=== PATIENT | male | born 1940 | race Caucasian/White ===

== ENCOUNTER → 2016-08-10 | Outpatient (CLI) | payer MEDICARE, OTHER ==
--- NOTE | 2016-08-11 12:24 | XCELERA REPORT ---
[address] [address] Upper Extremity Venous Evaluation Name: PRAFUL PUTNAM Age: 76 yrs Gender: Male : 1940 Patient Status: Preadmit Patient Location: Study Date: 08/10/2016 12:42 PM Procedure: Unilateral duplex scan of the left upper extremity veins was performed, including responses to compression and other maneuvers. Reason For Study: LUE SWELLING Ordering Physician: GEORGETTE LEUNG Performed By: Roro Ivey Left Sided Venous Evaluation Normal vessel filling wall to wall, compression and augmentation as well as Colour flow down to the infrageniculate veins. Interpretation Summary Normal compression, patency, spontaneous and phasic flow of the left upper extremity veins. : GEORGETTE LEUNG > Henry Morse
== END ==
LOC: SP 12:36
PROVIDERS: ATTEND Nurse Practitioner Acute Care
DX: M79.89 Other specified soft tissue disorders (principal)
CPT/HCPCS: 93971

== ENCOUNTER → 2017-02-07 | Outpatient (CLI) | payer MEDICARE, OTHER ==
--- NOTE | 2017-02-07 10:51 | RADIOLOGY REPORT (SQ) ---
EXAM DESCRIPTION: CT CHEST WITH COMPLETED DATE/TIME: 02/07/2017 9:20 am REASON FOR STUDY: PROSTATE CA (C61) C61 MALIGNANT NEOPLASM OF PROSTATE COMPARISON: None. TECHNIQUE: CT scan of the chest performed using helical scanning technique with dynamic intravenous contrast injection. Images reviewed with lung, soft tissue and bone windows. Reconstructed coronal and sagittal MPR images reviewed. All images stored on PACS. All CT scanners at this facility use dose modulation, iterative reconstruction, and/or weight based d osing when appropriate to reduce radiation dose to as low as reasonably achievable (ALARA). [facility]: Dose Right [facility]: CareDose [facility]: Dose Right [facility]: Teradose 4D [facility]: Smart Helios CONTRAST TYPE AND DOSE: See separate report of the same date. RENAL FUNCTION: See separate report of the same day. RADIATION DOSE: . LIMITATIONS: None. FINDINGS: LUNGS AND PLEURA: Trace right pleural effusion volume estimated less than 500 cc. No nodu les. HILAR AND MEDIASTINAL STRUCTURES: No identified masses or abnormal nodes. HEART AND VASCULAR STRUCTURES: Cardiomegaly. Pacemaker. No pericardial effusion. HARDWARE: None in the chest. UPPER ABDOMEN: See separate report of the CT of the abdomen. THYROID AND OTHER SOFT TISSUES: No masses. No adenopathy. BONES: Diffuse sclerotic metastatic lesions. No pathologic fracture. OTHER: No other significant finding. IMPRESSION: Skeletal metastasis. TECHNICAL DOCUMENTATION: JOB ID: [id number] Quality ID # 436: Final reports with documentation of one or more dose reduction techniques (e.g., Au tomated exposure control, adjustment of the mA and/or kV according to patient size, use of iterative reconstruction technique) 2010 .[employer]- All Rights Reserved
--- NOTE | 2017-02-07 11:06 | RADIOLOGY REPORT (SQ) ---
EXAM DESCRIPTION: CT ABD/PELVIS WITH IV ORAL COMPLETED DATE/TIME: 02/07/2017 9:20 am REASON FOR STUDY: PROSTATE CA (C61) C61 MALIGNANT NEOPLASM OF PROSTATE COMPARISON: CT chest same date TECHNIQUE: CT scan of the abdomen and pelvis performed using helical scanning technique with dynamic intravenous contrast injection. Patient drank oral contrast. Images reviewed with lung, soft tissue , and bone windows. Reconstructed coronal and sagittal MPR images reviewed. Delayed images for evalua tion of the urinary system also acquired. All images stored on PACS. All CT scanners at this facility use dose modulation, iterative reconstruction, and/or weight based d osing when appropriate to reduce radiation dose to as low as reasonably achievable (ALARA). [facility]: Dose Right [facility]: CareDose [facility]: Dose Right [facility]: Teradose 4D [facility]: Edico Genome CONTRAST TYPE AND DOSE: contrast/concentration: Isovue 370.00 mg/ml; Total Contrast Delivered: 91.0 ml; Total Saline Delivered: 70.0 ml RENAL FUNCTION: Creatinine 0.7 RADIATION DOSE: Up-to-date CT equipment and radiation dose reduction techniques were employed. CTDIv ol: 9.6 - 11.4 mGy. DLP: 1406 mGy-cm.. LIMITATIONS: None. FINDINGS: LOWER CHEST: Trace right pleural effusion. Large retrocardiac hiatal hernia containing th e stomach fundus. LIVER: Normal size. No masses. No dilated ducts. SPLEEN: Normal size. No focal lesions. PANCREAS: No masses. No significant calcifications. No adjacent inflammation or peripancreatic fluid collections. Pancreatic duct not dilated. GALLBLADDER: No identified stones by CT criteria. No inflammatory changes to suggest cholecystitis. ADRENAL GLANDS: No significant masses or asymmetry. RIGHT KIDNEY AND URETER: No solid masses. No significant calcifications. No hydronephrosis or hyd roureter. LEFT KIDNEY AND URETER: No solid masses. No significant calcifications. No hydronephrosis or hydr oureter. AORTA AND VESSELS: No aneurysm. No dissection. Renal arteries, SMA, celiac without stenosis. RETROPERITONEUM: No retroperitoneal adenopathy, hemorrhage or masses. BOWEL AND PERITONEAL CAVITY: Patient drank oral contrast. In the sigmoid colon, an apple-core mass i s present with luminal narrowing compatible with malignancy. This is best shown on axial image 53-62 , and sagittal images 33-45. Oral contrast is seen throughout the remainder of the gastrointestinal tract without obstruction. Th ere is a small umbilical hernia containing a nonobstructed small bowel loop, best shown on sagittal i mage 41. APPENDIX: Normal. PELVIS: Overall the prostate is normal size. However there is a 2 cm nodule protruding off the super ior edge of the prostate indenting the bladder base. No adenopathy. No free fluid. ABDOMINAL WALL: Tiny umbilical hernia containing a nonobstructed small bowel loop BONES: There are multiple sclerotic lesions throughout the skeleton from bony metastatic disease like ly from the prostate. Heavy is burden of disease is in the left innominate bone along the acetabulum , left intertrochanteric region, and at the T11 and T10 vertebral bodies. IMPRESSION: Findings worrisome for large primary colon cancer in the sigmoid colon. Sclerotic bony metastatic disease from patient's known prostate cancer. TECHNICAL DOCUMENTATION: JOB ID: [id number] Quality ID # 436: Final reports with documentation of one or more dose reduction techniques (e.g., Au tomated exposure control, adjustment of the mA and/or kV according to patient size, use of iterative reconstruction technique) 2010 [employer]- All Rights Reserved
--- NOTE | 2017-02-07 13:23 | RADIOLOGY REPORT (SQ) ---
EXAM DESCRIPTION: NM WHOLE BODY BONE SCAN COMPLETED DATE/TIME: 02/07/2017 12:28 pm REASON FOR STUDY: PROSTATE CA (C61 C61 MALIGNANT NEOPLASM OF PROSTATE COMPARISON: 03/31/2016 RADIONUCLIDE AND DOSE: 20 millicuries Tc99m HDP. The route of agent administration: Intravenous. ADDITIONAL DRUGS AND DOSES: None. TECHNIQUE: Routine delayed images at 3 hours post radionuclide injection acquired of the bony skelet on including anterior and posterior whole-body projections and additional focused images as needed. LIMITATIONS: None. FINDINGS: BONES: Images show increasing metastatic disease to bone. There are multiple lesions in t he ribs, spine, sacrum, and pelvis. New lesions are suggested in the sacrum and in the spine. KIDNEYS: Symmetric excretion without obstruction. OTHER: No other significant finding. IMPRESSION: Increasing, widespread metastatic disease to bone. COMMENT: Quality measure 147: Compared with prior nuclear medicine bone scan. TECHNICAL DOCUMENTATION: JOB ID: [id number] [employer]- All Rights Reserved
== END ==
LOC: RAD 02-05 09:32
PROVIDERS: ATTEND Internal Medicine Hematology & Oncology
DX: C61 Malignant neoplasm of prostate (principal)
CPT/HCPCS: 78306; 71260; 74177; A9561; Q9969

== ENCOUNTER 2017-02-22 06:51 | Day surgery (SDC) | payer MEDICARE, OTHER ==
[2017-02-22] MEDS ORDERED: GLYCOPYRROLATE INJ 0.4 MG/2 ML VIAL ONE (07:09)
[2017-02-22] MEDS ORDERED: ONDANSETRON HCL INJ/PF 4 MG/2 ML SDV ONE (07:09)
[2017-02-22] MEDS ORDERED: FLUMAZENIL INJ 0.5 MG/5 ML VIAL ONE (07:10)
[2017-02-22] MEDS ORDERED: NALOXONE HCL INJ/PF 0.4 MG/1 ML SDV ONE (07:10)
[2017-02-22] MEDS ORDERED: EPINEPHRINE INJ 1 MG/10 ML DISP.SYRIN ONE (07:11)
[2017-02-22] MEDS ORDERED: GLUCAGON,HUMAN RECOMB 1 MG INJ ONE (07:11)
[2017-02-22] MEDS: MIDAZOLAM 2 MG/2 ML INJ ONE ×2 (07:46→07:54)
[2017-02-22] MEDS: FENTANYL CITRATE INJ/PF 100 MCG/2 ML AMPUL ONE ×2 (07:48→07:56)
--- NOTE | 2017-02-22 09:02 | Operative Report ---
Operative Report DATE OF SURGERY: 02/22/17 PREOPERATIVE DIAGNOSIS: 1. Metastatic prostate carcinoma. 2. Correlation sigmoid colon. Postop diagnosis is. 1. obstructing rectosigmoid colon carcinoma. 2. Multiple polyps including rectum, left: A 65 cm, left: 55 cm. 3. Extensive sigmoid diverticulosis POSTOPERATIVE DIAGNOSIS: As above OPERATION: 1. Total colonoscopy to cecum. 2. Cecal, left colon 2 polypectomy. 3. Multiple biopsies of rectosigmoid carcinoma SURGEON: SANDRA VACA ANESTHESIA: Moderate Sedation TISSUE REMOVED OR ALTERED: See below for multiple mucosal biopsies and polyps COMPLICATIONS: None ESTIMATED BLOOD LOSS: Scant INTRAOPERATIVE FINDINGS: See below PROCEDURE: Obtaining informed consent the patient was taken from the preoperative holding area to the main endoscopy suite where monitoring devices were attached to the patient. Plan and surgical timeout were conducted The patient was placed in the left lateral decubitus position with knees to chest. A perianal examination was performed. There was no visible or palpable anorectal pathology. Sphincter tone was felt to be normal. The flexible adult colonoscope was advanced through the anal rectal canal, all the way to the cecum. Upon advancement of the scope to approximately 15 cm, we counted the elongated, nearly circumferential, partially obstructing rectosigmoid colon cancer. It was fungating, eroding, with areas of necrosis. Multiple photos were taken. We were able to insinuate the colonoscope past the obstruction. Appeared to extend over approximately 5 cm distance possibly up to 8 from 15 to approximately 20 cm in the anal verge. The scope was advanced all the way to the cecum; with visualization of the cecum was achieved and the ileocecal valve, the appendiceal orifice and transillumination of the anterior abdominal wall. The appendiceal orifice was also visualized whether there was a moderate amount of green and yellow particulate stool which had to be suctioned out. The cecum across from the ileocecal valve was a sessile polyp which was removed with a hot snare device medium heat. Unfortunately specimen was not retrieved successfully. The colonoscope was withdrawn slowly and methodically checked and the mucosa carefully. There were multiple areas of irregularity of the mucosa some of which resembled sessile polyps; some of these areas may have been lymphoid hyperplasia. 2 such areas were biopsied one at 65 cm from anal verge and one approximately 55 cm in the anal verge. The latter specimen was labeled as left colon polyp. Both of these areas were removed with cold forceps device. Specimens were retrieved. Throughout the sigmoid colon with extensive sigmoid diverticulosis. We now encountered the tumor in a prograde fashion. Multiple biopsies were obtained. Bleeding was moderate then stopped. The scope was slowly withdrawn through the anal rectal canal. Complete visualization of the rectum was achieved with photodocumentation. The scope was withdrawn to the patient's anus. The patient tolerated the procedure well and was taken to the recovery area in stable condition. Patient will require definitive surgical intervention pending results of pathology reports.
--- NOTE | 2017-02-22 09:04 | PDOC DISCHARGE SUMMARY ---
Discharge Summary (SDC) - Discharge Final Diagnosis: 1. Near obstructing colon carcinoma 2. Multiple colon polyps 3. Sigmoid diverticulosis Date of Surgery: 02/22/17 Discharge Date: 02/22/17 Condition: Good Treatment or Instructions: [facility] [address] [address] POST ENDOSCOPY DISCHARGE INSTRUCTIONS 1. Diet: Start clear liquids that a regular diet as tolerated. 2. Resume all preoperative medications. All oral anticoagulants and aspirins can be resumed 24 hours after procedure. 3. If a polypectomy was performed some bleeding per rectum may occur. This should stop within 3 days. If not, please contact the office. 4. If you had a colonoscopy you may experience some bloating and delayed return of normal bowel function for several days, your regular bowel movement pattern should resume within a week. 5. Please contact [facility] at to make an appointment with Dr. Porter for 1 to 3 weeks following procedure. 6. If you have any questions or concerns regarding your care,treatment plan or follow up, please contact our office. 7. She will require definitive surgical intervention for his malignancy. Referrals: JYOTI PEPE MD [Primary Care Provider] -
[2017-02-22 09:42] VITALS: BP 132/60
== END 2017-02-22 10:12 | disposition home or self-care (01) ==
LOC: END 06:51
PROVIDERS: ATTEND Surgery
PROC: 0DBP8ZX Excision of Rectum, Via Natural or Artificial Opening Endoscopic, Diagnostic (ICD-10-PCS; 2017-02-22)
PROC: 0DBG8ZX Excision of Left Large Intestine, Via Natural or Artificial Opening Endoscopic, Diagnostic (ICD-10-PCS; principal; 2017-02-22 07:30)
PROC: 0DBN8ZX Excision of Sigmoid Colon, Via Natural or Artificial Opening Endoscopic, Diagnostic (ICD-10-PCS; 2017-02-22 07:30)
DX: C19 Malignant neoplasm of rectosigmoid junction (principal); K57.30 Diverticulosis of large intestine without perforation or abscess without bleeding; D12.0 Benign neoplasm of cecum; K63.5 Polyp of colon; K62.5 Hemorrhage of anus and rectum; C61 Malignant neoplasm of prostate; R00.1 Bradycardia, unspecified; Z95.0 Presence of cardiac pacemaker; Z79.899 Other long term (current) drug therapy
CPT/HCPCS: 45380; 45385; 88305 ×2; J2250; J3010; J0171; J1610; J2310; J2405; J3490

== ENCOUNTER 2017-03-21 05:33 | Inpatient (IN) | payer MEDICARE, OTHER ==
[2017-03-14 12:01] LABS: ABSOLUTE LYMPHOCYTES (AUTO) 1.5 10^3/uL (0.5-4.7); ABSOLUTE MONOCYTES (AUTO) 1.4 10^3/uL (0.1-1.4); ABSOLUTE NEUT (AUTO) 7.3 10^3/uL (1.7-8.2); BASOPHILS % (AUTO) 0.3 % (0-2); EOSINOPHILS % (AUTO) 0.3 % (0-6); HEMATOCRIT 32.7 % (37.9-51.0); HEMOGLOBIN 11.4 g/dL (13.5-17.0); HGB HCT DIFFERENCE 1.5; MEAN CORPUSCULAR HEMOGLOBIN 31.7 pg (27.0-33.4); MEAN CORPUSCULAR VOLUME 90 fl (80-97); MONOCYTES % (AUTO) 13.3 % (3-13); RED BLOOD COUNT 3.61 10^6/uL (4.35-5.55); RED CELL DISTRIBUTION WIDTH 14.5 % (11.5-14.0); SEGMENTED NEUTROPHILS % (AUTO) 71.1 % (42-78); WHITE BLOOD COUNT 10.2 10^3/uL (4.0-10.5)
[2017-03-14 12:24] LABS: ANION GAP 8 (5-19); BLOOD UREA NITROGEN 8 mg/dL (7-20); CALCIUM 9.3 mg/dL (8.4-10.2); CARBON DIOXIDE 31 mmol/L (22-30); CHLORIDE 96 mmol/L (98-107); CREATININE RESULT 0.59 mg/dL (0.52-1.25); GLUCOSE 102 mg/dL (75-110); POTASSIUM 4.8 mmol/L (3.6-5.0); SODIUM 135.3 mmol/L (137-145)
--- NOTE | 2017-03-15 21:44 | EKG REPORT ---
SEVERITY:- ABNORMAL ECG - AFIB/FLUTTER AND VENTRICULAR-PACED RHYTHM : Confirmed by: Susanne Felipe 15-Mar-2017 21:44:24
[~2017-03-21 05:33] MED LIST: CEFAZOLIN 1 GM/D5W RTU 1 GM/50 ML RTUPB IV PRN
[2017-03-21] MEDS ORDERED: FENTANYL CITRATE INJ/PF 250 MCG/5 ML AMPULE ONE (06:36)
[2017-03-21] MEDS ORDERED: LIDOCAINE 2% INJ-PF (20 MG/ML) 10 ML AMPUL ONE (06:36)
[2017-03-21] MEDS ORDERED: MIDAZOLAM 2 MG/2 ML INJ ONE (06:37)
[2017-03-21] MEDS ORDERED: EPHEDRINE SULFATE INJ 50 MG/1 ML AMPULE ONE (06:37)
[2017-03-21] MEDS ORDERED: ONDANSETRON HCL INJ/PF 4 MG/2 ML SDV ONE (06:37)
[2017-03-21] MEDS ORDERED: DEXAMETHASONE SOD PHOSPHATE INJ 4 MG/1 ML VIAL ONE (06:37)
[2017-03-21] MEDS ORDERED: HYDROMORPHONE HCL INJ/PF 2 MG/ML AMPULE ONE (06:37)
[2017-03-21] MEDS ORDERED: PROPOFOL INJ 200 MG/20 ML VIAL IV ONE (06:38)
[2017-03-21] MEDS ORDERED: ACETAMINOPHEN 100 ML IV ONE (06:38)
[2017-03-21] MEDS ORDERED: BUPIVACAINE INJ/PF LIPOSOME/PF 266 MG/20 ML SDV ONE (06:50)
[2017-03-21] MEDS ORDERED: BUPIVACAINE HCL 0.25 % INJ/PF (2.5 MG/1 ML) 30 ML VIAL ONE (06:50)
[2017-03-21] MEDS ORDERED: ONDANSETRON HCL INJ/PF 4 MG/2 ML SDV IV PRN ×2 (08:26→10:16)
[2017-03-21] MEDS ORDERED: PROMETHAZINE HCL INJ 25 MG/1 ML VIAL IV PRN ×2 (08:26)
[2017-03-21] MEDS ORDERED: OXYCODONE-ACETAMINOPHEN 5-325 MG TABLET PO PRN ×2 (08:26)
[2017-03-21] MEDS ORDERED: FENTANYL CITRATE INJ/PF 100 MCG/2 ML AMPUL IV PRN ×3 (08:26)
[2017-03-21] MEDS ORDERED: MORPHINE SULFATE 10 MG/ML INJ IV PRN (08:26)
[2017-03-21] MEDS ORDERED: MEPERIDINE HCL/PF INJ 25 MG/1 ML DISP.SYRIN IV PRN (08:26)
[2017-03-21] MEDS ORDERED: DIPHENHYDRAMINE HCL 50 MG/ML VIAL IV PRN (08:26)
[2017-03-21] MEDS ORDERED: GLUCAGON,HUMAN RECOMB 1 MG INJ SUBCUT PRN (09:55)
[2017-03-21] MEDS ORDERED: DEXTROSE 40% GEL 15 GM TUBE PO PRN ×2 (09:55)
[2017-03-21] MEDS ORDERED: DEXTROSE 50%-WATER 25 GM/50 ML DISP.SYRIN IV PRN ×2 (09:55)
[2017-03-21] MEDS ORDERED: PHARMACY COMMUNICATION ORDER MC NR (10:00)
[2017-03-21] MEDS ORDERED: KETOROLAC TROMETHAMINE INJ/PF 30 MG/1 ML SDV IV PRN (10:00)
--- NOTE | 2017-03-21 10:11 | Operative Report ---
Operative Report DATE OF SURGERY: 03/21/17 PREOPERATIVE DIAGNOSIS: 1. Near obstructing upper rectal cancer. 2. Metastatic prostate carcinoma POSTOPERATIVE DIAGNOSIS: Same OPERATION: 1. Exploratory laparotomy. 2. Low anterior resection. 3. Descending colostomy with maturation SURGEON: SANDRA ORDONEZ CLAM TREADER: CHICO DOWNEY ANESTHESIA: GA TISSUE REMOVED OR ALTERED: Rectosigmoid colon. COMPLICATIONS: None ESTIMATED BLOOD LOSS: 100 cc he INTRAOPERATIVE FINDINGS: See below PROCEDURE: The patient was taken to the preop holding her to the main operating room where general anesthesia was induced. Arms were abducted, Davis catheter was inserted uneventfully clear yellow urine returned. The abdomen was exposed, hair clipped, prepped and draped sterile fashion. Surgical plan and surgical timeout were reviewed. The abdomen was opened through standard midline incision above and below the umbilicus taken down to the suprapubic area. The peritoneal cavity was entered uneventfully and a Bookwalter retractor was established for optimum exposure. Visualization of peritoneal cavity and careful manual inspection revealed a large bulky upper rectal tumor, with adhesions between the sigmoid junction and the right wall. Is no evidence of carcinomatosis. By limited visual and manual inspection, the right lobe of the liver left lobe anterior surface of the stomach, greater omentum, and small bowel no evidence of metastatic disease. We secured the retractors to optimize exposure to the patient's pelvis. With rectosigmoid colon swept to the patient's right side, we opened up the white line of Toldt, and the rectosigmoid mesial colon from the left posterior posterior lateral pelvic wall. The plane very cleanly. We took the level of dissection the mid to proximal descending colon. The splenic flexure was not mobilized. Distally we took the level dissection down over the pelvic brim down into the true pelvis and then down to the peritoneal reflection, again opening up the tinea uneventfully. Note the retroperitoneum deep to this was not opened. We did visualize the mid first of the left ureter throughout the dissection and protected. We then divided the scirrhous reaction between the pericolonic tissue and the lateral pelvic wall. This was done using a combination of blunt and electrocautery dissection. Once this was achieved, the rectosigmoid colon was loose and floppy in the free peritoneal space. We divided the rectum and sigmoid mesial colon are selected point of transection of the descending colon down to the true pelvis and towards the peritoneal reflection, then joining our previous line of dissection cheerier to the upper rectum. Again on the patient' s right mesial colonic side there was Daniel changes, but these were felt secondary to the inflammatory process of the large bulky tumor and not tito malignancy. Suitable site for transection of the descending colon was chosen. The ascending colon was transected with a single firing of the blue load, RUDI 55 stapler. The attendant colonic mesentery was taken down using the LigaSure handheld device with excellent control and minimal bleeding. We will likely distal to the main main left colic artery however this was difficult to discern because the thick fatty nature of the mesial colon. The level of dissection down to the sacral promontory and then down by the upper rectum. Now the level of dissection was taken down again using the device dividing the inferior lateral right and left side ocular pedicles to the upper rectum. Fortunately some in mobilized very nicely and we able to get distal purchase on the mid rectum elevating it with the specimen. We cleared the pericolonic fat and chose suitable site for division of the rectum several centimeters distal to the inferior end of the tumor based on luminal palpation. Again the tumor was principally in the upper rectum and so we are about to divide the rectum at its transition to the mid rectum. He was thereby affected using a single firing of the contour Ethicon stapler, 45 mm. Transected, the specimen was elevated out of the patient examined on the back table, opened longitudinally and inspected and found to have a near obstructing rectal cancer. We changed gloves gowns and return to the peritoneal cavity checked for bleeding there was none. Again inspected the left ureter and it was in great shape. The right ureter likely to the scirrhous maturity peritoneum which we opted not to dissected out. The patient was making excellent urine without evidence of hematuria. We felt the pelvis was safe for departure. We now mobilized little bit more of the white line of Toldt freeing up the descending colon. A suitable site for maturation of the colostomy was identified, left lateral to the umbilicus. Plug of skin was removed with electrocautery, as well as the attendant is fat. A longitudinal incision was made in the anterior and posterior rectus sheath and a myotomy made bluntly. This was developed large enough to accommodate to adult fingers. We then brought the descending colon up to the intra-abdominal wall checking care not to twist it. We Were very satisfied with the leg, configuration, and vascularity of the table gland. This point we check for sponge and needle counts and they were all correct. We reexamined the pelvis and there is no bleeding. We opted out of placing a drain. The abdomen was closed with 2 double-stranded #1 PDS sutures and skin approximated with teresa. Of note we did change instruments gloves prior to closing the midline incision We now matured the ostomy by stapler with electrocautery, and maturing full- thickness of bowel wall to surrounding dermis with 3 and 4-0 Vicryl suture. I reinspected the knee by manually digitizing it and I was satisfied with the degree of opening as it was not too tight. I did by the anterior rectus fascia laterally millimeters to reduce tension here. Exparel, diluted 100% total volume of 40 cc was injected into the subcutaneous tissue and left of midline incision. Ostomy appliance midline dressings applied. Patient tolerated the procedure well, extubated, and taken recovery room in stable condition. The physician retirement assistant, Ms. Worthington, provided assistance during this case by: assisting retracting tissue, instillation of local anesthesia and closure of skin incisions.
[2017-03-21] MEDS ORDERED: OXYCODONE-ACETAMINOPHEN 5-325 MG TABLET NG PRN ×2 (11:00)
[2017-03-21] MEDS ORDERED: GLYCOPYRROLATE INJ 0.4 MG/2 ML VIAL ONE (12:19)
[2017-03-21] MEDS ORDERED: SUCCINYLCHOLINE CHLORIDE INJ 200 MG/10 ML VIAL ONE (12:19)
[2017-03-21] MEDS ORDERED: NEOSTIGMINE METHYLSULFATE 10 MG/10 ML VIAL ONE (12:19)
[2017-03-21] MEDS ORDERED: VECURONIUM BROMIDE INJ 10 MG VIAL IV ONE (12:19)
[2017-03-21] MEDS: ENOXAPARIN SODIUM INJ 40 MG/0.4 ML DISP.SYRIN SUBCUT SCH (13:37)
[2017-03-21] MEDS: AMPICILLIN SODIUM/SULBACTAM NA 3 GM in NORMAL SALINE 100 ML IV SCH ×2 (14:25→22:35)
[2017-03-21] MEDS: DEXTROSE 5%-LACTATED RINGERS 1,000 ML IV PRN (14:28)
[2017-03-21] MEDS: ACETAMINOPHEN 100 ML IV SCH ×2 (17:46→23:43)
[2017-03-22] MEDS: ACETAMINOPHEN 100 ML IV SCH (05:27)
[2017-03-22] MEDS: AMPICILLIN SODIUM/SULBACTAM NA 3 GM in NORMAL SALINE 100 ML IV SCH (06:12)
[2017-03-22] MEDS: ENOXAPARIN SODIUM INJ 40 MG/0.4 ML DISP.SYRIN SUBCUT SCH (10:32)
--- NOTE | 2017-03-22 12:46 | PDOC PROGRESS REPORT ---
Subjective Progress Note for:: 03/22/17 Subjective:: Patient is sitting in the chair, walked today in the halls with assistance. Davis catheter remains in. Nasogastric tube removed. He is drawing 1200 on the incentive spirometer, and can cough reasonably well. Physical Exam Vital Signs: Temp Pulse Resp BP Pulse Ox 97.6 F 70 15 97/47 L 98 03/22/17 07:33 03/22/17 07:33 03/22/17 07:33 03/22/17 07:33 03/22/17 11:46 Pulse Oximeter Continuous Start: 03/21/17 16: 23 Freq: RTQ4 Status: Active Document 03/22/17 11:46 HCR (Rec: 03/22/17 11:46 HCR [email or web address]) Pulse Oximetry Assessment Oxygen Saturation (92-100) 98 Oxygen Delivery Method Room Air Fraction of Inspired Oxygen (FIO2) 21 Equipment Usage Equipment in Use Continuous SpO2 Machine # 14 Intake & Output 03/21/17 03/22/17 03/23/17 06:59 06:59 06:59 Intake Total 0 4400 Output Total 1900 Balance 0 2500 Weight 88.7 kg General appearance: PRESENT: no acute distress Head exam: PRESENT: other Respiratory exam: PRESENT: other - Some rhonchi bilaterally GI/Abdominal exam: PRESENT: other - Soft nontender no peritoneal signs no rigidity. Postoperative dressing intact. Ostomy pink, no fluid or gas. Results Laboratory Results: 03/14/17 11:20 03/21/17 05:58 Assessment & Plan - Diagnosis (1) Rectal carcinoma Is this a current diagnosis for this admission?: Yes Plan: Patient is one day status post open low anterior resection, Artman's pouch and descending diverting colostomy. Doing well thus far, no complications. Pain appropriately managed. Await resolution of ileus. Plan: 1. Continue vigorous pulmonary toilet 2. Will recruit Dr. Smith and hospitalist service to assist with medical management including timing of resumption of diuretics. 3. Patient has a history of nocturia and frequency; will leave Davis catheter in for now. (2) Metastatic malignant neoplasm to prostate Is this a current diagnosis for this admission?: Yes Plan: We will discuss management of patient's anti-hormonal therapy with his medical oncologist. - Time Time Spent with patient: 15-24 minutes Critical Time spent with patient: Less than 15 minutes
[2017-03-22] MEDS ORDERED: KETOROLAC TROMETHAMINE INJ/PF 30 MG/1 ML SDV IV PRN (13:50)
--- NOTE | 2017-03-22 17:55 | PDOC CONSULTATION ---
Consultation Consult Date: 03/22/17 Attending physician:: SANDRA VACA Consult reason:: Timing of when to start back diuretic therapy. History of Present Illness Admission Date/PCP: 03/21/17 05:33 JYOTI PEPE MD Patient complains of: Patient just had a colon resection yesterday for a colon cancer. History of Present Illness: PRAFUL PUTNAM is a 77 year old male who had a colon resection and surgery service asked us to managehis diuretic therapy. The patient was recently diagnosed with a near obstructing colon lesion and presented for partial colectomy. Patient also has a history of prostate cancer that is metastatic for which she has been getting injectable hormonal therapy. Patient has been on diuretics and I asked him if this was for his blood pressure and he states he just takes it for lower extremity edema. He denies having any history of congestive heart failure. He denies any shortness of breath or cough. The patient does have some complaints of abdominal pain but he is able to walk down the hallway without difficulty. He denies any chest pain. He does have chronic lower extremity edema but currently has SCDs in place. Past Medical History Cardiac Medical History: Denies: Congestive Heart Failure, Coronary Artery Disease, Myocardial Infarction, Hypertension Pulmonary Medical History: Denies: Asthma, Bronchitis, Chronic Obstructive Pulmonary Disease (COPD), Pneumonia EENT Medical History: Reports: Cataracts Neurological Medical History: Reports: None Renal/ Medical History: Denies: End Stage Renal Disease GI Medical History: Reports: Gastroesophageal Reflux Disease, Hiatal Hernia Denies: Crohn's Disease, Hepatitis Musculoskeltal Medical History: Reports: Arthritis Denies: Fibromyalgia Skin Medical History: Reports: None Psychiatric Medical History: Reports: None Traumatic Medical History: Reports: None Hematology: Reports: Anemia Denies: Sickle Cell Disease Infectious Medical History: Reports: None Past Surgical History Past Surgical History: Reports: Pacemaker Denies: Appendectomy, Cholecystectomy, Colostomy, Coronary Artery Bypass Graft, Gastric Bypass Surgery, Herniorrhaphy, Tonsillectomy Social History Information Source: Patient Lives with: Alone Smoking Status: Never Smoker Frequency of Alcohol Use: Occasional Hx Recreational Drug Use: No Drugs: None Hx Prescription Drug Abuse: No - Advance Directive Resuscitation Status: Full Code Family History Family History: Father's health history is unknown. Mother at age 92 and had no chronic health problems prior to her . Parental Family History Reviewed: Yes Children Family History Reviewed: No Sibling(s) Family History Reviewed.: No Medication/Allergy Home Medications: Furosemide [Lasix 20 mg Tablet] 20 mg PO DAILY 02/21/17 Enzalutamide [Xtandi] 160 mg PO DAILY 03/14/17 Metolazone 5 mg PO DAILY 03/14/17 Spironolactone 25 mg PO DAILY 03/14/17 Calcium Carbonate/Vitamin D3 [Oyster Shell Calcium-Vit D Tab] 1 tab PO DAILY 01/28 Allergies/Adverse Reactions: No Known Allergies Allergy (Verified 03/14/17 10:48) Review of Systems Constitutional: ABSENT: chills, fever(s), headache(s), weight gain, weight loss Eyes: ABSENT: visual disturbances Ears: ABSENT: hearing changes Cardiovascular: PRESENT: edema. ABSENT: chest pain, dyspnea on exertion, orthropnea, palpitations Respiratory: ABSENT: cough, hemoptysis Gastrointestinal: PRESENT: as per HPI Genitourinary: ABSENT: dysuria, hematuria Musculoskeletal: ABSENT: joint swelling Integumentary: ABSENT: rash, wounds Neurological: ABSENT: abnormal gait, abnormal speech, confusion, dizziness, focal weakness, syncope Psychiatric: ABSENT: anxiety, depression Hematologic/Lymphatic: ABSENT: easy bleeding, easy bruising Physical Exam Vital Signs: Temp Pulse Resp BP Pulse Ox 97.6 F 71 18 124/60 100 03/22/17 16:02 03/22/17 16:02 03/22/17 16:02 03/22/17 16:02 03/22/17 16:02 Pulse Oximeter Continuous Start: 03/21/17 16: 23 Freq: RTQ4 Status: Active Document 03/22/17 16:01 HCR (Rec: 03/22/17 16:02 HCR [email or web address]) Pulse Oximetry Assessment Oxygen Saturation (92-100) 98 Oxygen Delivery Method Room Air Fraction of Inspired Oxygen (FIO2) 21 Equipment Usage Equipment in Use Continuous SpO2 Machine # 14 Intake & Output 03/21/17 03/22/17 03/23/17 06:59 06:59 06:59 Intake Total 0 4400 Output Total 1900 200 Balance 0 2500 -200 Weight 88.7 kg General appearance: PRESENT: no acute distress, well-developed, well-nourished Head exam: PRESENT: atraumatic, normocephalic Eye exam: PRESENT: conjunctiva pink, EOMI, PERRLA. ABSENT: scleral icterus Ear exam: PRESENT: normal external ear exam Mouth exam: PRESENT: moist, tongue midline Neck exam: ABSENT: carotid bruit, JVD, lymphadenopathy, thyromegaly Respiratory exam: PRESENT: rales - Rales in the right upper lobe that clear with coughing.. ABSENT: rhonchi, wheezes Cardiovascular exam: PRESENT: RRR. ABSENT: diastolic murmur, rubs, systolic murmur GI/Abdominal exam: PRESENT: other - Dressing in place on the abdominal wound. Rectal exam: PRESENT: deferred Extremities exam: PRESENT: other - Patient has SCDs in place.. ABSENT: calf tenderness, clubbing, pedal edema Neurological exam: PRESENT: alert, awake, oriented to person, oriented to place , oriented to time, oriented to situation, CN II-XII grossly intact. ABSENT: motor sensory deficit Psychiatric exam: PRESENT: appropriate affect Skin exam: PRESENT: dry, intact, warm. ABSENT: cyanosis, rash Results Laboratory Results: 03/14/17 11:20 03/21/17 05:58 Assessment & Plan - Diagnosis (1) Metastatic malignant neoplasm to prostate Is this a current diagnosis for this admission?: Yes Plan: The patient has been on hormonal therapy prior to this admission. (2) Rectal carcinoma Is this a current diagnosis for this admission?: Yes Plan: The patient has had a colon resection. He still has not passed flatus. (3) Edema Is this a current diagnosis for this admission?: Yes Plan: The patient reports taking the diuretics for lower extremity edema. He denies any history of hypertension. He denies any congestive heart failure symptoms. Would continue to hold these diuretics as long as she is not having shortness of breath. No evidence for congestive heart failure. Will continue to follow along closely with you. - Time Time Spent: 30 to 50 Minutes
[2017-03-22] MEDS: MORPHINE SULFATE 10 MG/ML INJ IV PRN (23:46)
[2017-03-23 05:10] LABS: ABSOLUTE LYMPHOCYTES (AUTO) 1.7 10^3/uL (0.5-4.7); ABSOLUTE MONOCYTES (AUTO) 0.8 10^3/uL (0.1-1.4); ABSOLUTE NEUT (AUTO) 6.1 10^3/uL (1.7-8.2); BASOPHILS % (AUTO) 0.2 % (0-2); EOSINOPHILS % (AUTO) 0.3 % (0-6); HEMATOCRIT 30.2 % (37.9-51.0); HEMOGLOBIN 10.7 g/dL (13.5-17.0); HGB HCT DIFFERENCE 1.9; LYMPHOCYTES % (AUTO) 19.5 % (13-45); MEAN CORPUSCULAR HEMOGLOBIN 31.7 pg (27.0-33.4); MEAN CORPUSCULAR HGB CONC 35.4 g/dL (32.0-36.0); MEAN CORPUSCULAR VOLUME 90 fl (80-97); MONOCYTES % (AUTO) 9.5 % (3-13); RED BLOOD COUNT 3.37 10^6/uL (4.35-5.55); RED CELL DISTRIBUTION WIDTH 14.6 % (11.5-14.0); SEGMENTED NEUTROPHILS % (AUTO) 70.5 % (42-78); WHITE BLOOD COUNT 8.6 10^3/uL (4.0-10.5)
[2017-03-23 05:27] LABS: BLOOD UREA NITROGEN 7 mg/dL (7-20); CALCIUM 7.6 mg/dL (8.4-10.2); CREATININE RESULT 0.45 mg/dL (0.52-1.25); GLUCOSE 121 mg/dL (75-110)
[2017-03-23 05:28] LABS: ANION GAP 5 (5-19); CARBON DIOXIDE 31 mmol/L (22-30); CHLORIDE 101 mmol/L (98-107); MAGNESIUM 1.8 mg/dL (1.6-2.3); POTASSIUM 3.2 mmol/L (3.6-5.0); SODIUM 136.7 mmol/L (137-145)
[2017-03-23] MEDS: POTASSI CL 20 MEQ/50 ML RIDER 20 MEQ/50 ML RTUPB IV SCH ×2 (07:59→14:12)
--- NOTE | 2017-03-23 09:45 | PDOC PROGRESS REPORT ---
Subjective Progress Note for:: 03/23/17 Subjective:: Patient denies any complaints. Physical Exam Vital Signs: Temp Pulse Resp BP Pulse Ox 97.4 F 70 20 99/57 L 95 03/23/17 07:29 03/23/17 07:29 03/23/17 07:29 03/23/17 07:29 03/23/17 07:29 Pulse Oximeter Continuous Start: 03/21/17 16: 23 Freq: RTQ4 Status: Active Document 03/23/17 03:57 EAL (Rec: 03/23/17 04:26 EAL [email or web address]) Pulse Oximetry Assessment Oxygen Saturation (92-100) 95 Oxygen Delivery Method Room Air Fraction of Inspired Oxygen (FIO2) 21 Equipment Usage Equipment in Use Continuous SpO2 Machine # [id number] Intake & Output 03/22/17 03/23/17 03/24/17 06:59 06:59 06:59 Intake Total 4400 2400 Output Total 1900 950 Balance 2500 1450 Weight 88.7 kg 86.5 kg General appearance: PRESENT: no acute distress Eye exam: PRESENT: conjunctiva pink. ABSENT: scleral icterus Mouth exam: PRESENT: moist, tongue midline Neck exam: ABSENT: JVD Respiratory exam: PRESENT: clear to auscultation zach. ABSENT: rales, rhonchi, wheezes Cardiovascular exam: PRESENT: RRR. ABSENT: diastolic murmur, rubs, systolic murmur GI/Abdominal exam: PRESENT: normal bowel sounds, soft, other - Surgical site intact with no drainage.. ABSENT: distended, guarding, mass, organolmegaly, rebound, tenderness Extremities exam: PRESENT: other - SCDs in place.. ABSENT: calf tenderness, clubbing, pedal edema Neurological exam: PRESENT: alert, awake, oriented to person, oriented to place , oriented to time, oriented to situation, CN II-XII grossly intact. ABSENT: motor sensory deficit Psychiatric exam: PRESENT: appropriate affect Skin exam: PRESENT: dry, intact, warm. ABSENT: cyanosis, rash Results Laboratory Results: 03/23/17 04:26 03/23/17 04:26 03/23/17 03/23/17 04:26 04:26 WBC 8.6 RBC 3.37 L Hgb 10.7 L Hct 30.2 L MCV 90 MCH 31.7 MCHC 35.4 RDW 14.6 H Plt Count 291 Seg Neutrophils % 70.5 Lymphocytes % 19.5 Monocytes % 9.5 Eosinophils % 0.3 Basophils % 0.2 Absolute Neutrophils 6.1 Absolute Lymphocytes 1.7 Absolute Monocytes 0.8 Absolute Eosinophils 0.0 Absolute Basophils 0.0 Sodium 136.7 L Potassium 3.2 L Chloride 101 Carbon Dioxide 31 H Anion Gap 5 BUN 7 Creatinine 0.45 L Est GFR ( Amer) > 60 Est GFR (Non-Af Amer) > 60 Glucose 121 H Calcium 7.6 L Magnesium 1.8 Assessment & Plan - Diagnosis (1) Metastatic malignant neoplasm to prostate Is this a current diagnosis for this admission?: Yes Plan: The patient has been on hormonal therapy prior to this admission. (2) Rectal carcinoma Is this a current diagnosis for this admission?: Yes Plan: The patient has had a colon resection. Patient has passed flatus overnight. (3) Edema Is this a current diagnosis for this admission?: Yes Plan: The patient reports taking the diuretics for lower extremity edema. He denies any history of hypertension. He denies any congestive heart failure symptoms. Would continue to hold these diuretics as long as she is not having shortness of breath. No evidence for congestive heart failure. Will continue to follow along closely with you. (4) Hypokalemia Is this a current diagnosis for this admission?: Yes Plan: Will replace and monitor. - Time Time Spent with patient: 25-34 minutes - Inpatient Certification Medical Necessity: Need Close Monitoring Due to Risk of Patient Decompensation
[2017-03-23] MEDS: ENOXAPARIN SODIUM INJ 40 MG/0.4 ML DISP.SYRIN SUBCUT SCH (09:58)
[2017-03-23] MEDS: DEXTROSE 5%-LACTATED RINGERS 1,000 ML IV PRN (12:33)
[2017-03-23] MEDS ORDERED: POTASSIUM CHLORIDE 20 MEQ/50 ML RTU IV ONE (13:15)
--- NOTE | 2017-03-23 16:48 | PDOC PROGRESS REPORT ---
Subjective Progress Note for:: 03/23/17 Subjective:: Postop day #2. Denies any pains. Physical Exam Vital Signs: Temp Pulse Resp BP Pulse Ox 97.7 F 70 20 120/56 L 99 03/23/17 13:00 03/23/17 14:00 03/23/17 13:00 03/23/17 13:00 03/23/17 13:00 Pulse Oximeter Continuous Start: 03/21/17 16: 23 Freq: RTQ4 Status: Active Document 03/23/17 12:00 [facility] (Rec: 03/23/17 12:16 J [email or web address]) Pulse Oximetry Assessment Oxygen Saturation (92-100) 96 Oxygen Delivery Method Room Air Fraction of Inspired Oxygen (FIO2) 21 Equipment Usage Equipment in Use Continuous SpO2 Machine # 14 Intake & Output 03/22/17 03/23/17 03/24/17 06:59 06:59 06:59 Intake Total 4400 2400 0 Output Total 1900 950 200 Balance 2500 1450 -200 Weight 88.7 kg 86.5 kg Exam: Abdomen is soft nontender. Colostomy not functioning yet but viable. Results Laboratory Results: 03/23/17 04:26 03/23/17 04:26 03/23/17 03/23/17 04:26 04:26 WBC 8.6 RBC 3.37 L Hgb 10.7 L Hct 30.2 L MCV 90 MCH 31.7 MCHC 35.4 RDW 14.6 H Plt Count 291 Seg Neutrophils % 70.5 Lymphocytes % 19.5 Monocytes % 9.5 Eosinophils % 0.3 Basophils % 0.2 Absolute Neutrophils 6.1 Absolute Lymphocytes 1.7 Absolute Monocytes 0.8 Absolute Eosinophils 0.0 Absolute Basophils 0.0 Sodium 136.7 L Potassium 3.2 L Chloride 101 Carbon Dioxide 31 H Anion Gap 5 BUN 7 Creatinine 0.45 L Est GFR ( Amer) > 60 Est GFR (Non-Af Amer) > 60 Glucose 121 H Calcium 7.6 L Magnesium 1.8 Assessment & Plan - Time Time Spent with patient: 15-24 minutes - Inpatient Certification Medical Necessity: Need For IV Fluids, Need for Pain Control, Need for IV Antibiotics - Plan Summary Plan Summary: #1 continue n.p.o. 2. Monitor lab. 3. Monitor for colostomy function and once it starts passing gas then will start him on the liquid diet.
[2017-03-23] MEDS: MORPHINE SULFATE 10 MG/ML INJ IV PRN (20:15)
[2017-03-24 05:03] LABS: ABSOLUTE BASOPHILS # (AUTO) 0.1 10^3/uL (0.0-0.2); ABSOLUTE EOSINOPHILS # (AUTO) 0.1 10^3/uL (0.0-0.6); ABSOLUTE LYMPHOCYTES (AUTO) 1.3 10^3/uL (0.5-4.7); ABSOLUTE MONOCYTES (AUTO) 0.9 10^3/uL (0.1-1.4); ABSOLUTE NEUT (AUTO) 5.2 10^3/uL (1.7-8.2); BASOPHILS % (AUTO) 0.7 % (0-2); EOSINOPHILS % (AUTO) 0.8 % (0-6); HEMATOCRIT 34.2 % (37.9-51.0); HEMOGLOBIN 11.7 g/dL (13.5-17.0); HGB HCT DIFFERENCE 0.9; LYMPHOCYTES % (AUTO) 17.8 % (13-45); MEAN CORPUSCULAR HEMOGLOBIN 30.8 pg (27.0-33.4); MEAN CORPUSCULAR HGB CONC 34.2 g/dL (32.0-36.0); MEAN CORPUSCULAR VOLUME 90 fl (80-97); MONOCYTES % (AUTO) 11.5 % (3-13); RED BLOOD COUNT 3.79 10^6/uL (4.35-5.55); RED CELL DISTRIBUTION WIDTH 14.6 % (11.5-14.0); SEGMENTED NEUTROPHILS % (AUTO) 69.2 % (42-78); WHITE BLOOD COUNT 7.5 10^3/uL (4.0-10.5)
[2017-03-24 05:25] LABS: BLOOD UREA NITROGEN 7 mg/dL (7-20); CALCIUM 7.5 mg/dL (8.4-10.2); CARBON DIOXIDE 32 mmol/L (22-30); CREATININE RESULT 0.48 mg/dL (0.52-1.25); GLUCOSE 142 mg/dL (75-110); POTASSIUM 3.3 mmol/L (3.6-5.0)
[2017-03-24 05:35] LABS: CHLORIDE 102 mmol/L (98-107); SODIUM 137.3 mmol/L (137-145)
[2017-03-24 05:39] LABS: ANION GAP 3 (5-19)
[2017-03-24] MEDS: MORPHINE SULFATE 10 MG/ML INJ IV PRN (08:48)
[2017-03-24] MEDS: DEXTROSE 5%-LACTATED RINGERS 1,000 ML IV PRN ×2 (09:58→21:31)
[2017-03-24] MEDS: ENOXAPARIN SODIUM INJ 40 MG/0.4 ML DISP.SYRIN SUBCUT SCH (09:58)
[2017-03-24] MEDS: POTASSI CL 20 MEQ/50 ML RIDER 20 MEQ/50 ML RTUPB IV SCH ×2 (09:58→12:20)
[2017-03-24] MEDS ORDERED: (PENDING PHARMACY ID) (Calcium Carbonate/Vitamin D3 [Oyster Shell 500-Vit D3 200 Tb] 1 TAB PO SCH (10:00)
[2017-03-24] MEDS ORDERED: METOLAZONE 5 MG TABLET PO SCH (10:00)
[2017-03-24] MEDS ORDERED: (PENDING PHARMACY ID) (Enzalutamide [Xtandi] 160 MG) PO SCH (10:00)
[2017-03-24] MEDS: FUROSEMIDE 20 MG TABLET PO SCH (10:03)
[2017-03-24] MEDS: CHOLECALCIFEROL (D3) 400 UNIT TABLET PO SCH (10:03)
[2017-03-24] MEDS: SPIRONOLACTONE 25 MG TABLET PO SCH (10:05)
[2017-03-24] MEDS: CALCIUM CARBONATE 500 MG TABLET PO SCH (10:06)
--- NOTE | 2017-03-24 10:52 | PDOC PROGRESS REPORT ---
Subjective Progress Note for:: 03/24/17 Subjective:: Patient denies any complaints. Physical Exam Vital Signs: Temp Pulse Resp BP Pulse Ox 97.5 F 69 20 154/69 H 100 03/24/17 07:22 03/24/17 07:22 03/24/17 07:22 03/24/17 07:22 03/24/17 07:22 Pulse Oximeter Continuous Start: 03/21/17 16: 23 Freq: RTQ4 Status: Active Document 03/24/17 04:37 EAL (Rec: 03/24/17 04:54 EAL [email or web address]) Pulse Oximetry Assessment Oxygen Saturation (92-100) 96 Oxygen Delivery Method Room Air Fraction of Inspired Oxygen (FIO2) 21 Equipment Usage Equipment in Use Continuous SpO2 Machine # 14 Intake & Output 03/23/17 03/24/17 03/25/17 06:59 06:59 06:59 Intake Total 2400 2200 Output Total 950 390 Balance 1450 1810 Weight 86.5 kg General appearance: PRESENT: no acute distress Eye exam: PRESENT: conjunctiva pink. ABSENT: scleral icterus Mouth exam: PRESENT: moist, tongue midline Neck exam: ABSENT: JVD Respiratory exam: PRESENT: clear to auscultation zach. ABSENT: rales, rhonchi, wheezes Cardiovascular exam: PRESENT: RRR. ABSENT: diastolic murmur, rubs, systolic murmur GI/Abdominal exam: PRESENT: normal bowel sounds, soft, other - Midline surgical wound with no drainage.. ABSENT: distended, guarding, mass, organolmegaly, rebound, tenderness Extremities exam: ABSENT: calf tenderness, clubbing, pedal edema Neurological exam: PRESENT: alert, awake, oriented to person, oriented to place , oriented to time, oriented to situation, CN II-XII grossly intact. ABSENT: motor sensory deficit Results Laboratory Results: 03/24/17 04:08 03/24/17 04:08 03/24/17 03/24/17 04:08 04:08 WBC 7.5 RBC 3.79 L Hgb 11.7 L Hct 34.2 L MCV 90 MCH 30.8 MCHC 34.2 RDW 14.6 H Plt Count 335 Seg Neutrophils % 69.2 Lymphocytes % 17.8 Monocytes % 11.5 Eosinophils % 0.8 Basophils % 0.7 Absolute Neutrophils 5.2 Absolute Lymphocytes 1.3 Absolute Monocytes 0.9 Absolute Eosinophils 0.1 Absolute Basophils 0.1 Sodium 137.3 Potassium 3.3 L Chloride 102 Carbon Dioxide 32 H Anion Gap 3 L BUN 7 Creatinine 0.48 L Est GFR ( Amer) > 60 Est GFR (Non-Af Amer) > 60 Glucose 142 H Calcium 7.5 L Assessment & Plan - Diagnosis (1) Metastatic malignant neoplasm to prostate Is this a current diagnosis for this admission?: Yes Plan: The patient has been on hormonal therapy prior to this admission. (2) Rectal carcinoma Is this a current diagnosis for this admission?: Yes Plan: The patient has had a colon resection. (3) Edema Is this a current diagnosis for this admission?: Yes Plan: The patient reports taking the diuretics for lower extremity edema. He denies any history of hypertension. He denies any congestive heart failure symptoms. Would continue to hold these diuretics as long as she is not having shortness of breath. No evidence for congestive heart failure. Will continue to follow along closely with you. (4) Hypokalemia Is this a current diagnosis for this admission?: Yes Plan: Will replace and monitor. - Time Time Spent with patient: 25-34 minutes - Inpatient Certification Medical Necessity: Need Close Monitoring Due to Risk of Patient Decompensation
[2017-03-24] MEDS ORDERED: CALCIUM CARBONATE 500 MG TAB.CHEW PO PRN (21:01)
[2017-03-24] MEDS: ONDANSETRON HCL INJ/PF 4 MG/2 ML SDV IV PRN (21:13)
[2017-03-24] MEDS ORDERED: FAMOTIDINE 20 MG TABLET PO ONE (21:15)
[2017-03-24] MEDS ORDERED: MAGNESIUM SULFATE/D5W 1 GM/100 ML RTUPB IV ONE (21:18)
[2017-03-24] MEDS ORDERED: POTASSI CL 20 MEQ/50 ML RIDER 20 MEQ/50 ML RTUPB IV SCH (21:30)
[2017-03-24 22:05] LABS: ANION GAP 6 (5-19); BLOOD UREA NITROGEN 5 mg/dL (7-20); CALCIUM 8.2 mg/dL (8.4-10.2); CARBON DIOXIDE 33 mmol/L (22-30); CHLORIDE 99 mmol/L (98-107); CREATININE RESULT 0.52 mg/dL (0.52-1.25); GLUCOSE 156 mg/dL (75-110); POTASSIUM 3.6 mmol/L (3.6-5.0); SODIUM 137.9 mmol/L (137-145)
[2017-03-24 22:17] LABS: CREATINE KINASE MB 2.06 ng/mL (<4.55)
[2017-03-24 22:24] LABS: TROPONIN I 0.18 ng/mL
--- NOTE | 2017-03-24 22:34 | RADIOLOGY REPORT (SQ) ---
EXAM DESCRIPTION: ABDOMEN 2 VIEWS COMPLETED DATE/TIME: 03/24/2017 10:23 pm REASON FOR STUDY: abd pain C18.9 MALIGNANT NEOPLASM OF COLON, UNSPECIFIED COMPARISON: CT abdomen and pelvis 02/07/2017 NUMBER OF VIEWS: Two views. TECHNIQUE: Supine and erect/decubitus radiographic images of the abdomen acquired. LIMITATIONS: None. FINDINGS: FREE AIR: None. No abnormal gas collections. LUNG BASES: Bibasilar atelectasis. BOWEL GAS PATTERN: Gas is seen within multiple prominent loops of both small and large bowel. No air -fluid levels are demonstrated. CALCIFICATIONS: No suspicious calcifications. SOFT TISSUES: No gross mass or suggestion of organomegaly. HARDWARE: Midline skin teresa are present. BONES: Stable relative to CT imaging performed 02/07/2017, again noting multiple rounded sclerotic foc i with diffusely increased mineralization of the left iliac bone. Subacute rib fractures on the left . OTHER: No other significant finding. IMPRESSION: Findings favored to represent postoperative ileus. A developing bowel obstruction is no t excluded. TECHNICAL DOCUMENTATION: JOB ID: [id number] All Rights Reserved
[2017-03-24] MEDS ORDERED: ASPIRIN 81 MG TABLET, CHEWABLE PO ONE (22:43)
[2017-03-24] MEDS ORDERED: ATORVASTATIN CALCIUM 40 MG TABLET PO ONE (23:15)
[2017-03-24] MEDS ORDERED: NITROGLYCERIN 0.4 MG/TAB 25 TAB/BOTTLE ONE (23:35)
[2017-03-24] MEDS ORDERED: NITROGLYCERIN 0.4 MG/TAB 25 TAB/BOTTLE SL ONE (23:45)
[2017-03-24] MEDS ORDERED: NITROGLYCERIN/D5W 50 MG/250 ML RTUINJ IV PRN (23:56)
[2017-03-25] MEDS ORDERED: HEPARIN SODIUM,PORCINE/D5W 25,000 UNIT/250 ML RTUINJ IV PRN (00:09)
[2017-03-25] MEDS ORDERED: HEPARIN SOD (PORCINE) 1,000 UNIT/ML 10 ML VIAL IV PRN ×2 (00:09→04:28)
[2017-03-25] MEDS ORDERED: METOPROLOL TARTRATE PF/INJ 5 MG/5 ML SDV IV ONE (00:15)
[2017-03-25 00:33] LABS: PARTIAL THROMBOPLASTIN TIME 28.5 SEC (23.5-35.8); PROTHROMBIN TIME 13.6 SEC (11.4-15.4)
[2017-03-25] MEDS: MORPHINE SULFATE 10 MG/ML INJ IV PRN ×3 (00:40→14:25)
[2017-03-25 01:52] LABS: ABSOLUTE LYMPHOCYTES (AUTO) 0.8 10^3/uL (0.5-4.7); ABSOLUTE MONOCYTES (AUTO) 0.5 10^3/uL (0.1-1.4); ABSOLUTE NEUT (AUTO) 8.4 10^3/uL (1.7-8.2); BASOPHILS % (AUTO) 0.4 % (0-2); EOSINOPHILS % (AUTO) 0.2 % (0-6); HEMOGLOBIN 12.3 g/dL (13.5-17.0); HGB HCT DIFFERENCE 0.9; LYMPHOCYTES % (AUTO) 7.9 % (13-45); MEAN CORPUSCULAR HEMOGLOBIN 31.1 pg (27.0-33.4); MEAN CORPUSCULAR HGB CONC 34.1 g/dL (32.0-36.0); MEAN CORPUSCULAR VOLUME 91 fl (80-97); MONOCYTES % (AUTO) 5.2 % (3-13); RED BLOOD COUNT 3.94 10^6/uL (4.35-5.55); RED CELL DISTRIBUTION WIDTH 14.9 % (11.5-14.0); SEGMENTED NEUTROPHILS % (AUTO) 86.3 % (42-78); WHITE BLOOD COUNT 9.7 10^3/uL (4.0-10.5)
[2017-03-25] MEDS ORDERED: RANOLAZINE 500 MG TAB.SR.12H PO ONE (02:00)
[2017-03-25 04:09] LABS: ABSOLUTE LYMPHOCYTES (AUTO) 0.9 10^3/uL (0.5-4.7); ABSOLUTE MONOCYTES (AUTO) 0.7 10^3/uL (0.1-1.4); ABSOLUTE NEUT (AUTO) 7.7 10^3/uL (1.7-8.2); BASOPHILS % (AUTO) 0.4 % (0-2); EOSINOPHILS % (AUTO) 0.2 % (0-6); HEMATOCRIT 33.1 % (37.9-51.0); HEMOGLOBIN 11.3 g/dL (13.5-17.0); HGB HCT DIFFERENCE 0.8; LYMPHOCYTES % (AUTO) 9.8 % (13-45); MEAN CORPUSCULAR HEMOGLOBIN 30.9 pg (27.0-33.4); MEAN CORPUSCULAR HGB CONC 34.3 g/dL (32.0-36.0); MEAN CORPUSCULAR VOLUME 90 fl (80-97); MONOCYTES % (AUTO) 7.2 % (3-13); RED BLOOD COUNT 3.67 10^6/uL (4.35-5.55); RED CELL DISTRIBUTION WIDTH 14.6 % (11.5-14.0); SEGMENTED NEUTROPHILS % (AUTO) 82.4 % (42-78); WHITE BLOOD COUNT 9.3 10^3/uL (4.0-10.5)
[2017-03-25 04:39] LABS: CREATINE KINASE MB 8.73 ng/mL (<4.55); TROPONIN I 2.21 ng/mL
[2017-03-25 04:40] LABS: ANION GAP 6 (5-19); BLOOD UREA NITROGEN 6 mg/dL (7-20); CALCIUM 8.2 mg/dL (8.4-10.2); CARBON DIOXIDE 30 mmol/L (22-30); CHLORIDE 102 mmol/L (98-107); CREATININE RESULT 0.47 mg/dL (0.52-1.25); GLUCOSE 154 mg/dL (75-110); POTASSIUM 3.5 mmol/L (3.6-5.0); SODIUM 138.1 mmol/L (137-145)
--- NOTE | 2017-03-25 07:55 | EKG REPORT ---
SEVERITY:- ABNORMAL ECG - VENTRICULAR-PACED COMPLEXES NONDIAGNOSTIC. : Confirmed by: Misael Fuentes MD 25-Mar-2017 07:55:05
--- NOTE | 2017-03-25 07:58 | EKG REPORT ---
SEVERITY:- ABNORMAL ECG - A-FLUTTER W/ VARIED AV BLOCK, A-RATE 217 ANTERIOR INFARCT, AGE INDETERMINATE, CLINICAL CORRELATION NEEDED,CONSIDER ACUTE. : Confirmed by: Misael Fuentes MD 25-Mar-2017 07:57:25
[2017-03-25] MEDS: FUROSEMIDE 20 MG TABLET PO SCH (09:21)
[2017-03-25] MEDS: SPIRONOLACTONE 25 MG TABLET PO SCH (09:21)
[2017-03-25] MEDS: CHOLECALCIFEROL (D3) 400 UNIT TABLET PO SCH (09:21)
[2017-03-25] MEDS: DEXTROSE 5%-LACTATED RINGERS 1,000 ML IV PRN ×2 (09:22→23:36)
[2017-03-25] MEDS: ENOXAPARIN SODIUM INJ 40 MG/0.4 ML DISP.SYRIN SUBCUT SCH (09:24)
[2017-03-25] MEDS: CALCIUM CARBONATE 500 MG TABLET PO SCH (09:31)
[2017-03-25] MEDS ORDERED: ALBUTEROL SULFATE 0.083% NEB 2.5 MG/3 ML AMPUL NEB PRN (10:06)
--- NOTE | 2017-03-25 10:20 | PDOC PROGRESS REPORT ---
Subjective Progress Note for:: 03/25/17 Subjective:: Patient denies any complaints. Physical Exam Vital Signs: Temp Pulse Resp BP Pulse Ox 97.7 F 70 15 105/60 96 03/25/17 09:00 03/25/17 08:00 03/25/17 06:30 03/25/17 06:26 03/25/17 06:30 Pulse Oximeter Continuous Start: 03/21/17 16: 23 Freq: RTQ4 Status: Complete Document 03/25/17 01:56 STI (Rec: 03/25/17 01:56 STI [email or web address]) Pulse Oximetry Assessment Equipment Usage Equipment Discontinued Continuous SpO2 Machine # [id number]-14 Intake & Output 03/24/17 03/25/17 03/26/17 06:59 06:59 06:59 Intake Total 2200 2656 Output Total 390 785 125 Balance 1810 1871 -125 Weight 90.1 kg General appearance: PRESENT: no acute distress Eye exam: PRESENT: conjunctiva pink. ABSENT: scleral icterus Mouth exam: PRESENT: moist, tongue midline Neck exam: ABSENT: JVD Respiratory exam: PRESENT: wheezes - Scattered expiratory wheezes. ABSENT: rales, rhonchi Cardiovascular exam: PRESENT: RRR. ABSENT: diastolic murmur, rubs, systolic murmur GI/Abdominal exam: PRESENT: normal bowel sounds, soft. ABSENT: distended, guarding, mass, organolmegaly, rebound, tenderness Extremities exam: ABSENT: calf tenderness, clubbing, pedal edema Neurological exam: PRESENT: alert, awake, oriented to person, oriented to place , oriented to time, oriented to situation, CN II-XII grossly intact. ABSENT: motor sensory deficit Psychiatric exam: PRESENT: appropriate affect Skin exam: PRESENT: dry, intact, warm. ABSENT: cyanosis, rash Results Laboratory Results: 03/25/17 03:50 03/25/17 03:50 03/24/17 03/25/17 03/25/17 21:38 00:10 03:50 WBC 9.7 RBC 3.94 L Hgb 12.3 L Hct 36.0 L MCV 91 MCH 31.1 MCHC 34.1 RDW 14.9 H Plt Count 410 Seg Neutrophils % 86.3 H Lymphocytes % 7.9 L Monocytes % 5.2 Eosinophils % 0.2 Basophils % 0.4 Absolute Neutrophils 8.4 H Absolute Lymphocytes 0.8 Absolute Monocytes 0.5 Absolute Eosinophils 0.0 Absolute Basophils 0.0 Sodium 137.9 138.1 Potassium 3.6 3.5 L Chloride 99 102 Carbon Dioxide 33 H 30 Anion Gap 6 6 BUN 5 L 6 L Creatinine 0.52 0.47 L Est GFR ( Amer) > 60 > 60 Est GFR (Non-Af Amer) > 60 > 60 Glucose 156 H 154 H Calcium 8.2 L 8.2 L Magnesium 03/25/17 03/25/17 03:50 07:26 WBC 9.3 RBC 3.67 L Hgb 11.3 L Hct 33.1 L MCV 90 MCH 30.9 MCHC 34.3 RDW 14.6 H Plt Count 344 Seg Neutrophils % 82.4 H Lymphocytes % 9.8 L Monocytes % 7.2 Eosinophils % 0.2 Basophils % 0.4 Absolute Neutrophils 7.7 Absolute Lymphocytes 0.9 Absolute Monocytes 0.7 Absolute Eosinophils 0.0 Absolute Basophils 0.0 Sodium Potassium Chloride Carbon Dioxide Anion Gap BUN Creatinine Est GFR ( Amer) Est GFR (Non-Af Amer) Glucose Calcium Magnesium 1.8 03/24/17 03/24/17 03/25/17 21:38 21:38 03:50 Creatine Kinase 28 L 53 L CK-MB (CK-2) 2.06 Troponin I 0.180 03/25/17 03:50 Creatine Kinase CK-MB (CK-2) 8.73 H Troponin I 2.210 Impressions: Abdomen X-Ray 03/24/17 00:00 IMPRESSION: Findings favored to represent postoperative ileus. A developing bowel obstruction is not excluded. Assessment & Plan - Diagnosis (1) Metastatic malignant neoplasm to prostate Is this a current diagnosis for this admission?: Yes Plan: The patient has been on hormonal therapy prior to this admission. (2) Rectal carcinoma Is this a current diagnosis for this admission?: Yes Plan: The patient has had a colon resection. He is tolerating liquid diet well. (3) Edema Is this a current diagnosis for this admission?: Yes Plan: The patient reports taking the diuretics for lower extremity edema. (4) Hypokalemia Is this a current diagnosis for this admission?: Yes Plan: Will replace and monitor. (5) Non-STEMI (non-ST elevated myocardial infarction) Is this a current diagnosis for this admission?: Yes Plan: Cardiology has been consulted. - Time Time Spent with patient: 25-34 minutes
[2017-03-25] MEDS: ONDANSETRON HCL INJ/PF 4 MG/2 ML SDV IV PRN ×2 (10:50→16:49)
[2017-03-25] MEDS: POTASSIUM CHLORIDE 20 MEQ/50 ML RTU IV SCH ×2 (10:51→12:40)
--- NOTE | 2017-03-25 10:58 | PDOC PROGRESS REPORT ---
Subjective Progress Note for:: 03/25/17 Subjective:: Denies chest pains. Minimal abdominal pains KUB yesterday more of ileus post op Patient transfered to ICU for non-STEMI Physical Exam Vital Signs: Temp Pulse Resp BP Pulse Ox 97.7 F 70 27 H 107/63 97 03/25/17 09:00 03/25/17 08:00 03/25/17 10:30 03/25/17 10:26 03/25/17 10:30 Pulse Oximeter Continuous Start: 03/21/17 16: 23 Freq: RTQ4 Status: Complete Document 03/25/17 01:56 STI (Rec: 03/25/17 01:56 STI [email or web address]) Pulse Oximetry Assessment Equipment Usage Equipment Discontinued Continuous SpO2 Machine # [id number]-14 Intake & Output 03/24/17 03/25/17 03/26/17 06:59 06:59 06:59 Intake Total 2200 2656 Output Total 390 785 125 Balance 1810 1871 -125 Weight 90.1 kg Exam: Abdomen soft with minimal tenderness. Colostomy starting to function. Results Laboratory Results: 03/25/17 03:50 03/25/17 03:50 03/24/17 03/25/17 03/25/17 21:38 00:10 03:50 WBC 9.7 RBC 3.94 L Hgb 12.3 L Hct 36.0 L MCV 91 MCH 31.1 MCHC 34.1 RDW 14.9 H Plt Count 410 Seg Neutrophils % 86.3 H Lymphocytes % 7.9 L Monocytes % 5.2 Eosinophils % 0.2 Basophils % 0.4 Absolute Neutrophils 8.4 H Absolute Lymphocytes 0.8 Absolute Monocytes 0.5 Absolute Eosinophils 0.0 Absolute Basophils 0.0 Sodium 137.9 138.1 Potassium 3.6 3.5 L Chloride 99 102 Carbon Dioxide 33 H 30 Anion Gap 6 6 BUN 5 L 6 L Creatinine 0.52 0.47 L Est GFR ( Amer) > 60 > 60 Est GFR (Non-Af Amer) > 60 > 60 Glucose 156 H 154 H Calcium 8.2 L 8.2 L Magnesium 03/25/17 03/25/17 03:50 07:26 WBC 9.3 RBC 3.67 L Hgb 11.3 L Hct 33.1 L MCV 90 MCH 30.9 MCHC 34.3 RDW 14.6 H Plt Count 344 Seg Neutrophils % 82.4 H Lymphocytes % 9.8 L Monocytes % 7.2 Eosinophils % 0.2 Basophils % 0.4 Absolute Neutrophils 7.7 Absolute Lymphocytes 0.9 Absolute Monocytes 0.7 Absolute Eosinophils 0.0 Absolute Basophils 0.0 Sodium Potassium Chloride Carbon Dioxide Anion Gap BUN Creatinine Est GFR ( Amer) Est GFR (Non-Af Amer) Glucose Calcium Magnesium 1.8 03/24/17 03/24/17 03/25/17 21:38 21:38 03:50 Creatine Kinase 28 L 53 L CK-MB (CK-2) 2.06 Troponin I 0.180 03/25/17 03:50 Creatine Kinase CK-MB (CK-2) 8.73 H Troponin I 2.210 Impressions: Abdomen X-Ray 03/24/17 00:00 IMPRESSION: Findings favored to represent postoperative ileus. A developing bowel obstruction is not excluded. Assessment & Plan - Time Time Spent with patient: 15-24 minutes - Inpatient Certification Medical Necessity: Need Close Monitoring Due to Risk of Patient Decompensation, Need For IV Fluids - Plan Summary Plan Summary: OK to start clears.Continue hydration for now Cardiology on Board c/o Dr Felipe to address non-STEMI
[2017-03-25] MEDS ORDERED: FUROSEMIDE INJ/PF 20 MG/2 ML SDV ONE (11:25)
[2017-03-25 11:52] LABS: CREATINE KINASE MB 7.81 ng/mL (<4.55)
[2017-03-25 11:58] LABS: TROPONIN I 1.18 ng/mL
[2017-03-25] MEDS ORDERED: FUROSEMIDE INJ/PF 20 MG/2 ML SDV IV ONE (12:00)
--- NOTE | 2017-03-25 12:11 | XCELERA REPORT ---
[address] [address] Transthoracic Echocardiogram Report Name: PRAFUL PUTNAM Age: 77 yrs Gender: Male : 1940 Patient Status: Inpatient Patient Location: ICU^601^A Study Date: 03/25/2017 09:18 AM Height: 69 in Weight: 190 lb BSA: 2.0 m2 Procedure: A complete two-dimensional transthoracic echocardiogram was performed (2D, M-mode, spectral and color flow Doppler). Reason For Study: chest pain Ordering Physician: SUSANNE MARLEY Performed By: Cindy Pacheco Interpretation Summary LV EF is 35% Left ventricular systolic function is moderately reduced. There is borderline concentric left ventricular hypertrophy. The left ventricle is grossly normal size. LV diastolic function could not be adequately assessed. There is mid to distal anterior wall akinesis There is apical wall akinesis The right ventricular systolic function is normal. The left atrium is moderately dilated. The right atrium is normal in size There is a mild amount of mitral regurgitation There is no mitral valve stenosis. There is a mild amount of aortic regurgitation There is no aortic valve stenosis There is a trace to mild amount of tricuspid regurgitation There is moderate pulmonary hypertension by echo Right ventricular systolic pressure is estimated to be elevated at 50- 60mmHg. The aortic root is not well visualized but is probably normal size. The inferior vena cava was not well visualized There is no pericardial effusion. MMode/2D Measurements & Calculations RVDd: 3.3 cm LVIDd: 4.0 cm FS: 21.8 % Ao root diam: IVSd: 0.96 cm LVIDs: 3.1 cm EDV(Teich): 2.7 cm LVPWd: 0.98 cm 68.5 ml Ao root area: ESV(Teich): 37.9 ml 5.7 cm2 EF(Teich): LA dimension: 44.7 % 4.5 cm LVLd ap4: 8.6 cm SV(MOD-sp4): 39.0 ml LA A2Cs: LA A4Cs: 38.1 cm2 EDV(MOD-sp4): 42.0 cm2 106.0 ml LVLs ap4: 8.2 cm ESV(MOD-sp4): 67.0 ml EF(MOD-sp4): 36.8 % LA length: 8.0 cm LA Vol Index (BP): LA Volume: 83.8 ml/m2 169.4 ml Doppler Measurements & Calculations MV E max anh: MV P1/2t max anh: Ao V2 max: LV V1 max P.2 cm/sec 97.2 cm/sec 116.1 cm/sec 4.8 mmHg MV A max anh: MV P1/2t: 49.5 msec Ao max PG: LV V1 max: 51.8 cm/sec 5.4 mmHg 108.9 cm/sec MV E/A: 1.9 MVA(P1/2t): 4.4 cm2 MV dec slope: 575.6 cm/sec2 MV dec time: 0.15 sec PA V2 max: TR max anh: 85.4 cm/sec 339.3 cm/sec PA max PG: TR max P.1 mmHg 2.9 mmHg Left Ventricle The left ventricle is grossly normal size. There is borderline concentric left ventricular hypertrophy. Left ventricular systolic function is moderately reduced. LV EF is 35%. LV diastolic function could not be adequately assessed. There is mid to distal anterior wall akinesis. There is apical wall akinesis. Right Ventricle The right ventricle is normal in size, thickness and function. There is normal right ventricular wall thickness. The right ventricular systolic function is normal. Atria The right atrium is normal in size. The left atrium is moderately dilated. Interarterial septum not well visualized and not well dopplered. Cannot comment on ASD/PFO presence. Mitral Valve The mitral valve leaflets are sclerotic, but show no functional abnormalities. There is no mitral valve stenosis. There is a mild amount of mitral regurgitation. Aortic Valve The aortic valve is not well visualized secondary to technical limitations. There is no aortic valve stenosis. There is a mild amount of aortic regurgitation. Tricuspid Valve The tricuspid valve is not well visualized secondary to technical limitations. There is no tricuspid stenosis. There is a trace to mild amount of tricuspid regurgitation. There is moderate pulmonary hypertension by echo. Right ventricular systolic pressure is estimated to be elevated at 50-60mmHg. Pulmonic Valve The pulmonic valve is not well visualized. Great Vessels The aortic root is not well visualized but is probably normal size. The inferior vena cava was not well visualized. Effusions There is no pericardial effusion. : SUSANNE MARLEY > Susanne Marley
--- NOTE | 2017-03-25 12:31 | RADIOLOGY REPORT (SQ) ---
EXAM DESCRIPTION: CHEST SINGLE VIEW COMPLETED DATE/TIME: 03/25/2017 11:59 am REASON FOR STUDY: follow-up CHF COMPARISON: None. NUMBER OF VIEWS: One view. TECHNIQUE: Single frontal radiographic image of the chest acquired. LIMITATIONS: None. FINDINGS: LUNGS AND PLEURA: Diffuse interstitial pattern. Bilateral pleural effusions, right greate r than left. MEDIASTINUM AND HEART: Cardiomegaly. SUPPORT DEVICES: Left-sided pacemaker single lead. BONY STRUCTURES: No acute findings. HARDWARE: None. OTHER: No other significant finding. IMPRESSION: Congestive heart failure.
[2017-03-25] MEDS ORDERED: HALOPERIDOL LACTATE INJ 5 MG/1 ML VIAL IV PRN (14:08)
--- NOTE | 2017-03-25 16:00 | PDOC CONSULTATION ---
Consultation Consult Date: 03/24/17 Attending physician:: SANDRA COX Consult reason:: Acute coronary syndrome, chest pain, positive troponin I elevation History of Present Illness Admission Date/PCP: 03/21/17 05:33 JYOTI PEPE MD Patient complains of: Burning sensation in the chest History of Present Illness: PRAFUL PUTNAM is a 77 year old male who had a colon resection and surgery service asked us to manage his diuretic therapy. The patient was recently diagnosed with a near obstructing colon lesion and presented for partial colectomy. Patient also has a history of prostate cancer that is metastatic for which he has been getting injectable hormonal therapy. Patient has been on diuretics and I asked him if this was for his blood pressure and he states he just takes it for lower extremity edema. He denies having any history of congestive heart failure. He denies any shortness of breath or cough. The patient does have some complaints of abdominal pain but he is able to walk down the hallway without difficulty. He denies any chest pain. He does have chronic lower extremity edema but currently has SCDs in place. This history was reviewed and confirmed. I was asked by Dr. Self to see this patient urgently as patient was noted to be experiencing some burning discomfort in the chest and was noted to have troponin I elevation in the non- STEMI range. I went and saw the patient on the floor. Requested that patient be transferred to the unit as I felt that patient was in the middle of having a myocardial infarction. Patient just had recent colorectal surgery. EKG obtained showed minor ST elevation of about 1 mm in anterior precordial leads. Patient does have a pacemaker. It was felt that patient would not be a candidate for thrombolytic therapy. Also by the time I saw the patient is chest pain was resolved. Patient was subsequently transferred to the unit. I wrote orders for heparin therapy, beta-blockers, sublingual nitroglycerin, statins and also placed patient on Ranexa. He was noted to be comfortable. Case was discussed with the unit nurse and Dr. Self. Past Medical History Cardiac Medical History: Denies: Congestive Heart Failure, Coronary Artery Disease, Myocardial Infarction, Hypertension Pulmonary Medical History: Denies: Asthma, Bronchitis, Chronic Obstructive Pulmonary Disease (COPD), Pneumonia EENT Medical History: Reports: Cataracts Neurological Medical History: Reports: None Renal/ Medical History: Denies: End Stage Renal Disease GI Medical History: Reports: Gastroesophageal Reflux Disease, Hiatal Hernia Denies: Crohn's Disease, Hepatitis Musculoskeltal Medical History: Reports: Arthritis Denies: Fibromyalgia Skin Medical History: Reports: None Psychiatric Medical History: Reports: None Traumatic Medical History: Reports: None Hematology: Reports: Anemia Denies: Sickle Cell Disease Infectious Medical History: Reports: None Past Surgical History Past Surgical History: Reports: Pacemaker Denies: Appendectomy, Cholecystectomy, Colostomy, Coronary Artery Bypass Graft, Gastric Bypass Surgery, Herniorrhaphy, Tonsillectomy Social History Information Source: Patient Lives with: Alone Smoking Status: Never Smoker Frequency of Alcohol Use: Occasional Hx Recreational Drug Use: No Drugs: None Hx Prescription Drug Abuse: No - Advance Directive Resuscitation Status: Full Code Surrogate healthcare decision maker:: Patient's daughter is the surrogate decision-maker Family History Family History: Hypertension Parental Family History Reviewed: Yes Children Family History Reviewed: Yes Sibling(s) Family History Reviewed.: Yes Medication/Allergy Home Medications: Furosemide [Lasix 20 mg Tablet] 20 mg PO DAILY 02/21/17 Enzalutamide [Xtandi] 160 mg PO DAILY 03/14/17 Metolazone 5 mg PO DAILY 03/14/17 Spironolactone 25 mg PO DAILY 03/14/17 Calcium Carbonate/Vitamin D3 [Oyster Shell Calcium-Vit D Tab] 1 tab PO DAILY 01/28 Allergies/Adverse Reactions: No Known Allergies Allergy (Verified 03/14/17 10:48) Review of Systems Review of Systems: Please see history of present illness and past medical history as wall. Constitutional: No fever or chills reported. Head : No recent chronic headaches, recent head injury. Eyes: No recent eye pain, diplopia, redness, discharge, acute visual changes. Ears: No recent chronic ear pain, acute hearing loss, ear discharge. Oral cavity: No recent ulcerations, bleeding, oral cavity discomfort. Neck: No recent acute neck pain reported. Hematologic: No recent easy bruising or bleeding or hematologic malignancy reported. Lymphatic: No recent lymphatic malignancy, chronic lymphadenopathy reported yet Cardiovascular system review: See history of present illness. Respiratory system review: No recent chronic cough, hemoptysis, blood clots in the lungs reported. Mild Shortness of breath on exertion Gastrointestinal system review: History of colorectal cancer with obstruction and status post surgery just a few days ago. Genitourinary system review: No recent acute or chronic hematuria, flank pain, UTI etc. reported. History of metastatic prostate cancer. Skin system review: Negative for any recent abnormal bruising, no rash, no pruritus reported. Neurologic: No prior history of strokes, mini strokes, seizure disorder. Psychologic: No history of major psychosis or major depression reported. Musculoskeletal: Minor aches and pains reported. No acute joint swelling reported. Endocrine: No recent polyuria, polydipsia, recent heat or cold intolerance. Physical Exam Vital Signs: Temp Pulse Resp BP Pulse Ox 97.9 F 70 22 H 133/73 H 98 03/25/17 12:28 03/25/17 08:00 03/25/17 14:45 03/25/17 13:56 03/25/17 14:45 Pulse Oximeter Continuous Start: 03/21/17 16: 23 Freq: RTQ4 Status: Complete Document 03/25/17 01:56 STI (Rec: 03/25/17 01:56 STI [email or web address]) Pulse Oximetry Assessment Equipment Usage Equipment Discontinued Continuous SpO2 Machine # [id number] Intake & Output 03/24/17 03/25/17 03/26/17 06:59 06:59 06:59 Intake Total 2200 2656 Output Total 390 785 430 Balance 1810 1871 -430 Weight 90.1 kg Results Laboratory Results: 03/25/17 03:50 03/25/17 03:50 03/24/17 03/25/17 03/25/17 21:38 00:10 03:50 WBC 9.7 RBC 3.94 L Hgb 12.3 L Hct 36.0 L MCV 91 MCH 31.1 MCHC 34.1 RDW 14.9 H Plt Count 410 Seg Neutrophils % 86.3 H Lymphocytes % 7.9 L Monocytes % 5.2 Eosinophils % 0.2 Basophils % 0.4 Absolute Neutrophils 8.4 H Absolute Lymphocytes 0.8 Absolute Monocytes 0.5 Absolute Eosinophils 0.0 Absolute Basophils 0.0 Sodium 137.9 138.1 Potassium 3.6 3.5 L Chloride 99 102 Carbon Dioxide 33 H 30 Anion Gap 6 6 BUN 5 L 6 L Creatinine 0.52 0.47 L Est GFR ( Amer) > 60 > 60 Est GFR (Non-Af Amer) > 60 > 60 Glucose 156 H 154 H Calcium 8.2 L 8.2 L Magnesium 03/25/17 03/25/17 03:50 07:26 WBC 9.3 RBC 3.67 L Hgb 11.3 L Hct 33.1 L MCV 90 MCH 30.9 MCHC 34.3 RDW 14.6 H Plt Count 344 Seg Neutrophils % 82.4 H Lymphocytes % 9.8 L Monocytes % 7.2 Eosinophils % 0.2 Basophils % 0.4 Absolute Neutrophils 7.7 Absolute Lymphocytes 0.9 Absolute Monocytes 0.7 Absolute Eosinophils 0.0 Absolute Basophils 0.0 Sodium Potassium Chloride Carbon Dioxide Anion Gap BUN Creatinine Est GFR ( Amer) Est GFR (Non-Af Amer) Glucose Calcium Magnesium 1.8 03/24/17 03/24/17 03/25/17 21:38 21:38 03:50 Creatine Kinase 28 L 53 L CK-MB (CK-2) 2.06 Troponin I 0.180 NT-Pro-B Natriuret Pep 03/25/17 03/25/17 03/25/17 03:50 11:00 11:00 Creatine Kinase 40 L CK-MB (CK-2) 8.73 H 7.81 H Troponin I 2.210 1.180 NT-Pro-B Natriuret Pep 03/25/17 11:00 Creatine Kinase CK-MB (CK-2) Troponin I NT-Pro-B Natriuret Pep 5280 H EKG Comments: ST segment elevation noted anterior precordial lead approximately 1-1.5 mm. QS complexes noted V1 to V3. This is consistent with acute anterior VA. Need to be compared with previous EKGs. Impressions: Abdomen X-Ray 03/24/17 00:00 IMPRESSION: Findings favored to represent postoperative ileus. A developing bowel obstruction is not excluded. Chest X-Ray 03/25/17 11:27 IMPRESSION: Congestive heart failure. Assessment & Plan - Diagnosis (1) Myocardial infarction involving left anterior descending (LAD) coronary artery Is this a current diagnosis for this admission?: Yes (2) Metastatic malignant neoplasm to prostate Is this a current diagnosis for this admission?: Yes (3) Rectal carcinoma Is this a current diagnosis for this admission?: Yes (4) Edema Qualifiers: Edema type: unspecified Qualified Code(s): R60.9 - Edema, unspecified Is this a current diagnosis for this admission?: Yes (5) Hypokalemia Is this a current diagnosis for this admission?: Yes - Notes Notes: Acute myocardial infarction, ST segment elevation. Patient felt not a candidate for thrombolytics therapy because of metastatic cancer and also recent colorectal surgery. Patient also currently chest pain-free. Patient initial management is being medical. Will follow patient closely. If there is decompensation, will transfer patient for urgent heart catheterization. Will repeat EKG and cardiac enzymes. Previous records to be reviewed. Patient noted to be comfortable without any evidence of CHF, ongoing active angina or any significant dysrhythmias. Patient being treated with heparin aspirin beta blockers, nitrates. Will gradually institute GABRIELA inhibitor/ARB's. Metastatic prostate cancer: Continue current therapy. Rectal carcinoma with obstruction. Patient is status post surgery. Discussed heparin therapy with Dr. Harrell. He says there is no contraindication. This was therefore started. Edema: Currently stable not to significant problems. Hypokalemia: Patient to undergo potassium replacement. - Time Time Spent: 50 to 70 Minutes - CODE STATUS was discussed, patient remains full code. Surrogate decision-maker patient's daughter. Multiple medical problems were addressed. More than 50% of the time spent coordinating care, discussing management plans with involved caregivers. Management plans discussed with involved personnels. Medical decision making was of moderate to high complexity , patient's has multiple comorbidities. Medications reviewed and adjusted accordingly: Yes
--- NOTE | 2017-03-25 16:04 | PDOC PROGRESS REPORT ---
Subjective Progress Note for:: 03/25/17 Subjective:: Patient seems to be doing better with gradual improvement. Pt is denying any chest arm or neck discomfort. Patient denying any PND, orthopnea. Patient denied any sustained palpitations, dizziness, syncope, near syncope. Patient denying any fever chills. Patient denying any other significant discomfort. Patient today noted to have some coughing spells. Patient is noted to be in atrial flutter fibrillation with ventricular paced rhythm.. Review of systems: Rest review of systems negative. Medications: Medications have been reviewed. Physical Exam Vital Signs: Temp Pulse Resp BP Pulse Ox 97.9 F 70 22 H 133/73 H 98 03/25/17 12:28 03/25/17 08:00 03/25/17 14:45 03/25/17 13:56 03/25/17 14:45 Pulse Oximeter Continuous Start: 03/21/17 16: 23 Freq: RTQ4 Status: Complete Document 03/25/17 01:56 STI (Rec: 03/25/17 01:56 STI [email or web address]) Pulse Oximetry Assessment Equipment Usage Equipment Discontinued Continuous SpO2 Machine # [id number] Intake & Output 03/24/17 03/25/17 03/26/17 06:59 06:59 06:59 Intake Total 2200 2656 Output Total 390 785 430 Balance 1810 1871 -430 Weight 90.1 kg Exam: GENERAL: well-nourished and in no acute distress. Alert and oriented x3 HEAD: Atraumatic, normocephalic. EYES: Pupils equal round and reactive to light, extraocular movements intact, sclera anicteric, conjunctiva are normal. ENT: TMs normal, nares patent, oropharynx clear without exudates. Moist mucous membranes. No oral ulcerations or bleeding gums noted NECK: supple without lymphadenopathy. Trachea is central. No cervical or axillary lymphadenopathy noted. Carotids are 2+, JVD 10 cm LUNGS: Respiration seems nonlabored, no significant accessory muscle action noted. Bibasilar fine crackles noted. No wheezes rales or rhonchi noted. No significant dullness noted on percussion. CHEST: Palpation of the chest wall shows no significant chest wall tenderness. No other significant abnormalities noted. 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 ABDOMEN: Soft, no significant tenderness appreciated, normoactive bowel sounds. No guarding, no rebound. No rigidity noted . No masses appreciated. EXTREMITIES: Pedal pulses are 1-2+, no calf tenderness noted. No clubbing or cyanosis.trace to 1+ pedal edema noted NEUROLOGICAL: Focused neurological exam showed no significant neurologic deficit. Normal speech, no focal weakness appreciated. PSYCH: Normal mood, normal affect. Judgment and insight within normal limits. SKIN: No significant ecchymosis, rash, ulcerations or signs of pruritus noted. MUSCULOSKELETAL EXAM: No significant joint swelling noted. Results Laboratory Results: 03/25/17 03:50 03/25/17 03:50 03/24/17 03/25/17 03/25/17 21:38 00:10 03:50 WBC 9.7 RBC 3.94 L Hgb 12.3 L Hct 36.0 L MCV 91 MCH 31.1 MCHC 34.1 RDW 14.9 H Plt Count 410 Seg Neutrophils % 86.3 H Lymphocytes % 7.9 L Monocytes % 5.2 Eosinophils % 0.2 Basophils % 0.4 Absolute Neutrophils 8.4 H Absolute Lymphocytes 0.8 Absolute Monocytes 0.5 Absolute Eosinophils 0.0 Absolute Basophils 0.0 Sodium 137.9 138.1 Potassium 3.6 3.5 L Chloride 99 102 Carbon Dioxide 33 H 30 Anion Gap 6 6 BUN 5 L 6 L Creatinine 0.52 0.47 L Est GFR ( Amer) > 60 > 60 Est GFR (Non-Af Amer) > 60 > 60 Glucose 156 H 154 H Calcium 8.2 L 8.2 L Magnesium 03/25/17 03/25/17 03:50 07:26 WBC 9.3 RBC 3.67 L Hgb 11.3 L Hct 33.1 L MCV 90 MCH 30.9 MCHC 34.3 RDW 14.6 H Plt Count 344 Seg Neutrophils % 82.4 H Lymphocytes % 9.8 L Monocytes % 7.2 Eosinophils % 0.2 Basophils % 0.4 Absolute Neutrophils 7.7 Absolute Lymphocytes 0.9 Absolute Monocytes 0.7 Absolute Eosinophils 0.0 Absolute Basophils 0.0 Sodium Potassium Chloride Carbon Dioxide Anion Gap BUN Creatinine Est GFR ( Amer) Est GFR (Non-Af Amer) Glucose Calcium Magnesium 1.8 11/03/3003/24/17 03/25/17 21:38 21:38 03:50 Creatine Kinase 28 L 53 L CK-MB (CK-2) 2.06 Troponin I 0.180 NT-Pro-B Natriuret Pep 03/25/17 03/25/17 03/25/17 03:50 11:00 11:00 Creatine Kinase 40 L CK-MB (CK-2) 8.73 H 7.81 H Troponin I 2.210 1.180 NT-Pro-B Natriuret Pep 03/25/17 11:00 Creatine Kinase CK-MB (CK-2) Troponin I NT-Pro-B Natriuret Pep 5280 H EKG Comments: Telemetry strips shows ventricular paced rhythm. Patient has underlying atrial flutter fibrillation today Impressions: Abdomen X-Ray 03/24/17 00:00 IMPRESSION: Findings favored to represent postoperative ileus. A developing bowel obstruction is not excluded. Chest X-Ray 03/25/17 11:27 IMPRESSION: Congestive heart failure. Assessment & Plan - Diagnosis (1) Myocardial infarction involving left anterior descending (LAD) coronary artery Is this a current diagnosis for this admission?: Yes (2) Metastatic malignant neoplasm to prostate Is this a current diagnosis for this admission?: Yes (3) Rectal carcinoma Is this a current diagnosis for this admission?: Yes (4) Edema Qualifiers: Edema type: unspecified Qualified Code(s): R60.9 - Edema, unspecified Is this a current diagnosis for this admission?: Yes (5) Hypokalemia Is this a current diagnosis for this admission?: Yes (6) Acute systolic congestive heart failure Is this a current diagnosis for this admission?: Yes - Notes Notes: Patient had sustained an anterior and apical IL. A stat 2D echo obtained this morning confirms this. Discussed transfer to tertiary care for heart catheterization. Patient however declined this. Dr. pena also talked to the patient. Patient's daughter made aware of this. Patient however looks comfortable. Patient was given IV Lasix 20 mg as he was noted to be in CHF. Patient medical management is being further optimized. Will increase Ranexa to 1000 mg p.o. twice daily. Patient already on statins and heparin. Patient not being placed on Plavix at this point. Overall prognosis is guarded. Previous report from [facility] obtained. There are notes suggest that that patient's long-term prognosis is limited to approximately 1 year. I believe given patient's other comorbid diagnosis, medical management is probably an adequate option. This is also patient's wish. - Time Time with patient: Greater than 35 minutes - More than 50% of the time spent coordinating care, discussing management plans with involved caregivers. Management plans discussed with involved personnels. Medical decision making was of moderate to high complexity, patient's has multiple comorbidities. Medications reviewed and adjusted accordingly: Yes
[2017-03-25] MEDS: RANOLAZINE 500 MG TAB.SR.12H PO SCH (17:24)
[2017-03-25] MEDS ORDERED: PHARMACY COMMUNICATION ORDER MC NR (18:30)
--- NOTE | 2017-03-25 18:45 | RADIOLOGY REPORT (SQ) ---
EXAM DESCRIPTION: KUB/ABDOMEN (SINGLE VIEW) COMPLETED DATE/TIME: 03/25/2017 6:35 pm REASON FOR STUDY: NG Tube Placement COMPARISON: 03/24/2017. FINDINGS: Single image of the lower chest and upper abdomen for NG tube placement. AP portable semi upright image. Nasogastric tube in appropriate position with tip in the stomach. Mild gaseous distension of small bowel loops persists. Diminished aeration in the lung bases. This also looks chronic. No free air. IMPRESSION: Appropriately positioned nasogastric tube. TECHNICAL DOCUMENTATION: JOB ID: [id number]
[2017-03-25] MEDS ORDERED: ATORVASTATIN CALCIUM 40 MG TABLET PO SCH (22:00)
[2017-03-25] MEDS ORDERED: METOPROLOL TARTRATE 25 MG TABLET PO SCH (22:00)
[2017-03-25] MEDS: HYDROMORPHONE HCL INJ/PF 2 MG/ML AMPULE IV PRN (23:37)
[2017-03-25] MEDS: HEPARIN SODIUM,PORCINE/D5W 25,000 UNIT/250 ML RTUINJ IV PRN (23:37)
[2017-03-25] MEDS: METOPROLOL SUCCINATE 25 MG TAB.SR.24H PO SCH (23:38)
[2017-03-26 04:32] LABS: HEMATOCRIT 32.8 % (37.9-51.0); HEMOGLOBIN 11.4 g/dL (13.5-17.0); HGB HCT DIFFERENCE 1.4; MEAN CORPUSCULAR HEMOGLOBIN 31.5 pg (27.0-33.4); MEAN CORPUSCULAR HGB CONC 34.6 g/dL (32.0-36.0); MEAN CORPUSCULAR VOLUME 91 fl (80-97); RED BLOOD COUNT 3.61 10^6/uL (4.35-5.55); RED CELL DISTRIBUTION WIDTH 15.1 % (11.5-14.0); WHITE BLOOD COUNT 11.3 10^3/uL (4.0-10.5)
[2017-03-26 04:52] LABS: ANION GAP 8 (5-19); BLOOD UREA NITROGEN 8 mg/dL (7-20); CALCIUM 8.1 mg/dL (8.4-10.2); CARBON DIOXIDE 30 mmol/L (22-30); CHLORIDE 99 mmol/L (98-107); CREATININE RESULT 0.63 mg/dL (0.52-1.25); GLUCOSE 142 mg/dL (75-110); POTASSIUM 3.8 mmol/L (3.6-5.0); SODIUM 137.3 mmol/L (137-145)
[2017-03-26] MEDS ORDERED: CALCIUM CARBONATE 500 MG TAB.CHEW NG PRN (08:00)
[2017-03-26] MEDS ORDERED: DEXTROSE 40% GEL 15 GM TUBE NG PRN ×2 (08:00)
--- NOTE | 2017-03-26 08:56 | PDOC PROGRESS REPORT ---
Subjective Progress Note for:: 03/26/17 Subjective:: Patient is feeling fine, tolerated NG tube out, having significant ostomy output. Has not been in the chair . He has no pain. Physical Exam Vital Signs: Temp Pulse Resp BP Pulse Ox 98.2 F 74 19 93/67 L 97 03/26/17 07:59 03/26/17 07:59 03/26/17 07:59 03/26/17 07:59 03/26/17 07:59 Pulse Oximeter Continuous Start: 03/21/17 16: 23 Freq: RTQ4 Status: Complete Document 03/25/17 01:56 STI (Rec: 03/25/17 01:56 STI [email or web address]) Pulse Oximetry Assessment Equipment Usage Equipment Discontinued Continuous SpO2 Machine # [id number] Intake & Output 03/25/17 03/26/17 03/27/17 06:59 06:59 06:59 Intake Total 2656 2086 Output Total 785 2350 45 Balance 1871 -264 -45 Weight 90.1 kg 90.8 kg General appearance: PRESENT: no acute distress GI/Abdominal exam: PRESENT: other - Midline dressing removed; some postoperative subcutaneous skin bruising; ostomy appliance intact with obvious amount of liquid and particulate stool; abdomen is soft Results Laboratory Results: 03/26/17 04:01 03/26/17 04:01 03/25/17 03/26/17 03/26/17 07:26 04:01 04:01 WBC 11.3 H RBC 3.61 L Hgb 11.4 L Hct 32.8 L MCV 91 MCH 31.5 MCHC 34.6 RDW 15.1 H Plt Count 359 Sodium 137.3 Potassium 3.8 Chloride 99 Carbon Dioxide 30 Anion Gap 8 BUN 8 Creatinine 0.63 Est GFR ( Amer) > 60 Est GFR (Non-Af Amer) > 60 Glucose 142 H Calcium 8.1 L Magnesium 1.8 03/24/17 03/24/17 03/25/17 21:38 21:38 03:50 Creatine Kinase 28 L 53 L CK-MB (CK-2) 2.06 Troponin I 0.180 NT-Pro-B Natriuret Pep 03/25/17 03/25/17 03/25/17 03:50 11:00 11:00 Creatine Kinase 40 L CK-MB (CK-2) 8.73 H 7.81 H Troponin I 2.210 1.180 NT-Pro-B Natriuret Pep 03/25/17 11:00 Creatine Kinase CK-MB (CK-2) Troponin I NT-Pro-B Natriuret Pep 5280 H Impressions: Abdomen X-Ray 03/24/17 00:00 IMPRESSION: Findings favored to represent postoperative ileus. A developing bowel obstruction is not excluded. Chest X-Ray 03/25/17 11:27 IMPRESSION: Congestive heart failure. KUB X-Ray 03/25/17 18:14 IMPRESSION: Appropriately positioned nasogastric tube. Assessment & Plan - Diagnosis (1) Rectal carcinoma Is this a current diagnosis for this admission?: Yes Plan: The patient is 5 days status post exploratory laparotomy, low anterior resection , Pandya's procedure with diverting left colostomy; now with return of ostomy function. Patient is hemodynamically stable status post non-Q-wave NC; on anticoagulation therapy, heparin drip, as well as Pradaxa. Plan: 1. We will get patient out of bed into chair, assistance if needed 2. Will start ice chips and advance from there 3. Discuss this myocardial infarction management with Dr. Felipe; plan to start Pradaxa and discontinue heparin drip after 1224 hrs. - Time Time Spent with patient: 15-24 minutes Critical Time spent with patient: Less than 15 minutes
[2017-03-26] MEDS: FAMOTIDINE INJ/PF 20 MG/2 ML SDV IV SCH (09:06)
[2017-03-26] MEDS: METOPROLOL SUCCINATE 25 MG TAB.SR.24H PO SCH ×2 (09:41→21:49)
[2017-03-26] MEDS: SPIRONOLACTONE 25 MG TABLET NG SCH (09:41)
[2017-03-26] MEDS: CHOLECALCIFEROL (D3) 400 UNIT TABLET NG SCH (09:41)
[2017-03-26] MEDS: RANOLAZINE 500 MG TAB.SR.12H PO SCH ×2 (09:41→18:34)
[2017-03-26] MEDS: CALCIUM CARBONATE 500 MG TAB.CHEW NG SCH (09:41)
[2017-03-26] MEDS: FUROSEMIDE ORAL SOLN 40 MG/5 ML UDCUP NG SCH (09:41)
--- NOTE | 2017-03-26 09:48 | EKG REPORT ---
SEVERITY:- ABNORMAL ECG - Probable SR, Can not r/o afib/ flutter LOW VOLTAGE THROUGHOUT CONSIDER ANTERIOR INFARCT ABNORMAL T, CONSIDER ISCHEMIA, ANT-LAT LEADS PROLONGED QT INTERVAL : Confirmed by: Susanne Felipe 26-Mar-2017 09:47:50
--- NOTE | 2017-03-26 09:49 | EKG REPORT ---
SEVERITY:- ABNORMAL ECG - AFIB/FLUT AND V-PACED COMPLEXES : Confirmed by: Susanne Felipe 26-Mar-2017 09:48:44
--- NOTE | 2017-03-26 11:17 | PDOC PROGRESS REPORT ---
Subjective Progress Note for:: 03/26/17 Subjective:: The patient reports he feels much better today. He has not had any chest discomfort. He also reports that his ostomy has been working. He presented to the surgery service after being diagnosed with a near obstructing colonic mass. Patient has had a colon resection for colon cancer. He also has a history of metastatic prostate cancer. Postoperatively the patient began to experience chest pain and had a non-STEMI. The patient has been pain-free and we have opted to manage this medically. Physical Exam Vital Signs: Temp Pulse Resp BP Pulse Ox 98.2 F 78 20 105/55 L 97 03/26/17 07:59 03/26/17 10:00 03/26/17 10:00 03/26/17 10:00 03/26/17 10:00 Pulse Oximeter Continuous Start: 03/21/17 16: 23 Freq: RTQ4 Status: Complete Document 03/25/17 01:56 STI (Rec: 03/25/17 01:56 STI [email or web address]) Pulse Oximetry Assessment Equipment Usage Equipment Discontinued Continuous SpO2 Machine # [id number] Intake & Output 03/25/17 03/26/17 03/27/17 06:59 06:59 06:59 Intake Total 2656 2086 Output Total 785 2350 85 Balance 1871 -264 -85 Weight 90.1 kg 90.8 kg General appearance: PRESENT: no acute distress Eye exam: PRESENT: conjunctiva pink. ABSENT: scleral icterus Mouth exam: PRESENT: moist, tongue midline Neck exam: ABSENT: JVD Respiratory exam: PRESENT: clear to auscultation zach. ABSENT: rales, rhonchi, wheezes Cardiovascular exam: PRESENT: RRR. ABSENT: diastolic murmur, rubs, systolic murmur GI/Abdominal exam: PRESENT: normal bowel sounds, other - Ostomy in place in the left quadrant. ABSENT: distended, firm, guarding, rebound Extremities exam: ABSENT: calf tenderness, clubbing, pedal edema Neurological exam: PRESENT: alert, awake, oriented to person, oriented to place , oriented to time, oriented to situation, CN II-XII grossly intact. ABSENT: motor sensory deficit Psychiatric exam: PRESENT: appropriate affect Skin exam: PRESENT: dry, intact, warm. ABSENT: cyanosis, rash Results Laboratory Results: 03/26/17 04:01 03/26/17 04:01 03/26/17 03/26/17 04:01 04:01 WBC 11.3 H RBC 3.61 L Hgb 11.4 L Hct 32.8 L MCV 91 MCH 31.5 MCHC 34.6 RDW 15.1 H Plt Count 359 Sodium 137.3 Potassium 3.8 Chloride 99 Carbon Dioxide 30 Anion Gap 8 BUN 8 Creatinine 0.63 Est GFR ( Amer) > 60 Est GFR (Non-Af Amer) > 60 Glucose 142 H Calcium 8.1 L 03/24/17 03/24/17 03/25/17 21:38 21:38 03:50 Creatine Kinase 28 L 53 L CK-MB (CK-2) 2.06 Troponin I 0.180 NT-Pro-B Natriuret Pep 03/25/17 03/25/17 03/25/17 03:50 11:00 11:00 Creatine Kinase 40 L CK-MB (CK-2) 8.73 H 7.81 H Troponin I 2.210 1.180 NT-Pro-B Natriuret Pep 03/25/17 11:00 Creatine Kinase CK-MB (CK-2) Troponin I NT-Pro-B Natriuret Pep 5280 H Impressions: Abdomen X-Ray 03/24/17 00:00 IMPRESSION: Findings favored to represent postoperative ileus. A developing bowel obstruction is not excluded. Chest X-Ray 03/25/17 11:27 IMPRESSION: Congestive heart failure. KUB X-Ray 03/25/17 18:14 IMPRESSION: Appropriately positioned nasogastric tube. Assessment & Plan - Diagnosis (1) Metastatic malignant neoplasm to prostate Is this a current diagnosis for this admission?: Yes Plan: The patient has been on hormonal therapy prior to this admission. (2) Rectal carcinoma Is this a current diagnosis for this admission?: Yes Plan: The patient has had a colon resection. He is tolerating liquid diet well. His ostomy is beginning to put out stool (3) Edema Qualifiers: Edema type: unspecified Qualified Code(s): R60.9 - Edema, unspecified Is this a current diagnosis for this admission?: Yes Plan: The patient reports taking the diuretics for lower extremity edema. No history of congestive heart failure. (4) Hypokalemia Is this a current diagnosis for this admission?: Yes Plan: resolved (5) Non-STEMI (non-ST elevated myocardial infarction) Is this a current diagnosis for this admission?: Yes Plan: Cardiology has been consulted. The patient is currently pain-free. We have discussed with patient and his daughter as to whether or not to transfer for a further workup such as cardiac catheterization. They are in agreement that we will treat medically and monitor the patient here. If he starts having more pain then we would consider sending for cardiac catheterization. - Time Time Spent with patient: 25-34 minutes - Inpatient Certification Medical Necessity: Need Close Monitoring Due to Risk of Patient Decompensation
[2017-03-26 11:28] LABS: AMORPHOUS SEDIMENT,URINE TRACE /HPF; APPEARANCE,URINE TURBID; BILIRUBIN,URINE NEGATIVE (NEGATIVE); GLUCOSE, URINE NEGATIVE (NEGATIVE); KETONES,URINE NEGATIVE (NEGATIVE); LEUKOCYTE ESTERASE,URINE NEGATIVE (NEGATIVE); NITRITE,URINE NEGATIVE (NEGATIVE); PROTEIN,URINE NEGATIVE (NEGATIVE); URINE SPECIFIC GRAVITY 1.017; UROBILINOGEN,URINE NEGATIVE mg/dL (<2.0)
[2017-03-26] MEDS ORDERED: NORMAL SALINE 250 ML IV ONE (12:45)
[2017-03-26] MEDS: HYDROMORPHONE HCL INJ/PF 2 MG/ML AMPULE IV PRN (15:44)
[2017-03-26] MEDS: DEXTROSE 5%-LACTATED RINGERS 1,000 ML IV PRN (18:09)
[2017-03-26] MEDS: HEPARIN SODIUM,PORCINE/D5W 25,000 UNIT/250 ML RTUINJ IV PRN (20:44)
[2017-03-26] MEDS: ATORVASTATIN CALCIUM 40 MG TABLET NG SCH (21:51)
--- NOTE | 2017-03-26 21:59 | PDOC PROGRESS REPORT ---
Subjective Progress Note for:: 03/26/17 Subjective:: Patient seems to be doing better with gradual improvement. Pt is denying any chest arm or neck discomfort. Patient denying any PND, orthopnea. Patient denied any sustained palpitations, dizziness, syncope, near syncope. Patient denying any fever chills. Patient denying any other significant discomfort. Patient today noted to have some coughing spells. Patient is noted to be in atrial flutter fibrillation with intermittent ventricular paced rhythm. Review of systems: Rest review of systems negative. Medications: Medications have been reviewed. Physical Exam Vital Signs: Temp Pulse Resp BP Pulse Ox 98.1 F 77 19 98/52 L 100 03/26/17 21:52 03/26/17 19:31 03/26/17 20:15 03/26/17 19:23 03/26/17 20:15 Pulse Oximeter Continuous Start: 03/21/17 16: 23 Freq: RTQ4 Status: Complete Document 03/25/17 01:56 STI (Rec: 03/25/17 01:56 STI [email or web address]) Pulse Oximetry Assessment Equipment Usage Equipment Discontinued Continuous SpO2 Machine # [id number] Intake & Output 03/25/17 03/26/17 03/27/17 06:59 06:59 06:59 Intake Total 2656 2086 600 Output Total 785 2350 680 Balance 9631 264 -80 Weight 90.1 kg 90.8 kg Results Laboratory Results: 03/26/17 04:01 03/26/17 04:01 03/26/17 03/26/17 03/26/17 04:01 04:01 09:03 WBC 11.3 H RBC 3.61 L Hgb 11.4 L Hct 32.8 L MCV 91 MCH 31.5 MCHC 34.6 RDW 15.1 H Plt Count 359 Sodium 137.3 Potassium 3.8 Chloride 99 Carbon Dioxide 30 Anion Gap 8 BUN 8 Creatinine 0.63 Est GFR ( Amer) > 60 Est GFR (Non-Af Amer) > 60 Glucose 142 H Calcium 8.1 L Urine Color YELLOW Urine Appearance TURBID Urine pH 5.0 Ur Specific [place] 1.017 Urine Protein NEGATIVE Urine Glucose (UA) NEGATIVE Urine Ketones NEGATIVE Urine Blood NEGATIVE Urine Nitrite NEGATIVE Ur Leukocyte Esterase NEGATIVE Urine WBC (Auto) 4 03/24/17 03/24/17 03/25/17 21:38 21:38 03:50 Creatine Kinase 28 L 53 L CK-MB (CK-2) 2.06 Troponin I 0.180 NT-Pro-B Natriuret Pep 03/25/17 03/25/17 03/25/17 03:50 11:00 11:00 Creatine Kinase 40 L CK-MB (CK-2) 8.73 H 7.81 H Troponin I 2.210 1.180 NT-Pro-B Natriuret Pep 03/25/17 11:00 Creatine Kinase CK-MB (CK-2) Troponin I NT-Pro-B Natriuret Pep 5280 H Impressions: Abdomen X-Ray 03/24/17 00:00 IMPRESSION: Findings favored to represent postoperative ileus. A developing bowel obstruction is not excluded. Chest X-Ray 03/25/17 11:27 IMPRESSION: Congestive heart failure. KUB X-Ray 03/25/17 18:14 IMPRESSION: Appropriately positioned nasogastric tube. Assessment & Plan - Diagnosis (1) Myocardial infarction involving left anterior descending (LAD) coronary artery Is this a current diagnosis for this admission?: Yes (2) Metastatic malignant neoplasm to prostate Is this a current diagnosis for this admission?: Yes (3) Rectal carcinoma Is this a current diagnosis for this admission?: Yes (4) Edema Qualifiers: Edema type: unspecified Qualified Code(s): R60.9 - Edema, unspecified Is this a current diagnosis for this admission?: Yes (5) Hypokalemia Is this a current diagnosis for this admission?: Yes (6) Acute systolic congestive heart failure Is this a current diagnosis for this admission?: Yes - Notes Notes: Improved. EKG shows evolving WI changes. Discussed with Dr. Calhoun. - Time Time with patient: 15-25 minutes
[2017-03-27] MEDS: HYDROMORPHONE HCL INJ/PF 2 MG/ML AMPULE IV PRN ×2 (01:29→14:59)
[2017-03-27] MEDS ORDERED: KETOROLAC TROMETHAMINE INJ/PF 30 MG/1 ML SDV IV ONE (04:15)
[2017-03-27 04:20] LABS: ABSOLUTE EOSINOPHILS # (AUTO) 0.1 10^3/uL (0.0-0.6); ABSOLUTE NEUT (AUTO) 5.3 10^3/uL (1.7-8.2); BASOPHILS % (AUTO) 0.1 % (0-2); EOSINOPHILS % (AUTO) 0.8 % (0-6); HEMATOCRIT 30.5 % (37.9-51.0); HEMOGLOBIN 10.3 g/dL (13.5-17.0); HGB HCT DIFFERENCE 0.4; LYMPHOCYTES % (AUTO) 13.5 % (13-45); MEAN CORPUSCULAR HEMOGLOBIN 30.8 pg (27.0-33.4); MEAN CORPUSCULAR VOLUME 91 fl (80-97); MONOCYTES % (AUTO) 14.1 % (3-13); RED BLOOD COUNT 3.36 10^6/uL (4.35-5.55); RED CELL DISTRIBUTION WIDTH 14.9 % (11.5-14.0); SEGMENTED NEUTROPHILS % (AUTO) 71.5 % (42-78); WHITE BLOOD COUNT 7.4 10^3/uL (4.0-10.5)
[2017-03-27 04:41] LABS: ALBUMIN 1.9 g/dL (3.5-5.0); ANION GAP 5 (5-19); BLOOD UREA NITROGEN 13 mg/dL (7-20); CALCIUM 7.4 mg/dL (8.4-10.2); CARBON DIOXIDE 31 mmol/L (22-30); CHLORIDE 100 mmol/L (98-107); GLUCOSE 134 mg/dL (75-110); MAGNESIUM 1.6 mg/dL (1.6-2.3); POTASSIUM 3.3 mmol/L (3.6-5.0); SODIUM 135.9 mmol/L (137-145)
[2017-03-27] MEDS ORDERED: DEXTROSE 5%-LACTATED RINGERS 1,000 ML IV PRN ×3 (06:24→17:19)
[2017-03-27] MEDS: POTASSIUM CHLORIDE 20 MEQ/50 ML RTU IV SCH ×3 (06:30→10:15)
[2017-03-27] MEDS ORDERED: NORMAL SALINE 500 ML IV ONE ×2 (06:30→18:00)
[2017-03-27] MEDS ORDERED: MAGNESIUM SULFATE/D5W 1 GM/100 ML RTUPB IV ONE (06:30)
--- NOTE | 2017-03-27 08:40 | PDOC PROGRESS REPORT ---
Subjective Progress Note for:: 03/27/17 Subjective:: This is a follow-up visit for postop in my and colon resection. The patient states that he feels worse today than when he did yesterday in the evening 2 days ago. 2 days ago he said was a good day for him but today he complains of abdominal distention and bloating. He denies any chest pain or shortness of breath. Physical Exam Vital Signs: Temp Pulse Resp BP Pulse Ox 97.6 F 73 19 101/60 97 03/27/17 04:00 03/27/17 04:00 03/27/17 05:45 03/27/17 05:34 03/27/17 05:45 Pulse Oximeter Continuous Start: 03/21/17 16: 23 Freq: RTQ4 Status: Complete Document 03/25/17 01:56 STI (Rec: 03/25/17 01:56 STI [email or web address]) Pulse Oximetry Assessment Equipment Usage Equipment Discontinued Continuous SpO2 Machine # [id number] Intake & Output 03/26/17 03/27/17 03/28/17 06:59 06:59 06:59 Intake Total 2086 1305 Output Total 2350 1060 Balance -264 245 Weight 90.8 kg 91.2 kg Lines: Patient has 2 peripheral lines 1 in each arm. GENERAL: This is a well-developed well-nourished appearing elderly white male resting in bed currently in no acute distress. HEART: Paced rhythm on telemetry. No obvious murmurs rubs or gallops on exam. LUNGS: Crackles at the bases bilaterally otherwise clear with equal rise and fall of the chest. ABDOMEN: Soft, nontender. Patient does have some abdominal distention. Hyperactive bowel sounds. Colostomy bag is in place with brown liquid stool. EXTREMETIES: No clubbing, cyanosis or edema. 1+ peripheral pulses bilaterally. NEURO: Awake, alert and oriented 3. Cranial nerves II through XII are grossly intact.No clubbing, cyanosis or edema. Results Laboratory Results: 03/27/17 03:58 03/27/17 03:58 03/26/17 03/27/17 03/27/17 09:03 03:58 03:58 WBC 7.4 RBC 3.36 L Hgb 10.3 L Hct 30.5 L MCV 91 MCH 30.8 MCHC 34.0 RDW 14.9 H Plt Count 286 Seg Neutrophils % 71.5 Lymphocytes % 13.5 Monocytes % 14.1 H Eosinophils % 0.8 Basophils % 0.1 Absolute Neutrophils 5.3 Absolute Lymphocytes 1.0 Absolute Monocytes 1.0 Absolute Eosinophils 0.1 Absolute Basophils 0.0 Sodium 135.9 L Potassium 3.3 L Chloride 100 Carbon Dioxide 31 H Anion Gap 5 BUN 13 Creatinine 0.60 Est GFR ( Amer) > 60 Est GFR (Non-Af Amer) > 60 Glucose 134 H Calcium 7.4 L Magnesium 1.6 Albumin 1.9 L Urine Color YELLOW Urine Appearance TURBID Urine pH 5.0 Ur Specific [place] 1.017 Urine Protein NEGATIVE Urine Glucose (UA) NEGATIVE Urine Ketones NEGATIVE Urine Blood NEGATIVE Urine Nitrite NEGATIVE Ur Leukocyte Esterase NEGATIVE Urine WBC (Auto) 4 03/24/17 03/24/17 03/25/17 21:38 21:38 03:50 Creatine Kinase 28 L 53 L CK-MB (CK-2) 2.06 Troponin I 0.180 NT-Pro-B Natriuret Pep 03/25/17 03/25/17 03/25/17 03:50 11:00 11:00 Creatine Kinase 40 L CK-MB (CK-2) 8.73 H 7.81 H Troponin I 2.210 1.180 NT-Pro-B Natriuret Pep 03/25/17 11:00 Creatine Kinase CK-MB (CK-2) Troponin I NT-Pro-B Natriuret Pep 5280 H Impressions: Abdomen X-Ray 03/24/17 00:00 IMPRESSION: Findings favored to represent postoperative ileus. A developing bowel obstruction is not excluded. Chest X-Ray 03/25/17 11:27 IMPRESSION: Congestive heart failure. KUB X-Ray 03/25/17 18:14 IMPRESSION: Appropriately positioned nasogastric tube. Assessment & Plan - Diagnosis (1) Non-STEMI (non-ST elevated myocardial infarction) Is this a current diagnosis for this admission?: Yes Plan: Cardiac cath has been deferred. Patient and his family prefer to stay here at [place] and pursue medical management. Should he develop any further chest pain the plan will be to transfer him out for cardiac cath. Currently he is on Ranexa and heparin drip. He is also on Lipitor, Lasix, and metoprolol. It appears as though he is been on the heparin drip since 25 March. Today will make 48 hours. Discontinue heparin drip. Avoid NSAIDs. Begin Eliquis (2) Acute systolic congestive heart failure Is this a current diagnosis for this admission?: Yes Plan: The patient does not appear very edematous today. He has been receiving daily doses of Lasix. We will continue this for now. He is also on IV fluids at 125 and just now able to tolerate clear liquids. We will decrease his fluid rate down to 75 cc/h. (3) Rectal carcinoma Is this a current diagnosis for this admission?: Yes Plan: Status post ex lap with Pandya's procedure. Patient is now producing stool. Colostomy bag looks good. He does have some abdominal bloating. I will give him some Gas-X for now. So long as he is putting out stool is no reason to think that there is any obstruction. Surgery is following. (4) Hypokalemia Is this a current diagnosis for this admission?: Yes Plan: The patient is now taking p.o. Will have scheduled potassium available. Goals will be to maintain potassium above 4. 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 This will need to be revisited on discharge or as an outpatient. (6) Anemia Plan: stable. continue to monitor - Time Time Spent with patient: 15-24 minutes
[2017-03-27] MEDS ORDERED: POTASSIUM CHLORIDE 10 MEQ TABLET.SA PO ONE (09:30)
--- NOTE | 2017-03-27 09:39 | EKG REPORT ---
SEVERITY:- ABNORMAL ECG - VENTRICULAR-PACED RHYTHM UNDERLYING A FIB/FLUTTER : Confirmed by: Susanne Felipe 27-Mar-2017 09:39:06
[2017-03-27] MEDS ORDERED: APIXABAN 5 MG TABLET PO SCH (10:00)
[2017-03-27] MEDS: ONDANSETRON HCL INJ/PF 4 MG/2 ML SDV IV PRN ×2 (10:13→14:59)
[2017-03-27] MEDS: FAMOTIDINE INJ/PF 20 MG/2 ML SDV IV SCH (10:14)
[2017-03-27] MEDS: CALCIUM CARBONATE 500 MG TAB.CHEW NG SCH (10:16)
[2017-03-27] MEDS: RANOLAZINE 500 MG TAB.SR.12H PO SCH ×2 (10:17→17:51)
[2017-03-27] MEDS: SPIRONOLACTONE 25 MG TABLET NG SCH (10:18)
[2017-03-27] MEDS: CHOLECALCIFEROL (D3) 400 UNIT TABLET NG SCH (10:18)
[2017-03-27] MEDS: FUROSEMIDE ORAL SOLN 40 MG/5 ML UDCUP NG SCH (10:18)
[2017-03-27] MEDS: METOPROLOL SUCCINATE 25 MG TAB.SR.24H PO SCH ×2 (10:20→22:08)
[2017-03-27] MEDS: APIXABAN 5 MG TABLET NG SCH (17:51)
--- NOTE | 2017-03-27 19:40 | PDOC PROGRESS REPORT ---
Subjective Progress Note for:: 03/27/17 Subjective:: feels abdominal bloating but no pains Physical Exam Vital Signs: Temp Pulse Resp BP Pulse Ox 97.6 F 66 18 133/67 H 95 03/27/17 04:00 03/27/17 12:12 03/27/17 15:15 03/27/17 14:25 03/27/17 15:15 Pulse Oximeter Continuous Start: 03/21/17 16: 23 Freq: RTQ4 Status: Complete Document 03/25/17 01:56 STI (Rec: 03/25/17 01:56 STI [email or web address]) Pulse Oximetry Assessment Equipment Usage Equipment Discontinued Continuous SpO2 Machine # [id number] Intake & Output 03/26/17 03/27/17 03/28/17 06:59 06:59 06:59 Intake Total 2086 1305 2211 Output Total 2350 1060 225 Balance -308 026 8729 Weight 90.8 kg 91.2 kg Exam: Abdomen more distended but soft and nontender. Colostomy bag still with some liquid stool and air. Results Laboratory Results: 03/27/17 03:58 03/27/17 03:58 03/27/17 03/27/17 03:58 03:58 WBC 7.4 RBC 3.36 L Hgb 10.3 L Hct 30.5 L MCV 91 MCH 30.8 MCHC 34.0 RDW 14.9 H Plt Count 286 Seg Neutrophils % 71.5 Lymphocytes % 13.5 Monocytes % 14.1 H Eosinophils % 0.8 Basophils % 0.1 Absolute Neutrophils 5.3 Absolute Lymphocytes 1.0 Absolute Monocytes 1.0 Absolute Eosinophils 0.1 Absolute Basophils 0.0 Sodium 135.9 L Potassium 3.3 L Chloride 100 Carbon Dioxide 31 H Anion Gap 5 BUN 13 Creatinine 0.60 Est GFR ( Amer) > 60 Est GFR (Non-Af Amer) > 60 Glucose 134 H Calcium 7.4 L Magnesium 1.6 Albumin 1.9 L 03/24/17 03/24/17 03/25/17 21:38 21:38 03:50 Creatine Kinase 28 L 53 L CK-MB (CK-2) 2.06 Troponin I 0.180 NT-Pro-B Natriuret Pep 03/25/17 03/25/17 03/25/17 03:50 11:00 11:00 Creatine Kinase 40 L CK-MB (CK-2) 8.73 H 7.81 H Troponin I 2.210 1.180 NT-Pro-B Natriuret Pep 03/25/17 11:00 Creatine Kinase CK-MB (CK-2) Troponin I NT-Pro-B Natriuret Pep 5280 H Impressions: Abdomen X-Ray 03/24/17 00:00 IMPRESSION: Findings favored to represent postoperative ileus. A developing bowel obstruction is not excluded. Chest X-Ray 03/25/17 11:27 IMPRESSION: Congestive heart failure. KUB X-Ray 03/25/17 18:14 IMPRESSION: Appropriately positioned nasogastric tube. Assessment & Plan - Time Time Spent with patient: 15-24 minutes - Inpatient Certification Medical Necessity: Need Close Monitoring Due to Risk of Patient Decompensation, Need For IV Fluids, Need for IV Antibiotics - Plan Summary Plan Summary: 1 his urine output has significantly decreased. He had a 500 cc normal saline bolus earlier this morning and his IV increased. Plan is to give another bolus of normal saline and increase IV fluids 250 cc an hour with normal saline. We will obtain a chest x-ray to see if there is any pulmonary congestion. No also check BNP together with the BMP. I spoke with Dr. Felipe as far as patient's aggressive management or diagnostic management of his non-STEMI and the patient apparently refused further diagnostic regimen such as cardiac catheterization Dr. Meeks and I feels that patient should probably be an DNR status. I will talk to the daughter about this.
--- NOTE | 2017-03-27 19:58 | RADIOLOGY REPORT (SQ) ---
EXAM DESCRIPTION: CHEST SINGLE VIEW COMPLETED DATE/TIME: 03/27/2017 7:45 pm REASON FOR STUDY: r/o congestion COMPARISON: 03/25/2017 EXAM PARAMETERS: NUMBER OF VIEWS: One view. TECHNIQUE: Single frontal radiographic view of the chest acquired. RADIATION DOSE: NA LIMITATIONS: None. FINDINGS: LUNGS AND PLEURA: Right pleural effusion. Left retrocardiac opacity with small left effus ion. MEDIASTINUM AND HILAR STRUCTURES: No masses. Contour normal. HEART AND VASCULAR STRUCTURES: Cardiac enlargement with vascular congestion. BONES: No acute findings. HARDWARE: Pacemaker. OTHER: Retrocardiac hiatal hernia. Mild gastric distension. IMPRESSION: Vascular congestion with effusions. Stable. Retrocardiac hiatal hernia. Mild gastric distention. TECHNICAL DOCUMENTATION: JOB ID: [id number]- All Rights Reserved
[2017-03-27] MEDS ORDERED: NORMAL SALINE 1000 ML 1,000 ML IV PRN (19:59)
[2017-03-27 20:09] LABS: ABSOLUTE LYMPHOCYTES (AUTO) 0.7 10^3/uL (0.5-4.7); ABSOLUTE MONOCYTES (AUTO) 1.1 10^3/uL (0.1-1.4); ABSOLUTE NEUT (AUTO) 6.7 10^3/uL (1.7-8.2); BASOPHILS % (AUTO) 0.1 % (0-2); EOSINOPHILS % (AUTO) 0.1 % (0-6); HEMOGLOBIN 11.6 g/dL (13.5-17.0); HGB HCT DIFFERENCE 0.8; LYMPHOCYTES % (AUTO) 8.1 % (13-45); MEAN CORPUSCULAR HEMOGLOBIN 30.9 pg (27.0-33.4); MEAN CORPUSCULAR HGB CONC 34.1 g/dL (32.0-36.0); MEAN CORPUSCULAR VOLUME 91 fl (80-97); MONOCYTES % (AUTO) 12.7 % (3-13); RED BLOOD COUNT 3.76 10^6/uL (4.35-5.55); RED CELL DISTRIBUTION WIDTH 15.4 % (11.5-14.0); WHITE BLOOD COUNT 8.4 10^3/uL (4.0-10.5)
[2017-03-27] MEDS ORDERED: FUROSEMIDE INJ/PF 20 MG/2 ML SDV IV ONE (20:15)
--- NOTE | 2017-03-27 20:15 | Progress Note ---
Provider Note Provider Note: Called by nursing staff for decreased urine output. Patient has had nausea and vomiting today. Patient seen with cardiology at bedside. Discussion with cardiology reveals EF of approximately 35% and review of patients rhythm strip reveals NSVT and paced rhythm. Patient complains of nausea. Denies SOB, CP, or abdominal pain. VSS HR 78, 98%, RR15, 117/64 Gen: A+Ox3, mild discomfort HEENT: AT/NC, PERRL, EOMI, no icterus, MMM CHEST: Right sided wheezing CV: RRR Abdomen: ostomy in LLQ EXT: 2+ BLE edema NEURO: grossly intact PSYCH: normal mood and affect A/P: 1. Decreased urine output: will give 20 lasix IV and due to new NPO status will start cautiously IVF @ 63mL/hr and accuchecks. Consider dobutamine. 2. NSVT: check BMP, Mag, Troponin
[2017-03-27 20:24] LABS: ANION GAP 8 (5-19); BLOOD UREA NITROGEN 16 mg/dL (7-20); CALCIUM 7.6 mg/dL (8.4-10.2); CARBON DIOXIDE 27 mmol/L (22-30); CHLORIDE 102 mmol/L (98-107); CREATININE RESULT 0.57 mg/dL (0.52-1.25); GLUCOSE 153 mg/dL (75-110); POTASSIUM 4.1 mmol/L (3.6-5.0); SODIUM 136.5 mmol/L (137-145)
[2017-03-27] MEDS ORDERED: NORMAL SALINE 1000 ML 500 ML IV ONE (20:30)
[2017-03-27] MEDS: POTASSI CL 20 MEQ/D5-1/2NS 1L 1,000 ML IV PRN (20:54)
[2017-03-27] MEDS: ATORVASTATIN CALCIUM 40 MG TABLET NG SCH (22:08)
[2017-03-28 04:23] LABS: ABSOLUTE LYMPHOCYTES (AUTO) 1.2 10^3/uL (0.5-4.7); ABSOLUTE MONOCYTES (AUTO) 1.2 10^3/uL (0.1-1.4); ABSOLUTE NEUT (AUTO) 4.7 10^3/uL (1.7-8.2); BASOPHILS % (AUTO) 0.2 % (0-2); EOSINOPHILS % (AUTO) 0.7 % (0-6); HEMATOCRIT 31.2 % (37.9-51.0); HEMOGLOBIN 10.9 g/dL (13.5-17.0); HGB HCT DIFFERENCE 1.5; LYMPHOCYTES % (AUTO) 16.3 % (13-45); MEAN CORPUSCULAR HEMOGLOBIN 31.6 pg (27.0-33.4); MEAN CORPUSCULAR HGB CONC 34.8 g/dL (32.0-36.0); MEAN CORPUSCULAR VOLUME 91 fl (80-97); MONOCYTES % (AUTO) 16.4 % (3-13); RED BLOOD COUNT 3.43 10^6/uL (4.35-5.55); RED CELL DISTRIBUTION WIDTH 15.1 % (11.5-14.0); SEGMENTED NEUTROPHILS % (AUTO) 66.4 % (42-78); WHITE BLOOD COUNT 7.1 10^3/uL (4.0-10.5)
[2017-03-28 04:37] LABS: ANION GAP 5 (5-19); BLOOD UREA NITROGEN 15 mg/dL (7-20); CALCIUM 7.7 mg/dL (8.4-10.2); CARBON DIOXIDE 32 mmol/L (22-30); CHLORIDE 101 mmol/L (98-107); GLUCOSE 136 mg/dL (75-110); MAGNESIUM 1.7 mg/dL (1.6-2.3); POTASSIUM 3.7 mmol/L (3.6-5.0); SODIUM 137.6 mmol/L (137-145)
[2017-03-28 07:16] LABS: APPEARANCE,URINE CLEAR; BILIRUBIN,URINE NEGATIVE (NEGATIVE); GLUCOSE, URINE NEGATIVE (NEGATIVE); KETONES,URINE NEGATIVE (NEGATIVE); LEUKOCYTE ESTERASE,URINE NEGATIVE (NEGATIVE); NITRITE,URINE NEGATIVE (NEGATIVE); PROTEIN,URINE NEGATIVE (NEGATIVE); URINE SPECIFIC GRAVITY 1.009; UROBILINOGEN,URINE NEGATIVE mg/dL (<2.0)
--- NOTE | 2017-03-28 08:55 | PDOC PROGRESS REPORT ---
Subjective Progress Note for:: 03/28/17 Subjective:: This is a follow-up visit for postop in my and colon resection. Events of overnight reviewed with the nocturnal wrist. The patient is only put out 40 cc of urine so far this morning. Apparently he put out a fair amount overnight with diuresis. The patient feels a little bit better today and feels a little less swollen in his abdomen today Physical Exam Vital Signs: Temp Pulse Resp BP Pulse Ox 97.5 F 81 21 H 107/62 97 03/28/17 04:00 03/27/17 20:00 03/28/17 05:45 03/28/17 05:35 03/28/17 05:45 Pulse Oximeter Continuous Start: 03/21/17 16: 23 Freq: RTQ4 Status: Complete Document 03/25/17 01:56 STI (Rec: 03/25/17 01:56 STI [email or web address]) Pulse Oximetry Assessment Equipment Usage Equipment Discontinued Continuous SpO2 Machine # [id number] Intake & Output 03/27/17 03/28/17 03/29/17 06:59 06:59 06:59 Intake Total 1305 3151 Output Total 1060 910 Balance 245 2241 Weight 91.2 kg 91.2 kg GENERAL: This is a well-developed well-nourished appearing elderly white male resting in the recliner flipping through the circular's in no acute distress. HEART: Paced rhythm on telemetry. No obvious murmurs rubs or gallops on exam. LUNGS: Crackles at the bases bilaterally otherwise clear with equal rise and fall of the chest. ABDOMEN: Soft, nontender. Patient does have some abdominal distention but less than yesterday. Hyperactive bowel sounds. Colostomy bag is in place with brown liquid stool. EXTREMETIES: No clubbing, cyanosis. 1+ pitting edema on the left and 2+ on the right. 1+ peripheral pulses bilaterally. NEURO: Awake, alert Results Laboratory Results: 03/28/17 04:10 03/28/17 04:10 03/27/17 03/27/17 03/28/17 20:00 20:00 04:10 WBC 8.4 7.1 RBC 3.76 L 3.43 L Hgb 11.6 L 10.9 L Hct 34.0 L 31.2 L MCV 91 91 MCH 30.9 31.6 MCHC 34.1 34.8 RDW 15.4 H 15.1 H Plt Count 321 314 Seg Neutrophils % 79.0 H 66.4 Lymphocytes % 8.1 L 16.3 Monocytes % 12.7 16.4 H Eosinophils % 0.1 0.7 Basophils % 0.1 0.2 Absolute Neutrophils 6.7 4.7 Absolute Lymphocytes 0.7 1.2 Absolute Monocytes 1.1 1.2 Absolute Eosinophils 0.0 0.0 Absolute Basophils 0.0 0.0 Sodium 136.5 L Potassium 4.1 Chloride 102 Carbon Dioxide 27 Anion Gap 8 BUN 16 Creatinine 0.57 Est GFR ( Amer) > 60 Est GFR (Non-Af Amer) > 60 Glucose 153 H Calcium 7.6 L Magnesium Urine Color Urine Appearance Urine pH Ur Specific [place] Urine Protein Urine Glucose (UA) Urine Ketones Urine Blood Urine Nitrite Ur Leukocyte Esterase Urine WBC (Auto) Urine RBC (Auto) Stool Occult Blood 03/28/17 03/28/17 03/28/17 04:10 06:45 06:45 WBC RBC Hgb Hct MCV MCH MCHC RDW Plt Count Seg Neutrophils % Lymphocytes % Monocytes % Eosinophils % Basophils % Absolute Neutrophils Absolute Lymphocytes Absolute Monocytes Absolute Eosinophils Absolute Basophils Sodium 137.6 Potassium 3.7 Chloride 101 Carbon Dioxide 32 H Anion Gap 5 BUN 15 Creatinine 0.60 Est GFR ( Amer) > 60 Est GFR (Non-Af Amer) > 60 Glucose 136 H Calcium 7.7 L Magnesium 1.7 Urine Color YELLOW Urine Appearance CLEAR Urine pH 5.0 Ur Specific [place] 1.009 Urine Protein NEGATIVE Urine Glucose (UA) NEGATIVE Urine Ketones NEGATIVE Urine Blood SMALL H Urine Nitrite NEGATIVE Ur Leukocyte Esterase NEGATIVE Urine WBC (Auto) 1 Urine RBC (Auto) 3 Stool Occult Blood POSITIVE 03/24/17 03/24/17 03/25/17 21:38 21:38 03:50 Creatine Kinase 28 L 53 L CK-MB (CK-2) 2.06 Troponin I 0.180 NT-Pro-B Natriuret Pep 03/25/17 03/25/17 03/25/17 03:50 11:00 11:00 Creatine Kinase 40 L CK-MB (CK-2) 8.73 H 7.81 H Troponin I 2.210 1.180 NT-Pro-B Natriuret Pep 03/25/17 03/27/17 11:00 20:00 Creatine Kinase CK-MB (CK-2) Troponin I NT-Pro-B Natriuret Pep 5280 H 8020 H Impressions: Abdomen X-Ray 03/24/17 00:00 IMPRESSION: Findings favored to represent postoperative ileus. A developing bowel obstruction is not excluded. KUB X-Ray 03/25/17 18:14 IMPRESSION: Appropriately positioned nasogastric tube. Chest X-Ray 03/27/17 00:00 IMPRESSION: Vascular congestion with effusions. Stable. Retrocardiac hiatal hernia. Mild gastric distention. Assessment & Plan - Diagnosis (1) Non-STEMI (non-ST elevated myocardial infarction) Is this a current diagnosis for this admission?: Yes Plan: Cardiac cath has been deferred. Patient and his family prefer to stay here at [facility] and pursue medical management. Should he develop any further chest pain the plan will be to transfer him out for cardiac cath. Currently he is on Ranexa and heparin drip. He is also on Lipitor, Lasix, and metoprolol. He is also on Eliquis. Given the patient's poor prognosis, the general surgery team spoke with the patient's daughter and updated her. Based on a conversation they have made the patient DNR and the daughter will pursue legal medical power of attorney general. Please see Dr. Harrell's note for details. (2) Acute systolic congestive heart failure Is this a current diagnosis for this admission?: Yes Plan: The patient appears edematous today. He is currently on D5 half-normal at 63 mL an hour. This was because of the n.p.o. status that he was given overnight. His dietary status is been changed back to clear liquid diet. If he tolerates this well we can discontinue the fluids. Patient will need continued diuresis today. His edema looks worse today. BNP is up to over 8000. (3) Rectal carcinoma Is this a current diagnosis for this admission?: Yes Plan: Status post ex lap with Pandya's procedure. Patient is now producing stool. Colostomy bag looks good. (4) Hypokalemia Is this a current diagnosis for this admission?: Yes Plan: The patient is now taking p.o. Will have scheduled potassium available. Goals will be to maintain potassium above 4. 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 This will need to be revisited on discharge or as an outpatient. (6) Anemia Plan: stable. continue to monitor - Time Time Spent with patient: 15-24 minutes
[2017-03-28] MEDS: SPIRONOLACTONE 25 MG TABLET NG SCH (09:11)
[2017-03-28] MEDS: POTASSIUM CHLORIDE 10 MEQ TABLET.SA PO SCH (09:12)
[2017-03-28] MEDS: METOPROLOL SUCCINATE 25 MG TAB.SR.24H PO SCH ×2 (09:12→22:27)
[2017-03-28] MEDS: CALCIUM CARBONATE 500 MG TAB.CHEW NG SCH (09:13)
[2017-03-28] MEDS: CHOLECALCIFEROL (D3) 400 UNIT TABLET NG SCH (09:13)
[2017-03-28] MEDS: FUROSEMIDE INJ/PF 40 MG/4 ML SDV IV SCH ×2 (09:13→22:24)
[2017-03-28] MEDS: RANOLAZINE 500 MG TAB.SR.12H PO SCH ×2 (09:13→17:49)
[2017-03-28] MEDS: FAMOTIDINE INJ/PF 20 MG/2 ML SDV IV SCH (09:13)
[2017-03-28] MEDS: APIXABAN 5 MG TABLET NG SCH ×2 (10:29→17:49)
[2017-03-28] MEDS: POTASSI CL 20 MEQ/D5-1/2NS 1L 1,000 ML IV PRN (14:30)
[2017-03-28] MEDS: ATORVASTATIN CALCIUM 40 MG TABLET NG SCH (22:27)
--- NOTE | 2017-03-29 01:09 | PDOC PROGRESS REPORT ---
Subjective Progress Note for:: 03/28/17 Subjective:: Patient feels good today denies any abdominal pain. Physical Exam Vital Signs: Temp Pulse Resp BP Pulse Ox 97.4 F 70 21 H 110/63 96 03/29/17 00:00 03/28/17 20:00 03/29/17 00:00 03/28/17 23:06 03/29/17 00:00 Pulse Oximeter Continuous Start: 03/21/17 16: 23 Freq: RTQ4 Status: Complete Document 03/25/17 01:56 STI (Rec: 03/25/17 01:56 STI [email or web address]) Pulse Oximetry Assessment Equipment Usage Equipment Discontinued Continuous SpO2 Machine # [id number] Intake & Output 03/27/17 03/28/17 03/29/17 06:59 06:59 06:59 Intake Total 1305 3151 1193 Output Total 6644 209 9049 Balance 245 2241 -942 Weight 91.2 kg 91.2 kg Exam: His abdomen is is mildly distended but soft. Colostomy has been functioning quite well. Unfortunately his urine output again decreased. This will be addressed by the hospitalist. Meantime patient can resume clear liquid diet and give him Ensure Clear to help his malnutrition hopefully we can advance his diet in the next 24-48 hours I discussed patient's condition with his daughter on the phone as far as patient being DNR. The daughter agrees that since her father requests DNR this should be ordered. I told the hospitalist regarding this matter. Also the daughter is going to go to her health care attorney today to get a POA for decision making as far as further medical care. Results Laboratory Results: 03/28/17 04:10 03/28/17 04:10 03/28/17 03/28/17 03/28/17 04:10 04:10 06:45 WBC 7.1 RBC 3.43 L Hgb 10.9 L Hct 31.2 L MCV 91 MCH 31.6 MCHC 34.8 RDW 15.1 H Plt Count 314 Seg Neutrophils % 66.4 Lymphocytes % 16.3 Monocytes % 16.4 H Eosinophils % 0.7 Basophils % 0.2 Absolute Neutrophils 4.7 Absolute Lymphocytes 1.2 Absolute Monocytes 1.2 Absolute Eosinophils 0.0 Absolute Basophils 0.0 Sodium 137.6 Potassium 3.7 Chloride 101 Carbon Dioxide 32 H Anion Gap 5 BUN 15 Creatinine 0.60 Est GFR ( Amer) > 60 Est GFR (Non-Af Amer) > 60 Glucose 136 H Calcium 7.7 L Magnesium 1.7 Urine Color Urine Appearance Urine pH Ur Specific [place] Urine Protein Urine Glucose (UA) Urine Ketones Urine Blood Urine Nitrite Ur Leukocyte Esterase Urine WBC (Auto) Urine RBC (Auto) Stool Occult Blood POSITIVE 03/28/17 06:45 WBC RBC Hgb Hct MCV MCH MCHC RDW Plt Count Seg Neutrophils % Lymphocytes % Monocytes % Eosinophils % Basophils % Absolute Neutrophils Absolute Lymphocytes Absolute Monocytes Absolute Eosinophils Absolute Basophils Sodium Potassium Chloride Carbon Dioxide Anion Gap BUN Creatinine Est GFR ( Amer) Est GFR (Non-Af Amer) Glucose Calcium Magnesium Urine Color YELLOW Urine Appearance CLEAR Urine pH 5.0 Ur Specific [place] 1.009 Urine Protein NEGATIVE Urine Glucose (UA) NEGATIVE Urine Ketones NEGATIVE Urine Blood SMALL H Urine Nitrite NEGATIVE Ur Leukocyte Esterase NEGATIVE Urine WBC (Auto) 1 Urine RBC (Auto) 3 Stool Occult Blood 03/24/17 03/24/17 03/25/17 21:38 21:38 03:50 Creatine Kinase 28 L 53 L CK-MB (CK-2) 2.06 Troponin I 0.180 NT-Pro-B Natriuret Pep 03/25/17 03/25/17 03/25/17 03:50 11:00 11:00 Creatine Kinase 40 L CK-MB (CK-2) 8.73 H 7.81 H Troponin I 2.210 1.180 NT-Pro-B Natriuret Pep 03/25/17 03/27/17 11:00 20:00 Creatine Kinase CK-MB (CK-2) Troponin I NT-Pro-B Natriuret Pep 5280 H 8020 H Impressions: Abdomen X-Ray 03/24/17 00:00 IMPRESSION: Findings favored to represent postoperative ileus. A developing bowel obstruction is not excluded. KUB X-Ray 03/25/17 18:14 IMPRESSION: Appropriately positioned nasogastric tube. Chest X-Ray 03/27/17 00:00 IMPRESSION: Vascular congestion with effusions. Stable. Retrocardiac hiatal hernia. Mild gastric distention.
[2017-03-29 04:24] LABS: ABSOLUTE EOSINOPHILS # (AUTO) 0.1 10^3/uL (0.0-0.6); ABSOLUTE LYMPHOCYTES (AUTO) 1.4 10^3/uL (0.5-4.7); ABSOLUTE NEUT (AUTO) 4.7 10^3/uL (1.7-8.2); BASOPHILS % (AUTO) 0.4 % (0-2); EOSINOPHILS % (AUTO) 1.1 % (0-6); HEMATOCRIT 30.6 % (37.9-51.0); HEMOGLOBIN 10.8 g/dL (13.5-17.0); HGB HCT DIFFERENCE 1.8; LYMPHOCYTES % (AUTO) 19.9 % (13-45); MEAN CORPUSCULAR HEMOGLOBIN 31.9 pg (27.0-33.4); MEAN CORPUSCULAR HGB CONC 35.3 g/dL (32.0-36.0); MEAN CORPUSCULAR VOLUME 91 fl (80-97); MONOCYTES % (AUTO) 13.2 % (3-13); RED BLOOD COUNT 3.38 10^6/uL (4.35-5.55); RED CELL DISTRIBUTION WIDTH 15.3 % (11.5-14.0); SEGMENTED NEUTROPHILS % (AUTO) 65.4 % (42-78); WHITE BLOOD COUNT 7.2 10^3/uL (4.0-10.5)
[2017-03-29 04:37] LABS: BLOOD UREA NITROGEN 10 mg/dL (7-20); CALCIUM 7.7 mg/dL (8.4-10.2); CHLORIDE 100 mmol/L (98-107); CREATININE RESULT 0.59 mg/dL (0.52-1.25); GLUCOSE 111 mg/dL (75-110); MAGNESIUM 1.5 mg/dL (1.6-2.3); POTASSIUM 3.8 mmol/L (3.6-5.0)
[2017-03-29 04:47] LABS: ANION GAP 6 (5-19); CARBON DIOXIDE 30 mmol/L (22-30)
[2017-03-29] MEDS: POTASSI CL 20 MEQ/D5-1/2NS 1L 1,000 ML IV PRN ×2 (06:44→21:19)
[2017-03-29] MEDS: METOPROLOL SUCCINATE 25 MG TAB.SR.24H PO SCH ×2 (09:25→22:33)
[2017-03-29] MEDS: POTASSIUM CHLORIDE 10 MEQ TABLET.SA PO SCH (09:26)
[2017-03-29] MEDS: RANOLAZINE 500 MG TAB.SR.12H PO SCH ×2 (09:26→18:19)
[2017-03-29] MEDS: SPIRONOLACTONE 25 MG TABLET NG SCH (09:26)
[2017-03-29] MEDS: CHOLECALCIFEROL (D3) 400 UNIT TABLET NG SCH (09:26)
[2017-03-29] MEDS: CALCIUM CARBONATE 500 MG TAB.CHEW NG SCH (09:27)
[2017-03-29] MEDS: FAMOTIDINE INJ/PF 20 MG/2 ML SDV IV SCH (09:27)
[2017-03-29] MEDS: FUROSEMIDE INJ/PF 40 MG/4 ML SDV IV SCH ×2 (09:27→22:32)
[2017-03-29] MEDS: APIXABAN 5 MG TABLET NG SCH ×2 (09:27→18:19)
--- NOTE | 2017-03-29 09:29 | PDOC PROGRESS REPORT ---
Subjective Progress Note for:: 03/29/17 Subjective:: This is a follow-up visit for postop [place] and colon resection. Patient is doing well. No acute events overnight. He diuresed 800 net negative yesterday. Physical Exam Vital Signs: Temp Pulse Resp BP Pulse Ox 96.6 F L 76 16 97/57 L 99 03/29/17 07:57 03/29/17 08:00 03/29/17 08:00 03/29/17 07:57 03/29/17 07:57 Pulse Oximeter Continuous Start: 03/21/17 16: 23 Freq: RTQ4 Status: Complete Document 03/25/17 01:56 STI (Rec: 03/25/17 01:56 STI [email or web address]) Pulse Oximetry Assessment Equipment Usage Equipment Discontinued Continuous SpO2 Machine # [id number] Intake & Output 03/28/17 03/29/17 03/30/17 06:59 06:59 06:59 Intake Total 3151 2593 Output Total 910 3440 30 Balance 2241 -847 -30 Weight 91.2 kg 92.8 kg GENERAL: This is a well-developed well-nourished appearing elderly white male resting in the recliner flipping through the newspaper in no acute distress. HEART: Paced rhythm on telemetry. No obvious murmurs rubs or gallops on exam. LUNGS: Slightly diminished at the bases bilaterally otherwise clear with equal rise and fall of the chest. ABDOMEN: Soft, nontender. Minimal abdominal distention. Normoactive bowel sounds. Colostomy bag is in place with brown-black liquid stool. EXTREMETIES: No clubbing, cyanosis. 1+ pitting edema on the left and 2+ on the right. 1+ peripheral pulses bilaterally. NEURO: Awake, alert, oriented. Results Laboratory Results: 03/29/17 04:00 03/29/17 04:00 03/29/17 03/29/17 04:00 04:00 WBC 7.2 RBC 3.38 L Hgb 10.8 L Hct 30.6 L MCV 91 MCH 31.9 MCHC 35.3 RDW 15.3 H Plt Count 318 Seg Neutrophils % 65.4 Lymphocytes % 19.9 Monocytes % 13.2 H Eosinophils % 1.1 Basophils % 0.4 Absolute Neutrophils 4.7 Absolute Lymphocytes 1.4 Absolute Monocytes 1.0 Absolute Eosinophils 0.1 Absolute Basophils 0.0 Sodium 136.0 L Potassium 3.8 Chloride 100 Carbon Dioxide 30 Anion Gap 6 BUN 10 Creatinine 0.59 Est GFR ( Amer) > 60 Est GFR (Non-Af Amer) > 60 Glucose 111 H Calcium 7.7 L Magnesium 1.5 L 03/24/17 03/24/17 03/25/17 21:38 21:38 03:50 Creatine Kinase 28 L 53 L CK-MB (CK-2) 2.06 Troponin I 0.180 NT-Pro-B Natriuret Pep 03/25/17 03/25/17 03/25/17 03:50 11:00 11:00 Creatine Kinase 40 L CK-MB (CK-2) 8.73 H 7.81 H Troponin I 2.210 1.180 NT-Pro-B Natriuret Pep 03/25/17 03/27/17 11:00 20:00 Creatine Kinase CK-MB (CK-2) Troponin I NT-Pro-B Natriuret Pep 5280 H 8020 H Impressions: Abdomen X-Ray 03/24/17 00:00 IMPRESSION: Findings favored to represent postoperative ileus. A developing bowel obstruction is not excluded. KUB X-Ray 03/25/17 18:14 IMPRESSION: Appropriately positioned nasogastric tube. Chest X-Ray 03/27/17 00:00 IMPRESSION: Vascular congestion with effusions. Stable. Retrocardiac hiatal hernia. Mild gastric distention. Assessment & Plan - Diagnosis (1) Non-STEMI (non-ST elevated myocardial infarction) Is this a current diagnosis for this admission?: Yes Plan: Cardiac cath has been deferred. Patient and his family prefer to stay here at [place] and pursue medical management. Should he develop any further chest pain the plan will be to transfer him out for cardiac cath at that time. Currently he is on Ranexa and Eliquis. he is also on Lipitor, Lasix, and metoprolol. The patient has decided that he is not in agreement with DNR status and request to be made full code again. (2) Acute systolic congestive heart failure Is this a current diagnosis for this admission?: Yes Plan: The patient appears edematous in the lower extremities. He is currently on D5 half-normal at 63 mL an hour. He is currently still on a clear liquid diet. If he continues to tolerate this we can discontinue IV fluids later today. (3) Rectal carcinoma Is this a current diagnosis for this admission?: Yes Plan: Status post ex lap with Pandya's procedure. Patient is now producing stool. Colostomy bag looks good. (4) Hypokalemia Is this a current diagnosis for this admission?: Yes Plan: The patient is now taking p.o. Will have scheduled potassium available. Goals will be to maintain potassium above 4. 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 This will need to be revisited on discharge or as an outpatient. (6) Anemia Plan: stable. continue to monitor (7) Hypomagnesemia Plan: Replace today. - Time Time Spent with patient: 15-24 minutes Anticipated discharge: Home with Homehealth - Inpatient Certification Medical Necessity: Need Close Monitoring Due to Risk of Patient Decompensation
[2017-03-29] MEDS ORDERED: MAGNESIUM SULFATE/D5W 1 GM/100 ML RTUPB IV ONE (10:00)
--- NOTE | 2017-03-29 12:09 | PDOC PROGRESS REPORT ---
Subjective Progress Note for:: 03/29/17 Subjective:: Patient had a good night. He is taking more liquids. Continues to have good ostomy output. Remains in the ICU, awaiting bed transfer to floor. Physical Exam Vital Signs: Temp Pulse Resp BP Pulse Ox 96.6 F L 72 20 116/64 98 03/29/17 07:57 03/29/17 10:00 03/29/17 10:06 03/29/17 10:06 03/29/17 10:06 Pulse Oximeter Continuous Start: 03/21/17 16: 23 Freq: RTQ4 Status: Complete Document 03/25/17 01:56 STI (Rec: 03/25/17 01:56 STI [email or web address]) Pulse Oximetry Assessment Equipment Usage Equipment Discontinued Continuous SpO2 Machine # [id number] Intake & Output 03/28/17 03/29/17 03/30/17 06:59 06:59 06:59 Intake Total 3151 2593 180 Output Total 910 3440 1355 Balance 2241 -847 -1175 Weight 91.2 kg 92.8 kg General appearance: PRESENT: no acute distress GI/Abdominal exam: PRESENT: other - [place] still intact; some bruising around the incision. No tito hematoma. Ostomy appliance in place, ostomy pink with stool. Results Laboratory Results: 03/29/17 04:00 03/29/17 04:00 03/29/17 03/29/17 04:00 04:00 WBC 7.2 RBC 3.38 L Hgb 10.8 L Hct 30.6 L MCV 91 MCH 31.9 MCHC 35.3 RDW 15.3 H Plt Count 318 Seg Neutrophils % 65.4 Lymphocytes % 19.9 Monocytes % 13.2 H Eosinophils % 1.1 Basophils % 0.4 Absolute Neutrophils 4.7 Absolute Lymphocytes 1.4 Absolute Monocytes 1.0 Absolute Eosinophils 0.1 Absolute Basophils 0.0 Sodium 136.0 L Potassium 3.8 Chloride 100 Carbon Dioxide 30 Anion Gap 6 BUN 10 Creatinine 0.59 Est GFR ( Amer) > 60 Est GFR (Non-Af Amer) > 60 Glucose 111 H Calcium 7.7 L Magnesium 1.5 L 03/24/17 03/24/17 03/25/17 21:38 21:38 03:50 Creatine Kinase 28 L 53 L CK-MB (CK-2) 2.06 Troponin I 0.180 NT-Pro-B Natriuret Pep 03/25/17 03/25/17 03/25/17 03:50 11:00 11:00 Creatine Kinase 40 L CK-MB (CK-2) 8.73 H 7.81 H Troponin I 2.210 1.180 NT-Pro-B Natriuret Pep 03/25/17 03/27/17 03/29/17 11:00 20:00 04:00 Creatine Kinase CK-MB (CK-2) Troponin I NT-Pro-B Natriuret Pep 5280 H 8020 H 7930 H Impressions: Abdomen X-Ray 03/24/17 00:00 IMPRESSION: Findings favored to represent postoperative ileus. A developing bowel obstruction is not excluded. KUB X-Ray 03/25/17 18:14 IMPRESSION: Appropriately positioned nasogastric tube. Chest X-Ray 03/27/17 00:00 IMPRESSION: Vascular congestion with effusions. Stable. Retrocardiac hiatal hernia. Mild gastric distention. Assessment & Plan - Diagnosis (1) Rectal carcinoma Is this a current diagnosis for this admission?: Yes Plan: Patient now postoperative day 7 status post exploratory laparotomy, low anterior resection, final path showing 9 cm tumor with 2 out of 22 lymph nodes positive for metastatic disease, pathologic stage T3, N1 B, M0, doing reasonably well, progressing satisfactorily Plan: 1. Anticipate transfer to the floor; showed a Davis catheter to be determined as patient has a prostatic enlargement and preoperative voiding symptoms . 2. We will get physical therapy involved 3. We will also get discharge planning involved. Appreciate internal medicine and cardiology support. Goal is to get patient out of the hospital (2) Metastatic malignant neoplasm to prostate Is this a current diagnosis for this admission?: Yes - Time Time Spent with patient: 15-24 minutes Critical Time spent with patient: Less than 15 minutes
--- NOTE | 2017-03-29 20:32 | PDOC PROGRESS REPORT ---
Subjective Progress Note for:: 03/29/17 Subjective:: Patient seems to be doing better with gradual improvement. Pt is denying any chest arm or neck discomfort. Patient denying any PND, orthopnea. Patient denied any sustained palpitations, dizziness, syncope, near syncope. Patient denying any fever chills. Patient denying any other significant discomfort. Patient today noted to have some coughing spells. Patient is noted to be in atrial flutter fibrillation with intermittent ventricular paced rhythm. Review of systems: Rest review of systems negative. Medications: Medications have been reviewed. Physical Exam Vital Signs: Temp Pulse Resp BP Pulse Ox 97.4 F 69 24 H 114/56 L 96 03/29/17 18:28 03/29/17 18:28 03/29/17 18:28 03/29/17 18:28 03/29/17 18:28 Pulse Oximeter Continuous Start: 03/21/17 16: 23 Freq: RTQ4 Status: Complete Document 03/25/17 01:56 STI (Rec: 03/25/17 01:56 STI [email or web address]) Pulse Oximetry Assessment Equipment Usage Equipment Discontinued Continuous SpO2 Machine # [id number] Intake & Output 03/28/17 03/29/17 03/30/17 06:59 06:59 06:59 Intake Total 3151 2593 1032 Output Total 910 3440 1830 Balance 9105 -970 -034 Weight 91.2 kg 92.8 kg Exam: GENERAL: well-nourished and in no acute distress. Alert and oriented x3 HEAD: Atraumatic, normocephalic. EYES: Pupils equal round and reactive to light, extraocular movements intact, sclera anicteric, conjunctiva are normal. ENT: TMs normal, nares patent, oropharynx clear without exudates. Moist mucous membranes. No oral ulcerations or bleeding gums noted NECK: supple without lymphadenopathy. Trachea is central. No cervical or axillary lymphadenopathy noted. Carotids are 2+, JVD WNL LUNGS: Respiration seems nonlabored, no significant accessory muscle action noted. Few bibasilar crackles noted. No wheezes rales or rhonchi noted. No significant dullness noted on percussion. CHEST: Palpation of the chest wall shows no significant chest wall tenderness. No other significant abnormalities noted. HEART: [employer], No PSH, 1/6 EMILY aortic area, 1/6 [place] systolic murmur mitral area, no rubs, no gallops. ABDOMEN: Soft, no significant tenderness appreciated, normoactive bowel sounds. No guarding, no rebound. No rigidity noted . No masses appreciated. Colostomy tube noted. EXTREMITIES: Pedal pulses are 1-2+, no calf tenderness noted. No clubbing or cyanosis.trace to 1+ pedal edema noted NEUROLOGICAL: Focused neurological exam showed no significant neurologic deficit. Normal speech, no focal weakness appreciated. PSYCH: Normal mood, normal affect. Judgment and insight within normal limits. SKIN: No significant ecchymosis, rash, ulcerations or signs of pruritus noted. MUSCULOSKELETAL EXAM: No significant joint swelling noted. Results Laboratory Results: 03/29/17 04:00 03/29/17 04:00 03/29/17 03/29/17 04:00 04:00 WBC 7.2 RBC 3.38 L Hgb 10.8 L Hct 30.6 L MCV 91 MCH 31.9 MCHC 35.3 RDW 15.3 H Plt Count 318 Seg Neutrophils % 65.4 Lymphocytes % 19.9 Monocytes % 13.2 H Eosinophils % 1.1 Basophils % 0.4 Absolute Neutrophils 4.7 Absolute Lymphocytes 1.4 Absolute Monocytes 1.0 Absolute Eosinophils 0.1 Absolute Basophils 0.0 Sodium 136.0 L Potassium 3.8 Chloride 100 Carbon Dioxide 30 Anion Gap 6 BUN 10 Creatinine 0.59 Est GFR ( Amer) > 60 Est GFR (Non-Af Amer) > 60 Glucose 111 H Calcium 7.7 L Magnesium 1.5 L 03/24/17 03/24/17 03/25/17 21:38 21:38 03:50 Creatine Kinase 28 L 53 L CK-MB (CK-2) 2.06 Troponin I 0.180 NT-Pro-B Natriuret Pep 03/25/17 03/25/17 03/25/17 03:50 11:00 11:00 Creatine Kinase 40 L CK-MB (CK-2) 8.73 H 7.81 H Troponin I 2.210 1.180 NT-Pro-B Natriuret Pep 03/25/17 03/27/17 03/29/17 11:00 20:00 04:00 Creatine Kinase CK-MB (CK-2) Troponin I NT-Pro-B Natriuret Pep 5280 H 8020 H 7930 H EKG Comments: Atrial flutter fibrillation with intermittent ventricular paced beats. Impressions: Abdomen X-Ray 03/24/17 00:00 IMPRESSION: Findings favored to represent postoperative ileus. A developing bowel obstruction is not excluded. KUB X-Ray 03/25/17 18:14 IMPRESSION: Appropriately positioned nasogastric tube. Chest X-Ray 03/27/17 00:00 IMPRESSION: Vascular congestion with effusions. Stable. Retrocardiac hiatal hernia. Mild gastric distention. Assessment & Plan - Diagnosis (1) Myocardial infarction involving left anterior descending (LAD) coronary artery Is this a current diagnosis for this admission?: Yes (2) Metastatic malignant neoplasm to prostate Is this a current diagnosis for this admission?: Yes (3) Rectal carcinoma Is this a current diagnosis for this admission?: Yes (4) Edema Qualifiers: Edema type: unspecified Qualified Code(s): R60.9 - Edema, unspecified Is this a current diagnosis for this admission?: Yes (5) Hypokalemia Is this a current diagnosis for this admission?: Yes (6) Acute systolic congestive heart failure Is this a current diagnosis for this admission?: Yes - Notes Notes: Patient has done reasonably well on medical management. Will continue on current therapy. I believe patient is DNR but need to be confirmed. Current medical regimen is noted to be satisfactory. Will add a small dose of GABRIELA inhibitor in the morning.
[2017-03-29] MEDS: ATORVASTATIN CALCIUM 40 MG TABLET NG SCH (22:32)
[2017-03-30 01:33] LABS: APPEARANCE,URINE CLEAR; BILIRUBIN,URINE NEGATIVE (NEGATIVE); GLUCOSE, URINE NEGATIVE (NEGATIVE); KETONES,URINE NEGATIVE (NEGATIVE); LEUKOCYTE ESTERASE,URINE NEGATIVE (NEGATIVE); NITRITE,URINE NEGATIVE (NEGATIVE); PROTEIN,URINE NEGATIVE (NEGATIVE); URINE SPECIFIC GRAVITY 1.005; UROBILINOGEN,URINE NEGATIVE mg/dL (<2.0)
[2017-03-30 06:22] LABS: ABSOLUTE EOSINOPHILS # (AUTO) 0.1 10^3/uL (0.0-0.6); ABSOLUTE LYMPHOCYTES (AUTO) 1.6 10^3/uL (0.5-4.7); ABSOLUTE NEUT (AUTO) 5.5 10^3/uL (1.7-8.2); BASOPHILS % (AUTO) 0.4 % (0-2); EOSINOPHILS % (AUTO) 1.2 % (0-6); HEMATOCRIT 30.6 % (37.9-51.0); HEMOGLOBIN 10.5 g/dL (13.5-17.0); HGB HCT DIFFERENCE 0.9; LYMPHOCYTES % (AUTO) 19.9 % (13-45); MEAN CORPUSCULAR HEMOGLOBIN 30.9 pg (27.0-33.4); MEAN CORPUSCULAR HGB CONC 34.5 g/dL (32.0-36.0); MEAN CORPUSCULAR VOLUME 90 fl (80-97); MONOCYTES % (AUTO) 11.7 % (3-13); RED BLOOD COUNT 3.41 10^6/uL (4.35-5.55); RED CELL DISTRIBUTION WIDTH 14.8 % (11.5-14.0); SEGMENTED NEUTROPHILS % (AUTO) 66.8 % (42-78); WHITE BLOOD COUNT 8.2 10^3/uL (4.0-10.5)
[2017-03-30 06:46] LABS: ANION GAP 7 (5-19); BLOOD UREA NITROGEN 8 mg/dL (7-20); CALCIUM 7.9 mg/dL (8.4-10.2); CARBON DIOXIDE 28 mmol/L (22-30); CHLORIDE 99 mmol/L (98-107); CREATININE RESULT 0.63 mg/dL (0.52-1.25); GLUCOSE 107 mg/dL (75-110); MAGNESIUM 1.5 mg/dL (1.6-2.3); POTASSIUM 4.3 mmol/L (3.6-5.0); SODIUM 133.8 mmol/L (137-145)
--- NOTE | 2017-03-30 10:22 | PDOC PROGRESS REPORT ---
Subjective Progress Note for:: 03/30/17 Subjective:: This is a follow-up visit for postop HI and colon resection. Patient is doing well. No acute events overnight. Physical Exam Vital Signs: Temp Pulse Resp BP Pulse Ox 97.2 F 70 16 98/53 L 96 03/30/17 07:29 03/30/17 08:00 03/30/17 07:29 03/30/17 07:29 03/30/17 07:29 Pulse Oximeter Continuous Start: 03/21/17 16: 23 Freq: RTQ4 Status: Complete Document 03/25/17 01:56 STI (Rec: 03/25/17 01:56 STI [email or web address]) Pulse Oximetry Assessment Equipment Usage Equipment Discontinued Continuous SpO2 Machine # [id number] Intake & Output 03/29/17 03/30/17 03/31/17 06:59 06:59 06:59 Intake Total 2593 1788 Output Total 3440 3830 Balance -847 -2042 Weight 92.8 kg 93.7 kg GENERAL: This is a well-developed well-nourished appearing elderly white male resting in bed in no acute distress. HEART: Paced rhythm on telemetry. No obvious murmurs rubs or gallops on exam. LUNGS: Slightly diminished at the bases bilaterally otherwise clear with equal rise and fall of the chest. ABDOMEN: Soft, nontender. Minimal abdominal distention. Normoactive bowel sounds. Colostomy bag is in place with brown-black liquid stool. EXTREMETIES: No clubbing, cyanosis. 1+ pitting edema on the left and 2+ on the right. 1+ peripheral pulses bilaterally. NEURO: Awake, alert, oriented. Results Laboratory Results: 03/30/17 05:55 03/30/17 05:55 03/30/17 03/30/17 03/30/17 00:49 05:55 05:55 WBC 8.2 RBC 3.41 L Hgb 10.5 L Hct 30.6 L MCV 90 MCH 30.9 MCHC 34.5 RDW 14.8 H Plt Count 329 Seg Neutrophils % 66.8 Lymphocytes % 19.9 Monocytes % 11.7 Eosinophils % 1.2 Basophils % 0.4 Absolute Neutrophils 5.5 Absolute Lymphocytes 1.6 Absolute Monocytes 1.0 Absolute Eosinophils 0.1 Absolute Basophils 0.0 Sodium 133.8 L Potassium 4.3 Chloride 99 Carbon Dioxide 28 Anion Gap 7 BUN 8 Creatinine 0.63 Est GFR ( Amer) > 60 Est GFR (Non-Af Amer) > 60 Glucose 107 Calcium 7.9 L Magnesium 1.5 L Urine Color YELLOW Urine Appearance CLEAR Urine pH 8.0 Ur Specific [place] 1.005 Urine Protein NEGATIVE Urine Glucose (UA) NEGATIVE Urine Ketones NEGATIVE Urine Blood SMALL H Urine Nitrite NEGATIVE Ur Leukocyte Esterase NEGATIVE Urine WBC (Auto) 1 Urine RBC (Auto) 6 03/24/17 03/24/17 03/25/17 21:38 21:38 03:50 Creatine Kinase 28 L 53 L CK-MB (CK-2) 2.06 Troponin I 0.180 NT-Pro-B Natriuret Pep 03/25/17 03/25/17 03/25/17 03:50 11:00 11:00 Creatine Kinase 40 L CK-MB (CK-2) 8.73 H 7.81 H Troponin I 2.210 1.180 NT-Pro-B Natriuret Pep 03/25/17 03/27/17 03/29/17 11:00 20:00 04:00 Creatine Kinase CK-MB (CK-2) Troponin I NT-Pro-B Natriuret Pep 5280 H 8020 H 7930 H Impressions: Abdomen X-Ray 03/24/17 00:00 IMPRESSION: Findings favored to represent postoperative ileus. A developing bowel obstruction is not excluded. KUB X-Ray 03/25/17 18:14 IMPRESSION: Appropriately positioned nasogastric tube. Chest X-Ray 03/27/17 00:00 IMPRESSION: Vascular congestion with effusions. Stable. Retrocardiac hiatal hernia. Mild gastric distention. Assessment & Plan - Diagnosis (1) Non-STEMI (non-ST elevated myocardial infarction) Is this a current diagnosis for this admission?: Yes Plan: Cardiac cath has been deferred. Patient and his family prefer to stay here at [facility] and pursue medical management. Should he develop any further chest pain the plan will be to transfer him out for cardiac cath at that time. Currently he is on Ranexa and Eliquis. he is also on Lipitor, Lasix, and metoprolol. (2) Acute systolic congestive heart failure Is this a current diagnosis for this admission?: Yes Plan: The patient appears edematous in the lower extremities. He is currently on D5 half-normal at 63 mL an hour. He is currently still on a clear liquid diet. He is being changed to full clears for lunch. Discontinue fluids given his hyponatremia. (3) Rectal carcinoma Is this a current diagnosis for this admission?: Yes Plan: Status post ex lap with Pandya's procedure. Patient is now producing stool. Colostomy bag looks good. (4) Hypokalemia Is this a current diagnosis for this admission?: Yes Plan: The patient is now taking p.o. Will have scheduled potassium available. Goals will be to maintain potassium above 4. 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 This will need to be revisited on discharge or as an outpatient. (6) Anemia Plan: stable. continue to monitor (7) Hypomagnesemia Plan: Replace today. (8) Hyponatremia Plan: Discontinue D5 half-normal. - Time Time Spent with patient: 15-24 minutes Anticipated discharge: Home with Homehealth Within: within 72 hours - Inpatient Certification Medical Necessity: Need Close Monitoring Due to Risk of Patient Decompensation
[2017-03-30] MEDS: RANOLAZINE 500 MG TAB.SR.12H PO SCH ×2 (10:41→17:51)
[2017-03-30] MEDS: RAMIPRIL 1.25 MG CAPSULE PO SCH ×2 (10:41→11:33)
[2017-03-30] MEDS: CALCIUM CARBONATE 500 MG TAB.CHEW NG SCH (10:41)
[2017-03-30] MEDS: POTASSIUM CHLORIDE 10 MEQ TABLET.SA PO SCH (10:42)
[2017-03-30] MEDS: SPIRONOLACTONE 25 MG TABLET NG SCH (10:43)
[2017-03-30] MEDS: CHOLECALCIFEROL (D3) 400 UNIT TABLET NG SCH (10:43)
[2017-03-30] MEDS: METOPROLOL SUCCINATE 25 MG TAB.SR.24H PO SCH ×2 (10:43→22:16)
[2017-03-30] MEDS: FUROSEMIDE INJ/PF 40 MG/4 ML SDV IV SCH ×2 (10:43→22:16)
[2017-03-30] MEDS: FAMOTIDINE INJ/PF 20 MG/2 ML SDV IV SCH (10:44)
[2017-03-30] MEDS: APIXABAN 5 MG TABLET NG SCH ×2 (10:44→17:51)
--- NOTE | 2017-03-30 12:58 | PDOC PROGRESS REPORT ---
Subjective Progress Note for:: 03/30/17 Subjective:: Patient seems to be doing better with gradual improvement. Pt is denying any chest arm or neck discomfort. Patient denying any PND, orthopnea. Patient denied any sustained palpitations, dizziness, syncope, near syncope. Patient denying any fever chills. Patient denying any other significant discomfort. Patient is noted to be in atrial flutter fibrillation with intermittent ventricular paced rhythm. Review of systems: Rest review of systems negative. Medications: Medications have been reviewed. Physical Exam Vital Signs: Temp Pulse Resp BP Pulse Ox 97.2 F 70 16 98/53 L 96 03/30/17 07:29 03/30/17 08:00 03/30/17 07:29 03/30/17 07:29 03/30/17 07:29 Pulse Oximeter Continuous Start: 03/21/17 16: 23 Freq: RTQ4 Status: Complete Document 03/25/17 01:56 STI (Rec: 03/25/17 01:56 STI [email or web address]) Pulse Oximetry Assessment Equipment Usage Equipment Discontinued Continuous SpO2 Machine # [id number] Intake & Output 03/29/17 03/30/17 03/31/17 06:59 06:59 06:59 Intake Total 2593 1788 Output Total 3440 3830 Balance -847 -2042 Weight 92.8 kg 93.7 kg Exam: GENERAL: well-nourished and in no acute distress. Alert and oriented x3 HEAD: Atraumatic, normocephalic. EYES: Pupils equal round and reactive to light, extraocular movements intact, sclera anicteric, conjunctiva are normal. ENT: TMs normal, nares patent, oropharynx clear without exudates. Moist mucous membranes. No oral ulcerations or bleeding gums noted NECK: supple without lymphadenopathy. Trachea is central. No cervical or axillary lymphadenopathy noted. Carotids are 2+, JVD WNL LUNGS: Respiration seems nonlabored, no significant accessory muscle action noted. Breath sounds clear to auscultation bilaterally and equal noted. No wheezes rales or rhonchi noted. No significant dullness noted on percussion. CHEST: Palpation of the chest wall shows no significant chest wall tenderness. No other significant abnormalities noted. HEART: [place] [employer], No PSH, 1/6 EMILY aortic area, 1/6 [place] systolic murmur mitral area, no rubs, no gallops. ABDOMEN: Soft, no significant tenderness appreciated, normoactive bowel sounds. No guarding, no rebound. No rigidity noted . No masses appreciated. Colostomy bag noted left side abdomen. EXTREMITIES: Pedal pulses are 1-2+, no calf tenderness noted. No clubbing or cyanosis.trace to 1+ pedal edema noted NEUROLOGICAL: Focused neurological exam showed no significant neurologic deficit. Normal speech, no focal weakness appreciated. PSYCH: Normal mood, normal affect. Judgment and insight within normal limits. SKIN: No significant ecchymosis, rash, ulcerations or signs of pruritus noted. MUSCULOSKELETAL EXAM: No significant joint swelling noted. Results Laboratory Results: 03/30/17 05:55 03/30/17 05:55 03/30/17 03/30/17 03/30/17 00:49 05:55 05:55 WBC 8.2 RBC 3.41 L Hgb 10.5 L Hct 30.6 L MCV 90 MCH 30.9 MCHC 34.5 RDW 14.8 H Plt Count 329 Seg Neutrophils % 66.8 Lymphocytes % 19.9 Monocytes % 11.7 Eosinophils % 1.2 Basophils % 0.4 Absolute Neutrophils 5.5 Absolute Lymphocytes 1.6 Absolute Monocytes 1.0 Absolute Eosinophils 0.1 Absolute Basophils 0.0 Sodium 133.8 L Potassium 4.3 Chloride 99 Carbon Dioxide 28 Anion Gap 7 BUN 8 Creatinine 0.63 Est GFR ( Amer) > 60 Est GFR (Non-Af Amer) > 60 Glucose 107 Calcium 7.9 L Magnesium 1.5 L Urine Color YELLOW Urine Appearance CLEAR Urine pH 8.0 Ur Specific [place] 1.005 Urine Protein NEGATIVE Urine Glucose (UA) NEGATIVE Urine Ketones NEGATIVE Urine Blood SMALL H Urine Nitrite NEGATIVE Ur Leukocyte Esterase NEGATIVE Urine WBC (Auto) 1 Urine RBC (Auto) 6 03/24/17 03/24/17 03/25/17 21:38 21:38 03:50 Creatine Kinase 28 L 53 L CK-MB (CK-2) 2.06 Troponin I 0.180 NT-Pro-B Natriuret Pep 03/25/17 03/25/17 03/25/17 03:50 11:00 11:00 Creatine Kinase 40 L CK-MB (CK-2) 8.73 H 7.81 H Troponin I 2.210 1.180 NT-Pro-B Natriuret Pep 03/25/17 03/27/17 03/29/17 11:00 20:00 04:00 Creatine Kinase CK-MB (CK-2) Troponin I NT-Pro-B Natriuret Pep 5280 H 8020 H 7930 H 03/30/17 10:13 Creatine Kinase CK-MB (CK-2) Troponin I NT-Pro-B Natriuret Pep 6030 H Impressions: Abdomen X-Ray 03/24/17 00:00 IMPRESSION: Findings favored to represent postoperative ileus. A developing bowel obstruction is not excluded. KUB X-Ray 03/25/17 18:14 IMPRESSION: Appropriately positioned nasogastric tube. Chest X-Ray 03/27/17 00:00 IMPRESSION: Vascular congestion with effusions. Stable. Retrocardiac hiatal hernia. Mild gastric distention. Assessment & Plan - Diagnosis (1) Myocardial infarction involving left anterior descending (LAD) coronary artery Is this a current diagnosis for this admission?: Yes (2) Metastatic malignant neoplasm to prostate Is this a current diagnosis for this admission?: Yes (3) Rectal carcinoma Is this a current diagnosis for this admission?: Yes (4) Edema Qualifiers: Edema type: unspecified Qualified Code(s): R60.9 - Edema, unspecified Is this a current diagnosis for this admission?: Yes (5) Hypokalemia Is this a current diagnosis for this admission?: Yes (6) Acute systolic congestive heart failure Is this a current diagnosis for this admission?: Yes - Notes Notes: Patient noted to be generally stable. There is no ongoing chest pain or indigestion type discomfort noted by the patient. He has done well with medical management. Patient has other significant comorbid conditions. As regards CHF seems compensated. Patient's medical management reviewed. It is noted to be relatively satisfactory. Yesterday I did add ramipril to the regimen. This can be gradually increased as tolerated. Dr. Boyce to cover from tomorrow. - Time Time with patient: 15-25 minutes Medications reviewed and adjusted accordingly: Yes
--- NOTE | 2017-03-30 15:05 | PDOC PROGRESS REPORT ---
Subjective Progress Note for:: 03/30/17 Subjective:: no abdominal pains Physical Exam Vital Signs: Temp Pulse Resp BP Pulse Ox 97.2 F 70 16 98/53 L 96 03/30/17 07:29 03/30/17 08:00 03/30/17 07:29 03/30/17 07:29 03/30/17 07:29 Pulse Oximeter Continuous Start: 03/21/17 16: 23 Freq: RTQ4 Status: Complete Document 03/25/17 01:56 STI (Rec: 03/25/17 01:56 STI [email or web address]) Pulse Oximetry Assessment Equipment Usage Equipment Discontinued Continuous SpO2 Machine # [id number] Intake & Output 03/29/17 03/30/17 03/31/17 06:59 06:59 06:59 Intake Total 2593 1788 Output Total 3440 3830 Balance -847 -2042 Weight 92.8 kg 93.7 kg Exam: colostomy functioning well.Abdomen is soft and nontender Results Laboratory Results: 03/30/17 05:55 03/30/17 05:55 03/30/17 03/30/17 03/30/17 00:49 05:55 05:55 WBC 8.2 RBC 3.41 L Hgb 10.5 L Hct 30.6 L MCV 90 MCH 30.9 MCHC 34.5 RDW 14.8 H Plt Count 329 Seg Neutrophils % 66.8 Lymphocytes % 19.9 Monocytes % 11.7 Eosinophils % 1.2 Basophils % 0.4 Absolute Neutrophils 5.5 Absolute Lymphocytes 1.6 Absolute Monocytes 1.0 Absolute Eosinophils 0.1 Absolute Basophils 0.0 Sodium 133.8 L Potassium 4.3 Chloride 99 Carbon Dioxide 28 Anion Gap 7 BUN 8 Creatinine 0.63 Est GFR ( Amer) > 60 Est GFR (Non-Af Amer) > 60 Glucose 107 Calcium 7.9 L Magnesium 1.5 L Urine Color YELLOW Urine Appearance CLEAR Urine pH 8.0 Ur Specific [place] 1.005 Urine Protein NEGATIVE Urine Glucose (UA) NEGATIVE Urine Ketones NEGATIVE Urine Blood SMALL H Urine Nitrite NEGATIVE Ur Leukocyte Esterase NEGATIVE Urine WBC (Auto) 1 Urine RBC (Auto) 6 03/24/17 03/24/17 03/25/17 21:38 21:38 03:50 Creatine Kinase 28 L 53 L CK-MB (CK-2) 2.06 Troponin I 0.180 NT-Pro-B Natriuret Pep 03/25/17 03/25/17 03/25/17 03:50 11:00 11:00 Creatine Kinase 40 L CK-MB (CK-2) 8.73 H 7.81 H Troponin I 2.210 1.180 NT-Pro-B Natriuret Pep 03/25/17 03/27/17 03/29/17 11:00 20:00 04:00 Creatine Kinase CK-MB (CK-2) Troponin I NT-Pro-B Natriuret Pep 5280 H 8020 H 7930 H 03/30/17 10:13 Creatine Kinase CK-MB (CK-2) Troponin I NT-Pro-B Natriuret Pep 6030 H Impressions: Abdomen X-Ray 03/24/17 00:00 IMPRESSION: Findings favored to represent postoperative ileus. A developing bowel obstruction is not excluded. KUB X-Ray 03/25/17 18:14 IMPRESSION: Appropriately positioned nasogastric tube. Chest X-Ray 03/27/17 00:00 IMPRESSION: Vascular congestion with effusions. Stable. Retrocardiac hiatal hernia. Mild gastric distention. Assessment & Plan - Time Time Spent with patient: 15-24 minutes - Inpatient Certification Medical Necessity: Need Close Monitoring Due to Risk of Patient Decompensation, Need For IV Fluids - Plan Summary Plan Summary: Increase diet to full liquids since he is tolerating clear liquids well we will gradually increase diet to soft as tolerated
[2017-03-30] MEDS: POTASSI CL 20 MEQ/D5-1/2NS 1L 1,000 ML IV PRN (15:55)
[2017-03-30] MEDS: ATORVASTATIN CALCIUM 40 MG TABLET NG SCH (22:16)
[2017-03-30 23:55] LABS: ABSOLUTE BASOPHILS # (AUTO) 0.1 10^3/uL (0.0-0.2); ABSOLUTE EOSINOPHILS # (AUTO) 0.1 10^3/uL (0.0-0.6); ABSOLUTE LYMPHOCYTES (AUTO) 2.1 10^3/uL (0.5-4.7); ABSOLUTE MONOCYTES (AUTO) 1.1 10^3/uL (0.1-1.4); ABSOLUTE NEUT (AUTO) 7.6 10^3/uL (1.7-8.2); BASOPHILS % (AUTO) 1.3 % (0-2); EOSINOPHILS % (AUTO) 0.8 % (0-6); HEMATOCRIT 32.7 % (37.9-51.0); HEMOGLOBIN 11.3 g/dL (13.5-17.0); HGB HCT DIFFERENCE 1.2; LYMPHOCYTES % (AUTO) 18.9 % (13-45); MEAN CORPUSCULAR HEMOGLOBIN 31.1 pg (27.0-33.4); MEAN CORPUSCULAR HGB CONC 34.5 g/dL (32.0-36.0); MEAN CORPUSCULAR VOLUME 90 fl (80-97); MONOCYTES % (AUTO) 9.8 % (3-13); RED BLOOD COUNT 3.62 10^6/uL (4.35-5.55); RED CELL DISTRIBUTION WIDTH 15.4 % (11.5-14.0); SEGMENTED NEUTROPHILS % (AUTO) 69.2 % (42-78)
[2017-03-31] LABS: PARTIAL THROMBOPLASTIN TIME 39.2 SEC (23.5-35.8)
[2017-03-31 00:11] LABS: PROTHROMBIN TIME 21.1 SEC (11.4-15.4)
[2017-03-31] MEDS: CALCIUM CARBONATE 500 MG TAB.CHEW NG SCH (10:37)
[2017-03-31] MEDS: APIXABAN 5 MG TABLET NG SCH ×2 (10:37→17:39)
[2017-03-31] MEDS: RANOLAZINE 500 MG TAB.SR.12H PO SCH ×2 (10:37→17:40)
[2017-03-31] MEDS: METOPROLOL SUCCINATE 25 MG TAB.SR.24H PO SCH ×2 (10:38→22:24)
[2017-03-31] MEDS: FAMOTIDINE INJ/PF 20 MG/2 ML SDV IV SCH (10:38)
[2017-03-31] MEDS: POTASSIUM CHLORIDE 10 MEQ TABLET.SA PO SCH (10:38)
[2017-03-31] MEDS: SPIRONOLACTONE 25 MG TABLET NG SCH (10:38)
[2017-03-31] MEDS: FUROSEMIDE INJ/PF 40 MG/4 ML SDV IV SCH ×2 (10:38→22:26)
[2017-03-31] MEDS: CHOLECALCIFEROL (D3) 400 UNIT TABLET NG SCH (10:39)
--- NOTE | 2017-03-31 11:05 | PDOC PROGRESS REPORT ---
Subjective Progress Note for:: 03/31/17 Subjective:: reason for visit: f/u postop diverting ostomy, postop NSTEMI, hyponatremia reports he is doing well today, denies pain and notes gas in the ostomy bag with thin red liquid at times but denies pain at the site, hematemesis and is tolerating his full liquid diet without difficulty; some blood noted in the rectal vault but expected postop per dr prado. he denies chest pain or palpitations, fevers/chills, N/V, numbness or tingling. ROS: as above, all systems reviewed, remaining systems negative. Physical Exam Vital Signs: Temp Pulse Resp BP Pulse Ox 97.7 F 70 16 105/56 L 97 03/31/17 07:42 03/31/17 08:00 03/31/17 07:42 03/31/17 07:42 03/31/17 07:42 Pulse Oximeter Continuous Start: 03/21/17 16: 23 Freq: RTQ4 Status: Complete Document 03/25/17 01:56 STI (Rec: 03/25/17 01:56 STI [email or web address]) Pulse Oximetry Assessment Equipment Usage Equipment Discontinued Continuous SpO2 Machine # [id number] Intake & Output 03/30/17 03/31/17 04/01/17 06:59 06:59 06:59 Intake Total 1788 2074 Output Total 3830 1425 Balance -2042 649 Weight 93.7 kg 92.3 kg General appearance: PRESENT: no acute distress, cooperative Eye exam: PRESENT: EOMI. ABSENT: conjunctival injection Mouth exam: PRESENT: moist, neck supple Neck exam: PRESENT: full ROM. ABSENT: carotid bruit Respiratory exam: PRESENT: clear to auscultation zach. ABSENT: accessory muscle use Cardiovascular exam: PRESENT: RRR. ABSENT: systolic murmur, tachycardia GI/Abdominal exam: PRESENT: soft, other - staple sutures in good position, wound is well approximated c/d/i, some mild erythema along the suture line but no exudate. ostomy full of gas and scant amt of thin red liquid Gentrourinary exam: ABSENT: scrotal swelling Extremities exam: PRESENT: pedal edema - trace bilat. ABSENT: calf tenderness Neurological exam: PRESENT: alert, awake, oriented to person, oriented to place , oriented to situation Psychiatric exam: PRESENT: appropriate affect, normal mood Results Laboratory Results: 03/30/17 23:43 03/30/17 05:55 03/30/17 23:43 WBC 11.0 H RBC 3.62 L Hgb 11.3 L Hct 32.7 L MCV 90 MCH 31.1 MCHC 34.5 RDW 15.4 H Plt Count 357 Seg Neutrophils % 69.2 Lymphocytes % 18.9 Monocytes % 9.8 Eosinophils % 0.8 Basophils % 1.3 Absolute Neutrophils 7.6 Absolute Lymphocytes 2.1 Absolute Monocytes 1.1 Absolute Eosinophils 0.1 Absolute Basophils 0.1 03/24/17 03/24/17 03/25/17 21:38 21:38 03:50 Creatine Kinase 28 L 53 L CK-MB (CK-2) 2.06 Troponin I 0.180 NT-Pro-B Natriuret Pep 03/25/17 03/25/17 03/25/17 03:50 11:00 11:00 Creatine Kinase 40 L CK-MB (CK-2) 8.73 H 7.81 H Troponin I 2.210 1.180 NT-Pro-B Natriuret Pep 03/25/17 03/27/17 03/29/17 11:00 20:00 04:00 Creatine Kinase CK-MB (CK-2) Troponin I NT-Pro-B Natriuret Pep 5280 H 8020 H 7930 H 03/30/17 10:13 Creatine Kinase CK-MB (CK-2) Troponin I NT-Pro-B Natriuret Pep 6030 H Impressions: Abdomen X-Ray 03/24/17 00:00 IMPRESSION: Findings favored to represent postoperative ileus. A developing bowel obstruction is not excluded. KUB X-Ray 03/25/17 18:14 IMPRESSION: Appropriately positioned nasogastric tube. Chest X-Ray 03/27/17 00:00 IMPRESSION: Vascular congestion with effusions. Stable. Retrocardiac hiatal hernia. Mild gastric distention. Assessment & Plan - Diagnosis (1) Rectal carcinoma Is this a current diagnosis for this admission?: Yes Plan: stable s/p resection and ostomy, per dr prado he will be ready to transition to rehab on Sunday (2) Myocardial infarction involving left anterior descending (LAD) coronary artery Is this a current diagnosis for this admission?: Yes Plan: discussed with dr mesa, stable on current regimen, continue current medical management (3) Acute systolic congestive heart failure Is this a current diagnosis for this admission?: Yes Plan: 2/2 above, improving; continue diuresis and suggest change to oral regimen in am. will ck labs in am (4) Hyponatremia Is this a current diagnosis for this admission?: Yes Plan: improved. remains off IVFs, ck again in am given continued diuresis with lasix (5) Hypomagnesemia Is this a current diagnosis for this admission?: Yes Plan: f/u again in am and replace as needed. - Time Time Spent with patient: 25-34 minutes
--- NOTE | 2017-03-31 12:32 | PDOC PROGRESS REPORT ---
Subjective Progress Note for:: 03/31/17 Subjective:: TOlerating FL's; voiding w/o adan Physical Exam Vital Signs: Temp Pulse Resp BP Pulse Ox 97.7 F 70 16 105/56 L 97 03/31/17 07:42 03/31/17 08:00 03/31/17 07:42 03/31/17 07:42 03/31/17 07:42 Pulse Oximeter Continuous Start: 03/21/17 16: 23 Freq: RTQ4 Status: Complete Document 03/25/17 01:56 STI (Rec: 03/25/17 01:56 STI [email or web address]) Pulse Oximetry Assessment Equipment Usage Equipment Discontinued Continuous SpO2 Machine # [id number] Intake & Output 03/30/17 03/31/17 04/01/17 06:59 06:59 06:59 Intake Total 1788 2074 Output Total 3830 1425 Balance -2041 649 Weight 93.7 kg 92.3 kg General appearance: PRESENT: no acute distress GI/Abdominal exam: PRESENT: other - no draiange; brusing resolving; ostomy working Results Laboratory Results: 03/30/17 23:43 03/30/17 05:55 03/30/17 23:43 WBC 11.0 H RBC 3.62 L Hgb 11.3 L Hct 32.7 L MCV 90 MCH 31.1 MCHC 34.5 RDW 15.4 H Plt Count 357 Seg Neutrophils % 69.2 Lymphocytes % 18.9 Monocytes % 9.8 Eosinophils % 0.8 Basophils % 1.3 Absolute Neutrophils 7.6 Absolute Lymphocytes 2.1 Absolute Monocytes 1.1 Absolute Eosinophils 0.1 Absolute Basophils 0.1 03/24/17 03/24/17 03/25/17 21:38 21:38 03:50 Creatine Kinase 28 L 53 L CK-MB (CK-2) 2.06 Troponin I 0.180 NT-Pro-B Natriuret Pep 03/25/17 03/25/17 03/25/17 03:50 11:00 11:00 Creatine Kinase 40 L CK-MB (CK-2) 8.73 H 7.81 H Troponin I 2.210 1.180 NT-Pro-B Natriuret Pep 03/25/17 03/27/17 03/29/17 11:00 20:00 04:00 Creatine Kinase CK-MB (CK-2) Troponin I NT-Pro-B Natriuret Pep 5280 H 8020 H 7930 H 03/30/17 10:13 Creatine Kinase CK-MB (CK-2) Troponin I NT-Pro-B Natriuret Pep 6030 H Impressions: Abdomen X-Ray 03/24/17 00:00 IMPRESSION: Findings favored to represent postoperative ileus. A developing bowel obstruction is not excluded. KUB X-Ray 03/25/17 18:14 IMPRESSION: Appropriately positioned nasogastric tube. Chest X-Ray 03/27/17 00:00 IMPRESSION: Vascular congestion with effusions. Stable. Retrocardiac hiatal hernia. Mild gastric distention. Assessment & Plan - Diagnosis (1) Rectal carcinoma Is this a current diagnosis for this admission?: Yes Plan: POD 10, s/p LAR, doing well; Post op RI, doing well PLAN: 1. Advance diet 2. Work with PT 3. Watch sodium 4. Anticipate Tx to SNF in 48 hrs (2) Metastatic malignant neoplasm to prostate Is this a current diagnosis for this admission?: Yes
[2017-03-31] MEDS: ATORVASTATIN CALCIUM 40 MG TABLET NG SCH (22:24)
[2017-04-01 07:47] LABS: ABSOLUTE EOSINOPHILS # (AUTO) 0.1 10^3/uL (0.0-0.6); ABSOLUTE LYMPHOCYTES (AUTO) 1.8 10^3/uL (0.5-4.7); ABSOLUTE MONOCYTES (AUTO) 0.9 10^3/uL (0.1-1.4); BASOPHILS % (AUTO) 0.3 % (0-2); EOSINOPHILS % (AUTO) 1.2 % (0-6); HEMATOCRIT 33.1 % (37.9-51.0); HEMOGLOBIN 11.4 g/dL (13.5-17.0); HGB HCT DIFFERENCE 1.1; LYMPHOCYTES % (AUTO) 20.3 % (13-45); MEAN CORPUSCULAR HEMOGLOBIN 31.3 pg (27.0-33.4); MEAN CORPUSCULAR HGB CONC 34.4 g/dL (32.0-36.0); MEAN CORPUSCULAR VOLUME 91 fl (80-97); MONOCYTES % (AUTO) 10.4 % (3-13); RED BLOOD COUNT 3.63 10^6/uL (4.35-5.55); RED CELL DISTRIBUTION WIDTH 14.8 % (11.5-14.0); SEGMENTED NEUTROPHILS % (AUTO) 67.8 % (42-78); WHITE BLOOD COUNT 8.8 10^3/uL (4.0-10.5)
[2017-04-01 08:07] LABS: ANION GAP 7 (5-19); BLOOD UREA NITROGEN 7 mg/dL (7-20); CALCIUM 7.9 mg/dL (8.4-10.2); CARBON DIOXIDE 28 mmol/L (22-30); CHLORIDE 100 mmol/L (98-107); CREATININE RESULT 0.63 mg/dL (0.52-1.25); GLUCOSE 96 mg/dL (75-110); MAGNESIUM 1.4 mg/dL (1.6-2.3); POTASSIUM 4.3 mmol/L (3.6-5.0); SODIUM 135.3 mmol/L (137-145)
--- NOTE | 2017-04-01 08:57 | PDOC PROGRESS REPORT ---
Subjective Progress Note for:: 04/01/17 Subjective:: Patient doing well; sitting in chair just finished breakfast. Walking the halls twice yesterday. He is voiding. His level of disorientation is improving. Physical Exam Vital Signs: Temp Pulse Resp BP Pulse Ox 97.5 F 73 20 108/59 L 98 04/01/17 03:41 04/01/17 07:00 04/01/17 03:41 04/01/17 03:41 04/01/17 03:41 Pulse Oximeter Continuous Start: 03/21/17 16: 23 Freq: RTQ4 Status: Complete Document 03/25/17 01:56 STI (Rec: 03/25/17 01:56 STI [email or web address]) Pulse Oximetry Assessment Equipment Usage Equipment Discontinued Continuous SpO2 Machine # [id number] Intake & Output 03/31/17 04/01/17 04/02/17 06:59 06:59 06:59 Intake Total 2074 1618 Output Total 1425 2400 Balance 649 -782 Weight 92.3 kg 88.8 kg General appearance: PRESENT: no acute distress GI/Abdominal exam: PRESENT: other - Soft, nontender; midline incision healing satisfactorily. Some erythema around the inferior teresa. Ostomy appliance bag all functioning satisfactorily Results Laboratory Results: 04/01/17 07:15 04/01/17 07:15 04/01/17 04/01/17 07:15 07:15 WBC 8.8 RBC 3.63 L Hgb 11.4 L Hct 33.1 L MCV 91 MCH 31.3 MCHC 34.4 RDW 14.8 H Plt Count 345 Seg Neutrophils % 67.8 Lymphocytes % 20.3 Monocytes % 10.4 Eosinophils % 1.2 Basophils % 0.3 Absolute Neutrophils 6.0 Absolute Lymphocytes 1.8 Absolute Monocytes 0.9 Absolute Eosinophils 0.1 Absolute Basophils 0.0 Sodium 135.3 L Potassium 4.3 Chloride 100 Carbon Dioxide 28 Anion Gap 7 BUN 7 Creatinine 0.63 Est GFR ( Amer) > 60 Est GFR (Non-Af Amer) > 60 Glucose 96 Calcium 7.9 L Magnesium 1.4 L 03/24/17 03/24/17 03/25/17 21:38 21:38 03:50 Creatine Kinase 28 L 53 L CK-MB (CK-2) 2.06 Troponin I 0.180 NT-Pro-B Natriuret Pep 03/25/17 03/25/17 03/25/17 03:50 11:00 11:00 Creatine Kinase 40 L CK-MB (CK-2) 8.73 H 7.81 H Troponin I 2.210 1.180 NT-Pro-B Natriuret Pep 03/25/17 03/27/17 03/29/17 11:00 20:00 04:00 Creatine Kinase CK-MB (CK-2) Troponin I NT-Pro-B Natriuret Pep 5280 H 8020 H 7930 H 03/30/17 10:13 Creatine Kinase CK-MB (CK-2) Troponin I NT-Pro-B Natriuret Pep 6030 H Impressions: Abdomen X-Ray 03/24/17 00:00 IMPRESSION: Findings favored to represent postoperative ileus. A developing bowel obstruction is not excluded. KUB X-Ray 03/25/17 18:14 IMPRESSION: Appropriately positioned nasogastric tube. Chest X-Ray 03/27/17 00:00 IMPRESSION: Vascular congestion with effusions. Stable. Retrocardiac hiatal hernia. Mild gastric distention. Assessment & Plan - Diagnosis (1) Rectal carcinoma Is this a current diagnosis for this admission?: Yes Plan: Patient is postoperative day 11 status post low anterior resection, diverting colostomy [place] procedure for T3 N1 M0 carcinoma of the upper rectum. PLAN: 1. Patient is making satisfactory progress; his sodium is stabilized to 135. 2. We will continue ambulating the patient, and strengthening exercises graft 3. Because of his deconditioned state, the operative condition, and multiple other chronic medical problems, he would likely benefit from short stay at rehab facility. We will emphasize this to the patient again. We will also further with family member, specifically his daughter if available. (2) Metastatic malignant neoplasm to prostate Is this a current diagnosis for this admission?: Yes
[2017-04-01] MEDS: METOPROLOL SUCCINATE 25 MG TAB.SR.24H PO SCH ×2 (09:34→21:31)
[2017-04-01] MEDS: SPIRONOLACTONE 25 MG TABLET NG SCH (09:34)
[2017-04-01] MEDS: POTASSIUM CHLORIDE 10 MEQ TABLET.SA PO SCH (09:35)
[2017-04-01] MEDS: RANOLAZINE 500 MG TAB.SR.12H PO SCH ×2 (09:36→17:17)
[2017-04-01] MEDS: FUROSEMIDE INJ/PF 40 MG/4 ML SDV IV SCH ×2 (09:39→21:32)
[2017-04-01] MEDS: RAMIPRIL 1.25 MG CAPSULE PO SCH (09:40)
[2017-04-01] MEDS: CHOLECALCIFEROL (D3) 400 UNIT TABLET NG SCH (09:40)
[2017-04-01] MEDS: CALCIUM CARBONATE 500 MG TAB.CHEW NG SCH (09:40)
[2017-04-01] MEDS: FAMOTIDINE INJ/PF 20 MG/2 ML SDV IV SCH (09:41)
[2017-04-01] MEDS: APIXABAN 5 MG TABLET NG SCH ×2 (09:41→17:17)
--- NOTE | 2017-04-01 10:02 | PDOC PROGRESS REPORT ---
Subjective Progress Note for:: 04/01/17 Subjective:: This is a follow-up visit for postop NV and colon resection. Patient is doing well. No acute events overnight. He does not want to go to snf Physical Exam Vital Signs: Temp Pulse Resp BP Pulse Ox 97.5 F 70 20 108/59 L 98 04/01/17 03:41 04/01/17 03:41 04/01/17 03:41 04/01/17 03:41 04/01/17 03:41 Pulse Oximeter Continuous Start: 03/21/17 16: 23 Freq: RTQ4 Status: Complete Document 03/25/17 01:56 STI (Rec: 03/25/17 01:56 STI [email or web address]) Pulse Oximetry Assessment Equipment Usage Equipment Discontinued Continuous SpO2 Machine # [id number] Intake & Output 03/31/17 04/01/17 04/02/17 06:59 06:59 06:59 Intake Total 2074 1618 Output Total 1425 2400 Balance 649 -782 Weight 92.3 kg 88.8 kg GENERAL: This is a well-developed well-nourished appearing elderly white male resting in bed in no acute distress. HEART: Paced rhythm on telemetry. No obvious murmurs rubs or gallops on exam. LUNGS: Slightly diminished at the bases bilaterally otherwise clear with equal rise and fall of the chest. ABDOMEN: Soft, nontender. Minimal abdominal distention. Normoactive bowel sounds. Colostomy bag is in place with brown-black liquid stool. EXTREMETIES: No clubbing, cyanosis. 1+ pitting edema on the left and 2+ on the right. 1+ peripheral pulses bilaterally. NEURO: Awake, alert, oriented. Results Laboratory Results: 04/01/17 07:15 04/01/17 07:15 04/01/17 04/01/17 07:15 07:15 WBC 8.8 RBC 3.63 L Hgb 11.4 L Hct 33.1 L MCV 91 MCH 31.3 MCHC 34.4 RDW 14.8 H Plt Count 345 Seg Neutrophils % 67.8 Lymphocytes % 20.3 Monocytes % 10.4 Eosinophils % 1.2 Basophils % 0.3 Absolute Neutrophils 6.0 Absolute Lymphocytes 1.8 Absolute Monocytes 0.9 Absolute Eosinophils 0.1 Absolute Basophils 0.0 Sodium 135.3 L Potassium 4.3 Chloride 100 Carbon Dioxide 28 Anion Gap 7 BUN 7 Creatinine 0.63 Est GFR ( Amer) > 60 Est GFR (Non-Af Amer) > 60 Glucose 96 Calcium 7.9 L Magnesium 1.4 L 03/24/17 03/24/17 03/25/17 21:38 21:38 03:50 Creatine Kinase 28 L 53 L CK-MB (CK-2) 2.06 Troponin I 0.180 NT-Pro-B Natriuret Pep 03/25/17 03/25/17 03/25/17 03:50 11:00 11:00 Creatine Kinase 40 L CK-MB (CK-2) 8.73 H 7.81 H Troponin I 2.210 1.180 NT-Pro-B Natriuret Pep 03/25/17 03/27/17 03/29/17 11:00 20:00 04:00 Creatine Kinase CK-MB (CK-2) Troponin I NT-Pro-B Natriuret Pep 5280 H 8020 H 7930 H 03/30/17 10:13 Creatine Kinase CK-MB (CK-2) Troponin I NT-Pro-B Natriuret Pep 6030 H Impressions: Abdomen X-Ray 03/24/17 00:00 IMPRESSION: Findings favored to represent postoperative ileus. A developing bowel obstruction is not excluded. KUB X-Ray 03/25/17 18:14 IMPRESSION: Appropriately positioned nasogastric tube. Chest X-Ray 03/27/17 00:00 IMPRESSION: Vascular congestion with effusions. Stable. Retrocardiac hiatal hernia. Mild gastric distention. Assessment & Plan - Diagnosis (1) Non-STEMI (non-ST elevated myocardial infarction) Is this a current diagnosis for this admission?: Yes Plan: Cardiac cath has been deferred. Patient and his family prefer to stay here at [facility] and pursue medical management. Should he develop any further chest pain the plan will be to transfer him out for cardiac cath at that time. Currently he is on Ranexa and Eliquis. he is also on Lipitor, Lasix, and metoprolol. (2) Acute systolic congestive heart failure Is this a current diagnosis for this admission?: Yes Plan: Much improved. Continue diuresis. We will change to p.o. Lasix in the morning. (3) Rectal carcinoma Is this a current diagnosis for this admission?: Yes Plan: Status post ex lap with Pandya's procedure. Patient is now producing stool. Colostomy bag looks good. (4) Hypokalemia Is this a current diagnosis for this admission?: Yes Plan: Continue daily potassium. Goals will be to maintain potassium above 4. 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 This will need to be revisited on discharge or as an outpatient. (6) Anemia Plan: stable. continue to monitor (7) Hypomagnesemia Is this a current diagnosis for this admission?: Yes Plan: Replace today. (8) Hyponatremia Is this a current diagnosis for this admission?: Yes Plan: Stable. Fluids have been discontinued. - Time Time Spent with patient: 15-24 minutes Anticipated discharge: Home with Homehealth Within: within 24 hours - Inpatient Certification Medical Necessity: Need Close Monitoring Due to Risk of Patient Decompensation - Plan Summary Plan Summary: I have been working with this patient since Sunday. He is always refused [facility] facility with me. I discussed with him again. The patient refuses I have asked him to consider it. He is been working with PT and can ambulate 150 feet. PT with home health is recommended. I had asked for home health PT as well as wound care to help with his ostomy. These orders were placed on Sunday and I believe discharge planning has made the arrangements.
--- NOTE | 2017-04-01 12:01 | PDOC PROGRESS REPORT ---
Subjective Progress Note for:: 03/31/17 Subjective:: Patient continues to make slow steady progress. Patient however seems still debilitated and has not had much physical activity. Pt is denying any chest arm or neck discomfort. Patient denying any PND, orthopnea. Patient denied any sustained palpitations, dizziness, syncope, near syncope. Patient denying any fever chills. Patient denying any other significant discomfort. Patient is noted to be in atrial flutter fibrillation with intermittent ventricular paced rhythm. Review of systems: Rest review of systems negative. Medications: Medications have been reviewed. Physical Exam Vital Signs: Temp Pulse Resp BP Pulse Ox 98.0 F 70 16 108/53 L 99 03/31/17 16:16 03/31/17 16:16 03/31/17 16:16 03/31/17 16:16 03/31/17 16:16 Pulse Oximeter Continuous Start: 03/21/17 16: 23 Freq: RTQ4 Status: Complete Document 03/25/17 01:56 STI (Rec: 03/25/17 01:56 STI [email or web address]) Pulse Oximetry Assessment Equipment Usage Equipment Discontinued Continuous SpO2 Machine # [id number] Intake & Output 03/30/17 03/31/17 04/01/17 06:59 06:59 06:59 Intake Total 1788 2074 1375 Output Total 3830 1425 1225 Balance -2042 649 150 Weight 93.7 kg 92.3 kg Exam: GENERAL: well-nourished and in no acute distress. Alert and oriented x3. Nurses tell me that he has been disoriented at times. HEAD: Atraumatic, normocephalic. EYES: Pupils equal round and reactive to light, extraocular movements intact, sclera anicteric, conjunctiva are normal. ENT: TMs normal, nares patent, oropharynx clear without exudates. Moist mucous membranes. No oral ulcerations or bleeding gums noted NECK: supple without lymphadenopathy. Trachea is central. No cervical or axillary lymphadenopathy noted. Carotids are 2+, JVD WNL LUNGS: Respiration seems nonlabored, no significant accessory muscle action noted. Breath sounds clear to auscultation bilaterally and equal noted. No wheezes rales or rhonchi noted. No significant dullness noted on percussion. CHEST: Palpation of the chest wall shows no significant chest wall tenderness. No other significant abnormalities noted. HEART: [place] [employer], No PSH, 1/6 EMILY aortic area, 1/6 yarbrough systolic murmur mitral area, no rubs, no gallops. ABDOMEN: Soft, no significant tenderness appreciated, normoactive bowel sounds. No guarding, no rebound. No rigidity noted . No masses appreciated. Colostomy noted. EXTREMITIES: Pedal pulses are 1-2+, no calf tenderness noted. No clubbing or cyanosis. 1+ pedal edema noted NEUROLOGICAL: Focused neurological exam showed no significant neurologic deficit. Normal speech, no focal weakness appreciated. PSYCH: Normal mood, normal affect. Judgment and insight within normal limits. SKIN: No significant ecchymosis, rash, ulcerations or signs of pruritus noted. MUSCULOSKELETAL EXAM: No significant joint swelling noted. Results Laboratory Results: 03/30/17 23:43 03/30/17 05:55 03/30/17 23:43 WBC 11.0 H RBC 3.62 L Hgb 11.3 L Hct 32.7 L MCV 90 MCH 31.1 MCHC 34.5 RDW 15.4 H Plt Count 357 Seg Neutrophils % 69.2 Lymphocytes % 18.9 Monocytes % 9.8 Eosinophils % 0.8 Basophils % 1.3 Absolute Neutrophils 7.6 Absolute Lymphocytes 2.1 Absolute Monocytes 1.1 Absolute Eosinophils 0.1 Absolute Basophils 0.1 03/24/17 03/24/17 03/25/17 21:38 21:38 03:50 Creatine Kinase 28 L 53 L CK-MB (CK-2) 2.06 Troponin I 0.180 NT-Pro-B Natriuret Pep 03/25/17 03/25/17 03/25/17 03:50 11:00 11:00 Creatine Kinase 40 L CK-MB (CK-2) 8.73 H 7.81 H Troponin I 2.210 1.180 NT-Pro-B Natriuret Pep 03/25/17 03/27/17 03/29/17 11:00 20:00 04:00 Creatine Kinase CK-MB (CK-2) Troponin I NT-Pro-B Natriuret Pep 5280 H 8020 H 7930 H 03/30/17 10:13 Creatine Kinase CK-MB (CK-2) Troponin I NT-Pro-B Natriuret Pep 6030 H EKG Comments: Telemetry strips reviewed. It showed ventricular paced rhythm with underlying atrial flutter fibrillation. Impressions: Abdomen X-Ray 03/24/17 00:00 IMPRESSION: Findings favored to represent postoperative ileus. A developing bowel obstruction is not excluded. KUB X-Ray 03/25/17 18:14 IMPRESSION: Appropriately positioned nasogastric tube. Chest X-Ray 03/27/17 00:00 IMPRESSION: Vascular congestion with effusions. Stable. Retrocardiac hiatal hernia. Mild gastric distention. Assessment & Plan - Diagnosis (1) Myocardial infarction involving left anterior descending (LAD) coronary artery Is this a current diagnosis for this admission?: Yes (2) Metastatic malignant neoplasm to prostate Is this a current diagnosis for this admission?: Yes (3) Rectal carcinoma Is this a current diagnosis for this admission?: Yes (4) Edema Qualifiers: Edema type: unspecified Qualified Code(s): R60.9 - Edema, unspecified Is this a current diagnosis for this admission?: Yes (5) Hypokalemia Is this a current diagnosis for this admission?: Yes (6) Acute systolic congestive heart failure Is this a current diagnosis for this admission?: Yes - Notes Notes: Myocardial infarction involving the LAD territory: Patient has done well with medical management. Patient wishes to continue with medical management. Patient has been relatively stable. Metastatic prostate cancer: Currently is stable. Rectal cancer: Status post surgery for it. Further evaluation will be by oncologist as to need for chemotherapy radiation therapy etc. Edema: This has significantly improved. Was most likely related to CHF and some comp of venous insufficiency and dependency. Hypokalemia: This has improved. Continue spironolactone therapy. Acute systolic CHF, most likely precipitated by myocardial infarction. Patient has significant LV systolic dysfunction. Medical management has been optimized. - Time Time with patient: 15-25 minutes - More than 50% of the time spent coordinating care, discussing management plans with involved caregivers. Management plans discussed with involved personnels. Medical decision making was of moderate to high complexity, patient's has multiple comorbidities. Medications reviewed and adjusted accordingly: Yes
--- NOTE | 2017-04-01 12:02 | PDOC PROGRESS REPORT ---
Subjective Progress Note for:: 04/01/17 Subjective:: Patient continues to make slow steady progress. Patient however seems still debilitated and has ambulated yesterday. Pt is denying any chest arm or neck discomfort. Patient denying any PND, orthopnea. Patient denied any sustained palpitations, dizziness, syncope, near syncope. Patient denying any fever chills. Patient denying any other significant discomfort. Patient is noted to be in atrial flutter fibrillation with intermittent ventricular paced rhythm. Review of systems: Rest review of systems negative. Medications: Medications have been reviewed. Physical Exam Vital Signs: Temp Pulse Resp BP Pulse Ox 97.5 F 73 20 108/59 L 98 04/01/17 03:41 04/01/17 07:00 04/01/17 03:41 04/01/17 03:41 04/01/17 03:41 Pulse Oximeter Continuous Start: 03/21/17 16: 23 Freq: RTQ4 Status: Complete Document 03/25/17 01:56 STI (Rec: 03/25/17 01:56 STI [email or web address]) Pulse Oximetry Assessment Equipment Usage Equipment Discontinued Continuous SpO2 Machine # [id number] Intake & Output 03/31/17 04/01/17 04/02/17 06:59 06:59 06:59 Intake Total 2074 1618 Output Total 1425 2400 Balance 649 -782 Weight 92.3 kg 88.8 kg Exam: GENERAL: well-nourished and in no acute distress. Alert and oriented x3. Intermittent disorientation noted by the nurses. HEAD: Atraumatic, normocephalic. EYES: Pupils equal round and reactive to light, extraocular movements intact, sclera anicteric, conjunctiva are normal. ENT: TMs normal, nares patent, oropharynx clear without exudates. Moist mucous membranes. No oral ulcerations or bleeding gums noted NECK: supple without lymphadenopathy. Trachea is central. No cervical or axillary lymphadenopathy noted. Carotids are 2+, JVD WNL LUNGS: Respiration seems nonlabored, no significant accessory muscle action noted. Breath sounds clear to auscultation bilaterally and equal noted. No wheezes rales or rhonchi noted. No significant dullness noted on percussion. CHEST: Palpation of the chest wall shows no significant chest wall tenderness. No other significant abnormalities noted. 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 ABDOMEN: Soft, no significant tenderness appreciated, normoactive bowel sounds. No guarding, no rebound. No rigidity noted . No masses appreciated. Patient is status post abdominal surgery and colostomy. Colostomy wound stable. EXTREMITIES: Pedal pulses are 1-2+, no calf tenderness noted. No clubbing or cyanosis.trace to 1+ pedal edema noted NEUROLOGICAL: Focused neurological exam showed no significant neurologic deficit. Normal speech, no focal weakness appreciated. PSYCH: Normal mood, normal affect. Judgment and insight within normal limits. SKIN: No significant ecchymosis, rash, ulcerations or signs of pruritus noted. MUSCULOSKELETAL EXAM: No significant joint swelling noted. Results Laboratory Results: 04/01/17 07:15 04/01/17 07:15 04/01/17 04/01/17 07:15 07:15 WBC 8.8 RBC 3.63 L Hgb 11.4 L Hct 33.1 L MCV 91 MCH 31.3 MCHC 34.4 RDW 14.8 H Plt Count 345 Seg Neutrophils % 67.8 Lymphocytes % 20.3 Monocytes % 10.4 Eosinophils % 1.2 Basophils % 0.3 Absolute Neutrophils 6.0 Absolute Lymphocytes 1.8 Absolute Monocytes 0.9 Absolute Eosinophils 0.1 Absolute Basophils 0.0 Sodium 135.3 L Potassium 4.3 Chloride 100 Carbon Dioxide 28 Anion Gap 7 BUN 7 Creatinine 0.63 Est GFR ( Amer) > 60 Est GFR (Non-Af Amer) > 60 Glucose 96 Calcium 7.9 L Magnesium 1.4 L 03/24/17 03/24/17 03/25/17 21:38 21:38 03:50 Creatine Kinase 28 L 53 L CK-MB (CK-2) 2.06 Troponin I 0.180 NT-Pro-B Natriuret Pep 03/25/17 03/25/17 03/25/17 03:50 11:00 11:00 Creatine Kinase 40 L CK-MB (CK-2) 8.73 H 7.81 H Troponin I 2.210 1.180 NT-Pro-B Natriuret Pep 03/25/17 03/27/17 03/29/17 11:00 20:00 04:00 Creatine Kinase CK-MB (CK-2) Troponin I NT-Pro-B Natriuret Pep 5280 H 8020 H 7930 H 03/30/17 10:13 Creatine Kinase CK-MB (CK-2) Troponin I NT-Pro-B Natriuret Pep 6030 H EKG Comments: Telemetry strips shows atrial flutter fibrillation and ventricular paced beats Impressions: Abdomen X-Ray 03/24/17 00:00 IMPRESSION: Findings favored to represent postoperative ileus. A developing bowel obstruction is not excluded. KUB X-Ray 03/25/17 18:14 IMPRESSION: Appropriately positioned nasogastric tube. Chest X-Ray 03/27/17 00:00 IMPRESSION: Vascular congestion with effusions. Stable. Retrocardiac hiatal hernia. Mild gastric distention. Assessment & Plan - Diagnosis (1) Myocardial infarction involving left anterior descending (LAD) coronary artery Is this a current diagnosis for this admission?: Yes (2) Metastatic malignant neoplasm to prostate Is this a current diagnosis for this admission?: Yes (3) Rectal carcinoma Is this a current diagnosis for this admission?: Yes (4) Edema Qualifiers: Edema type: unspecified Qualified Code(s): R60.9 - Edema, unspecified Is this a current diagnosis for this admission?: Yes (5) Hypokalemia Is this a current diagnosis for this admission?: Yes (6) Acute systolic congestive heart failure Is this a current diagnosis for this admission?: Yes - Notes Notes: Patient has been generally stable from cardiac standpoint. Patient has been on a stable regimen. Medical regimen was reviewed. At this point only recommendation would be to gradually go up on the GABRIELA inhibitor dose. Myocardial infarction involving the LAD territory: Patient has done well with medical management. Patient wishes to continue with medical management. Patient has been relatively stable. Metastatic prostate cancer: Currently is stable. Rectal cancer: Status post surgery for it. Further evaluation will be by oncologist as to need for chemotherapy radiation therapy etc. Edema: This has significantly improved. Was most likely related to CHF and some comp of venous insufficiency and dependency. Hypokalemia: This has improved. Continue spironolactone therapy. Acute systolic CHF, most likely precipitated by myocardial infarction. Patient has significant LV systolic dysfunction. Medical management has been optimized. Will sign off. Please reconsult if further help is needed. - Time Time with patient: 15-25 minutes - More than 50% of the time spent coordinating care, discussing management plans with involved caregivers. Management plans discussed with involved personnels. Medical decision making was of moderate to high complexity, patient's has multiple comorbidities. Medications reviewed and adjusted accordingly: Yes
[2017-04-01] MEDS: ATORVASTATIN CALCIUM 40 MG TABLET NG SCH (21:32)
[2017-04-02] MEDS: APIXABAN 5 MG TABLET NG SCH ×2 (09:43→17:53)
[2017-04-02] MEDS: POTASSIUM CHLORIDE 10 MEQ TABLET.SA PO SCH (09:44)
[2017-04-02] MEDS: RANOLAZINE 500 MG TAB.SR.12H PO SCH ×2 (09:44→17:53)
[2017-04-02] MEDS: FAMOTIDINE INJ/PF 20 MG/2 ML SDV IV SCH (09:45)
[2017-04-02] MEDS: CHOLECALCIFEROL (D3) 400 UNIT TABLET NG SCH (09:45)
[2017-04-02] MEDS: CALCIUM CARBONATE 500 MG TAB.CHEW NG SCH (09:45)
--- NOTE | 2017-04-02 14:57 | PDOC PROGRESS REPORT ---
Subjective Progress Note for:: 04/02/17 Subjective:: This is a follow-up visit for postop MS and colon resection. Patient is doing well. No acute events overnight. The patient has agreed to go to SNF. Physical Exam Vital Signs: Temp Pulse Resp BP Pulse Ox 97.7 F 71 22 H 109/69 100 04/02/17 11:54 04/02/17 11:54 04/02/17 11:54 04/02/17 11:54 04/02/17 11:54 Pulse Oximeter Continuous Start: 03/21/17 16: 23 Freq: RTQ4 Status: Complete Document 03/25/17 01:56 STI (Rec: 03/25/17 01:56 STI [email or web address]) Pulse Oximetry Assessment Equipment Usage Equipment Discontinued Continuous SpO2 Machine # [id number] Intake & Output 04/01/17 04/02/17 04/03/17 06:59 06:59 06:59 Intake Total 1618 1181 318 Output Total 2400 1395 425 Balance -782 -214 -107 Weight 88.8 kg 87.4 kg GENERAL: This is a well-developed well-nourished appearing elderly white male resting in bed in no acute distress. HEART: Paced rhythm on telemetry. No obvious murmurs rubs or gallops on exam. LUNGS: Clear anteriorly bilaterally otherwise clear with equal rise and fall of the chest. ABDOMEN: Soft, nontender. Minimal abdominal distention. Normoactive bowel sounds. Colostomy bag is in place with brown-black liquid stool. EXTREMETIES: No clubbing, cyanosis. 1+ pitting edema. 1+ peripheral pulses bilaterally. NEURO: Awake, alert Results Laboratory Results: 04/01/17 07:15 04/01/17 07:15 03/24/17 03/24/17 03/25/17 21:38 21:38 03:50 Creatine Kinase 28 L 53 L CK-MB (CK-2) 2.06 Troponin I 0.180 NT-Pro-B Natriuret Pep 03/25/17 03/25/17 03/25/17 03:50 11:00 11:00 Creatine Kinase 40 L CK-MB (CK-2) 8.73 H 7.81 H Troponin I 2.210 1.180 NT-Pro-B Natriuret Pep 03/25/17 03/27/17 03/29/17 11:00 20:00 04:00 Creatine Kinase CK-MB (CK-2) Troponin I NT-Pro-B Natriuret Pep 5280 H 8020 H 7930 H 03/30/17 10:13 Creatine Kinase CK-MB (CK-2) Troponin I NT-Pro-B Natriuret Pep 6030 H Impressions: Abdomen X-Ray 03/24/17 00:00 IMPRESSION: Findings favored to represent postoperative ileus. A developing bowel obstruction is not excluded. KUB X-Ray 03/25/17 18:14 IMPRESSION: Appropriately positioned nasogastric tube. Chest X-Ray 03/27/17 00:00 IMPRESSION: Vascular congestion with effusions. Stable. Retrocardiac hiatal hernia. Mild gastric distention. Assessment & Plan - Diagnosis (1) Non-STEMI (non-ST elevated myocardial infarction) Is this a current diagnosis for this admission?: Yes Plan: Cardiac cath has been deferred. Patient and his family prefer to stay here at [facility] and pursue medical management. Should he develop any further chest pain the plan will be to transfer him out for cardiac cath at that time. Currently he is on Ranexa and Eliquis. he is also on Lipitor, Lasix, and metoprolol. (2) Acute systolic congestive heart failure Is this a current diagnosis for this admission?: Yes Plan: Much improved. Continue diuresis. We will change to p.o. Lasix in the morning. (3) Rectal carcinoma Is this a current diagnosis for this admission?: Yes Plan: Status post ex lap with Pandya's procedure. Colostomy bag looks good. (4) Hypokalemia Is this a current diagnosis for this admission?: Yes Plan: Continue daily potassium. Goals will be to maintain potassium above 4. 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 This will need to be revisited on discharge or as an outpatient. (6) Anemia Plan: stable. continue to monitor (7) Hypomagnesemia Is this a current diagnosis for this admission?: Yes Plan: Resolved (8) Hyponatremia Is this a current diagnosis for this admission?: Yes Plan: Stable. Fluids have been discontinued. - Time Time Spent with patient: 15-24 minutes Anticipated discharge: SNF Within: when bed available
[2017-04-02] MEDS: METOPROLOL SUCCINATE 25 MG TAB.SR.24H PO SCH (14:58)
[2017-04-02] MEDS: SPIRONOLACTONE 25 MG TABLET NG SCH (14:58)
[2017-04-02] MEDS: FUROSEMIDE INJ/PF 40 MG/4 ML SDV IV SCH (14:58)
[2017-04-02] MEDS: RAMIPRIL 1.25 MG CAPSULE PO SCH (14:58)
[2017-04-02] MEDS: ATORVASTATIN CALCIUM 40 MG TABLET NG SCH (23:17)
[2017-04-03] MEDS: FUROSEMIDE INJ/PF 40 MG/4 ML SDV IV SCH ×2 (03:14→11:11)
[2017-04-03] MEDS: METOPROLOL SUCCINATE 25 MG TAB.SR.24H PO SCH ×2 (03:14→11:09)
[2017-04-03] MEDS: POTASSIUM CHLORIDE 10 MEQ TABLET.SA PO SCH (11:07)
[2017-04-03] MEDS: APIXABAN 5 MG TABLET NG SCH ×2 (11:07→17:15)
[2017-04-03] MEDS: RAMIPRIL 1.25 MG CAPSULE PO SCH (11:08)
[2017-04-03] MEDS: RANOLAZINE 500 MG TAB.SR.12H PO SCH ×2 (11:08→17:16)
[2017-04-03] MEDS: CHOLECALCIFEROL (D3) 400 UNIT TABLET NG SCH (11:08)
[2017-04-03] MEDS: SPIRONOLACTONE 25 MG TABLET NG SCH (11:09)
[2017-04-03] MEDS: CALCIUM CARBONATE 500 MG TAB.CHEW NG SCH (11:11)
[2017-04-03] MEDS: FAMOTIDINE INJ/PF 20 MG/2 ML SDV IV SCH (11:12)
--- NOTE | 2017-04-03 11:41 | PDOC PROGRESS REPORT ---
Subjective Progress Note for:: 04/03/17 Subjective:: Denies any complaints Physical Exam Vital Signs: Temp Pulse Resp BP Pulse Ox 97.5 F 70 18 111/53 L 98 04/03/17 08:03 04/03/17 08:03 04/03/17 08:03 04/03/17 08:03 04/03/17 08:03 Pulse Oximeter Continuous Start: 03/21/17 16: 23 Freq: RTQ4 Status: Complete Document 03/25/17 01:56 STI (Rec: 03/25/17 01:56 STI [email or web address]) Pulse Oximetry Assessment Equipment Usage Equipment Discontinued Continuous SpO2 Machine # [id number] Intake & Output 04/02/17 04/03/17 04/04/17 06:59 06:59 06:59 Intake Total 1181 987 Output Total 1395 1350 Balance -214 -363 Weight 87.4 kg 86.4 kg General appearance: PRESENT: no acute distress Eye exam: PRESENT: conjunctiva pink. ABSENT: scleral icterus Mouth exam: PRESENT: moist, tongue midline Neck exam: ABSENT: JVD Respiratory exam: PRESENT: clear to auscultation zach. ABSENT: rales, rhonchi, wheezes Cardiovascular exam: PRESENT: RRR. ABSENT: diastolic murmur, rubs, systolic murmur GI/Abdominal exam: PRESENT: normal bowel sounds, soft, other - Colostomy in place in the left lower quadrant. Midline shows teresa present with some minimal erythema around them.. ABSENT: distended, guarding, mass, organolmegaly , rebound, tenderness Extremities exam: ABSENT: calf tenderness, clubbing, pedal edema Neurological exam: PRESENT: alert, awake, oriented to person, oriented to place , oriented to time, oriented to situation, CN II-XII grossly intact. ABSENT: motor sensory deficit Psychiatric exam: PRESENT: appropriate affect Skin exam: PRESENT: dry, intact, warm. ABSENT: cyanosis, rash Results Laboratory Results: 04/01/17 07:15 04/01/17 07:15 03/24/17 03/24/17 03/25/17 21:38 21:38 03:50 Creatine Kinase 28 L 53 L CK-MB (CK-2) 2.06 Troponin I 0.180 NT-Pro-B Natriuret Pep 03/25/17 03/25/17 03/25/17 03:50 11:00 11:00 Creatine Kinase 40 L CK-MB (CK-2) 8.73 H 7.81 H Troponin I 2.210 1.180 NT-Pro-B Natriuret Pep 03/25/17 03/27/17 03/29/17 11:00 20:00 04:00 Creatine Kinase CK-MB (CK-2) Troponin I NT-Pro-B Natriuret Pep 5280 H 8020 H 7930 H 03/30/17 10:13 Creatine Kinase CK-MB (CK-2) Troponin I NT-Pro-B Natriuret Pep 6030 H Impressions: Abdomen X-Ray 03/24/17 00:00 IMPRESSION: Findings favored to represent postoperative ileus. A developing bowel obstruction is not excluded. KUB X-Ray 03/25/17 18:14 IMPRESSION: Appropriately positioned nasogastric tube. Chest X-Ray 03/27/17 00:00 IMPRESSION: Vascular congestion with effusions. Stable. Retrocardiac hiatal hernia. Mild gastric distention. Assessment & Plan - Diagnosis (1) Metastatic malignant neoplasm to prostate Is this a current diagnosis for this admission?: Yes Plan: The patient has been on hormonal therapy prior to this admission. (2) Rectal carcinoma Is this a current diagnosis for this admission?: Yes Plan: The patient has had a colon resection. He is tolerating a diet and his ostomy is working well. (3) Edema Qualifiers: Edema type: unspecified Qualified Code(s): R60.9 - Edema, unspecified Is this a current diagnosis for this admission?: Yes (4) Hypokalemia Is this a current diagnosis for this admission?: Yes Plan: resolved (5) Non-STEMI (non-ST elevated myocardial infarction) Is this a current diagnosis for this admission?: Yes Plan: Denies any chest pain. - Time Time Spent with patient: 25-34 minutes - Plan Summary Plan Summary: Patient will be discharge when a rehab bed is available.
--- NOTE | 2017-04-03 11:56 | PDOC TRANSFER SUMMARY ---
General - Admit/Disc Date/PCP Admission Date/Primary Care Provider: 03/21/17 05:33 JYOTI PEPE MD Discharge Date: 04/03/17 - Discharge Diagnosis (1) Rectal carcinoma Is this a current diagnosis for this admission?: Yes Summary: Status post resection with colostomy placement. (2) Metastatic malignant neoplasm to prostate Is this a current diagnosis for this admission?: Yes (3) Edema Is this a current diagnosis for this admission?: Yes (4) Hypokalemia Is this a current diagnosis for this admission?: Yes (5) Non-STEMI (non-ST elevated myocardial infarction) Is this a current diagnosis for this admission?: Yes - Additional Information Resuscitation Status: Full Code Discharge Diet: Regular Discharge Activity: Activity As Tolerated, No Lifting Over 10 Pounds, No Lifting /Push/Pulling, Walk Frequently Home Medications: Furosemide [Lasix 20 mg Tablet] 20 mg PO DAILY 02/21/17 Enzalutamide [Xtandi] 160 mg PO DAILY 03/14/17 Metolazone 5 mg PO DAILY 03/14/17 Spironolactone 25 mg PO DAILY 03/14/17 Calcium Carbonate/Vitamin D3 [Oyster Shell 500-Vit D3 200 Tb] 1 tab PO DAILY 01/28 Apixaban [Eliquis 5 mg Tablet] 5 mg NG BID tablet 04/03/17 Atorvastatin Calcium [Lipitor 40 mg Tablet] 40 mg NG QHS tablet 04/03/17 Metoprolol Succinate [Toprol Xl 25 mg Tab.sr] 25 mg PO Q12 tab.sr.24h 04/03/17 Potassium Chloride [Klor-Con 10 Meq Tablet.sa] 20 meq PO DAILY tablet.sa Ramipril [Altace 1.25 mg Capsule] 1.25 mg PO DAILY capsule 04/03/17 Ranolazine [Ranexa 500 mg Tab.sr] 500 mg PO BID tab.sr.12h 04/03/17 History of Present Illness Admission Date/PCP: 03/21/17 05:33 JYOTI PEPE MD History of Present Illness: PRAFUL PUTNAM is a 77 year old male who presented with near obstruction from a colon mass. Patient was admitted for resection of this. Hospital Course Hospital Course: 77-year-old male who presented with a near obstructing colon mass. The patient had resection of this by general surgery with placement of colostomy. Patient tolerated surgery well however postoperatively did develop some shortness of breath and chest pain and was noted to have positive cardiac enzymes consistent with an acute non-STEMI. The decision was made to treat this medically. Patient was placed on Ranexa and statins. Cardiology was consulted. Patient had no further episodes of chest pain. He has been doing well with physical therapy however still very weak and needs to go to rehab for strengthening. His other medical problems were stable during this hospitalization. Physical Exam Vital Signs: Temp Pulse Resp BP Pulse Ox 97.5 F 70 18 111/53 L 98 04/03/17 08:03 04/03/17 08:03 04/03/17 08:03 04/03/17 08:03 04/03/17 08:03 Pulse Oximeter Continuous Start: 03/21/17 16: 23 Freq: RTQ4 Status: Complete Document 03/25/17 01:56 STI (Rec: 03/25/17 01:56 STI [id number]) Pulse Oximetry Assessment Equipment Usage Equipment Discontinued Continuous SpO2 Machine # [id number] Intake & Output 04/02/17 04/03/17 04/04/17 06:59 06:59 06:59 Intake Total 1181 987 Output Total 1395 1350 Balance -214 -363 Weight 87.4 kg 86.4 kg General appearance: PRESENT: no acute distress Eye exam: PRESENT: conjunctiva pink. ABSENT: scleral icterus Mouth exam: PRESENT: moist, tongue midline Neck exam: ABSENT: JVD Respiratory exam: PRESENT: clear to auscultation zach. ABSENT: rales, rhonchi, wheezes Cardiovascular exam: PRESENT: RRR. ABSENT: diastolic murmur, rubs, systolic murmur GI/Abdominal exam: PRESENT: normal bowel sounds, soft, other - Colostomy in place in the left lower quadrant. [place] are present in the midline surgical area. ABSENT: distended, guarding, mass, organolmegaly, rebound, tenderness Extremities exam: ABSENT: calf tenderness, clubbing, pedal edema Neurological exam: PRESENT: alert, awake, oriented to person, oriented to place , oriented to time, oriented to situation, CN II-XII grossly intact. ABSENT: motor sensory deficit Psychiatric exam: PRESENT: appropriate affect Skin exam: PRESENT: dry, intact, warm. ABSENT: cyanosis, rash Results Laboratory Results: 04/01/17 07:15 04/01/17 07:15 03/24/17 03/24/17 03/25/17 21:38 21:38 03:50 Creatine Kinase 28 L 53 L CK-MB (CK-2) 2.06 Troponin I 0.180 NT-Pro-B Natriuret Pep 03/25/17 03/25/17 03/25/17 03:50 11:00 11:00 Creatine Kinase 40 L CK-MB (CK-2) 8.73 H 7.81 H Troponin I 2.210 1.180 NT-Pro-B Natriuret Pep 03/25/17 03/27/17 03/29/17 11:00 20:00 04:00 Creatine Kinase CK-MB (CK-2) Troponin I NT-Pro-B Natriuret Pep 5280 H 8020 H 7930 H 03/30/17 10:13 Creatine Kinase CK-MB (CK-2) Troponin I NT-Pro-B Natriuret Pep 6030 H Impressions: Abdomen X-Ray 03/24/17 00:00 IMPRESSION: Findings favored to represent postoperative ileus. A developing bowel obstruction is not excluded. KUB X-Ray 03/25/17 18:14 IMPRESSION: Appropriately positioned nasogastric tube. Chest X-Ray 03/27/17 00:00 IMPRESSION: Vascular congestion with effusions. Stable. Retrocardiac hiatal hernia. Mild gastric distention. Transfer Plan - Disposition Transfer Plan: Patient will be transferred to [facility]. - Time Spent with Patient Time spent with patient: Greater than 30 Minutes Qualifiers PATEINT BEING DISCHARGED WITH ANY OF THE FOLLOWING DIAGNOSIS?: ME ME Pt being discharged on Aspirin therapy?: Yes ME Pt being discharged on Statins?: Yes ME Pt discharged ACEI/ARBS?: Yes Plan Discharge Plan: Patient is discharged to [facility]. Time Spent: Greater than 30 Minutes
[2017-04-03 17:38] VITALS: BP 107/51
== END 2017-04-03 18:47 | DRG 329 ==
LOC: EEVIPCON 05:33 → INOR 05:33 → 3N 12:14 → ICU 03-24 23:48 → 3S 03-29 16:59
PROVIDERS: ADMIT Surgery; ATTEND Surgery
PROC: 0D1M0Z4 Bypass Descending Colon to Cutaneous, Open Approach (ICD-10-PCS; 2017-03-21)
PROC: 0DTN0ZZ Resection of Sigmoid Colon, Open Approach (ICD-10-PCS; principal; 2017-03-21 07:30)
DX: C19 Malignant neoplasm of rectosigmoid junction (principal); I21.4 Non-ST elevation (NSTEMI) myocardial infarction; I50.21 Acute systolic (congestive) heart failure; C79.51 Secondary malignant neoplasm of bone; C77.9 Secondary and unspecified malignant neoplasm of lymph node, unspecified; K56.7 Ileus, unspecified; I48.92 Unspecified atrial flutter; E87.1 Hypo-osmolality and hyponatremia; C61 Malignant neoplasm of prostate; E87.6 Hypokalemia; K57.30 Diverticulosis of large intestine without perforation or abscess without bleeding; Z95.0 Presence of cardiac pacemaker; D64.9 Anemia, unspecified; Z66 Do not resuscitate; E83.42 Hypomagnesemia; Z79.02 Long term (current) use of antithrombotics/antiplatelets; K21.9 Gastro-esophageal reflux disease without esophagitis; M19.90 Unspecified osteoarthritis, unspecified site; Z82.49 Family history of ischemic heart disease and other diseases of the circulatory system
CPT/HCPCS: 00840; 36415; 71010; 74000; 74020; 80048; 81001; 82040; 82272; 82550; 82553; 82962; 83735; 83880; 84132; 84484; 85025; 85027; 85610; 85730; 86850; 86900; 86901; 88309; 93005; 93010; 93306; 94762; 94799; C9290; G8978-GP; G8979-GP; J0131; J0295; J0330; J0690; J1100; J1170; J1644; J1650; J1885; J1940; J2250; J2270; J2405; J2704; J3010; J3475; J3480; J3490; J7040; J7050; S0028

== ENCOUNTER 2017-05-16 13:57 | Observation (INO) | payer MEDICARE, OTHER ==
--- NOTE | 2017-05-16 14:36 | ER Document Report ---
ED Medical Screen (RME) - General Chief Complaint: Leg Swelling Stated Complaint: LOWER EXTREMITY SWELLING Time Seen by Provider: 05/16/17 14:35 Notes: Patient sent from his primary doctor's office with bilateral leg swelling erythema and tenderness. TRAVEL OUTSIDE OF THE [place] IN LAST 30 DAYS: No - Related Data Allergies/Adverse Reactions: No Known Allergies Allergy (Verified 05/16/17 13:59) Past Medical History - Past Medical History Cardiac Medical History: Denies: Hx Congestive Heart Failure, Hx Coronary Artery Disease, Hx Heart Attack, Hx Hypertension Pulmonary Medical History: Denies: Hx Asthma, Hx Bronchitis, Hx COPD, Hx Pneumonia Neurological Medical History: Renal/ Medical History: Denies: Hx Benign Prostatic Hyperplasia, Hx End Stage Renal Disease, Hx Kidney Stones, Hx Peritoneal Dialysis GI Medical History: Reports: Hx Gastroesophageal Reflux Disease, Hx Hiatal Hernia. Denies: Hx Crohn's Disease, Hx Hepatitis, Hx Irritable Bowel, Hx Liver Failure, Hx Pancreatitis, Hx Ulcer Musculoskeltal Medical History: Reports Hx Arthritis, Denies Hx Fibromyalgia, Denies Hx Muscular Dystrophy Psychiatric Medical History: Traumatic Medical History: Denies: Hx Fractures Infectious Medical History: Denies: Hx Hepatitis Past Surgical History: Reports: Hx Pacemaker. Denies: Hx Appendectomy, Hx Bowel Surgery, Hx Cholecystectomy, Hx Colostomy, Hx Coronary Artery Bypass Graft , Hx Gastric Bypass Surgery, Hx Herniorrhaphy, Hx Open Heart Surgery, Hx Tonsillectomy - Immunizations Hx Diphtheria, Pertussis, Tetanus Vaccination: No History of Influenza Vaccine for 02/2017 - 07/2017 Season: Refused Physical Exam - Vital signs Vitals: Temp Pulse Resp BP Pulse Ox 97.8 F 70 20 117/51 L 98 05/16/17 14:17 05/16/17 14:17 05/16/17 14:17 05/16/17 14:17 05/16/17 14:17 Course - Vital Signs Vital signs: Temp Pulse Resp BP Pulse Ox 97.8 F 70 20 117/51 L 98 05/16/17 14:17 05/16/17 14:17 05/16/17 14:17 05/16/17 14:17 05/16/17 14:17
[2017-05-16 15:08] LABS: ABSOLUTE LYMPHOCYTES (AUTO) 1.4 10^3/uL (0.5-4.7); ABSOLUTE MONOCYTES (AUTO) 0.9 10^3/uL (0.1-1.4); ABSOLUTE NEUT (AUTO) 4.9 10^3/uL (1.7-8.2); BASOPHILS % (AUTO) 0.4 % (0-2); EOSINOPHILS % (AUTO) 0.7 % (0-6); HEMOGLOBIN 11.1 g/dL (13.5-17.0); MEAN CORPUSCULAR HEMOGLOBIN 30.2 pg (27.0-33.4); MEAN CORPUSCULAR HGB CONC 33.5 g/dL (32.0-36.0); MEAN CORPUSCULAR VOLUME 90 fl (80-97); MONOCYTES % (AUTO) 12.5 % (3-13); PLATELET COUNT 426 10^3/uL (150-450); RED BLOOD COUNT 3.66 10^6/uL (4.35-5.55); RED CELL DISTRIBUTION WIDTH 14.8 % (11.5-14.0); SEGMENTED NEUTROPHILS % (AUTO) 67.4 % (42-78); TOTAL CELLS COUNTED % (AUTO) 100 %; WHITE BLOOD COUNT 7.3 10^3/uL (4.0-10.5)
[2017-05-16 15:33] LABS: ALANINE AMINOTRANSFERASE 19 U/L (21-72); ALBUMIN 3.4 g/dL (3.5-5.0); ALKALINE PHOSPHATASE 147 U/L (38-126); ANION GAP 10 (5-19); ASPARTATE AMINO TRANSFERASE 21 U/L (17-59); BILIRUBIN,DIRECT 0.3 mg/dL (0.0-0.4); BILIRUBIN,TOTAL 0.8 mg/dL (0.2-1.3); BLOOD UREA NITROGEN 15 mg/dL (7-20); CALCIUM 9.8 mg/dL (8.4-10.2); CARBON DIOXIDE 24 mmol/L (22-30); CHLORIDE 101 mmol/L (98-107); GLUCOSE 102 mg/dL (75-110); POTASSIUM 5.5 mmol/L (3.6-5.0); SODIUM 134.7 mmol/L (137-145); TOTAL PROTEIN 6.8 g/dL (6.3-8.2)
--- NOTE | 2017-05-16 16:17 | ER Document Report ---
ED Extremity Problem, Lower - General Chief Complaint: Leg Swelling Stated Complaint: LOWER EXTREMITY SWELLING Time Seen by Provider: 05/16/17 14:35 Information source: Patient, Transfer Record Notes: Patient presents complaining of swelling to bilateral lower extremities for the past 2 years that worsened over the past 2 weeks. Patient complains of pain to his legs with weeping. Patient went to his primary doctor's office today for follow-up on outpatient lab work and whenever the staff saw his lower extremities, they advised to follow-up directly with the emergency department. Patient denies any fever. Patient denies any dyspnea. Patient does have a history of congestive heart failure and does take multiple diuretic medications. TRAVEL OUTSIDE OF THE [place] IN LAST 30 DAYS: No - HPI Patient complains to provider of: Pain, Swelling Location: Leg Occurred: Other - 2 weeks, worse over the past few days Onset/Duration: Worse Quality of pain: Achy Pain Level: 3 Context: denies: Recent immobilization, Recent surgery Recent injury: No Associated symptoms: Painful ambulation. denies: Chest pain, Chills, Fever, Short of breath Exacerbated by: Movement, Walking Relieved by: Nothing - Related Data Allergies/Adverse Reactions: No Known Allergies Allergy (Verified 05/16/17 13:59) Past Medical History - General Information source: Patient - Social History Smoking Status: Never Smoker Chew tobacco use (# tins/day): No Frequency of alcohol use: Occasional Drug Abuse: None Occupation: none Lives with: Alone Family History: Reviewed & Not Pertinent, Hypertension Patient has suicidal ideation: No Patient has homicidal ideation: No - Past Medical History Cardiac Medical History: Reports: Hx Congestive Heart Failure, Hx Hypercholesterolemia, Hx Hypertension Denies: Hx Coronary Artery Disease, Hx Heart Attack Pulmonary Medical History: Denies: Hx Asthma, Hx Bronchitis, Hx COPD, Hx Pneumonia Neurological Medical History: Renal/ Medical History: Denies: Hx Benign Prostatic Hyperplasia, Hx End Stage Renal Disease, Hx Kidney Stones, Hx Peritoneal Dialysis Malignancy Medical History: Reports Hx Colorectal Cancer GI Medical History: Reports: Hx Gastroesophageal Reflux Disease, Hx Hiatal Hernia. Denies: Hx Crohn's Disease, Hx Hepatitis, Hx Irritable Bowel, Hx Liver Failure, Hx Pancreatitis, Hx Ulcer Musculoskeltal Medical History: Reports Hx Arthritis, Denies Hx Fibromyalgia, Denies Hx Muscular Dystrophy Psychiatric Medical History: Traumatic Medical History: Denies: Hx Fractures Infectious Medical History: Denies: Hx Hepatitis Past Surgical History: Reports: Hx Bowel Diversion, Hx Bowel Surgery, Hx Pacemaker. Denies: Hx Appendectomy, Hx Cholecystectomy, Hx Colostomy, Hx Coronary Artery Bypass Graft, Hx Gastric Bypass Surgery, Hx Herniorrhaphy, Hx Open Heart Surgery, Hx Tonsillectomy - Immunizations Hx Diphtheria, Pertussis, Tetanus Vaccination: No Review of Systems - Review of Systems Constitutional: No symptoms reported. denies: Fever, Recent illness EENT: No symptoms reported Cardiovascular: No symptoms reported. denies: Chest pain, Palpitations Respiratory: No symptoms reported. denies: Cough, Short of breath Gastrointestinal: No symptoms reported. denies: Vomiting Genitourinary: No symptoms reported Male Genitourinary: No symptoms reported Musculoskeletal: Leg swelling Skin: Other - weeping wounds to bilat LE Hematologic/Lymphatic: No symptoms reported Neurological/Psychological: No symptoms reported Physical Exam - Vital signs Vitals: Temp Pulse Resp BP Pulse Ox 97.8 F 70 20 117/51 L 98 05/16/17 14:17 05/16/17 14:17 05/16/17 14:17 05/16/17 14:17 05/16/17 14:17 - General General appearance: Appears well, Alert In distress: None - HEENT Head: Normocephalic, Atraumatic Eyes: Normal Conjunctiva: Normal Nasal: Normal Mouth/Lips: Normal Mucous membranes: Normal Pharynx: Normal Neck: Normal, Supple. No: Lymphadenopathy - Respiratory Respiratory status: No respiratory distress Chest status: Nontender Breath sounds: Normal. No: Rales, Rhonchi, Stridor, Wheezing Chest palpation: Normal - Cardiovascular Rhythm: Regular Heart sounds: S1 appreciated, S2 appreciated Murmur: No - Abdominal Inspection: Other - colostomy Distension: No distension Bowel sounds: Normal Tenderness: Nontender - Back Back: Normal, Nontender. No: CVA tenderness - Extremities General upper extremity: Normal inspection, Normal ROM General lower extremity: Edema - Weeping wounds to bilateral lower extremities with peeling skin, areas between toes macerated from moisture, 4+ edema to bilateral lower extremities, Normal ROM - Neurological Neuro grossly intact: Yes Kendall Coma Scale Eye Opening: Spontaneous [place] Coma Scale Verbal: Oriented Kendall Coma Scale Motor: Obeys Commands Kendall Coma Scale Total: 15 - Psychological Associated symptoms: Normal affect, Normal mood - Skin Skin Temperature: Warm Skin Color: Erythema - Erythematous weeping wounds to bilateral lower extremities with 4+ edema Course - Re-evaluation Re-evalutation: 05/16/17 17:[address] Hidalgo, Dr Hidalgo to bedside for examination, recommends consultation with hospitalist for admission. Consulted with Dr. Smith who agrees to come and evaluate patient. - Vital Signs Vital signs: Temp Pulse Resp BP Pulse Ox 97.8 F 70 19 111/88 H 100 05/16/17 14:17 05/16/17 14:17 05/16/17 18:01 05/16/17 18:01 05/16/17 18:01 - Laboratory Result Diagrams: 05/16/17 14:56 05/16/17 14:56 Laboratory results interpreted by me: 05/16/17 05/16/17 05/16/17 14:56 14:56 15:56 RBC 3.66 L Hgb 11.1 L Hct 33.0 L RDW 14.8 H Sodium 134.7 L Potassium 5.5 H ALT 19 L Alkaline Phosphatase 147 H NT-Pro-B Natriuret Pep 2300 H Albumin 3.4 L 05/16/17 17:34 Labs- Entire Visit 05/16/17 05/16/17 14:56 14:56 WBC 7.3 RBC 3.66 L Hgb 11.1 L Hct 33.0 L MCV 90 MCH 30.2 MCHC 33.5 RDW 14.8 H Plt Count 426 Seg Neutrophils % 67.4 Lymphocytes % 19.0 Monocytes % 12.5 Eosinophils % 0.7 Basophils % 0.4 Absolute Neutrophils 4.9 Absolute Lymphocytes 1.4 Absolute Monocytes 0.9 Absolute Eosinophils 0.0 Absolute Basophils 0.0 Sodium 134.7 L Potassium 5.5 H Chloride 101 Carbon Dioxide 24 Anion Gap 10 BUN 15 Creatinine 0.70 Est GFR ( Amer) > 60 Est GFR (Non-Af Amer) > 60 Glucose 102 Calcium 9.8 Total Bilirubin 0.8 Direct Bilirubin 0.3 Neonat Total Bilirubin Not Reportable Neonat Direct Bilirubin Not Reportable Neonat Indirect Bili Not Reportable AST 21 ALT 19 L Alkaline Phosphatase 147 H Total Protein 6.8 Albumin 3.4 L - Diagnostic Test Radiology reviewed: Image reviewed, Reports reviewed Discharge - Discharge Clinical Impression: weeping wounds to zach lower extremities Anemia Qualifiers: Anemia type: unspecified type Qualified Code(s): D64.9 - Anemia, unspecified Edema Qualifiers: Edema type: unspecified Qualified Code(s): R60.9 - Edema, unspecified Condition: Stable Disposition: ADMITTED OBSERVATION Admitting Provider: Hospitalist
[2017-05-16] MEDS ORDERED: FUROSEMIDE INJ/PF 20 MG/2 ML SDV IV ONE (16:24)
--- NOTE | 2017-05-16 16:45 | RADIOLOGY REPORT (SQ) ---
EXAM DESCRIPTION: CHEST SINGLE VIEW COMPLETED DATE/TIME: 05/16/2017 4:38 pm REASON FOR STUDY: peripheral edema, hx chf COMPARISON: 03/27/2017 EXAM PARAMETERS: NUMBER OF VIEWS: One view. TECHNIQUE: Single frontal radiographic view of the chest acquired. RADIATION DOSE: NA LIMITATIONS: None. FINDINGS: LUNGS AND PLEURA: Right pleural reaction. No opacities. MEDIASTINUM AND HILAR STRUCTURES: Retrocardiac hiatal hernia. HEART AND VASCULAR STRUCTURES: Heart slightly enlarged. Normal vascular torn. BONES: No acute findings. HARDWARE: Pacemaker unchanged. OTHER: No other significant finding. IMPRESSION: NO ACUTE RADIOGRAPHIC FINDING IN THE CHEST. TECHNICAL DOCUMENTATION: JOB ID: [id number] [employer]- All Rights Reserved
[2017-05-16] MEDS ORDERED: IPRATROPIUM/ALBUTEROL 0.5-2.5 MG/3 ML AMPUL NEB PRN (18:11)
[2017-05-16] MEDS ORDERED: ONDANSETRON 4 MG TAB.RAPDIS PO PRN (18:11)
[2017-05-16] MEDS ORDERED: ACETAMINOPHEN 325 MG TABLET PO PRN (18:11)
--- NOTE | 2017-05-16 18:29 | PDOC H&P ---
History of Present Illness Admission Date/PCP: PAO VILLALOBOS Patient complains of: Lower extremity edema History of Present Illness: PRAFUL PUTNAM is a 77 year old male who is known to me from previous admission who presents with lower extremity edema. Patient has had problems with chronic lower extremity edema for many years. He does not have a history of congestive heart failure however. He went to his primary care doctor today and the nurse saw his legs were swollen and weeping and he was instructed to go to the emergency room. The patient denies any orthopnea or PND. He denies any dyspnea on exertion except for long distances. 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 He also has widely metastatic prostate cancer. He has had swelling from his bilateral legs in spite of being on high-dose Lasix and Spironolactone. The patient denies any fevers or chills but does have some skin sloughing off bilaterally. The patient had chest x-ray that does show a pleural effusion however he denies any orthopnea or PND. Denies any chest pain. We were asked by the emergency room to evaluate the patient for admission because of concern over congestive heart failure. The patient however does not have any symptoms consistent with acute exacerbation but does have significant lower extremity edema. Patient will be admitted for treatment of his lower extremity edema with Unna boots. Past Medical History Cardiac Medical History: Reports: Coronary Artery Disease - Had a non-STEMI 2 months ago Denies: Congestive Heart Failure, Myocardial Infarction, Hypertension Pulmonary Medical History: Denies: Asthma, Bronchitis, Chronic Obstructive Pulmonary Disease (COPD), Pneumonia EENT Medical History: Reports: None Neurological Medical History: Endocrine Medical History: Reports: None Renal/ Medical History: Reports: None Malignancy Medical History: Reports: Colorectal Cancer, Other - Prostate cancer GI Medical History: Reports: Gastroesophageal Reflux Disease, Hiatal Hernia Denies: Crohn's Disease, Hepatitis Musculoskeltal Medical History: Reports: Arthritis Denies: Fibromyalgia Psychiatric Medical History: Reports: None Traumatic Medical History: Reports: None Hematology: Reports: Anemia Denies: Sickle Cell Disease Infectious Medical History: Reports: None Past Surgical History Past Surgical History: Reports: Pacemaker, Other - Colostomy for near obstructing colon cancer Social History Information Source: Patient Lives with: Alone Smoking Status: Never Smoker Frequency of Alcohol Use: Occasional Hx Recreational Drug Use: No Drugs: None Hx Prescription Drug Abuse: No - Advance Directive Resuscitation Status: Full Code Family History Family History: Hypertension Family History: Father's health history is unknown. Mother at age 92 and had no chronic health problems prior to her . Parental Family History Reviewed: Yes Children Family History Reviewed: No Sibling(s) Family History Reviewed.: No Medication/Allergy Allergies/Adverse Reactions: No Known Allergies Allergy (Verified 05/16/17 13:59) Review of Systems Constitutional: ABSENT: chills, fever(s), headache(s), weight gain, weight loss Eyes: ABSENT: visual disturbances Ears: ABSENT: hearing changes Cardiovascular: PRESENT: edema. ABSENT: chest pain, dyspnea on exertion, orthropnea, palpitations Respiratory: ABSENT: cough, hemoptysis Gastrointestinal: ABSENT: abdominal pain, constipation, diarrhea, hematemesis, hematochezia, nausea, vomiting Genitourinary: ABSENT: dysuria, hematuria Musculoskeletal: ABSENT: joint swelling Integumentary: PRESENT: other - Patient has open areas on the bilateral legs from weeping from his legs. Neurological: ABSENT: abnormal gait, abnormal speech, confusion, dizziness, focal weakness, syncope Psychiatric: ABSENT: anxiety, depression Endocrine: ABSENT: cold intolerance, heat intolerance, polydipsia, polyuria Hematologic/Lymphatic: ABSENT: easy bleeding, easy bruising Physical Exam Vital Signs: Temp Pulse Resp BP Pulse Ox 97.8 F 70 19 111/88 H 100 05/16/17 14:17 05/16/17 14:17 05/16/17 18:01 05/16/17 18:01 05/16/17 18:01 Intake & Output 05/15/17 05/16/17 05/17/17 06:59 06:59 06:59 Weight 86.3 kg General appearance: PRESENT: no acute distress, obese Eye exam: PRESENT: conjunctiva pink, EOMI, PERRLA. ABSENT: scleral icterus Ear exam: PRESENT: normal external ear exam Mouth exam: PRESENT: moist, tongue midline Neck exam: ABSENT: JVD Respiratory exam: PRESENT: clear to auscultation zach. ABSENT: rales, rhonchi, wheezes Cardiovascular exam: PRESENT: RRR. ABSENT: diastolic murmur, rubs, systolic murmur Vascular exam: PRESENT: normal capillary refill GI/Abdominal exam: PRESENT: normal bowel sounds, soft, other - Colostomy present in the left lower quadrant. ABSENT: distended, guarding, mass, organolmegaly, rebound, tenderness Extremities exam: PRESENT: pedal edema, +2 edema. ABSENT: calf tenderness, clubbing Neurological exam: PRESENT: alert, awake, oriented to person, oriented to place , oriented to time, oriented to situation, CN II-XII grossly intact. ABSENT: motor sensory deficit Psychiatric exam: PRESENT: appropriate affect Skin exam: PRESENT: other - Mild erythema of the bilateral legs from the knees to the midfoot. There are some areas of skin breakdown but no purulent drainage. Also serous drainage from the open wounds. Results Laboratory Results: 05/16/17 14:56 05/16/17 14:56 05/16/17 05/16/17 14:56 14:56 WBC 7.3 RBC 3.66 L Hgb 11.1 L Hct 33.0 L MCV 90 MCH 30.2 MCHC 33.5 RDW 14.8 H Plt Count 426 Seg Neutrophils % 67.4 Lymphocytes % 19.0 Monocytes % 12.5 Eosinophils % 0.7 Basophils % 0.4 Absolute Neutrophils 4.9 Absolute Lymphocytes 1.4 Absolute Monocytes 0.9 Absolute Eosinophils 0.0 Absolute Basophils 0.0 Sodium 134.7 L Potassium 5.5 H Chloride 101 Carbon Dioxide 24 Anion Gap 10 BUN 15 Creatinine 0.70 Est GFR ( Amer) > 60 Est GFR (Non-Af Amer) > 60 Glucose 102 Calcium 9.8 Total Bilirubin 0.8 AST 21 ALT 19 L Alkaline Phosphatase 147 H Total Protein 6.8 Albumin 3.4 L Impressions: Chest X-Ray 05/16/17 16:11 IMPRESSION: NO ACUTE RADIOGRAPHIC FINDING IN THE CHEST. Assessment & Plan - Diagnosis (1) Edema Qualifiers: Edema type: unspecified Qualified Code(s): R60.9 - Edema, unspecified Is this a current diagnosis for this admission?: Yes Plan: The patient has had chronic edema in spite of being on Lasix 80 mg twice daily and Spironolactone. The patient has no orthopnea or PND. Most of his edema is not related to congestive heart failure. He does have a history of significant rectal cancer as well as prostate cancer which may be causing some lymph outflow obstruction. The patient does not need IV Lasix for this. Will treat with compressive dressings. Will apply Unna boots to the bilateral legs. Patient has no evidence for infection. We will continue with his current dose of diuretics. (2) Metastatic malignant neoplasm to prostate Is this a current diagnosis for this admission?: Yes (3) Rectal carcinoma Is this a current diagnosis for this admission?: Yes Plan: The patient November had a colostomy placed for near obstructing rectal carcinoma. This has been functioning adequately. - Time Time Spent: 50 to 70 Minutes - Plan Summary Plan Summary: The patient will be admitted as an observation. This could be treated as an outpatient however we are anticipating significant amount of snow fall and he lives alone. Once I am certain that he will be able to follow-up with his primary care doctor he can be discharged home.
[2017-05-16] MEDS ORDERED: ENOXAPARIN SODIUM INJ 40 MG/0.4 ML DISP.SYRIN SUBCUT ONE (19:00)
--- NOTE | 2017-05-16 19:07 | EKG REPORT ---
SEVERITY:- ABNORMAL ECG - VENTRICULAR-PACED RHYTHM : Confirmed by: Susanne Felipe 16-May-2017 19:06:49
[2017-05-16] MEDS ORDERED: KETOROLAC TROMETHAMINE INJ/PF 30 MG/1 ML SDV IV PRN (22:58)
[2017-05-17] MEDS ORDERED: KETOROLAC TROMETHAMINE INJ/PF 30 MG/1 ML SDV IV ONE (01:24)
[2017-05-17] MEDS ORDERED: GABAPENTIN 300 MG CAPSULE PO ONE (11:00)
--- NOTE | 2017-05-17 11:48 | PDOC PROGRESS REPORT ---
Subjective Progress Note for:: 05/17/17 Subjective:: Patient complains of severe right ear pain in his bilateral legs. He describes a neuropathic pain. He is requesting morphine because he says it is the only thing that has helped this in the past. Reason For Visit: ANEMIA,EDEMA Physical Exam Vital Signs: Temp Pulse Resp BP Pulse Ox 97.3 F 74 20 128/52 H 100 05/17/17 11:31 05/17/17 11:31 05/17/17 11:31 05/17/17 11:31 05/17/17 11:31 General appearance: PRESENT: no acute distress Eye exam: PRESENT: conjunctiva pink. ABSENT: scleral icterus Mouth exam: PRESENT: moist, tongue midline Neck exam: ABSENT: JVD Respiratory exam: PRESENT: clear to auscultation zach. ABSENT: rales, rhonchi, wheezes Cardiovascular exam: PRESENT: RRR. ABSENT: diastolic murmur, rubs, systolic murmur GI/Abdominal exam: PRESENT: normal bowel sounds, soft. ABSENT: distended, guarding, mass, organolmegaly, rebound, tenderness Extremities exam: PRESENT: pedal edema, +2 edema. ABSENT: calf tenderness, clubbing Neurological exam: PRESENT: alert, awake, oriented to person, oriented to place , oriented to time, oriented to situation, CN II-XII grossly intact. ABSENT: motor sensory deficit Psychiatric exam: PRESENT: appropriate affect Skin exam: PRESENT: other - Areas of weeping skin on his bilateral legs. Results Impressions: Chest X-Ray 05/16/17 16:11 IMPRESSION: NO ACUTE RADIOGRAPHIC FINDING IN THE CHEST. Assessment & Plan - Diagnosis (1) Edema Qualifiers: Edema type: unspecified Qualified Code(s): R60.9 - Edema, unspecified Is this a current diagnosis for this admission?: Yes Plan: The patient has had chronic edema in spite of being on Lasix 80 mg twice daily and Spironolactone. The patient has no orthopnea or PND. Most of his edema is not related to congestive heart failure. He does have a history of significant rectal cancer as well as prostate cancer which may be causing some lymph outflow obstruction. The patient is having severe pain associated with this. We will continue with compressive dressings. He is having severe pain that is requiring IV morphine now. Because of pain control we will change from an observation to an inpatient. (2) Metastatic malignant neoplasm to prostate Is this a current diagnosis for this admission?: Yes (3) Rectal carcinoma Is this a current diagnosis for this admission?: Yes Plan: The patient in March had a colostomy placed for near obstructing rectal carcinoma. This has been functioning adequately. - Time Time Spent with patient: 25-34 minutes - Inpatient Certification Medical Necessity: Need for Pain Control
[2017-05-17] MEDS: ENOXAPARIN SODIUM INJ 40 MG/0.4 ML DISP.SYRIN SUBCUT SCH (12:24)
[2017-05-17] MEDS: MORPHINE SULFATE 10 MG/ML INJ IV PRN ×2 (12:25→21:18)
[2017-05-17] MEDS ORDERED: METOPROLOL SUCCINATE 25 MG TAB.SR.24H PO ONE (22:37)
[2017-05-17] MEDS ORDERED: APIXABAN 5 MG TABLET ONE (22:37)
[2017-05-17] MEDS ORDERED: GABAPENTIN 300 MG CAPSULE ONE (22:37)
[2017-05-17] MEDS ORDERED: ATORVASTATIN CALCIUM 40 MG TABLET ONE (22:37)
[2017-05-17] MEDS ORDERED: RANOLAZINE 500 MG TAB.SR.12H PO ONE (22:38)
[2017-05-17] MEDS: METOPROLOL SUCCINATE 25 MG TAB.SR.24H PO SCH (22:45)
[2017-05-17] MEDS: ATORVASTATIN CALCIUM 40 MG TABLET PO SCH (22:54)
[2017-05-17] MEDS: APIXABAN 5 MG TABLET PO SCH (22:54)
[2017-05-17] MEDS: GABAPENTIN 300 MG CAPSULE PO SCH (22:55)
[2017-05-17] MEDS: RANOLAZINE 500 MG TAB.SR.12H PO SCH (22:55)
[2017-05-18 07:21] LABS: ABSOLUTE LYMPHOCYTES (AUTO) 1.6 10^3/uL (0.5-4.7); ABSOLUTE NEUT (AUTO) 5.2 10^3/uL (1.7-8.2); BASOPHILS % (AUTO) 0.3 % (0-2); EOSINOPHILS % (AUTO) 0.6 % (0-6); HEMATOCRIT 27.5 % (37.9-51.0); HEMOGLOBIN 9.3 g/dL (13.5-17.0); LYMPHOCYTES % (AUTO) 19.8 % (13-45); MEAN CORPUSCULAR HEMOGLOBIN 30.7 pg (27.0-33.4); MEAN CORPUSCULAR HGB CONC 33.9 g/dL (32.0-36.0); MEAN CORPUSCULAR VOLUME 91 fl (80-97); PLATELET COUNT 356 10^3/uL (150-450); RED BLOOD COUNT 3.03 10^6/uL (4.35-5.55); RED CELL DISTRIBUTION WIDTH 14.4 % (11.5-14.0); SEGMENTED NEUTROPHILS % (AUTO) 66.3 % (42-78); TOTAL CELLS COUNTED % (AUTO) 100 %; WHITE BLOOD COUNT 7.9 10^3/uL (4.0-10.5)
[2017-05-18 07:41] LABS: ANION GAP 5 (5-19); BLOOD UREA NITROGEN 14 mg/dL (7-20); CARBON DIOXIDE 28 mmol/L (22-30); CHLORIDE 103 mmol/L (98-107); GLUCOSE 107 mg/dL (75-110); POTASSIUM 5.5 mmol/L (3.6-5.0); SODIUM 135.6 mmol/L (137-145)
[2017-05-18] MEDS ORDERED: CALCIUM CARBONATE PO SCH (10:00)
[2017-05-18] MEDS ORDERED: VITAMIN D3 PO SCH (10:00)
[2017-05-18] MEDS ORDERED: [UNRECOGNIZED DRUG - OTHER] PO SCH (10:00)
[2017-05-18] MEDS ORDERED: Enzalutamide [Xtandi] 40 MG PO SCH (10:00)
[2017-05-18] MEDS: RANOLAZINE 500 MG TAB.SR.12H PO SCH ×2 (11:14→21:41)
[2017-05-18] MEDS: METOPROLOL SUCCINATE 25 MG TAB.SR.24H PO SCH (11:14)
[2017-05-18] MEDS: METOLAZONE 5 MG TABLET PO SCH (11:15)
[2017-05-18] MEDS: LISINOPRIL 5 MG TABLET PO SCH (11:15)
[2017-05-18] MEDS: APIXABAN 5 MG TABLET PO SCH ×2 (11:15→21:41)
[2017-05-18] MEDS: CALCIUM CARBONATE 250 MG/VITAMIN D3 125 UNIT TABLET PO SCH (11:15)
[2017-05-18] MEDS: ENOXAPARIN SODIUM INJ 40 MG/0.4 ML DISP.SYRIN SUBCUT SCH (11:16)
[2017-05-18] MEDS: GABAPENTIN 300 MG CAPSULE PO SCH ×2 (11:16→21:43)
[2017-05-18] MEDS: FUROSEMIDE 40 MG TABLET PO SCH (11:16)
[2017-05-18] MEDS: SPIRONOLACTONE 25 MG TABLET PO SCH (11:16)
--- NOTE | 2017-05-18 12:26 | PDOC PROGRESS REPORT ---
Subjective Progress Note for:: 05/18/17 Subjective:: patient reports that his leg pain is much improved from yesterday. Reason For Visit: INTRACTABLE LEG PAIN Physical Exam Vital Signs: Temp Pulse Resp BP Pulse Ox 98.2 F 69 20 107/53 L 98 05/18/17 09:10 05/18/17 09:10 05/18/17 09:10 05/18/17 09:10 05/18/17 09:10 Intake & Output 05/17/17 05/18/17 05/19/17 06:59 06:59 06:59 Intake Total 240 Output Total 325 Balance 240 -325 Weight 85.9 kg General appearance: PRESENT: no acute distress Eye exam: PRESENT: conjunctiva pink. ABSENT: scleral icterus Mouth exam: PRESENT: moist, tongue midline Neck exam: ABSENT: JVD Respiratory exam: PRESENT: clear to auscultation zach. ABSENT: rales, rhonchi, wheezes Cardiovascular exam: PRESENT: RRR. ABSENT: diastolic murmur, rubs, systolic murmur GI/Abdominal exam: PRESENT: normal bowel sounds, soft. ABSENT: distended, guarding, mass, organolmegaly, rebound, tenderness Extremities exam: PRESENT: pedal edema. ABSENT: calf tenderness, clubbing Neurological exam: PRESENT: alert, awake, oriented to person, oriented to place , oriented to time, oriented to situation, CN II-XII grossly intact. ABSENT: motor sensory deficit Psychiatric exam: PRESENT: appropriate affect Skin exam: PRESENT: other - Bilateral legs show open areas with some serous drainage but no purulent drainage. Much less edema Results Laboratory Results: 05/18/17 06:39 05/18/17 06:39 05/18/17 05/18/17 06:39 06:39 WBC 7.9 RBC 3.03 L Hgb 9.3 L Hct 27.5 L MCV 91 MCH 30.7 MCHC 33.9 RDW 14.4 H Plt Count 356 Seg Neutrophils % 66.3 Lymphocytes % 19.8 Monocytes % 13.0 Eosinophils % 0.6 Basophils % 0.3 Absolute Neutrophils 5.2 Absolute Lymphocytes 1.6 Absolute Monocytes 1.0 Absolute Eosinophils 0.0 Absolute Basophils 0.0 Sodium 135.6 L Potassium 5.5 H Chloride 103 Carbon Dioxide 28 Anion Gap 5 BUN 14 Creatinine 0.65 Est GFR ( Amer) > 60 Est GFR (Non-Af Amer) > 60 Glucose 107 Calcium 9.0 Impressions: Chest X-Ray 05/16/17 16:11 IMPRESSION: NO ACUTE RADIOGRAPHIC FINDING IN THE CHEST. Assessment & Plan - Diagnosis (1) Edema Qualifiers: Edema type: unspecified Qualified Code(s): R60.9 - Edema, unspecified Is this a current diagnosis for this admission?: Yes Plan: The patient has had chronic edema in spite of being on Lasix 80 mg twice daily and Spironolactone. The patient has no orthopnea or PND. Most of his edema is not related to congestive heart failure. He does have a history of significant rectal cancer as well as prostate cancer which may be causing some lymph outflow obstruction. The patient is having severe pain associated with this. We will continue with compressive dressings. The patient's pain has improved after having the compression dressings on. (2) Metastatic malignant neoplasm to prostate Is this a current diagnosis for this admission?: Yes (3) Rectal carcinoma Is this a current diagnosis for this admission?: Yes Plan: The patient in March had a colostomy placed for near obstructing rectal carcinoma. This has been functioning adequately. - Time Time Spent with patient: 25-34 minutes - Inpatient Certification Medical Necessity: Need Close Monitoring Due to Risk of Patient Decompensation, Need for Pain Control
[2017-05-18] MEDS ORDERED: Enzalutamide [Xtandi] 40 MG PO ONE (16:00)
[2017-05-18] MEDS ORDERED: Enzalutamide [Xtandi] 40 MG CAPSULE PO ONE (17:00)
[2017-05-18] MEDS: MORPHINE SULFATE 10 MG/ML INJ IV PRN (17:14)
[2017-05-18] MEDS: ATORVASTATIN CALCIUM 40 MG TABLET PO SCH (21:42)
[2017-05-19 06:43] LABS: ABSOLUTE EOSINOPHILS # (AUTO) 0.1 10^3/uL (0.0-0.6); ABSOLUTE LYMPHOCYTES (AUTO) 1.8 10^3/uL (0.5-4.7); ABSOLUTE MONOCYTES (AUTO) 1.1 10^3/uL (0.1-1.4); BASOPHILS % (AUTO) 0.3 % (0-2); EOSINOPHILS % (AUTO) 1.1 % (0-6); HEMATOCRIT 29.8 % (37.9-51.0); HEMOGLOBIN 10.1 g/dL (13.5-17.0); LYMPHOCYTES % (AUTO) 22.4 % (13-45); MEAN CORPUSCULAR HEMOGLOBIN 30.5 pg (27.0-33.4); MEAN CORPUSCULAR HGB CONC 33.8 g/dL (32.0-36.0); MEAN CORPUSCULAR VOLUME 90 fl (80-97); MONOCYTES % (AUTO) 14.1 % (3-13); PLATELET COUNT 388 10^3/uL (150-450); RED BLOOD COUNT 3.31 10^6/uL (4.35-5.55); RED CELL DISTRIBUTION WIDTH 14.6 % (11.5-14.0); SEGMENTED NEUTROPHILS % (AUTO) 62.1 % (42-78); TOTAL CELLS COUNTED % (AUTO) 100 %; WHITE BLOOD COUNT 8.1 10^3/uL (4.0-10.5)
[2017-05-19] MEDS: METOPROLOL SUCCINATE 25 MG TAB.SR.24H PO SCH ×2 (06:47→11:00)
[2017-05-19 07:02] LABS: ANION GAP 7 (5-19); BLOOD UREA NITROGEN 16 mg/dL (7-20); CALCIUM 8.9 mg/dL (8.4-10.2); CARBON DIOXIDE 28 mmol/L (22-30); CHLORIDE 101 mmol/L (98-107); GLUCOSE 103 mg/dL (75-110); SODIUM 135.5 mmol/L (137-145)
[2017-05-19 07:18] LABS: POTASSIUM 4.2 mmol/L (3.6-5.0)
[2017-05-19] MEDS ORDERED: Enzalutamide [Xtandi] 40 MG CAPSULE PO SCH (10:00)
[2017-05-19] MEDS: CALCIUM CARBONATE 250 MG/VITAMIN D3 125 UNIT TABLET PO SCH (10:56)
[2017-05-19] MEDS: METOLAZONE 5 MG TABLET PO SCH (10:57)
[2017-05-19] MEDS: APIXABAN 5 MG TABLET PO SCH (10:58)
[2017-05-19] MEDS: GABAPENTIN 300 MG CAPSULE PO SCH (10:58)
[2017-05-19] MEDS: RANOLAZINE 500 MG TAB.SR.12H PO SCH (10:58)
[2017-05-19] MEDS: SPIRONOLACTONE 25 MG TABLET PO SCH (10:58)
[2017-05-19] MEDS: ENOXAPARIN SODIUM INJ 40 MG/0.4 ML DISP.SYRIN SUBCUT SCH (10:59)
[2017-05-19] MEDS: FUROSEMIDE 40 MG TABLET PO SCH (11:00)
[2017-05-19] MEDS: LISINOPRIL 5 MG TABLET PO SCH (11:00)
[2017-05-19 11:24] VITALS: BP 110/67
--- NOTE | 2017-05-19 11:36 | PDOC DISCHARGE SUMMARY ---
General - Admit/Disc Date/PCP Admission Date/Primary Care Provider: 05/16/17 19:05 PAO VILLALOBOS Discharge Date: 05/19/17 - Discharge Diagnosis (1) Edema Is this a current diagnosis for this admission?: Yes Summary: Not related to congestive heart failure. Treated with Unna boots. (2) Metastatic malignant neoplasm to prostate Is this a current diagnosis for this admission?: Yes (3) Rectal carcinoma Is this a current diagnosis for this admission?: Yes - Additional Information Resuscitation Status: Full Code Discharge Diet: Cardiac Discharge Activity: Activity As Tolerated, Balance Activity w/Rest Prescriptions: Gabapentin [Neurontin 300 mg Capsule] 300 mg PO Q12 #60 capsule Home Medications: Apixaban [Eliquis 5 mg Tablet] 5 mg PO Q12 05/16/17 Atorvastatin Calcium [Lipitor 40 mg Tablet] 40 mg PO QHS 05/16/17 Calcium Carbonate/Vitamin D3 [Ra [place]-Rah Plus Vitamin D Tab] 1 each PO DAILY 07/29 Enzalutamide [Xtandi] 160 mg PO DAILY 05/16/17 Furosemide [Lasix 40 mg Tablet] 40 mg PO DAILY 05/16/17 Lisinopril [Prinivil 5 mg Tablet] 5 mg PO DAILY 05/16/17 Metolazone [Zaroxolyn 5 mg Tablet] 5 mg PO DAILY 05/16/17 Metoprolol Succinate [Toprol Xl 25 mg Tab.sr] 25 mg PO Q12 05/16/17 Potassium Chloride [Klor-Con 10 Meq Tablet.sa] 20 meq PO DAILY 05/16/17 Ranolazine [Ranexa 500 mg Tab.sr] 500 mg PO Q12 05/16/17 Spironolactone [Aldactone 25 mg Tablet] 25 mg PO DAILY 05/16/17 Gabapentin [Neurontin 300 mg Capsule] 300 mg PO Q12 #60 capsule 05/19/17 History of Present Illness History of Present Illness: PRAFUL PUTNAM is a 77 year old male who is known to me from previous admission who presents with lower extremity edema. Patient has had problems with chronic lower extremity edema for many years. He does not have a history of congestive heart failure however. He went to his primary care doctor today and the nurse saw his legs were swollen and weeping and he was instructed to go to the emergency room. The patient denies any orthopnea or PND. He denies any dyspnea on exertion except for long distances. 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 He also has widely metastatic prostate cancer. He has had swelling from his bilateral legs in spite of being on high-dose Lasix and Spironolactone. The patient denies any fevers or chills but does have some skin sloughing off bilaterally. The patient had chest x-ray that does show a pleural effusion however he denies any orthopnea or PND. Denies any chest pain. We were asked by the emergency room to evaluate the patient for admission because of concern over congestive heart failure. The patient however does not have any symptoms consistent with acute exacerbation but does have significant lower extremity edema. Patient will be admitted for treatment of his lower extremity edema with Unna boots. Hospital Course Hospital Course: 77-year-old gentleman who has a history of congestive heart failure who presented with lower extremity edema and some serous drainage. The patient had no evidence for CHF exacerbation. He had no orthopnea and was able to lay flat in bed without problems. His lower extremity edema most likely secondary to lymphedema. He does have a history of both prostate and rectal carcinoma. Patient was admitted and was placed in Unna boots. The patient had improvement and did have complaints of some neuropathic pain and gabapentin was added to his regimen. The patient was improving and was felt that he can be treated as an outpatient. He will follow-up on Sunday following discharge with his primary care doctor for reevaluation and probable reapplication of the Unna boots. Physical Exam Vital Signs: Temp Pulse Resp BP Pulse Ox 97.6 F 70 18 110/67 96 05/19/17 11:27 05/19/17 11:27 05/19/17 11:27 05/19/17 11:27 05/19/17 11:27 Intake & Output 05/18/17 05/19/17 05/20/17 06:59 06:59 06:59 Intake Total 240 240 490 Output Total 775 500 Balance 240 -535 -10 Weight 85.9 kg 83.6 kg General appearance: PRESENT: no acute distress Eye exam: PRESENT: conjunctiva pink. ABSENT: scleral icterus Mouth exam: PRESENT: moist, tongue midline Neck exam: ABSENT: JVD Respiratory exam: PRESENT: clear to auscultation zach. ABSENT: rales, rhonchi, wheezes Cardiovascular exam: PRESENT: RRR. ABSENT: diastolic murmur, rubs, systolic murmur GI/Abdominal exam: PRESENT: normal bowel sounds, soft. ABSENT: distended, guarding, mass, organolmegaly, rebound, tenderness Extremities exam: PRESENT: other - Unna boots in place bilaterally.. ABSENT: calf tenderness, clubbing Neurological exam: PRESENT: alert, awake, oriented to person, oriented to place , oriented to time, oriented to situation, CN II-XII grossly intact. ABSENT: motor sensory deficit Psychiatric exam: PRESENT: appropriate affect Results Laboratory Results: 05/19/17 06:23 05/19/17 06:23 05/19/17 05/19/17 06:23 06:23 WBC 8.1 RBC 3.31 L Hgb 10.1 L Hct 29.8 L MCV 90 MCH 30.5 MCHC 33.8 RDW 14.6 H Plt Count 388 Seg Neutrophils % 62.1 Lymphocytes % 22.4 Monocytes % 14.1 H Eosinophils % 1.1 Basophils % 0.3 Absolute Neutrophils 5.0 Absolute Lymphocytes 1.8 Absolute Monocytes 1.1 Absolute Eosinophils 0.1 Absolute Basophils 0.0 Sodium 135.5 L Potassium 4.2 D Chloride 101 Carbon Dioxide 28 Anion Gap 7 BUN 16 Creatinine 0.61 Est GFR ( Amer) > 60 Est GFR (Non-Af Amer) > 60 Glucose 103 Calcium 8.9 Impressions: Chest X-Ray 05/16/17 16:11 IMPRESSION: NO ACUTE RADIOGRAPHIC FINDING IN THE CHEST. Qualifiers PATEINT BEING DISCHARGED WITH ANY OF THE FOLLOWING DIAGNOSIS?: No Plan Discharge Plan: Discharged home. Follow-up with primary care on Sunday. Time Spent: Less than 30 Minutes
== END 2017-05-19 12:21 | disposition home or self-care (01) ==
LOC: ER 13:57 → EH 19:05 → INTOOBSV 05-17 11:42 → OBSVTOIN 05-17 11:42 → 2S 05-17 16:25
PROVIDERS: ADMIT Internal Medicine; ATTEND Internal Medicine
DX: R60.0 Localized edema (principal); C20 Malignant neoplasm of rectum; C79.82 Secondary malignant neoplasm of genital organs; G62.9 Polyneuropathy, unspecified; J90 Pleural effusion, not elsewhere classified; I96 Gangrene, not elsewhere classified; I25.10 Atherosclerotic heart disease of native coronary artery without angina pectoris; I25.2 Old myocardial infarction; L53.8 Other specified erythematous conditions; D64.9 Anemia, unspecified; Z79.899 Other long term (current) drug therapy; Z79.02 Long term (current) use of antithrombotics/antiplatelets; Z93.3 Colostomy status; Z95.0 Presence of cardiac pacemaker; Z82.49 Family history of ischemic heart disease and other diseases of the circulatory system; Z60.2 Problems related to living alone
CPT/HCPCS: 93005; 99284; 36415 ×3; 85025 ×3; 80048 ×2; 80053; 83880; 71045; 93010; A9270 ×19; J1940; J1885 ×2; J2270 ×2; J1650 ×4; J3490 ×3

== ENCOUNTER → 2017-09-14 | Outpatient (CLI) | payer MEDICARE, OTHER ==
--- NOTE | 2017-09-14 15:53 | RADIOLOGY REPORT (SQ) ---
EXAM DESCRIPTION: NM WHOLE BODY BONE SCAN COMPLETED DATE/TIME: 09/14/2017 2:34 pm REASON FOR STUDY: C61 MALIGNANT NEOPLASM OF PROSTATE [id number] NEOPLASM OF RECTOSIGMOID JU C61 M ALIGNANT NEOPLASM OF PROSTATE C19 MALIGNANT NEOPLASM OF RECTOSIGMOID JUNCTION COMPARISON: Bone scan 03/21/2016, 02/07/2017 RADIONUCLIDE AND DOSE: 20.8 millicuries Tc99m HDP. The route of agent administration: Intravenous. ADDITIONAL DRUGS AND DOSES: None. TECHNIQUE: Routine delayed images at 3 hours post radionuclide injection acquired of the bony skelet on including anterior and posterior whole-body projections and additional focused images as needed. LIMITATIONS: None. FINDINGS: BONES: There are skeletal metastatic lesions scattered throughout the thoracic and lumbar spine, ribs, medial clavicles, bony pelvis, and bilateral proximal femurs. Overall, the extent and i ntensity of the activity is decreased compared to both prior studies. KIDNEYS: Symmetric excretion without obstruction. OTHER: No other significant finding. IMPRESSION: Widespread skeletal metastatic lesions identified today. However, these are less intens e in extent and activity today. This suggests treatment response. COMMENT: Quality measure 147: Current bone scan is compared with any available plain radiographs, p rior bone scans, and CT/MRI. TECHNICAL DOCUMENTATION: JOB ID: [id number] [employer]- All Rights Reserved Reading location - IP/workstation name: [email or web address]
== END ==
LOC: RAD 11:36
PROVIDERS: ATTEND Internal Medicine Hematology & Oncology
DX: C61 Malignant neoplasm of prostate (principal); C19 Malignant neoplasm of rectosigmoid junction; R51 Headache
CPT/HCPCS: 78306; A9561; Q9969

== ENCOUNTER → 2017-09-17 | Outpatient (CLI) | payer MEDICARE, OTHER ==
--- NOTE | 2017-09-17 16:00 | RADIOLOGY REPORT (SQ) ---
EXAM DESCRIPTION: CT HEAD WITH COMPLETED DATE/TIME: 09/17/2017 3:27 pm REASON FOR STUDY: PROSTATE CA (C61), HEADACHE (R51) CA OF RECTOSIGMOID (C19) R51 HEADACHE C61 RUDY GNANT NEOPLASM OF PROSTATE C19 MALIGNANT NEOPLASM OF RECTOSIGMOID JUNCTION COMPARISON: None. TECHNIQUE: Axial images acquired through the brain with intravenous contrast. Images reviewed with b one, brain and subdural windows. Additional sagittal and coronal reconstructions were generated. Cathleen ges stored on PACS. All CT scanners at this facility use dose modulation, iterative reconstruction, and/or weight based d osing when appropriate to reduce radiation dose to as low as reasonably achievable (ALARA). [facility]: Dose Right [facility]: CareDose [facility]: Dose Right [facility]: Teradose 4D [facility]: [employer] CONTRAST TYPE AND DOSE: See separate report of the same date. RENAL FUNCTION: See separate report of the same date. RADIATION DOSE: . LIMITATIONS: None. FINDINGS: VENTRICLES: Prominent. CEREBRUM: No masses. No hemorrhage. No midline shift. Areas of low density in the white matter mos t likely due to chronic micro-vascular ischemic change. No evidence for acute infarction. No enhanci ng lesions. CEREBELLUM: No masses. No hemorrhage. No alteration of density. No evidence for acute infarction. N o enhancing lesions. EXTRAAXIAL SPACES: Age-related involutional change. No fluid collections. No masses. ORBITS AND GLOBE: No intra- or extraconal masses. Normal contour of globe without masses. CALVARIUM: No fracture. PARANASAL SINUSES: Mucosal thickening right maxillary sinus. SOFT TISSUES: No mass or hematoma. OTHER: No other significant finding. IMPRESSION: No evidence of metastatic disease. EVIDENCE OF ACUTE STROKE: NO. TECHNICAL DOCUMENTATION: JOB ID: [id number] Quality ID # [id number]: Final reports with documentation of one or more dose reduction techniques (e.g., Au tomated exposure control, adjustment of the mA and/or kV according to patient size, use of iterative reconstruction technique) 2010 [employer]- All Rights Reserved Reading location - IP/workstation name: [email or web address]
--- NOTE | 2017-09-17 16:18 | RADIOLOGY REPORT (SQ) ---
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 TECHNIQUE: Post IV contrasted scanning from skull base through lung apices with review of bone, soft tissue and lung windows. Reconstructed coronal and sagittal MPR images reviewed. All images stored on PACS. All CT scanners at this facility use dose modulation, iterative reconstruction, and/or weight based d osing when appropriate to reduce radiation dose to as low as reasonably achievable (ALARA). [facility]: Dose Right [facility]: CareDose [facility]: Dose Right [facility]: Teradose 4D [facility]: angelMD CONTRAST TYPE AND DOSE: See separate report of the same date. RENAL FUNCTION: See separate report of the same date. RADIATION DOSE: . LIMITATIONS: None. FINDINGS: SKULL BASE: Intact. MAJOR SALIVARY GLANDS: No solid or cystic masses. No inflammatory changes. LYMPHADENOPATHY: No adenopathy. MUCOSAL MASSES OR ASYMMETRY: No mucosal masses or asymmetry. LARYNX/CORDS: No abnormal findings. VASCULAR STRUCTURES: The major vessels are patent. LUNG APICES: See separate report of the same date. BONES: Sclerotic metastasis in the cervical spine. THYROID: Normal size. No masses. PARANASAL SINUSES: Mucosal thickening right maxillary sinus. OTHER: No other significant finding. IMPRESSION: Bone metastasis. TECHNICAL DOCUMENTATION: JOB ID: [id number] Quality ID # [id number]: Final reports with documentation of one or more dose reduction techniques (e.g., Au tomated exposure control, adjustment of the mA and/or kV according to patient size, use of iterative reconstruction technique) 2010 [employer]- All Rights Reserved Reading location - IP/workstation name: [email or web address]
--- NOTE | 2017-09-17 16:20 | RADIOLOGY REPORT (SQ) ---
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 Images reviewed with lung, soft tissue and bone windows. Reconstructed coronal and sagittal MPR images reviewed. All images stored on PACS. All CT scanners at this facility use dose modulation, iterative reconstruction, and/or weight based d osing when appropriate to reduce radiation dose to as low as reasonably achievable (ALARA). [facility]: Dose Right [facility]: CareDose [facility]: Dose Right [facility]: Teradose 4D [facility]: [employer] CONTRAST TYPE AND DOSE: See separate report of the same date. RENAL FUNCTION: See separate report of the same date. RADIATION DOSE: . LIMITATIONS: None. FINDINGS: LUNGS AND PLEURA: Chronic small right pleural effusion. Left lung is clear. HILAR AND MEDIASTINAL STRUCTURES: No identified masses or abnormal nodes. HEART AND VASCULAR STRUCTURES: No aneurysm or dissection. No central pulmonary emboli. No pericardi al effusion. HARDWARE: None in the chest. UPPER ABDOMEN: See separate report of the CT of the abdomen. THYROID AND OTHER SOFT TISSUES: No masses. No adenopathy. BONES: Sclerotic metastasis. No pathologic fracture. OTHER: No other significant finding. IMPRESSION: Skeletal metastasis. No significant change. TECHNICAL DOCUMENTATION: JOB ID: [id number] Quality ID # [id number]: Final reports with documentation of one or more dose reduction techniques (e.g., Au tomated exposure control, adjustment of the mA and/or kV according to patient size, use of iterative reconstruction technique) 2010 [employer]- All Rights Reserved Reading location - IP/workstation name: [email or web address]
--- NOTE | 2017-09-17 16:26 | RADIOLOGY REPORT (SQ) ---
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 Oral contrast. Images reviewed with lung, soft tissue, and bone win dows. Reconstructed coronal and sagittal MPR images reviewed. Delayed images for evaluation of the ur inary system also acquired. All images stored on PACS. All CT scanners at this facility use dose modulation, iterative reconstruction, and/or weight based d osing when appropriate to reduce radiation dose to as low as reasonably achievable (ALARA). [facility]: Dose Right [facility]: CareDose [facility]: Dose Right [facility]: Teradose 4D [facility]: [employer] CONTRAST TYPE AND DOSE: 100 cc Isovue 370- low osmolar. RENAL FUNCTION: Creatinine 0.7 RADIATION DOSE: . LIMITATIONS: None. FINDINGS: LOWER CHEST: Hiatal hernia. LIVER: Normal size. No masses. No dilated ducts. SPLEEN: Normal size. No focal lesions. PANCREAS: No masses. No significant calcifications. No adjacent inflammation or peripancreatic fluid collections. Pancreatic duct not dilated. GALLBLADDER: No identified stones by CT criteria. No inflammatory changes to suggest cholecystitis. ADRENAL GLANDS: No significant masses or asymmetry. RIGHT KIDNEY AND URETER: No solid masses. No significant calcifications. No hydronephrosis or hyd roureter. LEFT KIDNEY AND URETER: No solid masses. No significant calcifications. No hydronephrosis or hydr oureter. AORTA AND VESSELS: No aneurysm. RETROPERITONEUM: No retroperitoneal adenopathy, hemorrhage or masses. BOWEL AND PERITONEAL CAVITY: Previously described sigmoid lesion has been resected. There is diverti ng colostomy in the left lower quadrant with a parastomal hernia. No ascites or free air. No adenop athy. APPENDIX: Not visualized. PELVIS: No mass. No free fluid. Normal bladder. ABDOMINAL WALL: See above. BONES: Skeletal metastasis. OTHER: No other significant finding. IMPRESSION: Skeletal metastasis from prostate cancer. Expected postsurgical changes from resection of sigmoid colon mass. Parastomal hernia. TECHNICAL DOCUMENTATION: JOB ID: [id number] Quality ID # [id number]: Final reports with documentation of one or more dose reduction techniques (e.g., Au tomated exposure control, adjustment of the mA and/or kV according to patient size, use of iterative reconstruction technique) 2010 [email or web address]- All Rights Reserved Reading location - IP/workstation name: [email or web address]
== END ==
LOC: RAD 12:55
PROVIDERS: ATTEND Internal Medicine Hematology & Oncology
DX: C61 Malignant neoplasm of prostate (principal); C19 Malignant neoplasm of rectosigmoid junction; R51 Headache
CPT/HCPCS: 70460; 70491; 71260; 74177; 82565

== ENCOUNTER 2018-03-07 11:49 | Emergency (ER) | payer MEDICARE, OTHER ==
[2018-03-07 14:26] LABS: ABSOLUTE EOSINOPHILS # (AUTO) 0.1 10^3/uL (0.0-0.6); ABSOLUTE LYMPHOCYTES (AUTO) 1.7 10^3/uL (0.5-4.7); ABSOLUTE MONOCYTES (AUTO) 0.8 10^3/uL (0.1-1.4); ABSOLUTE NEUT (AUTO) 5.2 10^3/uL (1.7-8.2); BASOPHILS % (AUTO) 0.4 % (0-2); EOSINOPHILS % (AUTO) 0.9 % (0-6); HEMATOCRIT 34.6 % (37.9-51.0); HEMOGLOBIN 12.1 g/dL (13.5-17.0); LYMPHOCYTES % (AUTO) 21.9 % (13-45); MEAN CORPUSCULAR HEMOGLOBIN 32.1 pg (27.0-33.4); MEAN CORPUSCULAR VOLUME 92 fl (80-97); MONOCYTES % (AUTO) 10.4 % (3-13); PLATELET COUNT 412 10^3/uL (150-450); RED BLOOD COUNT 3.78 10^6/uL (4.35-5.55); RED CELL DISTRIBUTION WIDTH 14.2 % (11.5-14.0); SEGMENTED NEUTROPHILS % (AUTO) 66.4 % (42-78); TOTAL CELLS COUNTED % (AUTO) 100 %; WHITE BLOOD COUNT 7.8 10^3/uL (4.0-10.5)
[2018-03-07 14:42] LABS: ALANINE AMINOTRANSFERASE 16 U/L (21-72); ALBUMIN 3.7 g/dL (3.5-5.0); ALKALINE PHOSPHATASE 104 U/L (38-126); ANION GAP 14 (5-19); ASPARTATE AMINO TRANSFERASE 20 U/L (17-59); BILIRUBIN,DIRECT 0.2 mg/dL (0.0-0.4); BILIRUBIN,TOTAL 0.8 mg/dL (0.2-1.3); BLOOD UREA NITROGEN 16 mg/dL (7-20); CALCIUM 9.7 mg/dL (8.4-10.2); CARBON DIOXIDE 29 mmol/L (22-30); CHLORIDE 93 mmol/L (98-107); GLUCOSE 107 mg/dL (75-110); LIPASE 126.3 U/L (23-300); POTASSIUM 4.3 mmol/L (3.6-5.0); SODIUM 135.9 mmol/L (137-145); TOTAL PROTEIN 7.3 g/dL (6.3-8.2)
--- NOTE | 2018-03-07 15:15 | ER Document Report ---
ED General - General Chief Complaint: Abnormal Lab Results Stated Complaint: ABNORMAL LABS Time Seen by Provider: 03/07/18 13:04 Notes: Patient had lab work done earlier this week, on Sunday he thinks, and the results came back today showing his potassium was 6.8 so he was referred here for further evaluation. Patient has no specific complaints. Denies chest pain or shortness of breath or abdominal pains. No vomiting or diarrhea. Patient has a history of colon cancer with surgery leaving him with a colostomy bag. He says that was about 6 months ago. He also has metastatic cancer of the prostate TRAVEL OUTSIDE OF THE [place] IN LAST 30 DAYS: No - Related Data Allergies/Adverse Reactions: No Known Allergies Allergy (Verified 05/16/17 13:59) Past Medical History - Social History Smoking Status: Unknown if Ever Smoked Family History: Reviewed & Not Pertinent, Hypertension - Past Medical History Cardiac Medical History: Reports: Hx Congestive Heart Failure, Hx Heart Attack, Hx Hypercholesterolemia Neurological Medical History: Malignancy Medical History: Reports Hx Bone Cancer, Reports Hx Colorectal Cancer , Reports Hx Pancreatic Cancer GI Medical History: Reports: Hx Hiatal Hernia Psychiatric Medical History: Past Surgical History: Reports: Hx Bowel Diversion, Hx Bowel Surgery, Hx Colostomy, Hx Pacemaker, Other - Colostomy for near obstructing colon cancer - Immunizations Hx Diphtheria, Pertussis, Tetanus Vaccination: No Review of Systems - Review of Systems Notes: REVIEW OF SYSTEMS: CONSTITUTIONAL : Denies fever. Patient has no acute symptoms that could be related to hyperkalemia. Has been feeling his normal self of late. EENT: Denies eye, ear, nose or mouth or throat pain or other symptoms. CARDIOVASCULAR: Denies chest pain. Patient has peripheral edema of the lower extremities which is a chronic condition for him. He sees Dr. Larsen every Sunday to have his lower extremities wrapped to try to compress some of the edema out of the tissues. He has weeping and oozing of lymphatic appearing fluid from the right lower extremity. RESPIRATORY: Denies cough, chest congestion, or shortness of breath. GASTROINTESTINAL: Denies abdominal pain or nausea, vomiting, or diarrhea. Has a colostomy in the left lower quadrant. GENITOURINARY: Denies difficulty or painful urinating, urinary frequency, blood in urine. MUSCULOSKELETAL: Denies back or neck pain. Denies joint pain or swelling. SKIN: Denies rash or skin lesions. Patient has generalized erythema of his right lower leg which shows +3 to +4 pitting edema. When I spoke to Dr. Larsen , he says this is a chronic condition and that nothing I am describing is new for this patient. NEUROLOGICAL: Denies LOC or altered mental status. Denies headache. Denies sensory loss or motor deficits. ALL OTHER SYSTEMS REVIEWED AND NEGATIVE. Physical Exam - Vital signs Vitals: Temp Pulse Resp BP Pulse Ox 98.0 F 70 16 136/67 H 100 03/07/18 11:57 03/07/18 11:57 03/07/18 11:57 03/07/18 11:57 03/07/18 11:57 Interpretation: Normal. No: Febrile - Notes Notes: PHYSICAL EXAMINATION: GENERAL: Well-appearing, in no acute distress. Patient's close are soaked with urine. I am told the patient smells very bad. A couple of roachs is called out of his shoes when they were removed. HEAD: Atraumatic, normocephalic. EYES: Pupils equal round and reactive to light, extraocular movements intact. ENT: oropharynx clear without exudates. Moist mucous membranes. NECK: Normal range of motion, supple. LUNGS: Breath sounds clear and equal bilaterally. HEART: Regular rate and rhythm without murmurs. ABDOMEN: Soft, nontender. No guarding or rebound. No masses. Colostomy in the left lower quadrant. BACK: No tenderness throughout entire back. EXTREMITIES: Normal range of motion without pain. Diffuse +3, to + 4 pitting edema of the lower extremities, more so on the right side. Patient has rather significant erythema of most of the right lower leg, but primary care physician says this is chronic and his usual appearance. NEUROLOGICAL: Normal speech, does seem to be mentally alert and answers questions appropriately. Patient drove himself here today. Grossly normal sensory, motor, and reflex exams. Awake, alert, and oriented x3. Cranial nerves normal. PSYCH: Normal mood, normal affect. SKIN: Warm, dry, no rashes. Course - Re-evaluation Re-evalutation: 03/07/18 19:45 Potassium level was 4.3 so I believe the value obtained earlier in the week is probably an error. Rest of patient's lab workup is essentially normal. Called Dr. Garcia to make him aware. Also spoke with Dr. Larsen, patient's PCP, who will be seeing this patient tomorrow at 12:15. He said that all of the findings that this patient has on his lower extremities are normal for him. He will be happy to confirm that by seeing him tomorrow. There being no emergency medical conditions, there is no indication for the patient to be admitted to the hospital or any further evaluation at this time. - Vital Signs Vital signs: Temp Pulse Resp BP Pulse Ox 97.5 F 70 16 126/60 H 100 03/07/18 16:01 03/07/18 11:57 03/07/18 16:01 03/07/18 16:01 03/07/18 16:01 - Laboratory Result Diagrams: 03/07/18 13:50 03/07/18 13:50 Laboratory results interpreted by me: 03/07/18 03/07/18 13:50 13:50 RBC 3.78 L Hgb 12.1 L Hct 34.6 L RDW 14.2 H Sodium 135.9 L Chloride 93 L ALT 16 L - EKG Interpretation by Me Rate: Normal Rhythm: Other - Ventricular paced rhythm. Discharge - Discharge Clinical Impression: Peripheral edema Condition: Stable Disposition: HOME, SELF-CARE Additional Instructions: Edema, Peripheral You have swelling in your legs. This is called peripheral edema. It can be caused by "leaky capillaries," inflammation, disease of the leg veins, or excess salt and water in your body. Edema may be a sign of heart, kidney, or liver disease. A medical evaluation can determine if there is a serious underlying cause for your edema. Avoid prolonged standing. If you must sit for a long time, occasionally get up and walk around or elevate your legs. Support stockings can be helpful in limiting swelling. Often diuretic or water pills are used to remove excess salt and water from your body. Call the doctor or return if you develop increased swelling, pain, or redness, shortness of breath, chest pain, or any other significant change. FOLLOW-UP CARE: If you have been referred to a physician for follow-up care, call the physician s office for an appointment as you were instructed or within the next two days. If you experience worsening or a significant change in your symptoms, notify the physician immediately or return to the Emergency Department at any time for re-evaluation. Keep your appointment with Dr. Busby tomorrow at 12:15 PM. Referrals: SREEDHAR GARCIA MD [Primary Care Provider] - Follow up as needed GI LARSEN MD [ACTIVE STAFF] - Follow up tomorrow (Your appointment is with Dr. Larsen at 12:15 PM tomorrow.)
[2018-03-07 16:08] VITALS: BP 126/60
--- NOTE | 2018-03-07 21:58 | EKG REPORT ---
SEVERITY:- ABNORMAL ECG - VENTRICULAR-PACED RHYTHM : Confirmed by: Susanne Felipe 07-Mar-2018 21:58:18
== END 2018-03-07 16:54 | disposition home or self-care (01) ==
LOC: ER 11:49
DX: R60.9 Edema, unspecified (principal); I50.9 Heart failure, unspecified; E78.00 Pure hypercholesterolemia, unspecified; K44.9 Diaphragmatic hernia without obstruction or gangrene; Z93.3 Colostomy status; Z85.038 Personal history of other malignant neoplasm of large intestine
CPT/HCPCS: 36415; 80053; 83690; 85025; 93005; 93010; 99284

== ENCOUNTER → 2018-03-13 | Outpatient (CLI) | payer MEDICARE, OTHER ==
--- NOTE | 2018-03-13 10:35 | RADIOLOGY REPORT (SQ) ---
EXAM DESCRIPTION: CT CHEST WITH COMPLETED DATE/TIME: 03/13/2018 9:33 am REASON FOR STUDY: PROSTATE CA C61 MALIGNANT NEOPLASM OF PROSTATE COMPARISON: 09/17/2017 and 02/07/2017. TECHNIQUE: CT scan of the chest performed using helical scanning technique with dynamic intravenous contrast injection. Images reviewed with lung, soft tissue and bone windows. Reconstructed coronal and sagittal MPR and MIP images reviewed. All images stored on PACS. All CT scanners at this facility use dose modulation, iterative reconstruction, and/or weight based d osing when appropriate to reduce radiation dose to as low as reasonably achievable (ALARA). [facility]: Dose Right [facility]: CareDose [facility]: Dose Right [facility]: Teradose 4D [facility]: [employer] CONTRAST TYPE AND DOSE: 100 mL Omnipaque 350- low osmolar. RENAL FUNCTION: BUN 13 creatinine 0.73. RADIATION DOSE: . LIMITATIONS: None. FINDINGS: LUNGS AND PLEURA: Right pleural effusion with mild basilar atelectasis, unchanged. No inf iltrates. No nodules or masses. HILAR AND MEDIASTINAL STRUCTURES: No identified masses or abnormal nodes. HEART AND VASCULAR STRUCTURES: No aneurysm or dissection. No central pulmonary emboli. No pericardi al effusion. HARDWARE: Pacemaker. UPPER ABDOMEN: See separate report of the CT of the abdomen. THYROID AND OTHER SOFT TISSUES: No masses. No adenopathy. BONES: Extensive sclerotic skeletal metastases. OTHER: Large hiatal hernia, unchanged. IMPRESSION: NO CHANGE IN APPEARANCE OF THE CHEST. EXTENSIVE SKELETAL METASTASES. RIGHT PLEURAL EFF USION, UNCHANGED. LARGE HIATAL HERNIA. TECHNICAL DOCUMENTATION: JOB ID: [id number] Quality ID # 436: Final reports with documentation of one or more dose reduction techniques (e.g., Au tomated exposure control, adjustment of the mA and/or kV according to patient size, use of iterative reconstruction technique) 2010 [employer]- All Rights Reserved Reading location - IP/workstation name: [email or web address]
--- NOTE | 2018-03-13 10:41 | RADIOLOGY REPORT (SQ) ---
EXAM DESCRIPTION: CT ABD/PELVIS WITH IV ONLY COMPLETED DATE/TIME: 03/13/2018 9:33 am REASON FOR STUDY: PROSTATE CA C61 MALIGNANT NEOPLASM OF PROSTATE COMPARISON: 09/17/2017 and 02/07/2017. TECHNIQUE: CT scan of the abdomen and pelvis performed using helical scanning technique with dynamic intravenous contrast injection. No oral contrast. Images reviewed with lung, soft tissue, and bone windows. Reconstructed coronal and sagittal MPR images reviewed. Delayed images for evaluation of the urinary system also acquired. All images stored on PACS. All CT scanners at this facility use dose modulation, iterative reconstruction, and/or weight based d osing when appropriate to reduce radiation dose to as low as reasonably achievable (ALARA). [facility]: Dose Right [facility]: CareDose [facility]: Dose Right [facility]: Teradose 4D [facility]: [employer] CONTRAST TYPE AND DOSE: contrast/concentration: Isovue 350.00 mg/ml; Total Contrast Delivered: 100.0 ml; Total Saline Delivered: 72.0 ml RENAL FUNCTION: BUN 13 creatinine 0.73. RADIATION DOSE: CT Rad equipment meets quality standard of care and radiation dose reduction techniq ues were employed. CTDIvol: 8.7 - 13.7 mGy. DLP: 1755 mGy-cm.. LIMITATIONS: None. FINDINGS: LOWER CHEST: See separate report of the CT of the chest. LIVER: Normal size. No masses. No dilated ducts. SPLEEN: Normal size. No focal lesions. PANCREAS: No masses. No significant calcifications. No adjacent inflammation or peripancreatic fluid collections. Pancreatic duct not dilated. GALLBLADDER: No identified stones by CT criteria. No inflammatory changes to suggest cholecystitis. ADRENAL GLANDS: No significant masses or asymmetry. RIGHT KIDNEY AND URETER: No solid masses. No significant calcifications. No hydronephrosis or hyd roureter. LEFT KIDNEY AND URETER: No solid masses. No significant calcifications. No hydronephrosis or hydr oureter. AORTA AND VESSELS: No aneurysm. No dissection. Renal arteries, SMA, celiac without stenosis. RETROPERITONEUM: No retroperitoneal adenopathy, hemorrhage or masses. BOWEL AND PERITONEAL CAVITY: Hiatal hernia. Stable surgical changes related to sigmoid resection wit h left lower quadrant colostomy. Parastomal hernia containing bowel loops. No masses or inflammator y changes. No free fluid or peritoneal masses. APPENDIX: Normal. PELVIS: No mass. No free fluid. Normal bladder. ABDOMINAL WALL: No masses. No hernias. BONES: Extensive sclerotic skeletal metastases. OTHER: No other significant finding. IMPRESSION: 1. EXTENSIVE SKELETAL METASTASES, UNCHANGED. 2. STABLE SURGICAL CHANGES RELATED TO SIGMOID RESECTION. LEFT LOWER QUADRANT COLOSTOMY WITH PARASTOM AL HERNIA CONTAINING BOWEL LOOPS. 3. HIATAL HERNIA. 4. NO CHANGE FROM PRIOR STUDIES. TECHNICAL DOCUMENTATION: JOB ID: [id number] Quality ID # 436: Final reports with documentation of one or more dose reduction techniques (e.g., Au tomated exposure control, adjustment of the mA and/or kV according to patient size, use of iterative reconstruction technique) 2010 [employer]- All Rights Reserved Reading location - IP/workstation name: [email or web address]
== END ==
LOC: RAD 08:27
PROVIDERS: ATTEND Internal Medicine
DX: C61 Malignant neoplasm of prostate (principal); C79.51 Secondary malignant neoplasm of bone; K44.9 Diaphragmatic hernia without obstruction or gangrene; J90 Pleural effusion, not elsewhere classified
CPT/HCPCS: 71260; 74177

== ENCOUNTER → 2018-09-02 | Outpatient (CLI) | payer MEDICARE, OTHER ==
--- NOTE | 2018-09-02 12:29 | RADIOLOGY REPORT (SQ) ---
EXAM DESCRIPTION: CT ABD/PELVIS WITH IV ONLY; CT CHEST WITH COMPLETED DATE/TIME: 09/02/2018 11:23 am REASON FOR STUDY: PROSTATE CA (C61), RECTAL CA (C20) C61 MALIGNANT NEOPLASM OF PROSTATE COMPARISON: CT abdomen pelvis 03/13/2018, 09/17/2017, 02/07/2017 Bone scan 09/14/2017 CONTRAST TYPE AND DOSE: contrast/concentration: Isovue 350.00 mg/ml; Total Contrast Delivered: 100.0 ml; Total Saline Delivered: 72.0 ml RENAL FUNCTION: Creatinine 0.8 TECHNIQUE: CT scan of the chest performed using helical scanning technique with dynamic intravenous contrast injection. Images reviewed with lung, soft tissue and bone windows. Reconstructed coronal a nd sagittal MPR images reviewed. All images stored on PACS. CT scan of the abdomen and pelvis performed with intravenous and without oral contrastusing helical s bharath technique with dynamic intravenous contrast injection. Images reviewed with lung, soft tissu e and bone windows. Reconstructed coronal and sagittal MPR images reviewed. Delayed images for eval uation of the urinary system also acquired and evaluated. All images stored on PACS. All CT scanners at this facility use dose modulation, iterative reconstruction, and/or weight based d osing when appropriate to reduce radiation dose to as low as reasonably achievable (ALARA). [facility]: Dose Right [facility]: CareDose [facility]: Dose Right [facility]: Teradose 4D [facility]: [employer] RADIATION DOSE: CT Rad equipment meets quality standard of care and radiation dose reduction techniq ues were employed. CTDIvol: 9.6 - 17.5 mGy. DLP: 2213 mGy-cm. . LIMITATIONS: None. FINDINGS: CHEST: LUNGS AND PLEURA: Stable trace right pleural effusion. Stable right basilar atelectasis. Lungs and pleura are otherwise unremarkable. HILAR AND MEDIASTINAL STRUCTURES: No identified masses or abnormal nodes. Large retrocardiac hiatal hernia containing the stomach fundus. HEART AND VASCULAR STRUCTURES: No aneurysm or dissection. No central pulmonary emboli. No pericardi al effusion. Aortic valve calcifications. Minimal coronary artery calcification. Mild cardiomegaly . Pacemaker present. HARDWARE: Left-sided pacemaker THYROID AND OTHER SOFT TISSUES: No masses. No adenopathy. BONES: Diffuse skeletal metastatic lesions, stable OTHER: No other significant finding. ABDOMEN AND PELVIS: LIVER: Normal size. No masses. No dilated ducts. SPLEEN: Normal size. No focal lesions. PANCREAS: No masses. No significant calcifications. No adjacent inflammation or peripancreatic fluid collections. Pancreatic duct not dilated. GALLBLADDER: No identified stones by CT criteria. No inflammatory changes to suggest cholecystitis. ADRENAL GLANDS: No significant masses or asymmetry. RIGHT KIDNEY AND URETER: No solid masses. No significant calcification. No hydronephrosis or hydroure ter. LEFT KIDNEY AND URETER: No solid masses. No significant calcification. No hydronephrosis or hydrouret er. AORTA AND VESSELS: No aneurysm. No dissection. 50% narrowing proximal SMA on sagittal image 44 and c oronal image 51. . RETROPERITONEUM: No retroperitoneal adenopathy, hemorrhage or masses. BOWEL AND PERITONEAL CAVITY: No masses or inflammatory changes. No free fluid or peritoneal masses. Large retrocardiac hiatal hernia containing the stomach fundus. Post distal colectomy with left lowe r quadrant colostomy. Moderate size stomal hernia containing nonobstructed small bowel loops. APPENDIX: Normal. ABDOMINAL WALL: Stomal hernia left lower quadrant, fat containing left inguinal hernia PELVIS: No mass or free fluid. Normal bladder. BONES: Diffuse bony metastatic disease OTHER: No other significant finding. IMPRESSION: Stable diffuse bony metastatic disease over the chest abdomen and pelvis TECHNICAL DOCUMENTATION: JOB ID: [id number] Quality ID # 436: Final reports with documentation of one or more dose reduction techniques (e.g., Au tomated exposure control, adjustment of the mA and/or kV according to patient size, use of iterative reconstruction technique) 2010 [employer]- All Rights Reserved Reading location - IP/workstation name: [email or web address]
--- NOTE | 2018-09-02 16:15 | RADIOLOGY REPORT (SQ) ---
EXAM DESCRIPTION: NM WHOLE BODY BONE SCAN COMPLETED DATE/TIME: 09/02/2018 2:57 pm REASON FOR STUDY: PROSTATE CA (C61), RECTAL CA (C20) C61 MALIGNANT NEOPLASM OF PROSTATE COMPARISON: Whole-body bone scan 09/14/2017, 02/07/2017, 03/31/2016 CT chest abdomen pelvis 09/02/2018 RADIONUCLIDE AND DOSE: 21.9 millicuries Tc99m MDP. The route of agent administration: Intravenous. ADDITIONAL DRUGS AND DOSES: None. TECHNIQUE: Routine delayed images at 3 hours post radionuclide injection acquired of the bony skelet on including anterior and posterior whole-body projections and additional focused images as needed. LIMITATIONS: None. FINDINGS: Multiple foci of increased activity are present over the skeleton compatible with metastat ic disease. Overall, the intensity of activity of the skeletal lesions is decreased compared to previous studies, most pronounced along the left proximal femur and left hemipelvis. Other metastatic lesions with slight decrease in overall activity compared to prior studies involving the right sternoclavicular joint, upper and lower thoracic spine, bilateral ribs are also decreased in intensity compared to 10/02/2017. There is persistent bilateral shoulder knee and ankle activity related to osteoarthritis IMPRESSION: Decrease in intensity of activity of multiple skeletal metastatic lesions compared to pr evious studies COMMENT: Quality measure 147: Current bone scan is compared with any available plain radiographs, p rior bone scans, and CT/MRI. TECHNICAL DOCUMENTATION: JOB ID: [id number] [employer]- All Rights Reserved Reading location - IP/workstation name: [email or web address]
== END ==
LOC: RAD 10:36
PROVIDERS: ATTEND Internal Medicine
DX: C61 Malignant neoplasm of prostate (principal); C20 Malignant neoplasm of rectum
CPT/HCPCS: 82565; 78306; 71260; 74177; A9561; Q9969

== ENCOUNTER → 2018-11-26 | Outpatient (CLI) | payer MEDICARE, OTHER ==
--- NOTE | 2018-11-26 09:54 | RADIOLOGY REPORT (SQ) ---
EXAM DESCRIPTION: CT ABD/PELVIS WITH IV ONLY COMPLETED DATE/TIME: 11/26/2018 9:17 am REASON FOR STUDY: PROSTATE CA (C61) C61 MALIGNANT NEOPLASM OF PROSTATE COMPARISON: 09/02/2018 TECHNIQUE: CT scan of the abdomen and pelvis performed using helical scanning technique with dynamic intravenous contrast injection. No oral contrast. Images reviewed with lung, soft tissue, and bone windows. Reconstructed coronal and sagittal MPR images reviewed. Delayed images for evaluation of the urinary system also acquired. All images stored on PACS. All CT scanners at this facility use dose modulation, iterative reconstruction, and/or weight based d osing when appropriate to reduce radiation dose to as low as reasonably achievable (ALARA). [facility]: Dose Right [facility]: CareDose [facility]: Dose Right [facility]: Teradose 4D [facility]: Gluster CONTRAST TYPE AND DOSE: contrast/concentration: Isovue 350.00 mg/ml; Total Contrast Delivered: 100.0 ml; Total Saline Delivered: 72.0 ml RENAL FUNCTION: Creatinine 0.7 RADIATION DOSE: CT Rad equipment meets quality standard of care and radiation dose reduction techniq ues were employed. CTDIvol: 16.7 - 16.9 mGy. DLP: 2381 mGy-cm.. LIMITATIONS: None. FINDINGS: LOWER CHEST: See separate report of the CT of the chest. LIVER: Normal size. No masses. No dilated ducts. SPLEEN: Normal size. No focal lesions. PANCREAS: No masses. No significant calcifications. No adjacent inflammation or peripancreatic fluid collections. Pancreatic duct not dilated. GALLBLADDER: No identified stones by CT criteria. No inflammatory changes to suggest cholecystitis. ADRENAL GLANDS: No significant masses or asymmetry. RIGHT KIDNEY AND URETER: No solid masses. No significant calcifications. No hydronephrosis or hyd roureter. LEFT KIDNEY AND URETER: No solid masses. No significant calcifications. No hydronephrosis or hydr oureter. AORTA AND VESSELS: Aortoiliac atherosclerosis without aneurysm. No dissection. SMA with 50% narrowin g at the ostia. Renal arteries, celiac without stenosis. RETROPERITONEUM: No retroperitoneal adenopathy, hemorrhage or masses. BOWEL AND PERITONEAL CAVITY: Hiatal hernia, stable. Evidence of prior sophie colectomy with left lower quadrant on STEMI. Large peristomal hernia containing nondilated bowel loops, unchanged. APPENDIX: Not visualized. PELVIS: No mass. No free fluid. Normal bladder. ABDOMINAL WALL: Left lower quadrant ostomy with large peristomal hernia containing nondilated bowel l oops, stable. Left fat containing inguinal hernia. BONES: No acute bony abnormality. Diffuse blastic osseous metastatic disease, stable. No new lytic lesions. OTHER: No other significant finding. IMPRESSION: 1. Stable diffuse sclerotic osseous metastatic disease. 2. No other evidence of new disease within the abdomen or pelvis. 3. Stable left lower quadrant ostomy with large parastomal hernia. No evidence of obstruction or ot her acute intra-abdominal/pelvic process. TECHNICAL DOCUMENTATION: JOB ID: [id number] Quality ID # [id number]: Final reports with documentation of one or more dose reduction techniques (e.g., Au tomated exposure control, adjustment of the mA and/or kV according to patient size, use of iterative reconstruction technique) 2010 [employer]- All Rights Reserved Reading location - IP/workstation name: [email or web address]
--- NOTE | 2018-11-26 10:12 | RADIOLOGY REPORT (SQ) ---
EXAM DESCRIPTION: CT CHEST WITH COMPLETED DATE/TIME: 11/26/2018 9:27 am REASON FOR STUDY: PROSTATE CA (C61 C61 MALIGNANT NEOPLASM OF PROSTATE COMPARISON: 09/02/2018 TECHNIQUE: CT scan of the chest performed using helical scanning technique with dynamic intravenous contrast injection. Images reviewed with lung, soft tissue and bone windows. Reconstructed coronal and sagittal MPR and MIP images reviewed. All images stored on PACS. All CT scanners at this facility use dose modulation, iterative reconstruction, and/or weight based d osing when appropriate to reduce radiation dose to as low as reasonably achievable (ALARA). [facility]: Dose Right [facility]: CareDose [facility]: Dose Right [facility]: Teradose 4D [facility]: PsomasFMG CONTRAST TYPE AND DOSE: Omnipaque 350, 100 cc RENAL FUNCTION: Creatinine 0.7 RADIATION DOSE: . LIMITATIONS: None. FINDINGS: LUNGS AND PLEURA: Small right pleural effusion, stable. No new airspace disease. No pneu mothorax. No new nodules or masses. HILAR AND MEDIASTINAL STRUCTURES: No identified masses or abnormal nodes. HEART AND VASCULAR STRUCTURES: Enlarged heart. Scattered three-vessel coronary atherosclerosis. No large pericardial effusion. HARDWARE: Left-sided cardiac pacer with leads in the right atrium and right ventricle. UPPER ABDOMEN: See separate report of the CT of the abdomen. THYROID AND OTHER SOFT TISSUES: No masses. No adenopathy. BONES: Diffuse osseous blastic disease, stable from prior. No new bony abnormality. Chronic bilater al rib fractures. OTHER: Hiatal hernia, stable. IMPRESSION: 1. Stable diffuse osseous blastic disease. 2. Stable small right pleural effusion. No other evidence of acute intrathoracic process. TECHNICAL DOCUMENTATION: JOB ID: [id number] Quality ID # [id number]: Final reports with documentation of one or more dose reduction techniques (e.g., Au tomated exposure control, adjustment of the mA and/or kV according to patient size, use of iterative reconstruction technique) 2010 [employer]- All Rights Reserved Reading location - IP/workstation name: [email or web address]
--- NOTE | 2018-11-26 15:37 | RADIOLOGY REPORT (SQ) ---
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 The route of agent administration: Intravenous. ADDITIONAL DRUGS AND DOSES: None. TECHNIQUE: Routine delayed images at 3 hour post radionuclide injection acquired of the bony skeleto n including anterior and posterior whole-body projections and additional focused images as needed. LIMITATIONS: None. FINDINGS: BONES: Multifocal areas of increased uptake throughout the thoracic and upper lumbar skele ton, increased in conspicuity compared to prior. Additional focus of increased uptake within the lef t skullbase, new from prior. Activity within the right shoulder, multiple bilateral ribs, bilateral ilium and proximal left femur all also demonstrating increased conspicuity compared to prior exam. T here is additional uptake within the shoulders, knees and ankles, most compatible with degenerative c hange. KIDNEYS: Symmetric excretion without obstruction. OTHER: No other significant finding. IMPRESSION: Increased conspicuity of multifocal abnormal uptake as detailed above and compatible wit h osseous metastatic disease. COMMENT: Quality measure 147: Current bone scan is compared with any available plain radiographs, p rior bone scans, and CT/MRI. TECHNICAL DOCUMENTATION: JOB ID: [id number] [employer]- All Rights Reserved Reading location - IP/workstation name: [email or web address]
== END ==
LOC: RAD 08:38
PROVIDERS: ATTEND Internal Medicine
DX: C61 Malignant neoplasm of prostate (principal); C79.51 Secondary malignant neoplasm of bone; J90 Pleural effusion, not elsewhere classified
CPT/HCPCS: 82565; 78306; 71260; 74177; A9561; Q9969

== ENCOUNTER → 2019-02-03 | Outpatient (CLI) | payer MEDICARE, OTHER ==
--- NOTE | 2019-02-03 16:14 | RADIOLOGY REPORT (SQ) ---
EXAM DESCRIPTION: CT HEAD COMBO COMPLETED DATE/TIME: 02/03/2019 3:25 pm REASON FOR STUDY: R51 HEADACHE COMPARISON: 09/17/2017. TECHNIQUE: Axial images acquired through the brain without and with intravenous contrast. Images re viewed with bone, brain, and subdural windows. Additional sagittal and coronal reconstructions were generated. Images stored on PACS. All CT scanners at this facility use dose modulation, iterative reconstruction, and/or weight based d osing when appropriate to reduce radiation dose to as low as reasonably achievable (ALARA). [facility]: Dose Right [facility]: CareDose [facility]: Dose Right [facility]: Teradose 4D [facility]: [employer] CONTRAST TYPE AND DOSE: contrast/concentration: Isovue 350.00 mg/ml; Total Contrast Delivered: 50.0 ml; Total Saline Delivered: 55.0 ml RENAL FUNCTION: BUN 14 creatinine 0.6. RADIATION DOSE: CT Rad equipment meets quality standard of care and radiation dose reduction techniq ues were employed. CTDIvol: 48.6 - 48.7 mGy. DLP: 2006 mGy-cm. . LIMITATIONS: None. FINDINGS: VENTRICLES: Prominent. CEREBRUM: No masses. No hemorrhage. No midline shift. Areas of low density in the white matter mos t likely due to chronic micro-vascular ischemic change. No evidence for acute infarction. No enhanc ing lesions. CEREBELLUM: No masses. No hemorrhage. No alteration of density. No evidence for acute infarction. No enhancing lesions. EXTRAAXIAL SPACES: Age-related involutional change. No fluid collections. No masses. No enhancing lesions. ORBITS AND GLOBE: No intra- or extraconal masses. Normal contour of globe without masses. CALVARIUM: No fracture. PARANASAL SINUSES: No fluid or mucosal thickening. SOFT TISSUES: No mass or hematoma. OTHER: No other significant finding. IMPRESSION: CHRONIC CHANGES OF ATROPHY AND MICROVASCULAR ISCHEMIA. NO ACUTE PROCESS. NO ENHANCING LESIONS. EVIDENCE OF ACUTE STROKE: NO. TECHNICAL DOCUMENTATION: JOB ID: [id number] Quality ID # [id number]: Final reports with documentation of one or more dose reduction techniques (e.g., Au tomated exposure control, adjustment of the mA and/or kV according to patient size, use of iterative reconstruction technique) 2010 [employer]- All Rights Reserved Reading location - IP/workstation name: [email or web address]
== END ==
LOC: RAD 14:50
PROVIDERS: ATTEND Physician Assistant Medical
DX: C61 Malignant neoplasm of prostate (principal); R51 Headache
CPT/HCPCS: 70470

== ENCOUNTER 2019-03-17 09:01 | Inpatient (IN) | payer MEDICARE, OTHER ==
--- NOTE | 2019-03-17 09:44 | ER Document Report ---
ED General - General Chief Complaint: Weakness Stated Complaint: WEAKNESS Time Seen by Provider: 03/17/19 09:35 Primary Care Provider: SHILPA BELCHER PA-C [ALLIED HEALTH PROFESSIONAL] - Follow up as needed Notes: HPI: 79-year-old male with extensive past medical history as recorded including metastatic cancer to multiple bony lesions site secondary to history of prostate cancer and rectal cancer. Patient is status post colostomy. Patient presents with EMS secondary to "fatigue". The patient's daughter is not in the room and the patient is unable to provide history given his baseline mental status. ROS: See HPI Unable to obtain secondary to patient's mental status Reviewed vital signs and nursing note as charted by RN. PHYSICAL EXAM: CONSTITUTIONAL: Alert and friendly and does follow commands but is not oriented to person place or time. Patient looks extremely unkept HEAD: Normocephalic; atraumatic EYES: PERRL; Conjunctivae clear, sclerae non-icteric ENT: Normal nose; no rhinorrhea; dry mucous membranes; pharynx without lesions noted NECK: Supple without meningismus; non-tender; no cervical lymphadenopathy, no masses CARD: Regular rate and rhythm; no murmurs; symmetric distal pulses RESP: Normal chest excursion without splinting or tachypnea; breath sounds clear and equal bilaterally; no wheezes, no rhonchi, no rales ABD/GI: Normal bowel sounds; non-distended; soft, non-tender; ostomy site does not show any extensive drainage or erythema; no palpable organomegaly or masses BACK: The back appears normal and is non-tender to palpation EXT: Patient has bilateral bandages to lower extremities with some erythema to the left lower extremity SKIN: See above NEURO: CN 2-12 intact; 5/5 bilateral upper and lower extremity strength with sensation intact to light touch TRAVEL OUTSIDE OF THE [place] IN LAST 30 DAYS: No - Related Data Allergies/Adverse Reactions: No Known Allergies Allergy (Verified 05/16/17 13:59) Past Medical History - Social History Smoking Status: Unknown if Ever Smoked Family History: Reviewed & Not Pertinent, Hypertension - Past Medical History Cardiac Medical History: Reports: Hx Congestive Heart Failure, Hx Heart Attack, Hx Hypercholesterolemia Denies: Hx Coronary Artery Disease, Hx Hypertension Pulmonary Medical History: Denies: Hx Asthma, Hx Bronchitis, Hx COPD, Hx Pneumonia, Hx Tuberculosis Neurological Medical History: Denies: Hx Seizures, Hx Parkinson's Disease Renal/ Medical History: Denies: Hx Benign Prostatic Hyperplasia, Hx End Stage Renal Disease, Hx Kidney Stones, Hx Peritoneal Dialysis Malignancy Medical History: Reports Hx Bone Cancer, Reports Hx Colorectal Cancer, Reports Hx Pancreatic Cancer GI Medical History: Reports: Hx Hiatal Hernia. Denies: Hx Cirrhosis, Hx Crohn's Disease, Hx Gastroesophageal Reflux Disease, Hx Hepatitis, Hx Irritable Bowel, Hx Liver Failure, Hx Pancreatitis, Hx Ulcer Musculoskeletal Medical History: Denies Hx Arthritis, Denies Hx Fibromyalgia, Denies Hx Multiple Sclerosis, Denies Hx Muscular Dystrophy Psychiatric Medical History: Denies: Hx Bipolar Disorder, Hx Depression, Hx Schizophrenia Traumatic Medical History: Denies: Hx Fractures Infectious Medical History: Denies: Hx Hepatitis Past Surgical History: Reports: Hx Bowel Diversion, Hx Bowel Surgery, Hx Colostomy, Hx Pacemaker, Other - Colostomy for near obstructing colon cancer. Denies: Hx Appendectomy, Hx Cholecystectomy, Hx Coronary Artery Bypass Graft, Hx Gastric Bypass Surgery, Hx Herniorrhaphy, Hx Open Heart Surgery, Hx Tonsillectomy - Immunizations Hx Diphtheria, Pertussis, Tetanus Vaccination: No Course - Re-evaluation Re-evalutation: 03/17/19 09:43 Given the history and physical examination we have reviewed the patient's past medical charting including his previous admission in 2018. Patient does look extremely unkept. Vital signs are still pending. Patient will be placed on the monitor with basic labs, magnesium levels, urine analysis, x-ray of the chest, and reassessment. Patient has a history of low sodium and low magnesium. 03/17/19 10:12 I was able to talk to the patient's daughter, Litzy, at [phone]. She states that the patient actually lives alone. She states precipitous decline over the last week. She states that the patient was not able to walk this morning. She states chronic leg dressing by the primary care physician Dr. Larsen weekly. Patient supposedly has just been diagnosed with multiple metastatic lesions. She is unsure of the patient's CODE STATUS. She states the patient's confusion has increased over this last week so we will add a CT scan of the head. 03/17/19 10:13 EKG shows a heart of 70, ventricular paced rhythm 03/17/19 11:53 Acute renal failure with electro lites as recorded. I replaced the patient's calcium, magnesium, potassium, and given another liter of fluid. No obvious inf ection. CT scan of the head is unremarkable. - Laboratory Result Diagrams: 03/17/19 10:20 03/17/19 10:20 Laboratory results interpreted by me: 03/17/19 03/17/19 03/17/19 10:20 10:20 10:30 WBC 14.5 H RBC 3.59 L Hgb 11.8 L Hct 33.5 L RDW 14.1 H Lymph % (Auto) 6.1 L Absolute Neuts (auto) 12.1 H Absolute Monos (auto) 1.5 H Seg Neutrophils % 83.2 H Sodium 133.8 L Potassium 3.2 L Chloride 94 L BUN 59 H Creatinine 3.07 H Est GFR ( Amer) 24 L Est GFR (MDRD) Non-Af 20 L Glucose 139 H Calcium 7.0 L* Total Bilirubin 2.0 H AST 102 H Alkaline Phosphatase 607 H Creatine Kinase 2835 H Total Protein 6.1 L Albumin 3.2 L Urine Blood MODERATE H Critical Care Note - Critical Care Note Total time excluding time spent on procedures (mins): 35 Discharge - Discharge Clinical Impression: Hypocalcemia Acute renal failure Qualifiers: Acute renal failure type: unspecified Qualified Code(s): N17.9 - Acute kidney failure, unspecified Rhabdomyolysis Qualifiers: Rhabdomyolysis type: traumatic Encounter type: initial encounter Qualified Code(s): T79.6XXA - Traumatic ischemia of muscle, initial encounter Condition: Fair Disposition: ADMITTED INPATIENT Admitting Provider: Abad (Hospitalist) Unit Admitted: Telemetry Referrals: SHILPA BELCHER PA-C [ALLIED HEALTH PROFESSIONAL] - Follow up as needed
--- NOTE | 2019-03-17 10:30 | RADIOLOGY REPORT (SQ) ---
EXAM DESCRIPTION: CT HEAD WITHOUT COMPLETED DATE/TIME: 03/17/2019 10:15 am REASON FOR STUDY: 5; ams COMPARISON: 02/03/2019 TECHNIQUE: Axial images acquired through the brain without intravenous contrast. Images reviewed wi th bone, brain and subdural windows. Additional sagittal and coronal reconstructions were generated. Images stored on PACS. All CT scanners at this facility use dose modulation, iterative reconstruction, and/or weight based d osing when appropriate to reduce radiation dose to as low as reasonably achievable (ALARA). [facility]: Dose Right [facility]: CareDose [facility]: Dose Right [facility]: Teradose 4D [facility]: [employer] (formerly [employer]) RADIATION DOSE: CT Rad equipment meets quality standard of care and radiation dose reduction techniq ues were employed. CTDIvol: 23.1 mGy. DLP: 487 mGy-cm.mGy. LIMITATIONS: None. FINDINGS: VENTRICLES: Prominent. CEREBRUM: No masses. No hemorrhage. No midline shift. Areas of low density in the white matter mos t likely due to chronic micro-vascular ischemic change. No evidence for acute infarction. CEREBELLUM: No masses. No hemorrhage. No alteration of density. No evidence for acute infarction. EXTRAAXIAL SPACES: Age-related involutional change. No fluid collections. No masses. ORBITS AND GLOBE: No intra- or extraconal masses. Normal contour of globe without masses. CALVARIUM: No fracture. PARANASAL SINUSES: No fluid or mucosal thickening. SOFT TISSUES: No mass or hematoma. OTHER: No other significant finding. IMPRESSION: CHRONIC CHANGES OF ATROPHY AND MICROVASCULAR ISCHEMIA. NO ACUTE PROCESS. EVIDENCE OF ACUTE STROKE: NO. TECHNICAL DOCUMENTATION: JOB ID: [id number] Quality ID # [id number]: Final reports with documentation of one or more dose reduction techniques (e.g., Au tomated exposure control, adjustment of the mA and/or kV according to patient size, use of iterative reconstruction technique) 2010 [employer]- All Rights Reserved Reading location - IP/workstation name: [email or web address]
[2019-03-17] MEDS ORDERED: NORMAL SALINE 1000 ML 500 ML IV PRN (10:40)
[2019-03-17 11:06] LABS: ABSOLUTE LYMPHOCYTES (AUTO) 0.9 10^3/uL (0.5-4.7); ABSOLUTE MONOCYTES (AUTO) 1.5 10^3/uL (0.1-1.4); ABSOLUTE NEUT (AUTO) 12.1 10^3/uL (1.7-8.2); BASOPHILS % (AUTO) 0.1 % (0-2); EOSINOPHILS % (AUTO) 0.1 % (0-6); HEMATOCRIT 33.5 % (37.9-51.0); HEMOGLOBIN 11.8 g/dL (13.5-17.0); LYMPHOCYTES % (AUTO) 6.1 % (13-45); MEAN CORPUSCULAR HEMOGLOBIN 32.9 pg (27.0-33.4); MEAN CORPUSCULAR HGB CONC 35.3 g/dL (32.0-36.0); MEAN CORPUSCULAR VOLUME 93 fl (80-97); MONOCYTES % (AUTO) 10.5 % (3-13); PLATELET COUNT 236 10^3/uL (150-450); RED BLOOD COUNT 3.59 10^6/uL (4.35-5.55); RED CELL DISTRIBUTION WIDTH 14.1 % (11.5-14.0); SEGMENTED NEUTROPHILS % (AUTO) 83.2 % (42-78); TOTAL CELLS COUNTED % (AUTO) 100 %; WHITE BLOOD COUNT 14.5 10^3/uL (4.0-10.5)
[2019-03-17 11:11] LABS: APPEARANCE,URINE SLIGHTLY-CLOUDY; BILIRUBIN,URINE NEGATIVE (NEGATIVE); COLOR,URINE YELLOW; GLUCOSE, URINE NEGATIVE (NEGATIVE); KETONES,URINE NEGATIVE (NEGATIVE); LEUKOCYTE ESTERASE,URINE NEGATIVE (NEGATIVE); NITRITE,URINE NEGATIVE (NEGATIVE); PROTEIN,URINE NEGATIVE (NEGATIVE); UROBILINOGEN,URINE NEGATIVE mg/dL (<2.0)
[2019-03-17 11:17] LABS: ADD MANUAL MICROSCOPIC YES; WBC,URINE NONE SEEN /HPF
[2019-03-17 11:29] LABS: ALBUMIN 3.2 g/dL (3.5-5.0); ALKALINE PHOSPHATASE 607 U/L (38-126); ANION GAP 11 (5-19); ASPARTATE AMINO TRANSFERASE 102 U/L (17-59); BILIRUBIN,DIRECT 0.4 mg/dL (0.0-0.4); BLOOD UREA NITROGEN 59 mg/dL (7-20); CARBON DIOXIDE 29 mmol/L (22-30); CHLORIDE 94 mmol/L (98-107); GLUCOSE 139 mg/dL (75-110); POTASSIUM 3.2 mmol/L (3.6-5.0); TOTAL PROTEIN 6.1 g/dL (6.3-8.2)
[2019-03-17 11:37] LABS: CREATINE KINASE 2835 U/L (55-170)
[2019-03-17] MEDS ORDERED: NORMAL SALINE 1000 ML 1,000 ML IV ONE (11:49)
[2019-03-17] MEDS ORDERED: CALCIUM GLUCONATE 1000 MG/10 ML INJ IV ONE (11:50)
[2019-03-17] MEDS ORDERED: POTASSIUM CHLORIDE 10 MEQ CAPSULE.ER PO ONE (11:50)
[2019-03-17] MEDS: MAGNESIUM SULFATE/D5W 1 GM/100 ML RTUPB IV SCH ×2 (12:14→13:37)
[2019-03-17] MEDS ORDERED: PROMETHAZINE HCL INJ 25 MG/1 ML VIAL IV PRN (12:43)
[2019-03-17] MEDS ORDERED: NORMAL SALINE 1000 ML 1,000 ML IV PRN ×2 (12:43→14:16)
[2019-03-17] MEDS ORDERED: ONDANSETRON HCL INJ/PF 4 MG/2 ML SDV IV PRN (12:43)
[2019-03-17] MEDS ORDERED: ACETAMINOPHEN 325 MG TABLET PO PRN (12:43)
[2019-03-17] MEDS ORDERED: IPRATROPIUM/ALBUTEROL 0.5-2.5 MG/3 ML AMPUL NEB PRN (12:43)
--- NOTE | 2019-03-17 13:44 | PDOC H&P ---
History of Present Illness Admission Date/PCP: 03/17/19 11:59 GI VILLALOBOS MD History of Present Illness: PRAFUL PUTNAM is a 79 year old male past medical history of rectal adenocarcinoma status post sigmoid colon resection with colostomy placement 03/23/2017, metastatic prostate cancer, CAD status post PCI and LAD stent placement, CHF, venous insufficiency with chronic bilateral lower extremity swelling and stasis dermatitis care for by PCP with leg dressing weekly as outpatient. Patient brought to ED by EMS for worsening, fatigue and weakness, and declining in ADLs. As per EMS report patient was found to be extremely unkempt, covered with fecalith material from his colostomy bag and infestation of his house. On my encounter patient is resting in bed in no apparent distress seems extremely unkempt, with extensive bilateral lower extremity swelling worse on the right side with mild erythema but no discharge, extensive upper and lower extremity onychomycosis. Unfortunately patient is only alert and oriented x2, as well as hard of hearing and does not provide much history, when asked why he is in the hospital he stating that he was sent here by his daughter, also stating that his legs are hurting very much, otherwise does not provide much history. As per my conversation with the ED physician who had called patient's daughter Litzy at [phone]. She had a stated that patient lives alone, and has had precipitous decline over the last week and apparently was diagnosed with metastatic prostate cancer, he not been able to walk. She unsure of his CODE ST ATUS. In ED CT scan was negative, but was noted to have multiple electrolyte abnormalities with elevated CK and WBC and acute on chronic GUILLE. Hospitalist was consulted for admission. Past Medical History Cardiac Medical History: Reports: Congestive Heart Failure, Myocardial Infarction, Hyperlipidema Denies: Coronary Artery Disease, Hypertension Pulmonary Medical History: Denies: Asthma, Bronchitis, Chronic Obstructive Pulmonary Disease (COPD), Pneumonia, Tuberculosis Neurological Medical History: Denies: Seizures Renal/ Medical History: Denies: End Stage Renal Disease Malignancy Medical History: Reports: Bone Cancer, Colorectal Cancer, Pancreatic Cancer GI Medical History: Reports: Hiatal Hernia Denies: Cirrhosis, Crohn's Disease, Gastroesophageal Reflux Disease, Hepatitis Musculoskeltal Medical History: Denies: Arthritis, Fibromyalgia Psychiatric Medical History: Denies: Bipolar Disorder, Depression Hematology: Reports: Anemia Denies: Sickle Cell Disease, Bleeding Tendencies Past Surgical History Past Surgical History: Reports: Colostomy, Pacemaker, Other - Colostomy for near obstructing colon cancer Denies: Appendectomy, Cholecystectomy, Coronary Artery Bypass Graft, Gastric Bypass Surgery, Herniorrhaphy, Tonsillectomy Social History Smoking Status: Unknown if Ever Smoked Electronic Cigarette use?: No Frequency of Alcohol Use: Occasional Hx Recreational Drug Use: No Drugs: None Hx Prescription Drug Abuse: No Family History Family History: Reviewed & Not Pertinent, Hypertension Parental Family History Reviewed: Yes Children Family History Reviewed: Yes Sibling(s) Family History Reviewed.: Yes Medication/Allergy Home Medications: Abiraterone Acet,Submicronized [Yonsa] 500 mg PO DAILY 03/17/19 Atorvastatin Calcium [Lipitor 40 mg Tablet] 40 mg PO DAILY 03/17/19 Cephalexin [Cephalexin 500 MG Tablet] 500 mg PO QID 03/17/19 Furosemide [Lasix 40 mg Tablet] 40 mg PO BID 03/17/19 Lisinopril [Prinivil 5 mg Tablet] 5 mg PO DAILY 03/17/19 Methylprednisolone [Medrol 4 Mg Tablet] 4 mg PO BID 03/17/19 Metolazone [Zaroxolyn 5 Mg Tablet] 5 mg PO DAILY 03/17/19 Metoprolol Succinate [Toprol Xl 25 mg Tab.sr] 25 mg PO DAILY 03/17/19 Potassium Chloride [Klor-Con 10 Meq Capsule ER] 20 meq PO DAILY 03/17/19 Spironolactone [Aldactone 25 mg Tablet] 25 mg PO DAILY 03/17/19 Terbinafine HCl [Lamisil 250 mg Tablet] 250 mg PO DAILY 03/17/19 Allergies/Adverse Reactions: No Known Allergies Allergy (Verified 05/16/17 13:59) Review of Systems ROS unobtainable: Due to mental status Physical Exam Vital Signs: Temp Pulse Resp BP Pulse Ox 99.2 F 31 H 106/47 L 100 03/17/19 09:01 03/17/19 12:01 03/17/19 12:01 03/17/19 12:01 Intake & Output 03/16/19 03/17/19 03/18/19 06:59 06:59 06:59 Intake Total 500 Balance 500 Weight 96.36 kg General appearance: PRESENT: no acute distress, well-developed, well-nourished, other - Unkempt. Alert oriented x2. Head exam: PRESENT: atraumatic, normocephalic Eye exam: PRESENT: conjunctiva pink, EOMI, PERRLA. ABSENT: scleral icterus Neck exam: ABSENT: carotid bruit, JVD, lymphadenopathy, thyromegaly Respiratory exam: PRESENT: clear to auscultation zach. ABSENT: rales, rhonchi, wheezes Cardiovascular exam: PRESENT: RRR. ABSENT: diastolic murmur, rubs, systolic murmur GI/Abdominal exam: PRESENT: normal bowel sounds, soft. ABSENT: distended, guarding, mass, organolmegaly, rebound, tenderness Extremities exam: PRESENT: tenderness, +2 edema, other - Lateral lower extremity swelling, right lower extremity below-knee erythema, active discharge. Neurological exam: PRESENT: alert, awake, oriented to person, oriented to place, CN II-XII grossly intact, motor sensory deficit Skin exam: PRESENT: other - Extensive upper and lower onychomycosis. Results Laboratory Results: 03/17/19 10:20 03/17/19 10:20 03/17/19 03/17/19 03/17/19 10:20 10:20 10:20 WBC 14.5 H RBC 3.59 L Hgb 11.8 L Hct 33.5 L MCV 93 MCH 32.9 MCHC 35.3 RDW 14.1 H Plt Count 236 Seg Neutrophils % 83.2 H Sodium 133.8 L Potassium 3.2 L Chloride 94 L Carbon Dioxide 29 Anion Gap 11 BUN 59 H Creatinine 3.07 H Est GFR ( Amer) 24 L Glucose 139 H Lactic Acid 1.8 Calcium 7.0 L* Magnesium 1.7 Total Bilirubin 2.0 H AST 102 H Alkaline Phosphatase 607 H Total Protein 6.1 L Albumin 3.2 L Urine Color Urine Appearance Urine pH Ur Specific [place] Urine Protein Urine Glucose (UA) Urine Ketones Urine Blood Urine Nitrite Ur Leukocyte Esterase Ur Squamous Epith Cells 03/17/19 10:30 WBC RBC Hgb Hct MCV MCH MCHC RDW Plt Count Seg Neutrophils % Sodium Potassium Chloride Carbon Dioxide Anion Gap BUN Creatinine Est GFR ( Amer) Glucose Lactic Acid Calcium Magnesium Total Bilirubin AST Alkaline Phosphatase Total Protein Albumin Urine Color YELLOW Urine Appearance SLIGHTLY-CLOUDY Urine pH 5.0 Ur Specific [place] 1.010 Urine Protein NEGATIVE Urine Glucose (UA) NEGATIVE Urine Ketones NEGATIVE Urine Blood MODERATE H Urine Nitrite NEGATIVE Ur Leukocyte Esterase NEGATIVE Ur Squamous Epith Cells MODERATE 03/17/19 03/17/19 10:20 10:20 Creatine Kinase 2835 H Troponin I 0.184 Impressions: Head CT 03/17/19 09:54 IMPRESSION: CHRONIC CHANGES OF ATROPHY AND MICROVASCULAR ISCHEMIA. NO ACUTE PROCESS. EVIDENCE OF ACUTE STROKE: NO. Assessment and Plan - Diagnosis (1) Physical deconditioning Is this a current diagnosis for this admission?: Yes Plan: Patient lives alone, with extensive past medical history, presenting with polyelectrolyte abnormalities, GUILLE and rhabdomyolysis. Admit to ICU, consult high school social studies teacher for possible placement and also looking into his living condition, correct polyelectrolyte abnormalities. Unlikely patient can make his medical decisions will try to get hold of his daughter or any other family memember and determine CODE STATUS. (2) CAD (coronary artery disease) Is this a current diagnosis for this admission?: Yes Plan: History of PCI and stent to LAD. Denies any anginal symptoms. We will continue antiplatelets, statins, beta-blockers, will hold GABRIELA due to GUILLE. Adjust meds as needed, resume meds once appropriate. Outpatient PCP and cardiology follow-up. (3) Rectal carcinoma Is this a current diagnosis for this admission?: Yes Plan: Status post sigmoid colectomy and colostomy placement in 2017. Continue colostomy care and monitor volume status and electrolytes. (4) Metastatic malignant neoplasm to prostate Is this a current diagnosis for this admission?: Yes Plan: Per daughter recently diagnosed. We will consult oncology. Meanwhile provide pain management. (5) Hypokalemia Is this a current diagnosis for this admission?: Yes Plan: Multifactorial likely due to low p.o. intake, recent GUILLE and rhabdomyolysis. Admit to IMC, no acute EKG changes, replace potassium as needed, BMP tomorrow. (6) Hypomagnesemia Is this a current diagnosis for this admission?: Yes Plan: Multifactorial likely due to low p.o. intake, recent GUILLE and rhabdomyolysis. Admit to IMC, replace as needed, mg level tomorrow. (7) Hyponatremia Is this a current diagnosis for this admission?: Yes Plan: Multifactorial likely due to low p.o. intake, recent GUILLE and rhabdomyolysis. Admit to IMC, continue NS, BMP tomorrow, seizure precautions. (8) Acute renal failure Qualifiers: Acute renal failure type: unspecified Qualified Code(s): N17.9 - Acute kidney failure, unspecified Is this a current diagnosis for this admission?: Yes Plan: Multifactorial. Due to low p.o. intake, and underlying rhabdomyolysis. Cautious volume resuscitation given history of CHF and volume overload. Monitor electrolytes and volume status. Replace electrolytes as needed. Avoid nephrotoxic meds. (9) Hypocalcemia Is this a current diagnosis for this admission?: Yes Plan: Multifactorial likely due to low p.o. intake, recent GUILLE and rhabdomyolysis. Admit to IMC, replace calcium as needed, BMP tomorrow. (10) Rhabdomyolysis Qualifiers: Rhabdomyolysis type: traumatic Encounter type: initial encounter Qualified Code(s): T79.6XXA - Traumatic ischemia of muscle, initial encounter Is this a current diagnosis for this admission?: Yes Plan: Not sure if patient had any trauma but based on presenting patient may have had prolonged immobility. Given history of CHF and volume overload we will monitor closely with cautious volume diuresis and monitoring electrolytes.
[2019-03-17] MEDS: DOCUSATE SODIUM 100 MG CAPSULE PO SCH (18:07)
[2019-03-17] MEDS: PANTOPRAZOLE SODIUM 40 MG TABLET.DR PO SCH (18:08)
[2019-03-17] MEDS: CEFTRIAXONE 1 GM/D5W RTU 1 GM/50 ML RTUPB IV SCH (18:10)
[2019-03-17] MEDS: IPRATROPIUM/ALBUTEROL 0.5-2.5 MG/3 ML AMPUL NEB SCH ×2 (18:55→20:13)
[2019-03-17 19:24] LABS: ALBUMIN 2.9 g/dL (3.5-5.0); ALKALINE PHOSPHATASE 513 U/L (38-126); ANION GAP 12 (5-19); ASPARTATE AMINO TRANSFERASE 123 U/L (17-59); BILIRUBIN,DIRECT 0.5 mg/dL (0.0-0.4); BILIRUBIN,TOTAL 1.5 mg/dL (0.2-1.3); BLOOD UREA NITROGEN 59 mg/dL (7-20); CARBON DIOXIDE 25 mmol/L (22-30); CHLORIDE 100 mmol/L (98-107); GLUCOSE 129 mg/dL (75-110); TOTAL PROTEIN 5.6 g/dL (6.3-8.2)
[2019-03-17 19:34] LABS: CALCIUM 6.8 mg/dL (8.4-10.2); POTASSIUM 2.7 mmol/L (3.6-5.0)
[2019-03-17] MEDS ORDERED: POTASSIUM CHLORIDE 20 MEQ PACKET PO ONE (20:30)
[2019-03-17] MEDS: HEPARIN SOD (PORCINE) 5,000 UNIT/ML 1 ML VIAL SUBCUT SCH (21:25)
[2019-03-17] MEDS ORDERED: RINGERS SOLUTION,LACTATED 1,000 ML IV ONE (21:30)
[2019-03-17] MEDS ORDERED: RINGERS SOLUTION,LACTATED 1,000 ML IV PRN (23:40)
[2019-03-17] MEDS ORDERED: POTASSI CL 20 MEQ/NS 1L 1000 ML IV PRN (23:41)
[2019-03-18] MEDS: IPRATROPIUM/ALBUTEROL 0.5-2.5 MG/3 ML AMPUL NEB SCH ×4 (01:49→20:17)
[2019-03-18] MEDS: DOPAMINE HCL 800 MG/D5W 250 ML IV PRN (02:15)
--- NOTE | 2019-03-18 02:48 | Progress Note ---
Provider Note Provider Note: Critical care note: 03/18/2019 Critical care start time: 00:36 Critical care issue: Hypotension I was contacted by the patient's nurse regarding his hypotension. Initially his blood pressure was 80/40 and he was treated with a 1 L IV bolus given over an hour which resulted in his blood pressure rising to 90/50. He was given another 1 L bolus of IV fluid with improvement of his blood pressure to 100/40 but his mean arterial pressure had not changed significantly since treatment had been initiated. The patient was evaluated in his room and was found to be alert and oriented with no symptoms related to his hypovolemia. Chest is clear to auscultation and percussion with his heart showing a regular rate and rhythm without murmurs clicks gallops or rubs. His abdomen is soft and his bowel sounds positive. Extremities revealed a trace of edema bilaterally. A manual blood pressure done with my observation confirmed again his systolic blood pressure of 96. Patient's IV fluids had been increased from 80 mL/h to a rate of 125 mL/h also without change in his mean arterial pressure. Patient's mean arterial pressure was 51 on the last reading and had been 50 when I was first called by his nurse. Patient was started on a dopamine continuous rate infusion per protocol. Patient showed a modest response to this therapy with slow and gradual improvement of his mean arterial pressure. Critical care end time: 02:47 Total critical care time: 23 minutes
[2019-03-18] MEDS ORDERED: RINGERS SOLUTION,LACTATED 1,000 ML IV ONE (05:00)
[2019-03-18] MEDS: HEPARIN SOD (PORCINE) 5,000 UNIT/ML 1 ML VIAL SUBCUT SCH ×4 (06:10→21:51)
[2019-03-18] MEDS: PANTOPRAZOLE SODIUM 40 MG TABLET.DR PO SCH ×2 (06:10→17:22)
[2019-03-18] MEDS ORDERED: CALCIUM GLUCONATE 1000 MG/10 ML INJ IV ONE (08:29)
--- NOTE | 2019-03-18 08:36 | PDOC CONSULTATION ---
Consultation Consult Date: 03/18/19 Provider Consulted: LAURA LYNN Consult reason:: Hematology/Oncology consultation was requested for patient with prostate cancer, bone mets, on active treatment. History of Present Illness Admission Date/PCP: 03/17/19 12:43 GI VILLALOBOS MD History of Present Illness: PRAFUL PUTNAM is a 79 year old male who follows with Dr. Garcia for prostate cancer. He was initially diagnosed in 01/2016 with bone mets and PSA 600. Most recently, he has been Yonsa/Xgeva/Lupron but PSA had risen and restaging CT scans are scheduled for next week. He also has a history of Stage III Rectal cancer diagnosed 02/2017 s/p surgery with colostomy. No chemo was given due to treatment for prostate cancer. He states that he had been getting weaker and daughter encouraged him to come to the hospital. He has been having pain in his neck and head. He denies an other complaints, but is very hard of hearing. Past Medical History Cardiac Medical History: Reports: Atrial Fibrillation, Congestive Heart Failure, Coronary Artery Disease, Myocardial Infarction, Hyperlipidema, Hypertension Pulmonary Medical History: Denies: Asthma, Bronchitis, Chronic Obstructive Pulmonary Disease (COPD), Pneumonia, Tuberculosis Neurological Medical History: Denies: Seizures Renal/ Medical History: Denies: End Stage Renal Disease Malignancy Medical History: Reports: Bone Cancer, Colorectal Cancer, Other - prostate cancer GI Medical History: Reports: Gastroesophageal Reflux Disease, Hiatal Hernia Denies: Cirrhosis, Crohn's Disease, Hepatitis Musculoskeltal Medical History: Reports: Arthritis Denies: Fibromyalgia Psychiatric Medical History: Denies: Bipolar Disorder, Depression Hematology: Reports: Anemia Denies: Sickle Cell Disease, Bleeding Tendencies Past Surgical History Past Surgical History: Reports: Colostomy, Pacemaker, Other - Colostomy for near obstructing colon cancer. Prostate biopsy Denies: Appendectomy, Cholecystectomy, Coronary Artery Bypass Graft, Gastric Bypass Surgery, Herniorrhaphy, Tonsillectomy Social History Information Source: Outside Facility Records Occupation: Retired Lives with: Family Smoking Status: Former Smoker Cigarettes Packs Per Day: 1 Electronic Cigarette use?: No Number of Years Smokin Frequency of Alcohol Use: Occasional Hx Recreational Drug Use: No Drugs: None Hx Prescription Drug Abuse: No Past Social History Note: He is . Daughter lives close. Family History Family History: Hypertension Parental Family History Reviewed: Yes Children Family History Reviewed: No Sibling(s) Family History Reviewed.: Yes - Sister with cancer Medication/Allergy Home Medications: Abiraterone Acet,Submicronized [Yonsa] 500 mg PO DAILY 03/17/19 Atorvastatin Calcium [Lipitor 40 mg Tablet] 40 mg PO DAILY 03/17/19 Cephalexin [Cephalexin 500 MG Tablet] 500 mg PO QID 03/17/19 Furosemide [Lasix 40 mg Tablet] 40 mg PO BID 03/17/19 Lisinopril [Prinivil 5 mg Tablet] 5 mg PO DAILY 03/17/19 Methylprednisolone [Medrol 4 Mg Tablet] 4 mg PO BID 03/17/19 Metolazone [Zaroxolyn 5 Mg Tablet] 5 mg PO DAILY 03/17/19 Metoprolol Succinate [Toprol Xl 25 mg Tab.sr] 25 mg PO DAILY 03/17/19 Potassium Chloride [Klor-Con 10 Meq Capsule ER] 20 meq PO DAILY 03/17/19 Spironolactone [Aldactone 25 mg Tablet] 25 mg PO DAILY 03/17/19 Terbinafine HCl [Lamisil 250 mg Tablet] 250 mg PO DAILY 03/17/19 Allergies/Adverse Reactions: No Known Allergies Allergy (Verified 05/16/17 13:59) Review of Systems Constitutional: PRESENT: headache(s). ABSENT: fever(s) Eyes: ABSENT: visual disturbances Ears: ABSENT: hearing changes Nose, Mouth, and Throat: PRESENT: headache(s) Cardiovascular: ABSENT: chest pain Respiratory: ABSENT: dyspnea Gastrointestinal: ABSENT: nausea Genitourinary: ABSENT: dysuria Musculoskeletal: PRESENT: other - leg pain Integumentary: ABSENT: rash Neurological: PRESENT: confusion, weakness Hematologic/Lymphatic: ABSENT: easy bleeding Physical Exam Vital Signs: Temp Pulse Resp BP Pulse Ox 99.3 F 74 18 112/45 L 75 L 03/18/19 04:38 03/18/19 07:00 03/18/19 04:38 03/18/19 07:00 03/18/19 06:38 Intake & Output 03/17/19 03/18/19 03/19/19 06:59 06:59 06:59 Intake Total 1970 Output Total 1000 Balance 970 Weight 102.1 kg General appearance: PRESENT: no acute distress, obese Exam: 79 year old male. Head exam: PRESENT: atraumatic, normocephalic Eye exam: PRESENT: EOMI Mouth exam: PRESENT: tongue midline Neck exam: ABSENT: lymphadenopathy, tenderness Respiratory exam: PRESENT: wheezes Cardiovascular exam: PRESENT: RRR GI/Abdominal exam: PRESENT: soft, other - Colostomy functioning well.. ABSENT: tenderness Extremities exam: PRESENT: other - Left lower leg and foot with tenderness and erythema. Neurological exam: PRESENT: alert, awake Psychiatric exam: PRESENT: appropriate affect Skin exam: PRESENT: normal color Results Laboratory Results: 03/17/19 10:20 03/17/19 18:00 03/17/19 03/17/19 03/17/19 10:20 10:20 10:20 WBC 14.5 H RBC 3.59 L Hgb 11.8 L Hct 33.5 L MCV 93 MCH 32.9 MCHC 35.3 RDW 14.1 H Plt Count 236 Seg Neutrophils % 83.2 H Sodium 133.8 L Potassium 3.2 L Chloride 94 L Carbon Dioxide 29 Anion Gap 11 BUN 59 H Creatinine 3.07 H Est GFR ( Amer) 24 L Glucose 139 H Lactic Acid 1.8 Calcium 7.0 L* Magnesium 1.7 Total Bilirubin 2.0 H AST 102 H Alkaline Phosphatase 607 H Total Protein 6.1 L Albumin 3.2 L Urine Color Urine Appearance Urine pH Ur Specific [place] Urine Protein Urine Glucose (UA) Urine Ketones Urine Blood Urine Nitrite Ur Leukocyte Esterase Ur Squamous Epith Cells 03/17/19 03/17/19 10:30 18:00 WBC RBC Hgb Hct MCV MCH MCHC RDW Plt Count Seg Neutrophils % Sodium 137.3 Potassium 2.7 L* Chloride 100 Carbon Dioxide 25 Anion Gap 12 BUN 59 H Creatinine 2.63 H Est GFR ( Amer) 28 L Glucose 129 H Lactic Acid Calcium 6.8 L* Magnesium Total Bilirubin 1.5 H AST 123 H Alkaline Phosphatase 513 H Total Protein 5.6 L Albumin 2.9 L Urine Color YELLOW Urine Appearance SLIGHTLY-CLOUDY Urine pH 5.0 Ur Specific [place] 1.010 Urine Protein NEGATIVE Urine Glucose (UA) NEGATIVE Urine Ketones NEGATIVE Urine Blood MODERATE H Urine Nitrite NEGATIVE Ur Leukocyte Esterase NEGATIVE Ur Squamous Epith Cells MODERATE 03/17/19 03/17/19 03/17/19 10:20 10:20 18:00 Creatine Kinase 2835 H Troponin I 0.184 0.136 03/18/19 00:41 Creatine Kinase Troponin I 0.133 Impressions: Head CT 03/17/19 09:54 IMPRESSION: CHRONIC CHANGES OF ATROPHY AND MICROVASCULAR ISCHEMIA. NO ACUTE PROCESS. EVIDENCE OF ACUTE STROKE: NO. Assessment & Plan - Diagnosis (1) Cellulitis of left leg Is this a current diagnosis for this admission?: Yes Plan: Patient receiving Rocephin. Watch for response. Currently unable to walk due to pain. Will need to have PT and possible rehab to help with safety in ambulating. (2) Prostate cancer metastatic to bone Is this a current diagnosis for this admission?: Yes Plan: He is scheduled for staging scans next week. Will plan to have these done as outpatient, if possible. He has known mets to [facility]. I will try to find out if he has ever had radiation to this area in the past, as this may help his pain. May need to consider biopsy if new mets found, as he had 2 distinct cancers. (3) Hypokalemia Is this a current diagnosis for this admission?: Yes Plan: replete - Plan Summary Plan Summary: Dr. Garcia will return tomorrow. Please call with further questions or concerns.
[2019-03-18 08:54] LABS: ABSOLUTE LYMPHOCYTES (AUTO) 0.6 10^3/uL (0.5-4.7); ABSOLUTE MONOCYTES (AUTO) 0.9 10^3/uL (0.1-1.4); ABSOLUTE NEUT (AUTO) 7.3 10^3/uL (1.7-8.2); BASOPHILS % (AUTO) 0.1 % (0-2); EOSINOPHILS % (AUTO) 0.2 % (0-6); HEMATOCRIT 29.4 % (37.9-51.0); HEMOGLOBIN 10.5 g/dL (13.5-17.0); LYMPHOCYTES % (AUTO) 6.8 % (13-45); MEAN CORPUSCULAR HEMOGLOBIN 33.2 pg (27.0-33.4); MEAN CORPUSCULAR HGB CONC 35.8 g/dL (32.0-36.0); MEAN CORPUSCULAR VOLUME 93 fl (80-97); MONOCYTES % (AUTO) 10.4 % (3-13); PLATELET COUNT 192 10^3/uL (150-450); RED BLOOD COUNT 3.17 10^6/uL (4.35-5.55); SEGMENTED NEUTROPHILS % (AUTO) 82.5 % (42-78); TOTAL CELLS COUNTED % (AUTO) 100 %; WHITE BLOOD COUNT 8.9 10^3/uL (4.0-10.5)
[2019-03-18] MEDS ORDERED: MAGNESIUM SULFATE/D5W 1 GM/100 ML RTUPB IV ONE (09:00)
[2019-03-18 09:16] LABS: ALBUMIN 2.6 g/dL (3.5-5.0); ALKALINE PHOSPHATASE 472 U/L (38-126); ANION GAP 9 (5-19); ASPARTATE AMINO TRANSFERASE 128 U/L (17-59); BILIRUBIN,DIRECT 0.2 mg/dL (0.0-0.4); BILIRUBIN,TOTAL 0.8 mg/dL (0.2-1.3); BLOOD UREA NITROGEN 51 mg/dL (7-20); CALCIUM 7.1 mg/dL (8.4-10.2); CARBON DIOXIDE 25 mmol/L (22-30); CHLORIDE 102 mmol/L (98-107); GLUCOSE 150 mg/dL (75-110); TOTAL PROTEIN 5.3 g/dL (6.3-8.2)
[2019-03-18 09:27] LABS: POTASSIUM 2.9 mmol/L (3.6-5.0)
[2019-03-18] MEDS ORDERED: POTASSIUM CHLORIDE 10 MEQ CAPSULE.ER PO ONE (09:30)
--- NOTE | 2019-03-18 09:40 | EKG REPORT ---
SEVERITY:- ABNORMAL ECG - AFIB/FLUT AND V-PACED COMPLEXES : Confirmed by: Susanne Felipe 18-Mar-2019 09:38:52
[2019-03-18] MEDS ORDERED: [UNRECOGNIZED DRUG - OTHER] PO SCH (10:00)
[2019-03-18] MEDS ORDERED: CALCIUM GLUCONATE 2,000 MG in DEXTROSE 5%-WATER 100 ML IV ONE (10:00)
[2019-03-18] MEDS: TERBINAFINE HCL 250 MG TABLET PO SCH (10:19)
[2019-03-18] MEDS: DOCUSATE SODIUM 100 MG CAPSULE PO SCH ×2 (10:19→17:22)
[2019-03-18] MEDS: POTASSIUM CHLORIDE 20 MEQ PACKET PO SCH ×3 (10:19→18:06)
[2019-03-18] MEDS: ATORVASTATIN CALCIUM 40 MG TABLET PO SCH (10:19)
[2019-03-18] MEDS: METOPROLOL SUCCINATE 25 MG TAB.SR.24H PO SCH (10:23)
[2019-03-18] MEDS: OXYCODONE-ACETAMINOPHEN 5-325 MG TABLET PO PRN (10:35)
--- NOTE | 2019-03-18 13:25 | PDOC PROGRESS REPORT ---
Subjective Progress Note for:: 03/18/19 Subjective:: PRAFUL PUTNAM is a 79 year old male past medical history of rectal adenocarcinoma status post sigmoid colon resection with colostomy placement 03/23/2017, metastatic prostate cancer, CAD status post PCI and LAD stent placement, CHF, venous insufficiency with chronic bilateral lower extremity swelling and stasis dermatitis care for by PCP with leg dressing weekly as outpatient. Patient brought to ED by EMS for worsening, fatigue and weakness, and declining in ADLs. As per EMS report patient was found to be extremely unkempt, covered with fecalith material from his colostomy bag and infestation of his house. On my encounter patient is resting in bed in no apparent distress seems extremely unkempt, with extensive bilateral lower extremity swelling worse on the right side with mild erythema but no discharge, extensive upper and lower extremity onychomycosis. Unfortunately patient is only alert and oriented x2, as well as hard of hearing and does not provide much history, when asked why he is in the hospital he stating that he was sent here by his daughter, also stating that his legs are hurting very much, otherwise does not provide much history. As per my conversation with the ED physician who had called patient's daughter Litzy at [phone]. She had a stated that patient lives alone, and has had precipitous decline over the last week and apparently was diagnosed with metastatic prostate cancer, he not been able to walk. She unsure of his CODE STATUS. In ED CT scan was negative, but was noted to have multiple electrolyte abnormali ties with elevated CK and WBC and acute on chronic GUILLE. Hospitalist was consulted for admission. 03/18/2019. Overnight patient developed hypotension and was given 2 L of IV boluses and was started on dopamine drip. Otherwise no acute events overnight. Saw patient this morning, was about to receive some physical therapy, stating that he had a rough night however feeling better this morning. Denies any fever, chills, nausea, vomiting, diarrhea, constipation or any urinary symptoms. Complaining of left lower extremity pain. Reason For Visit: GUILLE,RHBDO,POLYELECTROLYTE,ABNORMALITIES Physical Exam Vital Signs: Temp Pulse Resp BP Pulse Ox 98.4 F 74 18 112/42 L 100 03/18/19 10:54 03/18/19 10:54 03/18/19 07:58 03/18/19 10:54 03/18/19 10:54 Intake & Output 03/17/19 03/18/19 03/19/19 06:59 06:59 06:59 Intake Total 1970 3100 Output Total 1000 Balance 970 3100 Weight 102.1 kg General appearance: PRESENT: obese Head exam: PRESENT: atraumatic, normocephalic Eye exam: PRESENT: conjunctiva pink, EOMI, PERRLA. ABSENT: scleral icterus Ear exam: PRESENT: normal external ear exam Mouth exam: PRESENT: moist, tongue midline Neck exam: ABSENT: carotid bruit, JVD, lymphadenopathy, thyromegaly Respiratory exam: PRESENT: crackles - bibasilar. ABSENT: rales, rhonchi, wheezes Cardiovascular exam: PRESENT: RRR. ABSENT: diastolic murmur, rubs, systolic murmur Pulses: PRESENT: normal dorsalis pedis pul Vascular exam: PRESENT: normal capillary refill GI/Abdominal exam: PRESENT: normal bowel sounds, soft. ABSENT: distended, guarding, mass, organolmegaly, rebound, tenderness Rectal exam: PRESENT: deferred Extremities exam: PRESENT: full ROM, +2 edema, other - Right lower extremity below the knee circumferential erythema and swelling and tenderness. No active discharge.. ABSENT: calf tenderness, clubbing, pedal edema Neurological exam: PRESENT: alert, awake, oriented to person, oriented to place, oriented to time, oriented to situation, CN II-XII grossly intact. ABSENT: motor sensory deficit Psychiatric exam: PRESENT: appropriate affect, normal mood. ABSENT: homicidal i deation, suicidal ideation Skin exam: PRESENT: dry, intact, warm, other - Upper and lower extremity extensive onychomycosis.. ABSENT: cyanosis, rash Results Laboratory Results: 03/18/19 08:07 03/18/19 08:07 03/17/19 03/18/19 03/18/19 18:00 08:07 08:07 WBC 8.9 RBC 3.17 L Hgb 10.5 L Hct 29.4 L MCV 93 MCH 33.2 MCHC 35.8 RDW 14.0 Plt Count 192 Seg Neutrophils % 82.5 H Sodium 137.3 136.3 L Potassium 2.7 L* 2.9 L* Chloride 100 102 Carbon Dioxide 25 25 Anion Gap 12 9 BUN 59 H 51 H Creatinine 2.63 H 1.83 H Est GFR ( Amer) 28 L 43 L Glucose 129 H 150 H Calcium 6.8 L* 7.1 L Magnesium 1.9 Total Bilirubin 1.5 H 0.8 AST 123 H 128 H Alkaline Phosphatase 513 H 472 H Total Protein 5.6 L 5.3 L Albumin 2.9 L 2.6 L 03/17/19 03/17/19 03/17/19 10:20 10:20 18:00 Creatine Kinase 2835 H Troponin I 0.184 0.136 03/18/19 03/18/19 00:41 08:07 Creatine Kinase 4269 H Troponin I 0.133 Impressions: Head CT 03/17/19 09:54 IMPRESSION: CHRONIC CHANGES OF ATROPHY AND MICROVASCULAR ISCHEMIA. NO ACUTE PROCESS. EVIDENCE OF ACUTE STROKE: NO. Assessment and Plan - Diagnosis (1) Acute exacerbation of CHF (congestive heart failure) Qualifiers: Heart failure type: systolic Qualified Code(s): I50.23 - Acute on chronic systolic (congestive) heart failure Is this a current diagnosis for this admission?: Yes Plan: Acute systolic heart failure. History of CAD status post stent placement. 03/25/2017: 2D echo LVEF 35%. LVSF moderately reduced. proBNP 2300 on admission. Baseline [id number]. Home meds are: Aldactone 25 mg p.o. daily. Metolazone 5 mg p.o. daily. Lasix 40 mg p.o. twice daily. Metoprolol succinate 25 mg p.o. daily. Lisinopril 5 mg p.o. daily. Unfortunately patient comes in with acute kidney injury, hypokalemia, hypomagnesemia, hyponatremia, hypocalcemia and hypotension. He needs on aggressive volume resuscitation however he presented with acute systolic CHF exacerbation. Last night patient became hypotensive was given to boluses of lactated Ringer's and placed on dopamine drip. Continue strict in and out, volume restriction, daily weights, cardiac diet. Restart GABRIELA once GUILLE resolves or kidney function stabilizes. Restart beta-blockers once patient is euvolemic. Restart diuretics once BP is stable and GUILLE has resolved or kidney function stabilizes. Restart Aldactone once GUILLE resolves. (2) Rhabdomyolysis Qualifiers: Rhabdomyolysis type: traumatic Encounter type: initial encounter Qualified Code(s): T79.6XXA - Traumatic ischemia of muscle, initial encounter Is this a current diagnosis for this admission?: Yes Plan: Not sure if patient had any trauma but based on presenting patient may have had prolonged immobility. CK trending up. He needs to be on aggressive volume resuscitation but unfortunately he has history of CAD/CHF and presenting with acute CHF exacerbation which restricts us on a amount of volume resuscitation. Last night patient became hypotensive was given to boluses of lactated Ringer's and placed on dopamine drip. Continue very cautious volume resuscitation guided by volume status and vitals, monitor electrolytes and replace as needed. (3) Acute renal failure Qualifiers: Acute renal failure type: unspecified Qualified Code(s): N17.9 - Acute kidney failure, unspecified Is this a current diagnosis for this admission?: Yes Plan: Improving. Multifactorial. Due to low p.o. intake, and underlying rhabdomyolysis. Cautious volume resuscitation given history of CHF and volume overload. Monitor electrolytes and volume status. Replace electrolytes as needed. Avoid nephrotoxic meds. (4) Physical deconditioning Is this a current diagnosis for this admission?: Yes Plan: Patient lives alone, with extensive past medical history, presenting with polyelectrolyte abnormalities, GUILLE and rhabdomyolysis. On 03/17/2019 at 6:30 PM when I was checking on the patient managed to see Litzy his daughter who is also the POA she stated his father is very stubborn and has been refusing to go to rehab, and prefers to stay at home. I discussed the CODE STATUS again with patient who has improved significantly compared to earlier in the day he was alert oriented x4, and he said he would like to remain full code at this point. Continue telemetry, correct polyelectrolyte abnormalities, and PT/OT. tunnel worker consulted for placement. Patient received physical therapy today. On 03/17/2019 at 6:30 PM when I was checking on the patient managed to see Litzy his daughter who is also the POA she stated his father is very stubborn and has been refusing to go to rehab, and prefers to stay at home. She is stating that she lives to home is down from his father on the same street. She is only family member that the patient has right now. And she is the POA. I discussed CODE STATUS with patient and his daughter Litzy who is the POA . Patient's mental status had improved significantly compared to earlier in the day. He was alert oriented x4. Has clear understanding of his underlying medical conditions. I discussed in detail his underlying multiple comorbidities and updated him on lab findings from this admission, which he stated that he understands, but he still wants to remain full code at this point. (5) CAD (coronary artery disease) Is this a current diagnosis for this admission?: Yes Plan: History of PCI and stent to LAD. Denies any anginal symptoms. Continue antiplatelets, statins, beta-blockers. Hold GABRIELA due to GUILLE. Restart as soon as possible as patient has history of CHF. Adjust meds as needed. Outpatient PCP and cardiology follow-up. (6) Rectal carcinoma Is this a current diagnosis for this admission?: Yes Plan: Status post sigmoid colectomy and colostomy placement in 2017. Oncologist [address] Garcia. Consulted. Pending recommendations. Continue colostomy care and monitor volume status and electrolytes. (7) Metastatic malignant neoplasm to prostate Is this a current diagnosis for this admission?: Yes Plan: Recently diagnosed. With mets to base of the skull. As per Dr. Mrose oncologist note he is scheduled for restaging scan next week and possible radiation. Meanwhile provide pain management. Dr. Garcia is his oncologist who is out of town will be back tomorrow. (8) Hypokalemia Is this a current diagnosis for this admission?: Yes Plan: Multifactorial likely due to low p.o. intake, recent GUILLE and rhabdomyolysis. No acute EKG changes. Continue telemetry, replace potassium as needed, BMP tomorrow. (9) Hypomagnesemia Is this a current diagnosis for this admission?: Yes Plan: Multifactorial likely due to low p.o. intake, recent GUILLE and rhabdomyolysis. Continue telemetry, replace as needed, magnesium level tomorrow. (10) Hyponatremia Is this a current diagnosis for this admission?: Yes Plan: Resolved. Multifactorial likely due to low p.o. intake, recent GUILLE and rhabdomyolysis. Continue telemetry, monitor for seizures, replace as needed. Sodium level tomorrow. (11) Hypocalcemia Is this a current diagnosis for this admission?: Yes Plan: Multifactorial likely due to low p.o. intake, recent GUILLE and rhabdomyolysis. Continue telemetry replace calcium as needed, BMP tomorrow. (12) Onychomycosis Is this a current diagnosis for this admission?: Yes Plan: Extensive upper and lower extremity. On terbinafine. There are signs of new healthy nail is growing. Continue terbinafine. 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
--- NOTE | 2019-03-18 13:30 | ADVANCED CARE ---
- Diagnosis (1) Physical deconditioning Diagnosis Current: Yes (2) CAD (coronary artery disease) Diagnosis Current: Yes (3) Rectal carcinoma Diagnosis Current: Yes (4) Metastatic malignant neoplasm to prostate Diagnosis Current: Yes (5) Hypokalemia Diagnosis Current: Yes (6) Hypomagnesemia Diagnosis Current: Yes (7) Hyponatremia Diagnosis Current: Yes (8) Acute renal failure Diagnosis Current: Yes (9) Hypocalcemia Diagnosis Current: Yes (10) Rhabdomyolysis Diagnosis Current: Yes Attendance: Litzy patient's daughter who is the POA. Resuscitation Status: Full Code Discussion: On 03/17/2019 at 6:30 PM when I was checking on the patient managed to see Litzy his daughter who is also the POA she stated his father is very stubborn and has been refusing to go to rehab, and prefers to stay at home. She is stating that she lives to home is down from his father on the same street. She is only family member that the patient has right now. And she is the POA. I discussed CODE STATUS with patient and his daughter Litzy who is the POA . Patient's mental status had improved significantly compared to earlier in the day. He was alert oriented x4. Has clear understanding of his underlying medical conditions. I discussed in detail his underlying multiple comorbidities and updated him on lab findings from this admission, which he stated that he understands, but he still wants to remain full code at this point. Time Spent: 20
[2019-03-18 15:08] LABS: ANION GAP 11 (5-19); BLOOD UREA NITROGEN 48 mg/dL (7-20); CALCIUM 7.8 mg/dL (8.4-10.2); CARBON DIOXIDE 23 mmol/L (22-30); CHLORIDE 102 mmol/L (98-107); GLUCOSE 194 mg/dL (75-110); POTASSIUM 3.1 mmol/L (3.6-5.0)
[2019-03-18] MEDS: CEFTRIAXONE 1 GM/D5W RTU 1 GM/50 ML RTUPB IV SCH (17:26)
[2019-03-18] MEDS ORDERED: [UNRECOGNIZED DRUG - OTHER] PO SCH (18:00)
[2019-03-18] MEDS: [UNRECOGNIZED DRUG - OTHER] PO SCH (21:50)
[2019-03-19] MEDS: IPRATROPIUM/ALBUTEROL 0.5-2.5 MG/3 ML AMPUL NEB SCH ×4 (02:33→20:21)
[2019-03-19 05:30] LABS: ABSOLUTE EOSINOPHILS # (AUTO) 0.1 10^3/uL (0.0-0.6); ABSOLUTE LYMPHOCYTES (AUTO) 0.7 10^3/uL (0.5-4.7); ABSOLUTE MONOCYTES (AUTO) 0.9 10^3/uL (0.1-1.4); ABSOLUTE NEUT (AUTO) 5.4 10^3/uL (1.7-8.2); BASOPHILS % (AUTO) 0.2 % (0-2); EOSINOPHILS % (AUTO) 0.9 % (0-6); HEMATOCRIT 28.3 % (37.9-51.0); HEMOGLOBIN 10.2 g/dL (13.5-17.0); LYMPHOCYTES % (AUTO) 9.8 % (13-45); MEAN CORPUSCULAR HEMOGLOBIN 33.6 pg (27.0-33.4); MEAN CORPUSCULAR HGB CONC 36.1 g/dL (32.0-36.0); MEAN CORPUSCULAR VOLUME 93 fl (80-97); MONOCYTES % (AUTO) 12.8 % (3-13); PLATELET COUNT 172 10^3/uL (150-450); RED BLOOD COUNT 3.04 10^6/uL (4.35-5.55); RED CELL DISTRIBUTION WIDTH 14.1 % (11.5-14.0); SEGMENTED NEUTROPHILS % (AUTO) 76.3 % (42-78); TOTAL CELLS COUNTED % (AUTO) 100 %; WHITE BLOOD COUNT 7.1 10^3/uL (4.0-10.5)
[2019-03-19 05:48] LABS: ALBUMIN 2.5 g/dL (3.5-5.0); ALKALINE PHOSPHATASE 385 U/L (38-126); ANION GAP 9 (5-19); ASPARTATE AMINO TRANSFERASE 94 U/L (17-59); BILIRUBIN,DIRECT 0.3 mg/dL (0.0-0.4); BILIRUBIN,TOTAL 1.1 mg/dL (0.2-1.3); BLOOD UREA NITROGEN 39 mg/dL (7-20); CALCIUM 7.2 mg/dL (8.4-10.2); CARBON DIOXIDE 24 mmol/L (22-30); CHLORIDE 102 mmol/L (98-107); GLUCOSE 159 mg/dL (75-110); POTASSIUM 3.1 mmol/L (3.6-5.0); TOTAL PROTEIN 5.1 g/dL (6.3-8.2)
[2019-03-19] MEDS: PANTOPRAZOLE SODIUM 40 MG TABLET.DR PO SCH ×2 (06:30→16:58)
[2019-03-19] MEDS: HEPARIN SOD (PORCINE) 5,000 UNIT/ML 1 ML VIAL SUBCUT SCH ×3 (06:30→21:44)
--- NOTE | 2019-03-19 08:29 | PDOC PROGRESS REPORT ---
Subjective Progress Note for:: 03/19/19 Subjective:: No acute events overnight. Reviewed all notes. I ordered CT of the chest abdomen pelvis as well as bone scan today. He is due for restaging imaging next week but if we get it today we can help student assistance counselor the family on whether the new regimen is helping him or not. Reason For Visit: GUILLE,RHBDO,POLYELECTROLYTE,ABNORMALITIES Physical Exam Vital Signs: Temp Pulse Resp BP Pulse Ox 98.2 F 75 18 105/43 L 100 03/19/19 03:45 03/19/19 03:45 03/19/19 03:45 03/19/19 06:00 03/19/19 03:45 Intake & Output 03/18/19 03/19/19 03/20/19 06:59 06:59 06:59 Intake Total 1970 3790 Output Total 1000 202 Balance 970 1765 Weight 102.1 kg 103 kg General appearance: PRESENT: no acute distress, well-developed, well-nourished Head exam: PRESENT: atraumatic, normocephalic Eye exam: PRESENT: conjunctiva pink, EOMI, PERRLA. ABSENT: scleral icterus Ear exam: PRESENT: normal external ear exam Mouth exam: PRESENT: moist, tongue midline Neck exam: ABSENT: carotid bruit, JVD, lymphadenopathy, thyromegaly Respiratory exam: PRESENT: clear to auscultation zach. ABSENT: rales, rhonchi, wheezes Cardiovascular exam: PRESENT: RRR. ABSENT: diastolic murmur, rubs, systolic murmur Pulses: PRESENT: normal dorsalis pedis pul Vascular exam: PRESENT: normal capillary refill GI/Abdominal exam: PRESENT: normal bowel sounds, soft. ABSENT: distended, guarding, mass, organolmegaly, rebound, tenderness Rectal exam: PRESENT: deferred Extremities exam: PRESENT: full ROM. ABSENT: calf tenderness, clubbing, pedal edema Neurological exam: PRESENT: alert, awake, oriented to person, oriented to place, oriented to time, oriented to situation, CN II-XII grossly intact. ABSENT: motor sensory deficit Psychiatric exam: PRESENT: appropriate affect, normal mood. ABSENT: homicidal ideation, suicidal ideation Skin exam: PRESENT: dry, intact, warm. ABSENT: cyanosis, rash Results Laboratory Results: 03/19/19 04:57 03/19/19 04:57 03/18/19 03/18/19 03/18/19 08:07 08:07 14:29 WBC 8.9 RBC 3.17 L Hgb 10.5 L Hct 29.4 L MCV 93 MCH 33.2 MCHC 35.8 RDW 14.0 Plt Count 192 Seg Neutrophils % 82.5 H Sodium 136.3 L 135.9 L Potassium 2.9 L* 3.1 L Chloride 102 102 Carbon Dioxide 25 23 Anion Gap 9 11 BUN 51 H 48 H Creatinine 1.83 H 1.73 H Est GFR ( Amer) 43 L 46 L Glucose 150 H 194 H Calcium 7.1 L 7.8 L Magnesium 1.9 Total Bilirubin 0.8 AST 128 H Alkaline Phosphatase 472 H Total Protein 5.3 L Albumin 2.6 L 03/19/19 03/19/19 04:57 04:57 WBC 7.1 RBC 3.04 L Hgb 10.2 L Hct 28.3 L MCV 93 MCH 33.6 H MCHC 36.1 H RDW 14.1 H Plt Count 172 Seg Neutrophils % 76.3 Sodium 134.9 L Potassium 3.1 L Chloride 102 Carbon Dioxide 24 Anion Gap 9 BUN 39 H Creatinine 1.20 Est GFR ( Amer) > 60 Glucose 159 H Calcium 7.2 L Magnesium 2.0 Total Bilirubin 1.1 AST 94 H Alkaline Phosphatase 385 H Total Protein 5.1 L Albumin 2.5 L 03/17/19 03/17/19 03/17/19 10:20 10:20 18:00 Creatine Kinase 2835 H Troponin I 0.184 0.136 03/18/19 03/18/19 03/19/19 00:41 08:07 04:57 Creatine Kinase 4269 H 2403 H Troponin I 0.133 Impressions: Head CT 03/17/19 09:54 IMPRESSION: CHRONIC CHANGES OF ATROPHY AND MICROVASCULAR ISCHEMIA. NO ACUTE PROCESS. EVIDENCE OF ACUTE STROKE: NO. Status: Image reviewed by me Assessment & Plan - Diagnosis (1) Prostate cancer metastatic to bone Is this a current diagnosis for this admission?: Yes Plan: Once we have CT results back we will need to have a family conference. If patient is progressing, then we will need to consider whether comfort care would be the best option for him. - Time Time Spent with patient: 35 or more minutes - Inpatient Certification Based on my medical assessment, after consideration of the patient's comorbidities, presenting symptoms, or acuity I expect that the services needed warrant INPATIENT care.: Yes I certify that my determination is in accordance with my understanding of Medicare's requirements for reasonable and necessary INPATIENT services [42 CFR 412.3e].: Yes Medical Necessity: Risk of Complication if Not Cared For in Hospital
[2019-03-19] MEDS: [UNRECOGNIZED DRUG - OTHER] PO SCH (09:40)
[2019-03-19] MEDS: DOCUSATE SODIUM 100 MG CAPSULE PO SCH ×2 (09:41→17:00)
[2019-03-19] MEDS: POTASSIUM CHLORIDE 10 MEQ CAPSULE.ER PO SCH (09:41)
[2019-03-19] MEDS: ATORVASTATIN CALCIUM 40 MG TABLET PO SCH (09:43)
[2019-03-19] MEDS: TERBINAFINE HCL 250 MG TABLET PO SCH (09:43)
[2019-03-19] MEDS: METOPROLOL SUCCINATE 25 MG TAB.SR.24H PO SCH (09:45)
[2019-03-19] MEDS: CEFTRIAXONE 1 GM/D5W RTU 1 GM/50 ML RTUPB IV SCH (17:02)
--- NOTE | 2019-03-19 17:04 | PDOC PROGRESS REPORT ---
Subjective Progress Note for:: 03/19/19 Subjective:: No adverse events overnight. He has been on a dopamine drip because of his blood pressure. CT scan was ordered but his blood pressure was too low this morning to take him off of it long enough for him to get the CT scan. His daughter said that he has been saying for the last couple years that he is ready to go, "I wish the Lord would just take me." However, when he came to the hospital he said he wanted everything done. His daughter is concerned that he does not fully understand everything that is going on with him. Reason For Visit: GUILLE,RHBDO,POLYELECTROLYTE,ABNORMALITIES Physical Exam Vital Signs: Temp Pulse Resp BP Pulse Ox 99.5 F 84 16 128/48 H 100 03/19/19 12:20 03/19/19 14:00 03/19/19 13:24 03/19/19 12:00 03/19/19 13:24 Intake & Output 03/18/19 03/19/19 03/20/19 06:59 06:59 06:59 Intake Total 1970 3790 Output Total 1000 2025 Balance 970 1765 Weight 102.1 kg 103 kg General appearance: PRESENT: cooperative, disheveled, mild distress, morbidly obese Respiratory exam: PRESENT: crackles - Bibasilar, symmetrical, unlabored. ABSENT: accessory muscle use, chest wall tenderness, prolonged expiratory phas, rhonchi, tachypnea, wheezes Cardiovascular exam: PRESENT: RRR, +S1, +S2 Pulses: PRESENT: normal carotid pulses Vascular exam: PRESENT: normal capillary refill GI/Abdominal exam: PRESENT: diminished bowel sounds, soft. ABSENT: distended, guarding, rebound, tenderness Extremities exam: PRESENT: pedal edema, +2 edema. ABSENT: clubbing Musculoskeletal exam: PRESENT: normal inspection. ABSENT: deformity Neurological exam: PRESENT: awake, oriented to person, oriented to place Psychiatric exam: PRESENT: flat affect Skin exam: PRESENT: dry, erythema - Circumferential on the legs between the knees and the ankles, warm Results Laboratory Results: 03/19/19 04:57 03/19/19 04:57 03/19/19 03/19/19 04:57 04:57 WBC 7.1 RBC 3.04 L Hgb 10.2 L Hct 28.3 L MCV 93 MCH 33.6 H MCHC 36.1 H RDW 14.1 H Plt Count 172 Seg Neutrophils % 76.3 Sodium 134.9 L Potassium 3.1 L Chloride 102 Carbon Dioxide 24 Anion Gap 9 BUN 39 H Creatinine 1.20 Est GFR ( Amer) > 60 Glucose 159 H Calcium 7.2 L Magnesium 2.0 Total Bilirubin 1.1 AST 94 H Alkaline Phosphatase 385 H Total Protein 5.1 L Albumin 2.5 L 03/17/19 03/17/19 03/17/19 10:20 10:20 18:00 Creatine Kinase 2835 H Troponin I 0.184 0.136 03/18/19 03/18/19 03/19/19 00:41 08:07 04:57 Creatine Kinase 4269 H 2403 H Troponin I 0.133 Impressions: Head CT 03/17/19 09:54 IMPRESSION: CHRONIC CHANGES OF ATROPHY AND MICROVASCULAR ISCHEMIA. NO ACUTE PROCESS. EVIDENCE OF ACUTE STROKE: NO. Assessment and Plan - Diagnosis (1) Acute exacerbation of CHF (congestive heart failure) Qualifiers: Heart failure type: systolic Qualified Code(s): I50.23 - Acute on chronic systolic (congestive) heart failure Is this a current diagnosis for this admission?: Yes Plan: Acute systolic heart failure. History of CAD status post stent placement. Paradoxically volume overloaded and hypotensive, currently on a dopamine drip Continue strict in and out, volume restriction, daily weights, cardiac diet. Restart GABRIELA once GUILLE resolves or kidney function stabilizes. Restart beta-blockers once patient is euvolemic. Restart diuretics once BP is stable and GUILLE has resolved or kidney function stabilizes. Restart Aldactone once GUILLE resolves. (2) Acute renal failure Qualifiers: Acute renal failure type: unspecified Qualified Code(s): N17.9 - Acute kidney failure, unspecified Is this a current diagnosis for this admission?: Yes Plan: Creatinine back in the normal range, BUN still elevated (3) CAD (coronary artery disease) Is this a current diagnosis for this admission?: Yes Plan: History of PCI and stent to LAD. Denies any anginal symptoms. Continue antiplatelets, statins, beta-blockers. Hold GABRIELA due to GUILLE. Restart as soon as possible as patient has history of CHF. Adjust meds as needed. Outpatient PCP and cardiology follow-up. (4) Hypocalcemia Is this a current diagnosis for this admission?: Yes Plan: Continue with supplementation as needed (5) Prostate cancer metastatic to bone Is this a current diagnosis for this admission?: Yes Plan: Oncology ordered a CT scan today but his blood pressure was not good enough to take him off the dopamine drip long enough to take him down for the scan. Once his blood pressure improves we will try to get the scan at that time. (6) Rhabdomyolysis Qualifiers: Rhabdomyolysis type: traumatic Encounter type: initial encounter Qualified Code(s): T79.6XXA - Traumatic ischemia of muscle, initial encounter Is this a current diagnosis for this admission?: Yes Plan: CPK trending down, trying to avoid aggressive hydration if possible - Time Time Spent with patient: 25-34 minutes
[2019-03-19] MEDS: DOPAMINE HCL 800 MG/D5W 250 ML IV PRN (19:05)
--- NOTE | 2019-03-19 19:15 | RADIOLOGY REPORT (SQ) ---
EXAM DESCRIPTION: CT CHEST WITH; CT ABD/PELVIS WITH IV ONLY COMPLETED DATE/TIME: 03/19/2019 6:55 pm REASON FOR STUDY: progression of cancer Prostate malignancy COMPARISON: 11/26/2018 CONTRAST TYPE AND DOSE: contrast/concentration: Isovue 350.00 mg/ml; Total Contrast Delivered: 100.0 ml; Total Saline Delivered: 42.1 ml RENAL FUNCTION: GFR > 60. TECHNIQUE: CT scan of the chest performed using helical scanning technique with dynamic intravenous contrast injection. Images reviewed with lung, soft tissue and bone windows. Reconstructed coronal a nd sagittal MPR images reviewed. All images stored on PACS. CT scan of the abdomen and pelvis performed with intravenous and without oral contrastusing helical s bharath technique with dynamic intravenous contrast injection. Images reviewed with lung, soft tissu e and bone windows. Reconstructed coronal and sagittal MPR images reviewed. Delayed images for eval uation of the urinary system also acquired and evaluated. All images stored on PACS. All CT scanners at this facility use dose modulation, iterative reconstruction, and/or weight based d osing when appropriate to reduce radiation dose to as low as reasonably achievable (ALARA). [facility]: Dose Right [facility]: CareDose [facility]: Dose Right [facility]: Teradose 4D [facility]: Smart Faraday Bicycles RADIATION DOSE: CT Rad equipment meets quality standard of care and radiation dose reduction techniq ues were employed. CTDIvol: 19.8 - 21.1 mGy. DLP: 2691 mGy-cm. . LIMITATIONS: Breath motion artifact, arm positioning. FINDINGS: CHEST: LUNGS AND PLEURA: Slight interval increase in a small a moderate right pleural effusion with associat ed atelectasis or consolidation. New small left pleural effusion. HILAR AND MEDIASTINAL STRUCTURES: Large hiatal hernia. No identified masses or abnormal nodes. HEART AND VASCULAR STRUCTURES: No aneurysm or dissection. No central pulmonary emboli. No pericardi al effusion. Cardiomegaly with partially imaged pacer. HARDWARE: None. THYROID AND OTHER SOFT TISSUES: No masses. No adenopathy. BONES: No significant finding. OTHER: No other significant finding. ABDOMEN AND PELVIS: LIVER: Normal size. No masses. No dilated ducts. SPLEEN: Normal size. No focal lesions. PANCREAS: No masses. No significant calcifications. No adjacent inflammation or peripancreatic fluid collections. Pancreatic duct not dilated. GALLBLADDER: No identified stones by CT criteria. No inflammatory changes to suggest cholecystitis. ADRENAL GLANDS: No significant masses or asymmetry. RIGHT KIDNEY AND URETER: No solid masses. No significant calcification. No hydronephrosis or hydroure ter. LEFT KIDNEY AND URETER: No solid masses. No significant calcification. No hydronephrosis or hydrouret er. AORTA AND VESSELS: No aneurysm. No dissection. Renal arteries, SMA, celiac without stenosis. Calcifi c atherosclerosis and vascular calcinosis. RETROPERITONEUM: No retroperitoneal adenopathy, hemorrhage or masses. BOWEL AND PERITONEAL CAVITY: No masses or inflammatory changes. No free fluid or peritoneal masses. Status post sigmoid resection with left lower quadrant end ostomy. APPENDIX: Normal. ABDOMINAL WALL: No masses. Left lower quadrant end ostomy with a large parastomal hernia containing multiple loops of small bowel and colon. PELVIS: No mass or free fluid. Davis catheter in the bladder. BONES: No significant interval change in extensive sclerotic osseous metastatic disease. OTHER: No other significant finding. IMPRESSION: 1. Slight interval increase in a small moderate right pleural effusion with associated atelectasis or consolidation and a new small left pleural effusion. 2. No significant interval change in extensive sclerotic osseous metastatic disease. 3. No evidence of overt pelvic mass or lymphadenopathy in the stated setting of prostate malignancy. 4. Postoperative findings of sigmoid colon resection with rectal stump, left lower quadrant end osto my, and a large parastomal hernia containing multiple loops of nonobstructed small bowel and colon. TECHNICAL DOCUMENTATION: JOB ID: [id number] Quality ID # [id number]: Final reports with documentation of one or more dose reduction techniques (e.g., Au tomated exposure control, adjustment of the mA and/or kV according to patient size, use of iterative reconstruction technique) 2010 [employer]- All Rights Reserved Reading location - IP/workstation name: [email or web address]
[2019-03-20] MEDS: IPRATROPIUM/ALBUTEROL 0.5-2.5 MG/3 ML AMPUL NEB SCH ×5 (02:34→20:59)
[2019-03-20] MEDS: PANTOPRAZOLE SODIUM 40 MG TABLET.DR PO SCH ×2 (06:35→17:17)
[2019-03-20] MEDS: HEPARIN SOD (PORCINE) 5,000 UNIT/ML 1 ML VIAL SUBCUT SCH ×3 (06:35→22:57)
[2019-03-20 06:45] LABS: ABSOLUTE EOSINOPHILS # (AUTO) 0.1 10^3/uL (0.0-0.6); ABSOLUTE LYMPHOCYTES (AUTO) 0.7 10^3/uL (0.5-4.7); ABSOLUTE MONOCYTES (AUTO) 1.2 10^3/uL (0.1-1.4); ABSOLUTE NEUT (AUTO) 6.7 10^3/uL (1.7-8.2); BASOPHILS % (AUTO) 0.2 % (0-2); EOSINOPHILS % (AUTO) 1.1 % (0-6); HEMATOCRIT 29.7 % (37.9-51.0); HEMOGLOBIN 10.5 g/dL (13.5-17.0); LYMPHOCYTES % (AUTO) 7.9 % (13-45); MEAN CORPUSCULAR HEMOGLOBIN 33.3 pg (27.0-33.4); MEAN CORPUSCULAR HGB CONC 35.3 g/dL (32.0-36.0); MEAN CORPUSCULAR VOLUME 94 fl (80-97); MONOCYTES % (AUTO) 13.5 % (3-13); PLATELET COUNT 179 10^3/uL (150-450); RED BLOOD COUNT 3.14 10^6/uL (4.35-5.55); RED CELL DISTRIBUTION WIDTH 13.8 % (11.5-14.0); SEGMENTED NEUTROPHILS % (AUTO) 77.3 % (42-78); TOTAL CELLS COUNTED % (AUTO) 100 %; WHITE BLOOD COUNT 8.7 10^3/uL (4.0-10.5)
[2019-03-20 06:52] LABS: ALBUMIN 2.6 g/dL (3.5-5.0); ALKALINE PHOSPHATASE 337 U/L (38-126); ANION GAP 10 (5-19); ASPARTATE AMINO TRANSFERASE 65 U/L (17-59); BILIRUBIN,DIRECT 0.4 mg/dL (0.0-0.4); BILIRUBIN,TOTAL 1.3 mg/dL (0.2-1.3); BLOOD UREA NITROGEN 28 mg/dL (7-20); CALCIUM 7.1 mg/dL (8.4-10.2); CARBON DIOXIDE 26 mmol/L (22-30); CHLORIDE 102 mmol/L (98-107); GLUCOSE 148 mg/dL (75-110); TOTAL PROTEIN 5.4 g/dL (6.3-8.2)
[2019-03-20 06:54] LABS: POTASSIUM 2.7 mmol/L (3.6-5.0)
[2019-03-20] MEDS ORDERED: POTASSIUM CHLORIDE 10 MEQ CAPSULE.ER PO ONE (08:00)
[2019-03-20] MEDS: TERBINAFINE HCL 250 MG TABLET PO SCH (09:20)
[2019-03-20] MEDS: [UNRECOGNIZED DRUG - OTHER] PO SCH (09:20)
[2019-03-20] MEDS: POTASSIUM CHLORIDE 10 MEQ CAPSULE.ER PO SCH (09:21)
[2019-03-20] MEDS: DOCUSATE SODIUM 100 MG CAPSULE PO SCH ×2 (09:22→17:17)
[2019-03-20] MEDS: ATORVASTATIN CALCIUM 40 MG TABLET PO SCH (09:22)
[2019-03-20] MEDS: METOPROLOL SUCCINATE 25 MG TAB.SR.24H PO SCH (10:00)
--- NOTE | 2019-03-20 15:38 | PDOC PROGRESS REPORT ---
Subjective Progress Note for:: 03/20/19 Subjective:: No adverse events overnight. He remained on the dopamine drip. We turned off this morning and his diastolic dropped some but his systolic remained in the normal range. He was able to get his CT of the chest abdomen and pelvis yesterday and it showed he has had no interval change in his widely metastatic osseous disease. He remains generally edematous. He ate extremely little yesterday. Reason For Visit: GUILLE,RHBDO,POLYELECTROLYTE,ABNORMALITIES Physical Exam Vital Signs: Temp Pulse Resp BP Pulse Ox 98.8 F 75 18 116/44 L 98 03/20/19 07:44 03/20/19 13:43 03/20/19 13:43 03/20/19 08:00 03/20/19 13:43 Intake & Output 03/19/19 03/20/19 03/21/19 06:59 06:59 06:59 Intake Total 3790 1022 Output Total 2025 1175 Balance 1765 -153 Weight 103 kg 103.1 kg General appearance: PRESENT: cooperative, disheveled, mild distress, morbidly obese Respiratory exam: PRESENT: crackles - Bibasilar, symmetrical, unlabored. ABSENT: accessory muscle use, chest wall tenderness, prolonged expiratory phas, rhonchi, tachypnea, wheezes Cardiovascular exam: PRESENT: RRR, +S1, +S2 Pulses: PRESENT: normal carotid pulses Vascular exam: PRESENT: normal capillary refill GI/Abdominal exam: PRESENT: diminished bowel sounds, soft. ABSENT: distended, guarding, rebound, tenderness Extremities exam: PRESENT: pedal edema, +2 edema. ABSENT: clubbing Musculoskeletal exam: PRESENT: normal inspection. ABSENT: deformity Neurological exam: PRESENT: awake, oriented to person, oriented to place Psychiatric exam: PRESENT: flat affect Skin exam: PRESENT: dry, erythema - Circumferential on the legs between the knees and the ankles, warm Results Laboratory Results: 03/20/19 06:11 03/20/19 06:11 03/20/19 03/20/19 06:11 06:11 WBC 8.7 RBC 3.14 L Hgb 10.5 L Hct 29.7 L MCV 94 MCH 33.3 MCHC 35.3 RDW 13.8 Plt Count 179 Seg Neutrophils % 77.3 Sodium 138.4 Potassium 2.7 L* Chloride 102 Carbon Dioxide 26 Anion Gap 10 BUN 28 H Creatinine 1.04 Est GFR ( Amer) > 60 Glucose 148 H Calcium 7.1 L Magnesium 2.0 Total Bilirubin 1.3 AST 65 H Alkaline Phosphatase 337 H Total Protein 5.4 L Albumin 2.6 L 03/17/19 03/17/19 03/17/19 10:20 10:20 18:00 Creatine Kinase 2835 H Troponin I 0.184 0.136 03/18/19 03/18/19 03/19/19 00:41 08:07 04:57 Creatine Kinase 4269 H 2403 H Troponin I 0.133 03/20/19 06:11 Creatine Kinase 961 H Troponin I Impressions: Head CT 03/17/19 09:54 IMPRESSION: CHRONIC CHANGES OF ATROPHY AND MICROVASCULAR ISCHEMIA. NO ACUTE PROCESS. EVIDENCE OF ACUTE STROKE: NO. Abdomen/Pelvis CT 03/19/19 00:00 IMPRESSION: 1. Slight interval increase in a small moderate right pleural effusion with associated atelectasis or consolidation and a new small left pleural effusion. 2. No significant interval change in extensive sclerotic osseous metastatic disease. 3. No evidence of overt pelvic mass or lymphadenopathy in the stated setting of prostate malignancy. 4. 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 Chest CT 03/19/19 00:00 IMPRESSION: 1. Slight interval increase in a small moderate right pleural effusion with associated atelectasis or consolidation and a new small left pleural effusion. 2. No significant interval change in extensive sclerotic osseous metastatic disease. 3. No evidence of overt pelvic mass or lymphadenopathy in the stated setting of prostate malignancy. 4. 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 Assessment and Plan - Diagnosis (1) Acute exacerbation of CHF (congestive heart failure) Qualifiers: Heart failure type: systolic Qualified Code(s): I50.23 - Acute on chronic systolic (congestive) heart failure Is this a current diagnosis for this admission?: Yes Plan: Acute systolic heart failure. History of CAD status post stent placement. Paradoxically volume overloaded and hypotensive, off dopamine drip today but I do not think he will tolerate diuresis at this point. Continue strict in and out, volume restriction, daily weights, cardiac diet. Restart GABRIELA once GUILLE resolves or kidney function stabilizes. Restart beta-blockers once patient is euvolemic. Restart diuretics once BP is stable and GUILLE has resolved or kidney function stabilizes. Restart Aldactone once GUILLE resolves. (2) Acute renal failure Qualifiers: Acute renal failure type: unspecified Qualified Code(s): N17.9 - Acute kidney failure, unspecified Is this a current diagnosis for this admission?: Yes Plan: Now resolved, creatinine back to normal (3) CAD (coronary artery disease) Is this a current diagnosis for this admission?: Yes Plan: History of PCI and stent to LAD. Denies any anginal symptoms. Continue antiplatelets, statins, beta-blockers. Hold GABRIELA due to GUILLE. Restart as soon as possible as patient has history of CHF. Adjust meds as needed. Outpatient PCP and cardiology follow-up. (4) Hypocalcemia Is this a current diagnosis for this admission?: Yes Plan: Continue with supplementation as needed (5) Prostate cancer metastatic to bone Is this a current diagnosis for this admission?: Yes Plan: CTs that were done yesterday showed that he has had no improvement in his disease. Whole-body nuclear medicine scan is planned for today. Oncology is following. (6) Rhabdomyolysis Qualifiers: Rhabdomyolysis type: traumatic Encounter type: initial encounter Qualified Code(s): T79.6XXA - Traumatic ischemia of muscle, initial encounter Is this a current diagnosis for this admission?: Yes Plan: Essentially resolved, CK down below 1000 - Time Time Spent with patient: 25-34 minutes
--- NOTE | 2019-03-20 15:45 | RADIOLOGY REPORT (SQ) ---
EXAM DESCRIPTION: NM WHOLE BODY BONE SCAN COMPLETED DATE/TIME: 03/20/2019 3:27 pm REASON FOR STUDY: stage IV prostate cancer and bone mets COMPARISON: 11/26/2018 RADIONUCLIDE AND DOSE: 21.3 millicuries Tc99m HDP. The route of agent administration: Intravenous. ADDITIONAL DRUGS AND DOSES: None. TECHNIQUE: Routine delayed images at 3 hour post radionuclide injection acquired of the bony skeleto n including anterior and posterior whole-body projections and additional focused images as needed. LIMITATIONS: None. FINDINGS: BONES: Innumerable foci of increased uptake in the axial skeleton spine, ribs, pelvis, sku ll and proximal left femur. No definite new areas of abnormal uptake. KIDNEYS: Symmetric excretion without obstruction. OTHER: No other significant finding. IMPRESSION: Skeletal metastasis. No significant change. COMMENT: Quality measure 147: Current bone scan is compared with any available plain radiographs, p rior bone scans, and CT/MRI. TECHNICAL DOCUMENTATION: JOB ID: [id number] [email or web address]- All Rights Reserved Reading location - IP/workstation name: [email or web address]
[2019-03-20] MEDS: CEFTRIAXONE 1 GM/D5W RTU 1 GM/50 ML RTUPB IV SCH (17:17)
[2019-03-20] MEDS: OXYCODONE-ACETAMINOPHEN 5-325 MG TABLET PO PRN (18:00)
[2019-03-21] MEDS: IPRATROPIUM/ALBUTEROL 0.5-2.5 MG/3 ML AMPUL NEB SCH ×4 (02:33→20:51)
[2019-03-21] MEDS: PANTOPRAZOLE SODIUM 40 MG TABLET.DR PO SCH ×2 (06:17→17:22)
[2019-03-21] MEDS: HEPARIN SOD (PORCINE) 5,000 UNIT/ML 1 ML VIAL SUBCUT SCH ×3 (06:17→21:25)
[2019-03-21] MEDS ORDERED: FUROSEMIDE INJ/PF 40 MG/4 ML SDV ONE (08:04)
--- NOTE | 2019-03-21 08:56 | PDOC PROGRESS REPORT ---
Subjective Progress Note for:: 03/21/19 Subjective:: Long discussion w/ Daughter Junie, made pt dnr, she agrees to comfort measures, will d/w hospitalist team not to escalate care, told [facility] kellee to talk with family today Reason For Visit: GUILLE,RHBDO,POLYELECTROLYTE,ABNORMALITIES Physical Exam Vital Signs: Temp Pulse Resp BP Pulse Ox 97.5 F 80 24 H 135/61 H 100 03/21/19 07:33 03/21/19 07:33 03/21/19 07:33 03/21/19 07:33 03/21/19 07:33 Intake & Output 03/20/19 03/21/19 03/22/19 06:59 06:59 06:59 Intake Total 1022 687 Output Total 1175 2235 Balance -153 -1548 Weight 103.1 kg 103 kg General appearance: PRESENT: no acute distress, well-developed, well-nourished Head exam: PRESENT: atraumatic, normocephalic Eye exam: PRESENT: conjunctiva pink, EOMI, PERRLA. ABSENT: scleral icterus Ear exam: PRESENT: normal external ear exam Mouth exam: PRESENT: moist, tongue midline Neck exam: ABSENT: carotid bruit, JVD, lymphadenopathy, thyromegaly Respiratory exam: PRESENT: clear to auscultation zach. ABSENT: rales, rhonchi, wheezes Cardiovascular exam: PRESENT: RRR. ABSENT: diastolic murmur, rubs, systolic murmur Pulses: PRESENT: normal dorsalis pedis pul Vascular exam: PRESENT: normal capillary refill GI/Abdominal exam: PRESENT: normal bowel sounds, soft. ABSENT: distended, guarding, mass, organolmegaly, rebound, tenderness Rectal exam: PRESENT: deferred Extremities exam: PRESENT: full ROM. ABSENT: calf tenderness, clubbing, pedal edema Neurological exam: PRESENT: alert, awake, oriented to person, oriented to place, oriented to time, oriented to situation, CN II-XII grossly intact. ABSENT: motor sensory deficit Psychiatric exam: PRESENT: appropriate affect, normal mood. ABSENT: homicidal ideation, suicidal ideation Skin exam: PRESENT: dry, intact, warm. ABSENT: cyanosis, rash Results Laboratory Results: 03/20/19 06:11 03/20/19 06:11 03/21/19 07:48 Carbonic Acid Cancelled HCO3/H2CO3 Ratio Cancelled ABG pH Cancelled ABG pCO2 Cancelled ABG pO2 Cancelled ABG HCO3 Cancelled ABG O2 Saturation Cancelled ABG Base Excess Cancelled FiO2 Cancelled 03/17/19 03/17/19 03/17/19 10:20 10:20 18:00 Creatine Kinase 2835 H Troponin I 0.184 0.136 03/18/19 03/18/19 03/19/19 00:41 08:07 04:57 Creatine Kinase 4269 H 2403 H Troponin I 0.133 03/20/19 06:11 Creatine Kinase 961 H Troponin I Impressions: Head CT 03/17/19 09:54 IMPRESSION: CHRONIC CHANGES OF ATROPHY AND MICROVASCULAR ISCHEMIA. NO ACUTE PROCESS. EVIDENCE OF ACUTE STROKE: NO. Abdomen/Pelvis CT 03/19/19 00:00 IMPRESSION: 1. Slight interval increase in a small moderate right pleural effusion with associated atelectasis or consolidation and a new small left pleural effusion. 2. No significant interval change in extensive sclerotic osseous metastatic disease. 3. No evidence of overt pelvic mass or lymphadenopathy in the stated setting of prostate malignancy. 4. 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 Chest CT 03/19/19 00:00 IMPRESSION: 1. Slight interval increase in a small moderate right pleural effusion with associated atelectasis or consolidation and a new small left pleural effusion. 2. No significant interval change in extensive sclerotic osseous metastatic disease. 3. No evidence of overt pelvic mass or lymphadenopathy in the stated setting of prostate malignancy. 4. 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 Body Scan Nuclear Medicine 03/20/19 00:00 IMPRESSION: Skeletal metastasis. No significant change. Assessment & Plan - Diagnosis (1) Prostate cancer metastatic to bone Is this a current diagnosis for this admission?: Yes Plan: No further rx planned, pt is hospice appropriate, life expectancy less than 6 m, DNR - Time Time Spent with patient: 35 or more minutes
--- NOTE | 2019-03-21 09:01 | RADIOLOGY REPORT (SQ) ---
EXAM DESCRIPTION: CHEST SINGLE VIEW COMPLETED DATE/TIME: 03/21/2019 8:47 am REASON FOR STUDY: sob COMPARISON: 03/25/2017, CT chest dated 03/19/2019 NUMBER OF VIEWS: One view. TECHNIQUE: Single frontal radiographic view of the chest acquired. LIMITATIONS: None. FINDINGS: LUNGS AND PLEURA: There are bilateral pleural effusions minimal basilar atelectasis. Asym metric opacities along the right upper mediastinal border an along the right minor fissure is noted p robably representing vascular structures and fluid in the minor fissure. MEDIASTINUM AND HILAR STRUCTURES: No masses. Contour normal. HEART AND VASCULAR STRUCTURES: Heart is enlarged. No failure. BONES: No acute findings. HARDWARE: Unchanged. OTHER: No other significant finding. IMPRESSION: Persistent basilar atelectasis and small effusions. Asymmetric opacity in the right mid lung field most likely represent pseudotumor. Stable cardiomegaly. TECHNICAL DOCUMENTATION: JOB ID: [id number] [employer]- All Rights Reserved Reading location - IP/workstation name: [email or web address]
[2019-03-21] MEDS: SPIRONOLACTONE 25 MG TABLET PO SCH (10:17)
[2019-03-21] MEDS: POTASSIUM CHLORIDE 10 MEQ CAPSULE.ER PO SCH (10:17)
[2019-03-21] MEDS: LISINOPRIL 5 MG TABLET PO SCH (10:17)
[2019-03-21] MEDS: ATORVASTATIN CALCIUM 40 MG TABLET PO SCH (10:17)
[2019-03-21] MEDS: DOCUSATE SODIUM 100 MG CAPSULE PO SCH ×2 (10:17→17:22)
[2019-03-21] MEDS: METOPROLOL SUCCINATE 25 MG TAB.SR.24H PO SCH (10:18)
[2019-03-21] MEDS: TERBINAFINE HCL 250 MG TABLET PO SCH (10:18)
[2019-03-21] MEDS: FUROSEMIDE INJ/PF 40 MG/4 ML SDV IV SCH ×2 (10:18→21:22)
[2019-03-21] MEDS: [UNRECOGNIZED DRUG - OTHER] PO SCH (10:18)
[2019-03-21 10:54] LABS: ARTERIAL BLOOD BASE EXCESS 5.1 mmol/L; ARTERIAL BLOOD H2CO3 1.15 mmol/L (1.05-1.35); ARTERIAL BLOOD HCO3 28.6 mmol/L (20-24); ARTERIAL BLOOD O2 SATURATION 97.4 % (94-98); ARTERIAL BLOOD PCO2 38.2 mmHg (35-45); ARTERIAL BLOOD PH 7.49 (7.35-7.45); ARTERIAL BLOOD PO2 88.6 mmHg (80-100); ARTERIAL BLOOD TOTAL CO2 29.8 mmol/L (23-27)
[2019-03-21 10:54] LABS: HEMATOCRIT 32.1 % (37.9-51.0); HEMOGLOBIN 11.2 g/dL (13.5-17.0); MEAN CORPUSCULAR VOLUME 94 fl (80-97); PLATELET COUNT 194 10^3/uL (150-450); RED CELL DISTRIBUTION WIDTH 14.3 % (11.5-14.0); WHITE BLOOD COUNT 9.9 10^3/uL (4.0-10.5)
[2019-03-21 11:06] LABS: ARTERIAL BLOOD FIO2 2L
[2019-03-21 11:15] LABS: ALBUMIN 2.8 g/dL (3.5-5.0); ALKALINE PHOSPHATASE 328 U/L (38-126); ANION GAP 7 (5-19); ASPARTATE AMINO TRANSFERASE 45 U/L (17-59); BILIRUBIN,DIRECT 0.4 mg/dL (0.0-0.4); BILIRUBIN,TOTAL 1.2 mg/dL (0.2-1.3); BLOOD UREA NITROGEN 25 mg/dL (7-20); CALCIUM 7.5 mg/dL (8.4-10.2); CARBON DIOXIDE 33 mmol/L (22-30); CHLORIDE 97 mmol/L (98-107); GLUCOSE 168 mg/dL (75-110); POTASSIUM 3.3 mmol/L (3.6-5.0); TOTAL PROTEIN 5.9 g/dL (6.3-8.2)
[2019-03-21 11:30] LABS: ABSOLUTE LYMPHOCYTES# (MANUAL) 0.5 10^3/uL (0.5-4.7); BAND NEUTROPHILS % (MANUAL) 1 % (3-5); BASOPHILS % (MANUAL) 0 % (0-2); EOSINOPHILS % (MANUAL) 0 % (0-6); LYMPHOCYTES % (MANUAL) 5 % (13-45); MONOCYTES % (MANUAL) 10 % (3-13); SEGMENTED NEUTROPHILS % (MAN) 84 % (42-78); TOTAL CELLS COUNTED 100
[2019-03-21 11:31] LABS: ANISOCYTOSIS 1+; PLATELET COMMENT ADEQUATE
[2019-03-21] MEDS ORDERED: TUBERCULIN,PURIF.PROT.DERIV. 5 TU/0.1 ML TEST 1 ML VIAL ID ONE (15:00)
[2019-03-21] MEDS ORDERED: POTASSIUM CHLORIDE 10 MEQ CAPSULE.ER PO ONE ×2 (15:33→16:00)
--- NOTE | 2019-03-21 15:42 | PDOC PROGRESS REPORT ---
Subjective Progress Note for:: 03/21/19 Subjective:: PRAFUL PUTNAM is a 79 year old male past medical history of rectal adenocarcinoma status post sigmoid colon resection with colostomy placement 03/23/2017, metastatic prostate cancer, CAD status post PCI and LAD stent placement, CHF, venous insufficiency with chronic bilateral lower extremity swelling and stasis dermatitis care for by PCP with leg dressing weekly as outpatient. Patient brought to ED by EMS for worsening, fatigue and weakness, and declining in ADLs. As per EMS report patient was found to be extremely unkempt, covered with fecalith material from his colostomy bag and infestation of his house. On my encounter patient is resting in bed in no apparent distress seems extremely unkempt, with extensive bilateral lower extremity swelling worse on the right side with mild erythema but no discharge, extensive upper and lower extremity onychomycosis. Unfortunately patient is only alert and oriented x2, as well as hard of hearing and does not provide much history, when asked why he is in the hospital he stating that he was sent here by his daughter, also stating that his legs are hurting very much, otherwise does not provide much history. As per my conversation with the ED physician who had called patient's daughter Litzy at [phone]. She had a stated that patient lives alone, and has had precipitous decline over the last week and apparently was diagnosed with metastatic prostate cancer, he not been able to walk. She unsure of his CODE STATUS. In ED CT scan was negative, but was noted to have multiple electrolyte abnormali ties with elevated CK and WBC and acute on chronic GUILLE. Hospitalist was consulted for admission. 03/18/2019. Overnight patient developed hypotension and was given 2 L of IV boluses and was started on dopamine drip. Otherwise no acute events overnight. Saw patient this morning, was about to receive some physical therapy, stating that he had a rough night however feeling better this morning. Denies any fever, chills, nausea, vomiting, diarrhea, constipation or any urinary symptoms. Complaining of left lower extremity pain. 03/21/2019. Patient hallucinating and trying to get out of bed overnight, on my encounter patient is resting in bed, only oriented to self, does not provide much information, mild tachypnea, otherwise does not seem to be in any distress, stating that her abdomen is hurting but does not provide much information. As per Dr. Garcia's discussion with her daughter Litzy who is the POA, she has decided to transition care to DNR/DNI. Reason For Visit: GUILLE,RHBDO,POLYELECTROLYTE,ABNORMALITIES Physical Exam Vital Signs: Temp Pulse Resp BP Pulse Ox 97.7 F 71 20 126/43 H 100 03/21/19 11:37 03/21/19 14:00 03/21/19 11:37 03/21/19 11:37 03/21/19 11:37 Intake & Output 03/20/19 03/21/19 03/22/19 06:59 06:59 06:59 Intake Total 1022 687 604 Output Total 1175 2235 1050 Balance -153 -1548 -446 Weight 103.1 kg 103 kg General appearance: PRESENT: no acute distress, mild distress, well-developed, well-nourished Head exam: PRESENT: atraumatic, normocephalic Respiratory exam: PRESENT: clear to auscultation zach. ABSENT: rales, rhonchi, wheezes Cardiovascular exam: PRESENT: RRR. ABSENT: diastolic murmur, rubs, systolic murmur GI/Abdominal exam: PRESENT: distended, normal bowel sounds Neurological exam: PRESENT: altered, awake, oriented to person, CN II-XII grossly intact Results Laboratory Results: 03/21/19 10:41 03/21/19 10:41 03/21/19 03/21/19 03/21/19 07:48 10:20 10:41 WBC RBC Hgb Hct MCV MCH MCHC RDW Plt Count Seg Neutrophils % Carbonic Acid Cancelled 1.15 HCO3/H2CO3 Ratio Cancelled 24:1 ABG pH Cancelled 7.49 H ABG pCO2 Cancelled 38.2 ABG pO2 Cancelled 88.6 ABG HCO3 Cancelled 28.6 H ABG O2 Saturation Cancelled 97.4 ABG Base Excess Cancelled 5.1 FiO2 Cancelled 2L Sodium Potassium Chloride Carbon Dioxide Anion Gap BUN Creatinine Est GFR ( Amer) Glucose Calcium Magnesium 1.8 Total Bilirubin AST Alkaline Phosphatase Ammonia Total Protein Albumin Prostate Specific Ag 1870.000 H 03/21/19 03/21/19 03/21/19 10:41 10:41 10:41 WBC 9.9 RBC 3.40 L Hgb 11.2 L Hct 32.1 L MCV 94 MCH 33.0 MCHC 35.0 RDW 14.3 H Plt Count 194 Seg Neutrophils % Not Reportable Carbonic Acid HCO3/H2CO3 Ratio ABG pH ABG pCO2 ABG pO2 ABG HCO3 ABG O2 Saturation ABG Base Excess FiO2 Sodium 137.3 Potassium 3.3 L Chloride 97 L Carbon Dioxide 33 H Anion Gap 7 BUN 25 H Creatinine 0.93 Est GFR ( Amer) > 60 Glucose 168 H Calcium 7.5 L Magnesium Total Bilirubin 1.2 AST 45 Alkaline Phosphatase 328 H Ammonia < 8.7 L Total Protein 5.9 L Albumin 2.8 L Prostate Specific Ag 03/17/19 03/17/19 03/17/19 10:20 10:20 18:00 Creatine Kinase 2835 H Troponin I 0.184 0.136 03/18/19 03/18/19 03/19/19 00:41 08:07 04:57 Creatine Kinase 4269 H 2403 H Troponin I 0.133 03/20/19 06:11 Creatine Kinase 961 H Troponin I Impressions: Head CT 03/17/19 09:54 IMPRESSION: CHRONIC CHANGES OF ATROPHY AND MICROVASCULAR ISCHEMIA. NO ACUTE PROCESS. EVIDENCE OF ACUTE STROKE: NO. Abdomen/Pelvis CT 03/19/19 00:00 IMPRESSION: 1. Slight interval increase in a small moderate right pleural effusion with associated atelectasis or consolidation and a new small left pleural effusion. 2. No significant interval change in extensive sclerotic osseous metastatic disease. 3. No evidence of overt pelvic mass or lymphadenopathy in the stated setting of prostate malignancy. 4. 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 Chest CT 03/19/19 00:00 IMPRESSION: 1. Slight interval increase in a small moderate right pleural effusion with associated atelectasis or consolidation and a new small left pleural effusion. 2. No significant interval change in extensive sclerotic osseous metastatic disease. 3. No evidence of overt pelvic mass or lymphadenopathy in the stated setting of prostate malignancy. 4. 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 Body Scan Nuclear Medicine 03/20/19 00:00 IMPRESSION: Skeletal metastasis. No significant change. Chest X-Ray 03/21/19 00:00 IMPRESSION: Persistent basilar atelectasis and small effusions. Asymmetric opacity in the right midlung field most likely represent pseudotumor. Stable cardiomegaly. Assessment and Plan - Diagnosis (1) Acute exacerbation of CHF (congestive heart failure) Qualifiers: Heart failure type: systolic Qualified Code(s): I50.23 - Acute on chronic systolic (congestive) heart failure Is this a current diagnosis for this admission?: Yes Plan: Significant improvement since admission. Mild bilateral lower extremity edema otherwise euvolemic. Acute systolic heart failure. History of CAD status post stent placement. Continue strict in and out, volume restriction, IV Lasix, beta-blockers, spironolactone, daily weights, cardiac diet. (2) Rhabdomyolysis Qualifiers: Rhabdomyolysis type: traumatic Encounter type: initial encounter Qualified Code(s): T79.6XXA - Traumatic ischemia of muscle, initial encounter Is this a current diagnosis for this admission?: Yes Plan: Resolved. Renal function WNL. CK trending not sure if patient had any trauma but based on presenting patient may have had prolonged immobility. (3) Acute renal failure Qualifiers: Acute renal failure type: unspecified Qualified Code(s): N17.9 - Acute kidney failure, unspecified Is this a current diagnosis for this admission?: Yes Plan: Resolved. Multifactorial. Due to low p.o. intake, and underlying rhabdomyolysis. Cautious volume resuscitation given history of CHF and volume overload. Monitor electrolytes and volume status. Replace electrolytes as needed. Avoid nephrotoxic meds. (4) Physical deconditioning Is this a current diagnosis for this admission?: Yes Plan: Improving. Continue telemetry, correct polyelectrolyte abnormalities, and PT/OT. Patient is DNR/DNI as per daughter who is the POA after discussion with Dr. Garcia who is oncologist. (5) CAD (coronary artery disease) Is this a current diagnosis for this admission?: Yes Plan: History of PCI and stent to LAD. Denies any anginal symptoms. Continue antiplatelets, statins, beta-blockers and GABRIELA. Adjust meds as needed. Outpatient PCP and cardiology follow-up. (6) Rectal carcinoma Is this a current diagnosis for this admission?: Yes Plan: Status post sigmoid colectomy and colostomy placement in 2017. Oncologist Dr[address] Garcia. Consulted. Pending recommendations. Continue colostomy care and monitor volume status and electrolytes. (7) Metastatic malignant neoplasm to prostate Is this a current diagnosis for this admission?: Yes Plan: Recently diagnosed. With mets to base of the skull. As per Dr. Morse oncologist note he is scheduled for restaging scan next week and possible radiation. Meanwhile provide pain management. Dr. Garcia is his oncologist who is out of town will be back tomorrow. (8) Hypokalemia Is this a current diagnosis for this admission?: Yes Plan: Multifactorial likely due to low p.o. intake, recent GUILLE and rhabdomyolysis. No acute EKG changes. Continue telemetry, replace potassium as needed, BMP tomorrow. (9) Hypomagnesemia Is this a current diagnosis for this admission?: Yes Plan: Resolved. Multifactorial likely due to low p.o. intake, recent GUILLE and rhabdomyolysis. Continue telemetry, replace as needed, magnesium level tomorrow. (10) Hyponatremia Is this a current diagnosis for this admission?: Yes Plan: Resolved. Multifactorial likely due to low p.o. intake, recent GUILLE and rhabdomyolysis. Continue telemetry, monitor for seizures, replace as needed. Sodium level tomorrow. (11) Hypocalcemia Is this a current diagnosis for this admission?: Yes Plan: Improving. Likely due to low p.o. intake. Continue with supplementation as needed (12) Onychomycosis Is this a current diagnosis for this admission?: Yes Plan: Extensive upper and lower extremity. On terbinafine. There are signs of new healthy nail is growing. Continue terbinafine. Outpatient cellars supervisor follow-up.
[2019-03-21] MEDS ORDERED: CALCIUM GLUCONATE 1000 MG/10 ML INJ IV ONE (16:00)
[2019-03-21] MEDS ORDERED: MAGNESIUM SULFATE/D5W 1 GM/100 ML RTUPB IV ONE (16:00)
[2019-03-22] MEDS: IPRATROPIUM/ALBUTEROL 0.5-2.5 MG/3 ML AMPUL NEB SCH ×4 (02:15→20:59)
[2019-03-22] MEDS: HEPARIN SOD (PORCINE) 5,000 UNIT/ML 1 ML VIAL SUBCUT SCH ×3 (05:13→21:42)
[2019-03-22] MEDS: PANTOPRAZOLE SODIUM 40 MG TABLET.DR PO SCH ×2 (05:14→17:52)
--- NOTE | 2019-03-22 10:14 | PDOC PROGRESS REPORT ---
Subjective Progress Note for:: 03/22/19 Subjective:: PRAFUL PUTNAM is a 79 year old male past medical history of rectal adenocarcinoma status post sigmoid colon resection with colostomy placement 03/23/2017, metastatic prostate cancer, CAD status post PCI and LAD stent placement, CHF, venous insufficiency with chronic bilateral lower extremity swelling and stasis dermatitis care for by PCP with leg dressing weekly as outpatient. Patient brought to ED by EMS for worsening, fatigue and weakness, and declining in ADLs. As per EMS report patient was found to be extremely unkempt, covered with fecalith material from his colostomy bag and infestation of his house. On my encounter patient is resting in bed in no apparent distress seems extremely unkempt, with extensive bilateral lower extremity swelling worse on the right side with mild erythema but no discharge, extensive upper and lower extremity onychomycosis. Unfortunately patient is only alert and oriented x2, as well as hard of hearing and does not provide much history, when asked why he is in the hospital he stating that he was sent here by his daughter, also stating that his legs are hurting very much, otherwise does not provide much history. As per my conversation with the ED physician who had called patient's daughter Litzy at [phone]. She had a stated that patient lives alone, and has had precipitous decline over the last week and apparently was diagnosed with metastatic prostate cancer, he not been able to walk. She unsure of his CODE STATUS. In ED CT scan was negative, but was noted to have multiple electrolyte abnormali ties with elevated CK and WBC and acute on chronic GUILLE. Hospitalist was consulted for admission. 03/18/2019. Overnight patient developed hypotension and was given 2 L of IV boluses and was started on dopamine drip. Otherwise no acute events overnight. Saw patient this morning, was about to receive some physical therapy, stating that he had a rough night however feeling better this morning. Denies any fever, chills, nausea, vomiting, diarrhea, constipation or any urinary symptoms. Complaining of left lower extremity pain. 03/21/2019. Patient hallucinating and trying to get out of bed overnight, on my encounter patient is resting in bed, only oriented to self, does not provide much information, mild tachypnea, otherwise does not seem to be in any distress, stating that her abdomen is hurting but does not provide much information. As per Dr. Garcia's discussion with her daughter Litzy who is the POA, she has decided to transition care to DNR/DNI. 03/22/2019. No acute events overnight. Patient comfortably resting in bed, enjoying his breakfast. Denies any fever, chills, nausea, vomiting, diarrhea, constipation or any urinary symptoms. Patient is DNR/DNI as of 03/21/2019. Reason For Visit: GUILLE,RHBDO,POLYELECTROLYTE,ABNORMALITIES Physical Exam Vital Signs: Temp Pulse Resp BP Pulse Ox 98.1 F 80 18 108/44 L 100 03/22/19 08:24 03/22/19 08:24 03/22/19 08:24 03/22/19 08:24 03/22/19 08:24 Intake & Output 03/21/19 03/22/19 03/23/19 06:59 06:59 06:59 Intake Total 687 1648 Output Total 2235 1400 Balance -1548 248 Weight 103 kg 103 kg General appearance: PRESENT: obese Head exam: PRESENT: atraumatic, normocephalic Respiratory exam: PRESENT: clear to auscultation zach. ABSENT: rales, rhonchi, wheezes Cardiovascular exam: PRESENT: RRR. ABSENT: diastolic murmur, rubs, systolic murmur GI/Abdominal exam: PRESENT: normal bowel sounds, soft. ABSENT: distended, guarding, mass, organolmegaly, rebound, tenderness Extremities exam: PRESENT: full ROM. ABSENT: calf tenderness, clubbing, pedal edema Musculoskeletal exam: PRESENT: tenderness - rt lower ex Neurological exam: PRESENT: alert, awake, oriented to person, oriented to place, CN II-XII grossly intact. ABSENT: motor sensory deficit Results Laboratory Results: 03/21/19 10:41 03/21/19 10:41 03/21/19 03/21/19 03/21/19 10:20 10:41 10:41 WBC RBC Hgb Hct MCV MCH MCHC RDW Plt Count Seg Neutrophils % Carbonic Acid 1.15 HCO3/H2CO3 Ratio 24:1 ABG pH 7.49 H ABG pCO2 38.2 ABG pO2 88.6 ABG HCO3 28.6 H ABG O2 Saturation 97.4 ABG Base Excess 5.1 FiO2 2L Sodium 137.3 Potassium 3.3 L Chloride 97 L Carbon Dioxide 33 H Anion Gap 7 BUN 25 H Creatinine 0.93 Est GFR ( Amer) > 60 Glucose 168 H Calcium 7.5 L Magnesium 1.8 Total Bilirubin 1.2 AST 45 Alkaline Phosphatase 328 H Ammonia Total Protein 5.9 L Albumin 2.8 L Prostate Specific Ag 1870.000 H 03/21/19 03/21/19 10:41 10:41 WBC 9.9 RBC 3.40 L Hgb 11.2 L Hct 32.1 L MCV 94 MCH 33.0 MCHC 35.0 RDW 14.3 H Plt Count 194 Seg Neutrophils % Not Reportable Carbonic Acid HCO3/H2CO3 Ratio ABG pH ABG pCO2 ABG pO2 ABG HCO3 ABG O2 Saturation ABG Base Excess FiO2 Sodium Potassium Chloride Carbon Dioxide Anion Gap BUN Creatinine Est GFR ( Amer) Glucose Calcium Magnesium Total Bilirubin AST Alkaline Phosphatase Ammonia < 8.7 L Total Protein Albumin Prostate Specific Ag 03/17/19 03/17/19 03/17/19 10:20 10:20 18:00 Creatine Kinase 2835 H Troponin I 0.184 0.136 03/18/19 03/18/19 03/19/19 00:41 08:07 04:57 Creatine Kinase 4269 H 2403 H Troponin I 0.133 03/20/19 06:11 Creatine Kinase 961 H Troponin I Impressions: Head CT 03/17/19 09:54 IMPRESSION: CHRONIC CHANGES OF ATROPHY AND MICROVASCULAR ISCHEMIA. NO ACUTE PROCESS. EVIDENCE OF ACUTE STROKE: NO. Abdomen/Pelvis CT 03/19/19 00:00 IMPRESSION: 1. Slight interval increase in a small moderate right pleural effusion with associated atelectasis or consolidation and a new small left pleural effusion. 2. No significant interval change in extensive sclerotic osseous metastatic disease. 3. No evidence of overt pelvic mass or lymphadenopathy in the stated setting of prostate malignancy. 4. 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 Chest CT 03/19/19 00:00 IMPRESSION: 1. Slight interval increase in a small moderate right pleural effusion with associated atelectasis or consolidation and a new small left pleural effusion. 2. No significant interval change in extensive sclerotic osseous metastatic disease. 3. No evidence of overt pelvic mass or lymphadenopathy in the stated setting of prostate malignancy. 4. 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 Body Scan Nuclear Medicine 03/20/19 00:00 IMPRESSION: Skeletal metastasis. No significant change. Chest X-Ray 03/21/19 00:00 IMPRESSION: Persistent basilar atelectasis and small effusions. Asymmetric opacity in the right midlung field most likely represent pseudotumor. Stable cardiomegaly. Assessment and Plan - Diagnosis (1) Acute exacerbation of CHF (congestive heart failure) Qualifiers: Heart failure type: systolic Qualified Code(s): I50.23 - Acute on chronic s ystolic (congestive) heart failure Is this a current diagnosis for this admission?: Yes Plan: Significant improvement since admission. Mild bilateral lower extremity edema otherwise euvolemic. Acute systolic heart failure. History of CAD status post stent placement. Continue strict in and out, volume restriction, IV Lasix, beta-blockers, spironolactone, daily weights, cardiac diet. (2) Rhabdomyolysis Qualifiers: Rhabdomyolysis type: traumatic Encounter type: initial encounter Qualified Code(s): T79.6XXA - Traumatic ischemia of muscle, initial encounter Is this a current diagnosis for this admission?: Yes Plan: Resolved. Renal function WNL. CK trending not sure if patient had any trauma but based on presenting patient may have had prolonged immobility. (3) Acute renal failure Qualifiers: Acute renal failure type: unspecified Qualified Code(s): N17.9 - Acute kidney failure, unspecified Is this a current diagnosis for this admission?: Yes Plan: Resolved. Multifactorial. Due to low p.o. intake, and underlying rhabdomyolysis. Cautious volume resuscitation given history of CHF and volume overload. Monitor electrolytes and volume status. Replace electrolytes as needed. Avoid nephrotoxic meds. (4) Physical deconditioning Is this a current diagnosis for this admission?: Yes Plan: Improving. Continue telemetry, correct polyelectrolyte abnormalities, and PT/OT. Patient is DNR/DNI as per daughter who is the POA after discussion with Dr. Garcia who is oncologist. (5) CAD (coronary artery disease) Is this a current diagnosis for this admission?: Yes Plan: History of PCI and stent to LAD. Denies any anginal symptoms. Continue antiplatelets, statins, beta-blockers and GABRIELA. Adjust meds as needed. Outpatient PCP and cardiology follow-up. (6) Rectal carcinoma Is this a current diagnosis for this admission?: Yes Plan: Status post sigmoid colectomy and colostomy placement in 2017. On[address]ologist [address] Garcia. Consulted. Pending recommendations. Continue colostomy care and monitor volume status and electrolytes. (7) Metastatic malignant neoplasm to prostate Is this a current diagnosis for this admission?: Yes Plan: Recently diagnosed. With mets to base of the skull. As per Dr. Morse oncologist note he is scheduled for restaging scan next week and possible radiation. Meanwhile provide pain management. Dr. Garcia is his oncologist who is out of town will be back tomorrow. (8) Hypokalemia Is this a current diagnosis for this admission?: Yes Plan: Multifactorial likely due to low p.o. intake, recent GUILLE and rhabdomyolysis. No acute EKG changes. Continue telemetry, replace potassium as needed, BMP tomorrow. (9) Hypomagnesemia Is this a current diagnosis for this admission?: Yes Plan: Resolved. Multifactorial likely due to low p.o. intake, recent GUILLE and rhabdomyolysis. Continue telemetry, replace as needed, magnesium level tomorrow. (10) Hyponatremia Is this a current diagnosis for this admission?: Yes Plan: Resolved. Multifactorial likely due to low p.o. intake, recent GUILLE and rhabdomyolysis. Continue telemetry, monitor for seizures, replace as needed. Sodium level tomorrow. (11) Hypocalcemia Is this a current diagnosis for this admission?: Yes Plan: Improving. Likely due to low p.o. intake. Continue with supplementation as needed (12) Onychomycosis Is this a current diagnosis for this admission?: Yes Plan: Extensive upper and lower extremity. On terbinafine. There are signs of new healthy nail is growing. Continue terbinafine. Outpatient engine setter follow-up. (13) Cellulitis of right lower extremity Is this a current diagnosis for this admission?: Yes Plan: Significant improvement since admission. stove tender to palpation with erythema. No sign of active discharge. Day 6 IV ceftriaxone. Cultures negative.
[2019-03-22] MEDS: DOCUSATE SODIUM 100 MG CAPSULE PO SCH ×2 (10:37→17:52)
[2019-03-22] MEDS: ATORVASTATIN CALCIUM 40 MG TABLET PO SCH (10:37)
[2019-03-22] MEDS: METOPROLOL SUCCINATE 25 MG TAB.SR.24H PO SCH (10:37)
[2019-03-22] MEDS: POTASSIUM CHLORIDE 10 MEQ CAPSULE.ER PO SCH (10:37)
[2019-03-22] MEDS: SPIRONOLACTONE 25 MG TABLET PO SCH (10:37)
[2019-03-22] MEDS: CEFTRIAXONE 1 GM/D5W RTU 1 GM/50 ML RTUPB IV SCH (10:38)
[2019-03-22] MEDS: [UNRECOGNIZED DRUG - OTHER] PO SCH (10:38)
[2019-03-22] MEDS: TERBINAFINE HCL 250 MG TABLET PO SCH (10:38)
[2019-03-22] MEDS: FUROSEMIDE INJ/PF 40 MG/4 ML SDV IV SCH (11:01)
[2019-03-22] MEDS: LISINOPRIL 5 MG TABLET PO SCH (11:01)
[2019-03-22] MEDS: FUROSEMIDE 20 MG TABLET PO SCH (17:52)
[2019-03-23] MEDS: IPRATROPIUM/ALBUTEROL 0.5-2.5 MG/3 ML AMPUL NEB SCH ×4 (01:57→20:49)
[2019-03-23] MEDS: TEMAZEPAM 7.5 MG CAPSULE PO PRN (02:37)
[2019-03-23] MEDS: HEPARIN SOD (PORCINE) 5,000 UNIT/ML 1 ML VIAL SUBCUT SCH ×3 (06:35→22:45)
[2019-03-23] MEDS: PANTOPRAZOLE SODIUM 40 MG TABLET.DR PO SCH ×2 (06:35→17:37)
[2019-03-23] MEDS: METOPROLOL SUCCINATE 25 MG TAB.SR.24H PO SCH (10:56)
[2019-03-23] MEDS: LISINOPRIL 5 MG TABLET PO SCH (10:56)
[2019-03-23] MEDS: FUROSEMIDE 20 MG TABLET PO SCH ×2 (10:57→17:37)
[2019-03-23] MEDS: SPIRONOLACTONE 25 MG TABLET PO SCH (10:57)
[2019-03-23] MEDS: CEFTRIAXONE 1 GM/D5W RTU 1 GM/50 ML RTUPB IV SCH (11:00)
[2019-03-23] MEDS: POTASSIUM CHLORIDE 10 MEQ CAPSULE.ER PO SCH (11:00)
[2019-03-23] MEDS: ATORVASTATIN CALCIUM 40 MG TABLET PO SCH (11:00)
[2019-03-23] MEDS: DOCUSATE SODIUM 100 MG CAPSULE PO SCH ×2 (11:00→17:37)
[2019-03-23] MEDS: [UNRECOGNIZED DRUG - OTHER] PO SCH (11:00)
[2019-03-23] MEDS: TERBINAFINE HCL 250 MG TABLET PO SCH (11:00)
--- NOTE | 2019-03-23 14:44 | PDOC PROGRESS REPORT ---
Subjective Progress Note for:: 03/23/19 Subjective:: No adverse events overnight. He is little disoriented at times. Blood pressure was little low so we had to hold his medications this morning. Reason For Visit: GUILLE,RHBDO,POLYELECTROLYTE,ABNORMALITIES Physical Exam Vital Signs: Temp Pulse Resp BP Pulse Ox 99.8 F 93 18 113/40 L 96 03/23/19 11:29 03/23/19 14:00 03/23/19 14:00 03/23/19 11:29 03/23/19 11:29 Intake & Output 03/22/19 03/23/19 03/24/19 06:59 06:59 06:59 Intake Total 1648 830 170 Output Total 1400 675 150 Balance 248 155 20 Weight 103 kg 106.7 kg General appearance: PRESENT: cooperative, disheveled, mild distress, morbidly obese Respiratory exam: PRESENT: crackles - Bibasilar, symmetrical, unlabored. ABSENT: accessory muscle use, chest wall tenderness, prolonged expiratory phas, rhonchi, tachypnea, wheezes Cardiovascular exam: PRESENT: RRR, +S1, +S2 Pulses: PRESENT: normal carotid pulses Vascular exam: PRESENT: normal capillary refill GI/Abdominal exam: PRESENT: diminished bowel sounds, soft. ABSENT: distended, guarding, rebound, tenderness Extremities exam: PRESENT: pedal edema, +2 edema. ABSENT: clubbing Musculoskeletal exam: PRESENT: normal inspection. ABSENT: deformity Neurological exam: PRESENT: awake, oriented to person, oriented to place Psychiatric exam: PRESENT: flat affect Skin exam: PRESENT: dry, erythema - Circumferential on the legs between the knees and the ankles, warm Results Laboratory Results: 03/21/19 10:41 03/21/19 10:41 03/17/19 13:36 Blood Blood Culture - Final NO GROWTH IN 5 DAYS 03/17/19 10:20 Blood Blood Culture - Final NO GROWTH IN 5 DAYS 03/17/19 03/17/19 03/17/19 10:20 10:20 18:00 Creatine Kinase 2835 H Troponin I 0.184 0.136 03/18/19 03/18/19 03/19/19 00:41 08:07 04:57 Creatine Kinase 4269 H 2403 H Troponin I 0.133 03/20/19 06:11 Creatine Kinase 961 H Troponin I Impressions: Head CT 03/17/19 09:54 IMPRESSION: CHRONIC CHANGES OF ATROPHY AND MICROVASCULAR ISCHEMIA. NO ACUTE PROCESS. EVIDENCE OF ACUTE STROKE: NO. Abdomen/Pelvis CT 03/19/19 00:00 IMPRESSION: 1. Slight interval increase in a small moderate right pleural effusion with associated atelectasis or consolidation and a new small left pleural effusion. 2. No significant interval change in extensive sclerotic osseous metastatic disease. 3. No evidence of overt pelvic mass or lymphadenopathy in the stated setting of prostate malignancy. 4. 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 Chest CT 03/19/19 00:00 IMPRESSION: 1. Slight interval increase in a small moderate right pleural effusion with associated atelectasis or consolidation and a new small left pleural effusion. 2. No significant interval change in extensive sclerotic osseous metastatic disease. 3. No evidence of overt pelvic mass or lymphadenopathy in the stated setting of prostate malignancy. 4. 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 Body Scan Nuclear Medicine 03/20/19 00:00 IMPRESSION: Skeletal metastasis. No significant change. Chest X-Ray 03/21/19 00:00 IMPRESSION: Persistent basilar atelectasis and small effusions. Asymmetric opacity in the right midlung field most likely represent pseudotumor. Stable cardiomegaly. Assessment and Plan - Diagnosis (1) Acute exacerbation of CHF (congestive heart failure) Qualifiers: Heart failure type: systolic Qualified Code(s): I50.23 - Acute on chronic systolic (congestive) heart failure Is this a current diagnosis for this admission?: Yes Plan: Mild improvement since admission. Moderate bilateral lower extremity edema. Show signs of being paradoxically intravascularly volume depleted. Acute systolic heart failure. History of CAD status post stent placement. Continue strict in and out, volume restriction, IV Lasix, beta-blockers, spiron olactone, daily weights, cardiac diet. (2) Acute renal failure Qualifiers: Acute renal failure type: unspecified Qualified Code(s): N17.9 - Acute kidney failure, unspecified Is this a current diagnosis for this admission?: Yes Plan: Resolved (3) CAD (coronary artery disease) Is this a current diagnosis for this admission?: Yes Plan: History of PCI and stent to LAD. Denies any anginal symptoms. Continue antiplatelets, statins, beta-blockers and GABRIELA. Adjust meds as needed. Outpatient PCP and cardiology follow-up. (4) Hypocalcemia Is this a current diagnosis for this admission?: Yes Plan: Improving. Likely due to low p.o. intake. Continue with supplementation as needed (5) Prostate cancer metastatic to bone Is this a current diagnosis for this admission?: Yes Plan: CTs that were done showed that he has had no improvement in his disease. Same of treatment of nuclear medicine scan. Hospice appropriate per oncology. (6) Rhabdomyolysis Qualifiers: Rhabdomyolysis type: traumatic Encounter type: initial encounter Qualified Code(s): T79.6XXA - Traumatic ischemia of muscle, initial encounter Is this a current diagnosis for this admission?: Yes Plan: Resolved. Renal function WNL. CK trending not sure if patient had any trauma but based on presenting patient may have had prolonged immobility. - Time Time Spent with patient: 15-24 minutes
[2019-03-24] MEDS: IPRATROPIUM/ALBUTEROL 0.5-2.5 MG/3 ML AMPUL NEB SCH ×2 (02:54→08:44)
[2019-03-24] MEDS: PANTOPRAZOLE SODIUM 40 MG TABLET.DR PO SCH ×2 (05:41→17:47)
[2019-03-24] MEDS: HEPARIN SOD (PORCINE) 5,000 UNIT/ML 1 ML VIAL SUBCUT SCH ×3 (05:42→21:32)
--- NOTE | 2019-03-24 08:12 | PDOC PROGRESS REPORT ---
Subjective Progress Note for:: 03/24/19 Subjective:: No acute events overnight, hospice meeting today Reason For Visit: GUILLE,RHBDO,POLYELECTROLYTE,ABNORMALITIES Physical Exam Vital Signs: Temp Pulse Resp BP Pulse Ox 99.3 F 70 24 H 116/43 L 95 03/24/19 03:15 03/24/19 07:00 03/24/19 03:15 03/24/19 03:15 03/24/19 03:15 Intake & Output 03/23/19 03/24/19 03/25/19 06:59 06:59 06:59 Intake Total 830 370 Output Total 675 1020 Balance 155 -650 Weight 106.7 kg 106.5 kg General appearance: PRESENT: no acute distress, well-developed, well-nourished Head exam: PRESENT: atraumatic, normocephalic Eye exam: PRESENT: conjunctiva pink, EOMI, PERRLA. ABSENT: scleral icterus Ear exam: PRESENT: normal external ear exam Mouth exam: PRESENT: moist, tongue midline Neck exam: ABSENT: carotid bruit, JVD, lymphadenopathy, thyromegaly Respiratory exam: PRESENT: clear to auscultation zach. ABSENT: rales, rhonchi, wheezes Cardiovascular exam: PRESENT: RRR. ABSENT: diastolic murmur, rubs, systolic murmur Pulses: PRESENT: normal dorsalis pedis pul Vascular exam: PRESENT: normal capillary refill GI/Abdominal exam: PRESENT: normal bowel sounds, soft. ABSENT: distended, guarding, mass, organolmegaly, rebound, tenderness Rectal exam: PRESENT: deferred Extremities exam: PRESENT: full ROM. ABSENT: calf tenderness, clubbing, pedal edema Neurological exam: PRESENT: alert, awake, oriented to person, oriented to place, oriented to time, oriented to situation, CN II-XII grossly intact. ABSENT: motor sensory deficit Psychiatric exam: PRESENT: appropriate affect, normal mood. ABSENT: homicidal ideation, suicidal ideation Skin exam: PRESENT: dry, intact, warm. ABSENT: cyanosis, rash Results Laboratory Results: 03/21/19 10:41 03/21/19 10:41 03/17/19 03/17/19 03/17/19 10:20 10:20 18:00 Creatine Kinase 2835 H Troponin I 0.184 0.136 03/18/19 03/18/1919 00:41 08:07 04:57 Creatine Kinase 4269 H 2403 H Troponin I 0.133 03/20/19 06:11 Creatine Kinase 961 H Troponin I Impressions: Head CT 03/17/19 09:54 IMPRESSION: CHRONIC CHANGES OF ATROPHY AND MICROVASCULAR ISCHEMIA. NO ACUTE PROCESS. EVIDENCE OF ACUTE STROKE: NO. Abdomen/Pelvis CT 03/19/19 00:00 IMPRESSION: 1. Slight interval increase in a small moderate right pleural effusion with associated atelectasis or consolidation and a new small left pleural effusion. 2. No significant interval change in extensive sclerotic osseous metastatic disease. 3. No evidence of overt pelvic mass or lymphadenopathy in the stated setting of prostate malignancy. 4. 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 Chest CT 03/19/19 00:00 IMPRESSION: 1. Slight interval increase in a small moderate right pleural effusion with associated atelectasis or consolidation and a new small left pleural effusion. 2. No significant interval change in extensive sclerotic osseous metastatic disease. 3. No evidence of overt pelvic mass or lymphadenopathy in the stated setting of prostate malignancy. 4. 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 Body Scan Nuclear Medicine 03/20/19 00:00 IMPRESSION: Skeletal metastasis. No significant change. Chest X-Ray 03/21/19 00:00 IMPRESSION: Persistent basilar atelectasis and small effusions. Asymmetric opacity in the right midlung field most likely represent pseudotumor. Stable cardiomegaly. Assessment & Plan - Diagnosis (1) Prostate cancer metastatic to bone Is this a current diagnosis for this admission?: Yes Plan: Hospice meeting today, hopefully thereafter we can get him towards some sort of assisted living set up - Time Time Spent with patient: 35 or more minutes - Inpatient Certification Based on my medical assessment, after consideration of the patient's com orbidities, presenting symptoms, or acuity I expect that the services needed warrant INPATIENT care.: Yes I certify that my determination is in accordance with my understanding of Medicare's requirements for reasonable and necessary INPATIENT services [42 CFR 412.3e].: Yes Medical Necessity: Risk of Complication if Not Cared For in Hospital
[2019-03-24] MEDS: LISINOPRIL 5 MG TABLET PO SCH (09:28)
[2019-03-24] MEDS: DOCUSATE SODIUM 100 MG CAPSULE PO SCH ×2 (09:29→17:47)
[2019-03-24] MEDS: FUROSEMIDE 20 MG TABLET PO SCH ×2 (09:29→17:47)
[2019-03-24] MEDS: METOPROLOL SUCCINATE 25 MG TAB.SR.24H PO SCH (09:29)
[2019-03-24] MEDS: ATORVASTATIN CALCIUM 40 MG TABLET PO SCH (09:29)
[2019-03-24] MEDS: POTASSIUM CHLORIDE 10 MEQ CAPSULE.ER PO SCH (09:29)
[2019-03-24] MEDS: TERBINAFINE HCL 250 MG TABLET PO SCH (09:29)
[2019-03-24] MEDS: [UNRECOGNIZED DRUG - OTHER] PO SCH (09:29)
[2019-03-24] MEDS: SPIRONOLACTONE 25 MG TABLET PO SCH (09:29)
[2019-03-24] MEDS: CEFTRIAXONE 1 GM/D5W RTU 1 GM/50 ML RTUPB IV SCH (09:29)
[2019-03-24] MEDS ORDERED: IPRATROPIUM/ALBUTEROL 0.5-2.5 MG/3 ML AMPUL NEB PRN (09:34)
--- NOTE | 2019-03-24 13:33 | PDOC PROGRESS REPORT ---
Subjective Progress Note for:: 03/24/19 Subjective:: No adverse events overnight. He is little disoriented at times. Oral intake is poor. Blood pressures fortunately remained stable. Reason For Visit: GUILLE,RHBDO,POLYELECTROLYTE,ABNORMALITIES Physical Exam Vital Signs: Temp Pulse Resp BP Pulse Ox 99.0 F 70 19 118/45 L 97 03/24/19 11:55 03/24/19 11:55 03/24/19 11:55 03/24/19 11:55 03/24/19 11:55 Intake & Output 03/23/19 03/24/19 03/25/19 06:59 06:59 06:59 Intake Total 830 370 50 Output Total 675 1020 Balance 155 -650 50 Weight 106.7 kg 106.5 kg General appearance: PRESENT: cooperative, disheveled, mild distress, morbidly obese Respiratory exam: PRESENT: crackles - Bibasilar, symmetrical, unlabored. ABSENT: accessory muscle use, chest wall tenderness, prolonged expiratory phas, rhonchi, tachypnea, wheezes Cardiovascular exam: PRESENT: RRR, +S1, +S2 Pulses: PRESENT: normal carotid pulses Vascular exam: PRESENT: normal capillary refill GI/Abdominal exam: PRESENT: diminished bowel sounds, soft. ABSENT: distended, guarding, rebound, tenderness Extremities exam: PRESENT: pedal edema, +2 edema. ABSENT: clubbing Musculoskeletal exam: PRESENT: normal inspection. ABSENT: deformity Neurological exam: PRESENT: awake, oriented to person, oriented to place Psychiatric exam: PRESENT: flat affect Skin exam: PRESENT: dry, erythema - Circumferential on the legs between the knees and the ankles, warm Results Laboratory Results: 03/21/19 10:41 03/21/19 10:41 03/17/19 03/17/19 03/17/19 10:20 10:20 18:00 Creatine Kinase 2835 H Troponin I 0.184 0.136 03/18/19 03/18/19 03/19/19 00:41 08:07 04:57 Creatine Kinase 4269 H 2403 H Troponin I 0.133 03/20/19 06:11 Creatine Kinase 961 H Troponin I Impressions: Head CT 03/17/19 09:54 IMPRESSION: CHRONIC CHANGES OF ATROPHY AND MICROVASCULAR ISCHEMIA. NO ACUTE PROCESS. EVIDENCE OF ACUTE STROKE: NO. Abdomen/Pelvis CT 03/19/19 00:00 IMPRESSION: 1. Slight interval increase in a small moderate right pleural effusion with associated atelectasis or consolidation and a new small left pleural effusion. 2. No significant interval change in extensive sclerotic osseous metastatic disease. 3. No evidence of overt pelvic mass or lymphadenopathy in the stated setting of prostate malignancy. 4. 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 Chest CT 03/19/19 00:00 IMPRESSION: 1. Slight interval increase in a small moderate right pleural effusion with associated atelectasis or consolidation and a new small left pleural effusion. 2. No significant interval change in extensive sclerotic osseous metastatic disease. 3. No evidence of overt pelvic mass or lymphadenopathy in the stated setting of prostate malignancy. 4. 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 Body Scan Nuclear Medicine 03/20/19 00:00 IMPRESSION: Skeletal metastasis. No significant change. Chest X-Ray 03/21/19 00:00 IMPRESSION: Persistent basilar atelectasis and small effusions. Asymmetric opacity in the right midlung field most likely represent pseudotumor. Stable cardiomegaly. Assessment and Plan - Diagnosis (1) Acute exacerbation of CHF (congestive heart failure) Qualifiers: Heart failure type: systolic Qualified Code(s): I50.23 - Acute on chronic systolic (congestive) heart failure Is this a current diagnosis for this admission?: Yes Plan: Mild improvement since admission. Moderate bilateral lower extremity edema. Show signs of being paradoxically intravascularly volume depleted. Acute systolic heart failure. History of CAD status post stent placement. Continue strict in and out, volume restriction, IV Lasix, beta-blockers, spironolactone, daily weights, cardiac diet. (2) Acute renal failure Qualifiers: Acute renal failure type: unspecified Qualified Code(s): N17.9 - Acute kidney failure, unspecified Is this a current diagnosis for this admission?: Yes Plan: Resolved (3) CAD (coronary artery disease) Is this a current diagnosis for this admission?: Yes Plan: History of PCI and stent to LAD. Denies any anginal symptoms. Continue antiplatelets, statins, beta-blockers and GABRIELA. Adjust meds as needed. Outpatient PCP and cardiology follow-up. (4) Hypocalcemia Is this a current diagnosis for this admission?: Yes Plan: Likely due to low p.o. intake. Continue with supplementation as needed (5) Prostate cancer metastatic to bone Is this a current diagnosis for this admission?: Yes Plan: Dr. Garcia has seen the patient this morning, planning to meet with hospice this afternoon. (6) Rhabdomyolysis Qualifiers: Rhabdomyolysis type: traumatic Encounter type: initial encounter Qualified Code(s): T79.6XXA - Traumatic ischemia of muscle, initial encounter Is this a current diagnosis for this admission?: Yes Plan: Resolved. Renal function WNL. - Time Time Spent with patient: 15-24 minutes
[2019-03-24] MEDS: TEMAZEPAM 7.5 MG CAPSULE PO PRN (23:25)
[2019-03-25] MEDS: HEPARIN SOD (PORCINE) 5,000 UNIT/ML 1 ML VIAL SUBCUT SCH ×3 (05:11→22:18)
[2019-03-25] MEDS: PANTOPRAZOLE SODIUM 40 MG TABLET.DR PO SCH ×2 (05:11→17:05)
--- NOTE | 2019-03-25 08:36 | PDOC PROGRESS REPORT ---
Subjective Progress Note for:: 03/25/19 Subjective:: Pt doing ok, still working on placement Reason For Visit: GUILLE,RHBDO,POLYELECTROLYTE,ABNORMALITIES Physical Exam Vital Signs: Temp Pulse Resp BP Pulse Ox 98.1 F 74 32 H 115/44 L 96 03/25/19 03:52 03/25/19 06:43 03/25/19 03:52 03/25/19 03:54 03/25/19 03:52 Intake & Output 03/24/19 03/25/19 03/26/19 06:59 06:59 06:59 Intake Total 370 540 Output Total 1020 1625 Balance -650 -1085 Weight 106.5 kg 106.4 kg General appearance: PRESENT: no acute distress, well-developed, well-nourished Head exam: PRESENT: atraumatic, normocephalic Eye exam: PRESENT: conjunctiva pink, EOMI, PERRLA. ABSENT: scleral icterus Ear exam: PRESENT: normal external ear exam Mouth exam: PRESENT: moist, tongue midline Neck exam: ABSENT: carotid bruit, JVD, lymphadenopathy, thyromegaly Respiratory exam: PRESENT: clear to auscultation zach. ABSENT: rales, rhonchi, wheezes Cardiovascular exam: PRESENT: RRR. ABSENT: diastolic murmur, rubs, systolic murmur Pulses: PRESENT: normal dorsalis pedis pul Vascular exam: PRESENT: normal capillary refill GI/Abdominal exam: PRESENT: normal bowel sounds, soft. ABSENT: distended, guarding, mass, organolmegaly, rebound, tenderness Rectal exam: PRESENT: deferred Extremities exam: PRESENT: full ROM. ABSENT: calf tenderness, clubbing, pedal edema Neurological exam: PRESENT: alert, awake, oriented to person, oriented to place, oriented to time, oriented to situation, CN II-XII grossly intact. ABSENT: motor sensory deficit Psychiatric exam: PRESENT: appropriate affect, normal mood. ABSENT: homicidal ideation, suicidal ideation Skin exam: PRESENT: dry, intact, warm. ABSENT: cyanosis, rash Results Laboratory Results: 03/21/19 10:41 03/21/19 10:41 03/17/19 03/17/19 03/17/19 10:20 10:20 18:00 Creatine Kinase 2835 H Troponin I 0.184 0.136 03/18/19 03/18/1903/19/19 00:41 08:07 04:57 Creatine Kinase 4269 H 2403 H Troponin I 0.133 03/20/19 06:11 Creatine Kinase 961 H Troponin I Impressions: Head CT 03/17/19 09:54 IMPRESSION: CHRONIC CHANGES OF ATROPHY AND MICROVASCULAR ISCHEMIA. NO ACUTE PROCESS. EVIDENCE OF ACUTE STROKE: NO. Abdomen/Pelvis CT 03/19/19 00:00 IMPRESSION: 1. Slight interval increase in a small moderate right pleural effusion with associated atelectasis or consolidation and a new small left pleural effusion. 2. No significant interval change in extensive sclerotic osseous metastatic disease. 3. No evidence of overt pelvic mass or lymphadenopathy in the stated setting of prostate malignancy. 4. 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 Chest CT 03/19/19 00:00 IMPRESSION: 1. Slight interval increase in a small moderate right pleural effu mely with associated atelectasis or consolidation and a new small left pleural effusion. 2. No significant interval change in extensive sclerotic osseous metastatic disease. 3. No evidence of overt pelvic mass or lymphadenopathy in the stated setting of prostate malignancy. 4. 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 Body Scan Nuclear Medicine 03/20/19 00:00 IMPRESSION: Skeletal metastasis. No significant change. Chest X-Ray 03/21/19 00:00 IMPRESSION: Persistent basilar atelectasis and small effusions. Asymmetric opacity in the right midlung field most likely represent pseudotumor. Stable cardiomegaly. Assessment & Plan - Diagnosis (1) Prostate cancer metastatic to bone Is this a current diagnosis for this admission?: Yes Plan: Hopeful placement, soon, not candidate for any other rx - Time Time Spent with patient: 15-24 minutes
[2019-03-25] MEDS: CEFTRIAXONE 1 GM/D5W RTU 1 GM/50 ML RTUPB IV SCH (09:25)
[2019-03-25] MEDS: FUROSEMIDE 20 MG TABLET PO SCH ×2 (09:26→17:05)
[2019-03-25] MEDS: POTASSIUM CHLORIDE 10 MEQ CAPSULE.ER PO SCH (09:26)
[2019-03-25] MEDS: ATORVASTATIN CALCIUM 40 MG TABLET PO SCH (09:26)
[2019-03-25] MEDS: SPIRONOLACTONE 25 MG TABLET PO SCH (09:26)
[2019-03-25] MEDS: LISINOPRIL 5 MG TABLET PO SCH (09:26)
[2019-03-25] MEDS: DOCUSATE SODIUM 100 MG CAPSULE PO SCH ×2 (09:26→17:05)
[2019-03-25] MEDS: METOPROLOL SUCCINATE 25 MG TAB.SR.24H PO SCH (09:26)
[2019-03-25] MEDS: [UNRECOGNIZED DRUG - OTHER] PO SCH (09:27)
--- NOTE | 2019-03-25 11:27 | PDOC PROGRESS REPORT ---
Subjective Progress Note for:: 03/25/19 Subjective:: PRAFUL PUTNAM is a 79 year old male past medical history of rectal adenocarcinoma status post sigmoid colon resection with colostomy placement 03/23/2017, metastatic prostate cancer, CAD status post PCI and LAD stent placement, CHF, venous insufficiency with chronic bilateral lower extremity swelling and stasis dermatitis care for by PCP with leg dressing weekly as outpatient. Patient brought to ED by EMS for worsening, fatigue and weakness, and declining in ADLs. As per EMS report patient was found to be extremely unkempt, covered with fecalith material from his colostomy bag and infestation of his house. On my encounter patient is resting in bed in no apparent distress seems extremely unkempt, with extensive bilateral lower extremity swelling worse on the right side with mild erythema but no discharge, extensive upper and lower extremity onychomycosis. Unfortunately patient is only alert and oriented x2, as well as hard of hearing and does not provide much history, when asked why he is in the hospital he stating that he was sent here by his daughter, also stating that his legs are hurting very much, otherwise does not provide much history. As per my conversation with the ED physician who had called patient's daughter Litzy at [phone]. She had a stated that patient lives alone, and has had precipitous decline over the last week and apparently was diagnosed with metastatic prostate cancer, he not been able to walk. She unsure of his CODE STATUS. In ED CT scan was negative, but was noted to have multiple electrolyte abnormali ties with elevated CK and WBC and acute on chronic GUILLE. Hospitalist was consulted for admission. 03/18/2019. Overnight patient developed hypotension and was given 2 L of IV boluses and was started on dopamine drip. Otherwise no acute events overnight. Saw patient this morning, was about to receive some physical therapy, stating that he had a rough night however feeling better this morning. Denies any fever, chills, nausea, vomiting, diarrhea, constipation or any urinary symptoms. Complaining of left lower extremity pain. 03/21/2019. Patient hallucinating and trying to get out of bed overnight, on my encounter patient is resting in bed, only oriented to self, does not provide much information, mild tachypnea, otherwise does not seem to be in any distress, stating that her abdomen is hurting but does not provide much information. As per Dr. Garcia's discussion with her daughter Litzy who is the POA, she has decided to transition care to DNR/DNI. 03/22/2019. No acute events overnight. Patient comfortably resting in bed, enjoying his breakfast. Denies any fever, chills, nausea, vomiting, diarrhea, constipation or any urinary symptoms. Patient is DNR/DNI as of 03/21/2019. 03/25/2019. No acute events overnight. Patient comfortably resting in bed about his diet having his breakfast. Denies any fever, chills, nausea, vomiting, diarrhea, constipation or any other symptoms. Patient is pending transfer to assisted living. Reason For Visit: GUILLE,RHBDO,POLYELECTROLYTE,ABNORMALITIES Physical Exam Vital Signs: Temp Pulse Resp BP Pulse Ox 97.8 F 69 26 H 107/45 L 96 03/25/19 08:10 03/25/19 09:01 03/25/19 09:01 03/25/19 08:10 03/25/19 09:01 Intake & Output 03/24/19 03/25/19 03/26/19 06:59 06:59 06:59 Intake Total 370 540 50 Output Total 1020 1625 Balance -650 -1085 50 Weight 106.5 kg 106.4 kg General appearance: PRESENT: no acute distress, well-developed, well-nourished Respiratory exam: PRESENT: clear to auscultation zach. ABSENT: rales, rhonchi, wheezes Cardiovascular exam: PRESENT: RRR. ABSENT: diastolic murmur, rubs, systolic murmur GI/Abdominal exam: PRESENT: normal bowel sounds, soft. ABSENT: distended, guarding, mass, organolmegaly, rebound, tenderness Neurological exam: PRESENT: alert, awake, oriented to person, oriented to place, CN II-XII grossly intact. ABSENT: motor sensory deficit Skin exam: PRESENT: erythema - Left lower extremity below the knee. Results Laboratory Results: 03/21/19 10:41 03/21/19 10:41 03/17/19 03/17/19 03/17/19 10:20 10:20 18:00 Creatine Kinase 2835 H Troponin I 0.184 0.136 03/18/19 03/18/19 03/19/19 00:41 08:07 04:57 Creatine Kinase 4269 H 2403 H Troponin I 0.133 03/20/19 06:11 Creatine Kinase 961 H Troponin I Impressions: Head CT 03/17/19 09:54 IMPRESSION: CHRONIC CHANGES OF ATROPHY AND MICROVASCULAR ISCHEMIA. NO ACUTE PROCESS. EVIDENCE OF ACUTE STROKE: NO. Abdomen/Pelvis CT 03/19/19 00:00 IMPRESSION: 1. Slight interval increase in a small moderate right pleural effusion with associated atelectasis or consolidation and a new small left pleural effusion. 2. No significant interval change in extensive sclerotic osseous metastatic disease. 3. No evidence of overt pelvic mass or lymphadenopathy in the stated setting of prostate malignancy. 4. 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 Chest CT 03/19/19 00:00 IMPRESSION: 1. Slight interval increase in a small moderate right pleural effusion with associated atelectasis or consolidation and a new small left pleural effusion. 2. No significant interval change in extensive sclerotic osseous metastatic disease. 3. No evidence of overt pelvic mass or lymphadenopathy in the stated setting of prostate malignancy. 4. 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 Body Scan Nuclear Medicine 03/20/19 00:00 IMPRESSION: Skeletal metastasis. No significant change. Chest X-Ray 03/21/19 00:00 IMPRESSION: Persistent basilar atelectasis and small effusions. Asymmetric opacity in the right midlung field most likely represent pseudotumor. Stable cardiomegaly. Assessment and Plan - Diagnosis (1) Acute exacerbation of CHF (congestive heart failure) Qualifiers: Heart failure type: systolic Qualified Code(s): I50.23 - Acute on chronic systolic (congestive) heart failure Is this a current diagnosis for this admission?: Yes Plan: Significant improvement since admission. Bilateral lower extremity with improving except for left lower extremity erythema. Acute systolic heart failure. History of CAD status post stent placement. Continue strict in and out, volume restriction, IV Lasix, beta-blockers, spironolactone, daily weights, cardiac diet. (2) Rhabdomyolysis Qualifiers: Rhabdomyolysis type: traumatic Encounter type: initial encounter Qualified Code(s): T79.6XXA - Traumatic ischemia of muscle, initial encounter Is this a current diagnosis for this admission?: Yes Plan: Resolved. Renal function WNL. (3) Physical deconditioning Is this a current diagnosis for this admission?: Yes Plan: Improving. Continue PT/OT. Continue fall precautions. Patient is DNR/DNI as per daughter who is the POA after discussion with Dr. Garcia who is oncologist pending transfer to assisted living. (4) CAD (coronary artery disease) Is this a current diagnosis for this admission?: Yes Plan: History of PCI and stent to LAD. Denies any anginal symptoms. Continue antiplatelets, statins, beta-blockers and GABRIELA. Adjust meds as needed. Outpatient PCP and cardiology follow-up. (5) Rectal carcinoma Is this a current diagnosis for this admission?: Yes Plan: Status post sigmoid colectomy and colostomy placement in 2017. Oncologist Dr[address] Garcia. Consulted. Recommendations noted. Continue colostomy care and monitor volume status and electrolytes. (6) Metastatic malignant neoplasm to prostate Is this a current diagnosis for this admission?: Yes Plan: Recently diagnosed. With mets to base of the skull. Dr. Garcia his oncologist on board. No chemoradiation planned. Patient is DNR/DNI pending transfer to assisted living. (7) Onychomycosis Is this a current diagnosis for this admission?: Yes Plan: Extensive upper and lower extremity. On terbinafine. There are signs of new healthy nail is growing. Continue terbinafine. 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 (8) Cellulitis of right lower extremity Is this a current diagnosis for this admission?: Yes Plan: Significant improvement since admission. chemical machine tender to palpation with erythema. No sign of active discharge. Day 10 IV ceftriaxone. Cultures negative.
[2019-03-25] MEDS: MAGNESIUM OXIDE 400 MG TABLET PO SCH ×2 (13:06→17:05)
[2019-03-25] MEDS: CALCIUM CARBONATE 250 MG/VITAMIN D3 125 UNIT TABLET PO SCH (17:05)
[2019-03-26] MEDS: HEPARIN SOD (PORCINE) 5,000 UNIT/ML 1 ML VIAL SUBCUT SCH ×3 (07:16→21:39)
[2019-03-26] MEDS: PANTOPRAZOLE SODIUM 40 MG TABLET.DR PO SCH ×2 (07:16→17:01)
--- NOTE | 2019-03-26 08:29 | PDOC PROGRESS REPORT ---
Subjective Progress Note for:: 03/26/19 Subjective:: Still awaiting placement, no acute events overnight Reason For Visit: GUILLE,RHBDO,POLYELECTROLYTE,ABNORMALITIES Physical Exam Vital Signs: Temp Pulse Resp BP Pulse Ox 98.4 F 70 22 H 101/45 L 96 03/26/19 00:48 03/26/19 07:00 03/26/19 00:48 03/26/19 00:48 03/26/19 00:48 Intake & Output 03/25/19 03/26/19 03/27/19 06:59 06:59 06:59 Intake Total 540 907 Output Total 1625 1250 Balance -1085 -343 Weight 106.4 kg 105.3 kg General appearance: PRESENT: no acute distress, well-developed, well-nourished Head exam: PRESENT: atraumatic, normocephalic Eye exam: PRESENT: conjunctiva pink, EOMI, PERRLA. ABSENT: scleral icterus Ear exam: PRESENT: normal external ear exam Mouth exam: PRESENT: moist, tongue midline Neck exam: ABSENT: carotid bruit, JVD, lymphadenopathy, thyromegaly Respiratory exam: PRESENT: clear to auscultation zach. ABSENT: rales, rhonchi, wheezes Cardiovascular exam: PRESENT: RRR. ABSENT: diastolic murmur, rubs, systolic murmur Pulses: PRESENT: normal dorsalis pedis pul Vascular exam: PRESENT: normal capillary refill GI/Abdominal exam: PRESENT: normal bowel sounds, soft. ABSENT: distended, guarding, mass, organolmegaly, rebound, tenderness Rectal exam: PRESENT: deferred Extremities exam: PRESENT: full ROM. ABSENT: calf tenderness, clubbing, pedal edema Neurological exam: PRESENT: alert, awake, oriented to person, oriented to place, oriented to time, oriented to situation, CN II-XII grossly intact. ABSENT: motor sensory deficit Psychiatric exam: PRESENT: appropriate affect, normal mood. ABSENT: homicidal ideation, suicidal ideation Skin exam: PRESENT: dry, intact, warm. ABSENT: cyanosis, rash Results Laboratory Results: 03/21/19 10:41 03/21/19 10:41 03/17/19 03/17/19 03/17/19 10:20 10:20 18:00 Creatine Kinase 2835 H Troponin I 0.184 0.136 1103/18/19 03/19/19 00:41 08:07 04:57 Creatine Kinase 4269 H 2403 H Troponin I 0.133 03/20/19 06:11 Creatine Kinase 961 H Troponin I Impressions: Head CT 03/17/19 09:54 IMPRESSION: CHRONIC CHANGES OF ATROPHY AND MICROVASCULAR ISCHEMIA. NO ACUTE PROCESS. EVIDENCE OF ACUTE STROKE: NO. Abdomen/Pelvis CT 03/19/19 00:00 IMPRESSION: 1. Slight interval increase in a small moderate right pleural effu mely with associated atelectasis or consolidation and a new small left pleural effusion. 2. No significant interval change in extensive sclerotic osseous metastatic disease. 3. No evidence of overt pelvic mass or lymphadenopathy in the stated setting of prostate malignancy. 4. 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 Chest CT 03/19/19 00:00 IMPRESSION: 1. Slight interval increase in a small moderate right pleural effusion with associated atelectasis or consolidation and a new small left pleural effusion. 2. No significant interval change in extensive sclerotic osseous metastatic disease. 3. No evidence of overt pelvic mass or lymphadenopathy in the stated setting of prostate malignancy. 4. 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 Body Scan Nuclear Medicine 03/20/19 00:00 IMPRESSION: Skeletal metastasis. No significant change. Chest X-Ray 03/21/19 00:00 IMPRESSION: Persistent basilar atelectasis and small effusions. Asymmetric opacity in the right midlung field most likely represent pseudotumor. Stable cardiomegaly. Assessment & Plan - Diagnosis (1) Prostate cancer metastatic to bone Is this a current diagnosis for this admission?: Yes Plan: Waiting placement, continue with comfort care measures - Time Time Spent with patient: 15-24 minutes
[2019-03-26] MEDS: POTASSIUM CHLORIDE 10 MEQ CAPSULE.ER PO SCH (09:23)
[2019-03-26] MEDS: SPIRONOLACTONE 25 MG TABLET PO SCH (09:23)
[2019-03-26] MEDS: CEFTRIAXONE 1 GM/D5W RTU 1 GM/50 ML RTUPB IV SCH (09:23)
[2019-03-26] MEDS: FUROSEMIDE 20 MG TABLET PO SCH (09:23)
[2019-03-26] MEDS: CALCIUM CARBONATE 250 MG/VITAMIN D3 125 UNIT TABLET PO SCH ×2 (09:23→17:01)
[2019-03-26] MEDS: ATORVASTATIN CALCIUM 40 MG TABLET PO SCH (09:23)
[2019-03-26] MEDS: METOPROLOL SUCCINATE 25 MG TAB.SR.24H PO SCH (09:23)
[2019-03-26] MEDS: MAGNESIUM OXIDE 400 MG TABLET PO SCH ×3 (09:23→17:01)
[2019-03-26] MEDS: LISINOPRIL 5 MG TABLET PO SCH (09:24)
[2019-03-26] MEDS: DOCUSATE SODIUM 100 MG CAPSULE PO SCH ×2 (09:24→17:01)
[2019-03-26] MEDS: [UNRECOGNIZED DRUG - OTHER] PO SCH (09:27)
--- NOTE | 2019-03-26 12:31 | PDOC PROGRESS REPORT ---
Subjective Progress Note for:: 03/26/19 Subjective:: PRAFUL PUTNAM is a 79 year old male past medical history of rectal adenocarcinoma status post sigmoid colon resection with colostomy placement 03/23/2017, metastatic prostate cancer, CAD status post PCI and LAD stent placement, CHF, venous insufficiency with chronic bilateral lower extremity swelling and stasis dermatitis care for by PCP with leg dressing weekly as outpatient. Patient brought to ED by EMS for worsening, fatigue and weakness, and declining in ADLs. As per EMS report patient was found to be extremely unkempt, covered with fecalith material from his colostomy bag and infestation of his house. On my encounter patient is resting in bed in no apparent distress seems extremely unkempt, with extensive bilateral lower extremity swelling worse on the right side with mild erythema but no discharge, extensive upper and lower extremity onychomycosis. Unfortunately patient is only alert and oriented x2, as well as hard of hearing and does not provide much history, when asked why he is in the hospital he stating that he was sent here by his daughter, also stating that his legs are hurting very much, otherwise does not provide much history. As per my conversation with the ED physician who had called patient's daughter Litzy at [phone]. She had a stated that patient lives alone, and has had precipitous decline over the last week and apparently was diagnosed with metastatic prostate cancer, he not been able to walk. She unsure of his CODE STATUS. In ED CT scan was negative, but was noted to have multiple electrolyte abnormali ties with elevated CK and WBC and acute on chronic GUILLE. Hospitalist was consulted for admission. 03/18/2019. Overnight patient developed hypotension and was given 2 L of IV boluses and was started on dopamine drip. Otherwise no acute events overnight. Saw patient this morning, was about to receive some physical therapy, stating that he had a rough night however feeling better this morning. Denies any fever, chills, nausea, vomiting, diarrhea, constipation or any urinary symptoms. Complaining of left lower extremity pain. 03/21/2019. Patient hallucinating and trying to get out of bed overnight, on my encounter patient is resting in bed, only oriented to self, does not provide much information, mild tachypnea, otherwise does not seem to be in any distress, stating that her abdomen is hurting but does not provide much information. As per Dr. Garcia's discussion with her daughter Litzy who is the POA, she has decided to transition care to DNR/DNI. 03/22/2019. No acute events overnight. Patient comfortably resting in bed, enjoying his breakfast. Denies any fever, chills, nausea, vomiting, diarrhea, constipation or any urinary symptoms. Patient is DNR/DNI as of 03/21/2019. 03/25/2019. No acute events overnight. Patient comfortably resting in bed about his diet having his breakfast. Denies any fever, chills, nausea, vomiting, diarrhea, constipation or any other symptoms. Patient is pending transfer to assisted living. 04/12/2019. No acute events overnight. Patient resting in bed in no apparent distress. Stating that he wants the TV off because he wants to sleep. Denies any fever, chills, nausea, vomiting, diarrhea, constipation or any urinary symptoms. Lower extremity edema to light has resolved. Still pending transfer. Please follow discharge planning note. Reason For Visit: GUILLE,RHBDO,POLYELECTROLYTE,ABNORMALITIES Physical Exam Vital Signs: Temp Pulse Resp BP Pulse Ox 98.4 F 70 16 101/45 L 95 03/26/19 00:48 03/26/19 08:32 03/26/19 08:32 03/26/19 00:48 03/26/19 08:32 Intake & Output 03/25/19 03/26/19 03/27/19 06:59 06:59 06:59 Intake Total 540 907 50 Output Total 1625 1250 Balance -1085 -343 50 Weight 106.4 kg 105.3 kg General appearance: PRESENT: no acute distress, obese, well-developed, well- nourished Respiratory exam: PRESENT: clear to auscultation zach. ABSENT: rales, rhonchi, wheezes Cardiovascular exam: PRESENT: RRR. ABSENT: diastolic murmur, rubs, systolic murmur Extremities exam: PRESENT: full ROM, other - Left lower extremity below residual erythema. Tenderness has resolved.. ABSENT: calf tenderness, clubbing, pedal edema Neurological exam: PRESENT: alert, awake, oriented to person, oriented to place, CN II-XII grossly intact. ABSENT: motor sensory deficit Results Laboratory Results: 03/21/19 10:41 03/21/19 10:41 03/17/19 03/17/19 03/17/19 10:20 10:20 18:00 Creatine Kinase 2835 H Troponin I 0.184 0.136 03/18/19 03/18/19 03/19/19 00:41 08:07 04:57 Creatine Kinase 4269 H 2403 H Troponin I 0.133 03/20/19 06:11 Creatine Kinase 961 H Troponin I Impressions: Head CT 03/17/19 09:54 IMPRESSION: CHRONIC CHANGES OF ATROPHY AND MICROVASCULAR ISCHEMIA. NO ACUTE PROCESS. EVIDENCE OF ACUTE STROKE: NO. Abdomen/Pelvis CT 03/19/19 00:00 IMPRESSION: 1. Slight interval increase in a small moderate right pleural e ffusion with associated atelectasis or consolidation and a new small left pleural effusion. 2. No significant interval change in extensive sclerotic osseous metastatic disease. 3. No evidence of overt pelvic mass or lymphadenopathy in the stated setting of prostate malignancy. 4. 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 Chest CT 03/19/19 00:00 IMPRESSION: 1. Slight interval increase in a small moderate right pleural effusion with associated atelectasis or consolidation and a new small left pleural effusion. 2. No significant interval change in extensive sclerotic osseous metastatic disease. 3. No evidence of overt pelvic mass or lymphadenopathy in the stated setting of prostate malignancy. 4. 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 Body Scan Nuclear Medicine 03/20/19 00:00 IMPRESSION: Skeletal metastasis. No significant change. Chest X-Ray 03/21/19 00:00 IMPRESSION: Persistent basilar atelectasis and small effusions. Asymmetric opacity in the right midlung field most likely represent pseudotumor. Stable cardiomegaly. Assessment and Plan - Diagnosis (1) Acute exacerbation of CHF (congestive heart failure) Qualifiers: Heart failure type: systolic Qualified Code(s): I50.23 - Acute on chronic systolic (congestive) heart failure Is this a current diagnosis for this admission?: Yes Plan: Significant improvement since admission. Bilateral lower extremity resolved. Acute systolic heart failure. History of CAD status post stent placement. Continue strict in and out, volume restriction, p.o. Lasix, beta-blockers,, GABRIELA, spironolactone, daily weights, cardiac diet. (2) Rhabdomyolysis Qualifiers: Rhabdomyolysis type: traumatic Encounter type: initial encounter Qualified Code(s): T79.6XXA - Traumatic ischemia of muscle, initial encounter Is this a current diagnosis for this admission?: Yes Plan: Resolved. Renal function WNL. (3) Physical deconditioning Is this a current diagnosis for this admission?: Yes Plan: Improving. Continue PT/OT. Continue fall precautions. Patient is DNR/DNI as per daughter who is the POA after discussion with Dr. Garcia who is oncologist pending transfer to assisted living. (4) CAD (coronary artery disease) Is this a current diagnosis for this admission?: Yes Plan: History of PCI and stent to LAD. Denies any anginal symptoms. Continue antiplatelets, statins, beta-blockers and GABRIELA. Adjust meds as needed. Outpatient PCP and cardiology follow-up. (5) Rectal carcinoma Is this a current diagnosis for this admission?: Yes Plan: Status post sigmoid colectomy and colostomy placement in 2017. Oncologist Dr. Garcia. Consulted. Recommendations noted. Continue colostomy care and monitor volume status and electrolytes. (6) Metastatic malignant neoplasm to prostate Is this a current diagnosis for this admission?: Yes Plan: Recently diagnosed. With mets to base of the skull. Dr. Garcia his oncologist on board. No chemoradiation planned. Patient is DNR/DNI pending transfer to assisted living. (7) Onychomycosis Is this a current diagnosis for this admission?: Yes Plan: Extensive upper and lower extremity. On terbinafine. There are signs of new healthy nail is growing. Continue terbinafine. 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 (8) Cellulitis of right lower extremity Is this a current diagnosis for this admission?: Yes Plan: Resolved. Mild residual erythema. No tenderness to palpation. No active discharge. Received 11 days of IV ceftriaxone. DC antibiotics. Cultures negative so far.
[2019-03-26] MEDS: OXYCODONE-ACETAMINOPHEN 5-325 MG TABLET PO PRN (16:39)
[2019-03-27] MEDS: PANTOPRAZOLE SODIUM 40 MG TABLET.DR PO SCH (05:07)
[2019-03-27] MEDS: HEPARIN SOD (PORCINE) 5,000 UNIT/ML 1 ML VIAL SUBCUT SCH ×2 (05:07→13:50)
[2019-03-27] MEDS: OXYCODONE-ACETAMINOPHEN 5-325 MG TABLET PO PRN ×2 (05:07→11:00)
[2019-03-27] MEDS: MAGNESIUM OXIDE 400 MG TABLET PO SCH ×2 (08:58→12:45)
--- NOTE | 2019-03-27 09:43 | PDOC TRANSFER SUMMARY ---
General Admission Date/PCP: 03/17/19 12:43 GI VILLALOBOS MD Resuscitation Status: Do Not Resuscitate - Transfer Diagnosis (1) Metastatic malignant neoplasm to prostate Is this a current diagnosis for this admission?: Yes (2) Acute exacerbation of CHF (congestive heart failure) Is this a current diagnosis for this admission?: Yes (3) Rhabdomyolysis Is this a current diagnosis for this admission?: Yes (4) Physical deconditioning Is this a current diagnosis for this admission?: Yes (5) CAD (coronary artery disease) Is this a current diagnosis for this admission?: Yes (6) Rectal carcinoma Is this a current diagnosis for this admission?: Yes (7) Onychomycosis Is this a current diagnosis for this admission?: Yes (8) Cellulitis of left leg Is this a current diagnosis for this admission?: Yes - Transfer Medications Home Medications: Abiraterone Acet,Submicronized [Yonsa] 500 mg PO DAILY 03/17/19 Atorvastatin Calcium [Lipitor 40 mg Tablet] 40 mg PO DAILY 03/17/19 Cephalexin [Cephalexin 500 MG Tablet] 500 mg PO QID 03/17/19 Furosemide [Lasix 40 mg Tablet] 40 mg PO BID 03/17/19 Lisinopril [Prinivil 5 mg Tablet] 5 mg PO DAILY 03/17/19 Methylprednisolone [Medrol 4 Mg Tablet] 4 mg PO BID 03/17/19 Metolazone [Zaroxolyn 5 Mg Tablet] 5 mg PO DAILY 03/17/19 Metoprolol Succinate [Toprol Xl 25 mg Tab.sr] 25 mg PO DAILY 03/17/19 Potassium Chloride [Klor-Con 10 Meq Capsule ER] 20 meq PO DAILY 03/17/19 Spironolactone [Aldactone 25 mg Tablet] 25 mg PO DAILY 03/17/19 Terbinafine HCl [Lamisil 250 mg Tablet] 250 mg PO DAILY 03/17/19 Transfer Medications: Current Medications Acetaminophen (Tylenol 325 Mg Tablet) 325 mg PO Q6HP PRN PRN Reason: FEVER >101 Stop: 04/16/19 12:42 Albuterol/Ipratropium (Duoneb 3 Ml Ampul) 3 ml NEB RTQ6HP PRN PRN Reason: FOR WHEEZING Stop: 04/23/19 09:33 Atorvastatin Calcium (Lipitor 40 Mg Tablet) 40 mg PO DAILY MARTA Stop: 04/17/19 09:59 Last Admin: 03/26/19 09:23 Dose: 40 mg Documented by: Calcium Carbonate (Os-Rah 250 Mg With Vitamin D 125 Units) 1 tab PO BID MARTA Stop: 04/24/19 17:59 Last Admin: 03/26/19 17:01 Dose: 1 tab Documented by: Docusate Sodium (Colace 100 Mg Capsule) 100 mg PO BID MARTA Stop: 04/16/19 17:59 Last Admin: 03/26/19 17:01 Dose: 100 mg Documented by: Furosemide (Lasix 20 Mg Tablet) 20 mg PO DAILY [facility] Stop: 04/26/19 09:59 Heparin Sodium (Porcine) (Heparin Inj 5,000 Units/Ml 1 Ml Vial) 5,000 unit SUBCUT Q8 MARTA Stop: 04/16/19 13:59 Last Admin: 03/27/19 05:07 Dose: 5,000 unit Documented by: Lisinopril (Prinivil 5 Mg Tablet) 2.5 mg PO DAILY [facility] Stop: 04/22/19 09:59 Last Admin: 03/26/19 09:24 Dose: 2.5 mg Documented by: Magnesium Oxide (Mag-Ox 400 Mg Tablet) 400 mg PO MEALS [facility] Stop: 04/24/19 11:59 Last Admin: 03/27/19 08:58 Dose: 400 mg Documented by: Metoprolol Succinate (Toprol Xl 25 Mg Tab.Sr) 25 mg PO DAILY [facility] Stop: 04/17/19 09:59 Last Admin: 03/26/19 09:23 Dose: 25 mg Documented by: Ondansetron HCl (Zofran Inj/Pf 4 Mg/2 Ml Sdv) 4 mg IV Q4HP PRN PRN Reason: FOR NAUSEA/VOMITING Stop: 04/16/19 12:42 Last Admin: 03/21/19 06:17 Dose: 4 mg Documented by: Oxycodone/Acetaminophen (Percocet 5-325 Mg Tablet) 1 tab PO Q4HP PRN PRN Reason: FOR PAIN SCALE 2-4 Stop: 03/31/19 12:42 Last Admin: 03/27/19 05:07 Dose: 1 tab Documented by: Pantoprazole Sodium (Protonix [address] Tablet) 40 mg PO BID@0600,1700 [facility] Stop: 04/16/19 16:59 Last Admin: 03/27/19 05:07 Dose: 40 mg Documented by: Abiraterone Acet, Submicronized [Yonsa ] 500 Mg 1 dose PO DAILY [facility] Stop: 04/17/19 19:59 Last Admin: 03/26/19 09:27 Dose: 4 tab Documented by: Potassium Chloride (Klor-Con 10 Meq Capsule Er) 20 meq PO DAILY [facility] Stop: 04/18/19 09:59 Last Admin: 03/26/19 09:23 Dose: 20 meq Documented by: Promethazine HCl (Phenergan Inj 25 Mg/1 Ml Vial) 6.25 mg IV Q4HP PRN PRN Reason: FOR NAUSEA/VOMITING Stop: 04/16/19 12:42 Spironolactone (Aldactone 25 Mg Tablet) 25 mg PO DAILY [facility] Stop: 04/20/19 09:59 Last Admin: 03/26/19 09:23 Dose: 25 mg Documented by: Temazepam (Restoril 7.5 Mg Capsule) 7.5 mg PO HSP PRN PRN Reason: SLEEP OR INSOMNIA Stop: 03/31/19 12:42 Last Admin: 03/24/19 23:25 Dose: 7.5 mg Documented by: - Allergies Allergies/Adverse Reactions: No Known Allergies Allergy (Verified 05/16/17 13:59) Hospital Course Hospital Course: PRAFUL PUTNAM is a 79 year old male past medical history of rectal adenocarcinoma status post sigmoid colon resection with colostomy placement 03/23/2017, metastatic prostate cancer, CAD status post PCI and LAD stent placement, CHF, venous insufficiency with chronic bilateral lower extremity swelling and stasis dermatitis care for by PCP with leg dressing weekly as outpatient. Patient brought to ED by EMS for worsening, fatigue and weakness, and declining in ADLs. As per EMS report patient was found to be extremely unkempt, covered with fecalith material from his colostomy bag and infestation of his house. On my encounter patient is resting in bed in no apparent distress seems extremely unkempt, with extensive bilateral lower extremity swelling worse on the right side with mild erythema but no discharge, extensive upper and lower extremity onychomycosis. Unfortunately patient is only alert and oriented x2, as well as hard of hearing and does not provide much history, when asked why he is in the hospital he stating that he was sent here by his daughter, also stating that his legs are hurting very much, otherwise does not provide much history. As per my conversation with the ED physician who had called patient's daughter Litzy at [phone]. She had a stated that patient lives alone, and has had precipitous decline over the last week and apparently was diagnosed with metastatic prostate cancer, he not been able to walk. She unsure of his CODE STATUS. In ED CT scan was negative, but was noted to have multiple electrolyte abnormalities with elevated CK and WBC and acute on chronic GUILLE. Hospitalist was consulted for admission. (1) Metastatic malignant neoplasm to prostate Recently diagnosed. With mets to base of the skull. PSA 1869. Dr. Garcia his oncologist on board. No chemoradiation planned. Patient is DNR/DNI as as per the rest of her daughter who is the POA with Dr. Garcia who is his oncologist. (2) Acute exacerbation of CHF (congestive heart failure) Significant improvement since admission. Appears euvolemic. Bilateral lower extremity resolved. Presented with acute systolic heart failure. History of CAD status post stent placement. Was a started on strict in and out, volume restriction, p.o. Lasix, beta- blockers,, GABRIELA, spironolactone, daily weights, cardiac diet. Patient presented hypotensive and volume overload and had a Adan placed for strict in and out. If strict in and out desired patient can continue with adan, if not Adan can be removed after bladder training. Continue beta-blockers, GABRIELA, Aldactone, diuretics guided by volume status and vitals. (3) Rhabdomyolysis This was probably traumatic. Was started on rhabdomyolysis protocol. Resolved at this point. Renal function WNL. (4) Physical deconditioning Improving compared to admission. Still max assist. Has been receiving PT/OT. Continue fall precautions. Patient is DNR/DNI as per daughter who is the POA after discussion with Dr. Arturo joseph who is oncologist pending transfer to assisted living. (5) CAD (coronary artery disease) History of PCI and stent to LAD. Denies any anginal symptoms. Continued on antiplatelets, statins, beta-blockers and GABRIELA. Outpatient PCP and cardiology follow-up. (6) Rectal carcinoma Status post sigmoid colectomy and colostomy placement in 2017. On[address]ologist [address] Garcia. Consulted. Recommendations noted. Continue colostomy care and monitor volume status and electrolytes. (7) Onychomycosis Extensive upper and lower extremity. On terbinafine. There are signs of new healthy nail is growing. Continue terbinafine. 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 (8) Cellulitis of left leg Resolved. Mild residual erythema. Mild tenderness to anterior guerrero. No active discharge. Received 11 days of IV ceftriaxone. DC antibiotics. Cultures negative so far. Physical Exam Vital Signs: Temp Pulse Resp BP Pulse Ox 98.1 F 71 18 91/40 L 96 03/27/19 07:49 03/27/19 07:49 03/27/19 07:49 03/27/19 07:49 03/27/19 07:49 Intake & Output 03/26/19 03/27/19 03/28/19 06:59 06:59 06:59 Intake Total 907 800 Output Total 1250 600 Balance -343 200 Weight 105.3 kg 105.6 kg General appearance: PRESENT: no acute distress, well-developed, well-nourished Eye exam: PRESENT: conjunctiva pink, EOMI, PERRLA. ABSENT: scleral icterus Neck exam: ABSENT: carotid bruit, JVD, lymphadenopathy, thyromegaly Respiratory exam: PRESENT: clear to auscultation zach. ABSENT: rales, rhonchi, wheezes Cardiovascular exam: PRESENT: RRR. ABSENT: diastolic murmur, rubs, systolic murmur Pulses: PRESENT: normal dorsalis pedis pul GI/Abdominal exam: PRESENT: normal bowel sounds, soft. ABSENT: distended, guarding, mass, organolmegaly, rebound, tenderness Extremities exam: PRESENT: other - Trace bilateral lower extremity edema. Neurological exam: PRESENT: alert, awake, oriented to person, CN II-XII grossly intact, motor sensory deficit Skin exam: PRESENT: erythema - Lower extremity, below the knee anterior. Results Laboratory Results: 03/21/19 10:41 03/21/19 10:41 03/17/19 03/17/19 03/17/19 10:20 10:20 18:00 Creatine Kinase 2835 H Troponin I 0.184 0.136 03/18/19 03/18/19 03/19/19 00:41 08:07 04:57 Creatine Kinase 4269 H 2403 H Troponin I 0.133 03/20/19 06:11 Creatine Kinase 961 H Troponin I Impressions: Head CT 03/17/19 09:54 IMPRESSION: CHRONIC CHANGES OF ATROPHY AND MICROVASCULAR ISCHEMIA. NO ACUTE PROCESS. EVIDENCE OF ACUTE STROKE: NO. Abdomen/Pelvis CT 03/19/19 00:00 IMPRESSION: 1. Slight interval increase in a small moderate right pleural effusion with associated atelectasis or consolidation and a new small left pleural effusion. 2. No significant interval change in extensive sclerotic osseous metastatic disease. 3. No evidence of overt pelvic mass or lymphadenopathy in the stated setting of prostate malignancy. 4. 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 Chest CT 03/19/19 00:00 IMPRESSION: 1. Slight interval increase in a small moderate right pleural effusion with associated atelectasis or consolidation and a new small left pleural effusion. 2. No significant interval change in extensive sclerotic osseous metastatic disease. 3. No evidence of overt pelvic mass or lymphadenopathy in the stated setting of prostate malignancy. 4. 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 Body Scan Nuclear Medicine 03/20/19 00:00 IMPRESSION: Skeletal metastasis. No significant change. Chest X-Ray 03/21/19 00:00 IMPRESSION: Persistent basilar atelectasis and small effusions. Asymmetric opacity in the right midlung field most likely represent pseudotumor. Stable cardiomegaly.
[2019-03-27] MEDS ORDERED: FUROSEMIDE 20 MG TABLET PO SCH (10:00)
[2019-03-27] MEDS: LISINOPRIL 5 MG TABLET PO SCH (10:52)
[2019-03-27] MEDS: [UNRECOGNIZED DRUG - OTHER] PO SCH (10:52)
[2019-03-27] MEDS: SPIRONOLACTONE 25 MG TABLET PO SCH (10:56)
[2019-03-27] MEDS: POTASSIUM CHLORIDE 10 MEQ CAPSULE.ER PO SCH (10:56)
[2019-03-27] MEDS: DOCUSATE SODIUM 100 MG CAPSULE PO SCH (10:56)
[2019-03-27] MEDS: METOPROLOL SUCCINATE 25 MG TAB.SR.24H PO SCH (10:59)
[2019-03-27] MEDS: CALCIUM CARBONATE 250 MG/VITAMIN D3 125 UNIT TABLET PO SCH (10:59)
[2019-03-27] MEDS: ATORVASTATIN CALCIUM 40 MG TABLET PO SCH (10:59)
[2019-03-27 13:34] VITALS: BP 83/60
== END 2019-03-27 14:11 | DRG 722 ==
LOC: ER 09:01 → EH 11:59 → UNDOADMIN 11:59 → EH 12:43 → 3S 17:15
PROVIDERS: ADMIT Internal Medicine; ATTEND Internal Medicine
DX: C61 Malignant neoplasm of prostate (principal); I50.21 Acute systolic (congestive) heart failure; C79.51 Secondary malignant neoplasm of bone; N17.9 Acute kidney failure, unspecified; E87.1 Hypo-osmolality and hyponatremia; M62.82 Rhabdomyolysis; L03.116 Cellulitis of left lower limb; E83.51 Hypocalcemia; E87.6 Hypokalemia; E83.42 Hypomagnesemia; E78.5 Hyperlipidemia, unspecified; I25.10 Atherosclerotic heart disease of native coronary artery without angina pectoris; I25.2 Old myocardial infarction; B35.1 Tinea unguium; Z60.2 Problems related to living alone; Z85.46 Personal history of malignant neoplasm of prostate; Z85.048 Personal history of other malignant neoplasm of rectum, rectosigmoid junction, and anus; Z85.038 Personal history of other malignant neoplasm of large intestine; Z90.49 Acquired absence of other specified parts of digestive tract
CPT/HCPCS: 36415; 36600; 51701; 70450; 71045; 71260; 74177; 78306; 80053; 81001; 82140; 82550; 82803; 82962; 83605; 83735; 84153; 84484; 85025; 87040; 87070; 93005; 93010; 96360; 99291; A9561; J0610; J0696; J1265; J1644; J1940; J2405; J3475; J3480; J3490; J7030; J7060; J7120; J7620; Q9969